=== PATIENT | female | born 1945 | race Caucasian/White ===

== ENCOUNTER → 2017-02-27 | Day surgery (SDC) | payer OTHER ==
[2017-02-10 15:37] VITALS: Ht 162.6 cm; Wt 85.9 kg
[~2017-02-27] VITALS: Ht 162.6 cm; Wt 85.9 kg
[~2017-02-27] MED LIST: AMLO-110 PO; ASPCH81X PO; CHOL20007 PO; CLON1TAB3 PO; CTP/1 PO; ESCI1TAB10 PO; FURO-85 PO; GABA-112 PO; IOPAMIDOL INJ 61% 15 ML VIAL ONE; LANS30CA12 PO; LIDOCAINE HCL 1% MPF 5 ML VIAL ONE; LOSA1TAB38 PO; MAGN400T6 PO; METF500T PO; NAPR-998 PO; NTRGSL/4 SL; NYST10PO TOP; PROP160C PO; RXC5 PO; SODIUM CHLORIDE 0.9% INJ 10 ML VIAL ONE; SPIR25TA PO
--- NOTE | 2017-02-27 13:35 | History & Physical Bridge - [place] ---
H&P Re-Evaluation Bridge Note: I have examined the patient, reviewed the History & Physical and in the interval since the performance of the History & Physical I have noted the following changes of clinical significance: No changes noted
--- NOTE | 2017-02-27 14:10 | Discharge Instructions ---
Discharge Instructions Date of Service February 27, 2017. Visit Reason for Visit: Lumbar Spinal Stenosis Discharge Discharge Diagnosis / Problem: right leg pain Discharge Goals Goal(s): Decrease discomfort, Improve function Medications Stopped Medications Name(s): ASA- last dose taken 02/20/17 Activity Recommendations Activity Limitations: resume your previous activity Anesthesia . Post Anesthesia Instructions: If you have had General Anesthesia or IV Sedation: * Do not drive today. * Resume driving when surgeon permits. * Do not make important decisions or sign legal documents today. * Call surgeon for: 1. Temperature elevations greater than 101 degrees F. 2. Uncontrollable pain. 3. Excessive bleeding. 4. Persistent nausea and vomiting. 5. Medication intolerance (nausea, vomiting or rash). * For nausea and vomiting use only clear liquids such as: tea, soda, bouillon until nausea subsides, then gradually increase diet as tolerated. * If you have any concerns or questions, call your surgeon's office. If physician is unavailable and it is an emergency, call 911 or go to the nearest emergency room. . Diet Recommendations Recommended Home Diet: resume previous diet Procedures Procedures Performed: Lumbar Epidural Steroid Injection Pending Studies Studies pending at discharge: no Medical Emergencies . Who to Call and When: Medical Emergencies: If at any time you feel your situation is an emergency, please call 911 immediately. . Non-Emergent Contact Non-Emergency issues call your: Specialist . . "Provider Documentation" section prepared by Quang Alonso. .
[2017-02-27 14:15] VITALS: BP 155/77; PULSE 66; O2SAT 95
--- NOTE | 2017-02-27 16:12 | OPERATIVE REPORT ---
DATE OF OPERATION: 02/27/2017 PREOPERATIVE DIAGNOSES: Severe lumbar spinal stenosis with right S1 radiculopathy and multilevel stenosis. POSTOPERATIVE DIAGNOSES: Same. PROCEDURE: Right paramedian L5-S1 intralaminar epidural steroid injection under fluoroscopic guidance. INDICATIONS: The patient is a 72-year-old white female that presents today for a lumbar epidural steroid injection for persistent right leg pain. She was found to have severe stenosis from my CAT scan of this region and felt to have a right S1 radiculopathy. She presents today for an injection to provide her with relief of her intractable leg pain. PHYSICAL EXAMINATION: The patient is having difficulty lying supine. She has increased pain radiating down the leg in the S1 dermatomal distribution. CONSENT: Verbal and written consent was obtained from the patient. Risks and benefits were reviewed. Risks include, but are not limited to epidural abscess, allergic reaction, and dural puncture. The patient wishes to proceed. DESCRIPTION OF PROCEDURE: The patient was taken back to the special procedures room of [facility]. She was maintained in a prone position. Backside was cleansed with Betadine x3 and a dry sterile dressing was applied. Fluoroscope was used to identify the L5-S1 intralaminar space, which was difficult as the patient was maintained in a 30-degree angle on the table because of intractable leg pain. Overlying skin was anesthetized on the right side at L5-S1 with 4 mL of lidocaine 1% with a 25-gauge 1-1/2-inch needle. A 22-gauge 3-1/2 inch Tuohy needle was then directed down towards the intralaminar space and advanced under lateral fluoroscopic guidance. Loss of resistance was noted at a depth of 6 cm. Isovue contrast was not utilized given her severe allergy. She then underwent injection after negative aspiration of 40 mg of Depo-Medrol, 4 mL of preservative free sodium chloride. Injection was difficult to tolerate because of increasing pain during the injection and a familiar radicular sensation down the leg. DISPOSITION: 1. The patient is taken out into the discharge recovery area, where she will be discharged home once discharge criteria have been met. 2. Follow up in the [facility] office in 2-4 weeks. I attest to the content of the Intraoperative Record and any orders documented therein. Any exceptio ns are noted below.
== END | disposition home or self-care (01) ==
LOC: X.SURG 12:44
PROVIDERS: ATTEND Physical Medicine & Rehabilitation
DX: M48.06 Spinal stenosis, lumbar region (principal); M54.18 Radiculopathy, sacral and sacrococcygeal region

== ENCOUNTER → 2017-04-23 | Outpatient (CLI) | payer OTHER ==
[~2017-04-23] MED LIST changes: -IOPAMIDOL INJ 61% 15 ML VIAL ONE; -LIDOCAINE HCL 1% MPF 5 ML VIAL ONE; -SODIUM CHLORIDE 0.9% INJ 10 ML VIAL ONE
--- NOTE | 2017-04-23 14:40 | DIAGNOSTIC IMAGING REPORT ---
LUMBAR SPINE W/O CONTRAST HISTORY:72 yearsFemaleSPINAL STENOSIS, LUMBAR REGION COMPARISON: Abdomen and pelvis CT 06/11/2016. TECHNIQUE: Sagittal T1, T2 and STIR with axial T1 and T2 noncontrast MR images of the lumbar spine were obtained. FINDINGS: 4 mm anterolisthesis of L3 on L4 is unchanged from CT dated 06/11/2016 and is likely on a degenerative basis as there is multilevel moderate to severe facet arthropathy. Disc desiccation is seen most prominently at the L4-L5 and L5-S1 levels. There is moderate to severe intervertebral disc space narrowing at L5-S1. The vertebral body heights are well-maintained without compression deformity. There is no acute fracture, marrow replacing process or focal bone marrow edema. The soft tissues within the paraspinal region appear to be unremarkable. No acute intra-abdominal or intrapelvic abnormality is seen. Conus medullaris terminates at the T12-L1 level. Signal within the cord is within normal limits. T11-T12; T12-L1: No central canal or foraminal narrowing on the sagittal imaging alone. L1-L2: No central canal or foraminal narrowing. Moderate facet arthropathy. L2-L3: Broad-based disc protrusion favoring the left lateral recess/left neuroforamen causes mild left lateral recess stenosis. The central canal and bilateral foramen appear patent. Moderate to severe facet arthropathy. L3-L4: Mild intervertebral disc space narrowing with circumferential annular disc bulge and severe facet arthropathy causes moderate central canal narrowing. The bilateral foramen appear patent. L4-L5: Circumferential annular disc bulge with superimposed annular fissure and central/right paracentral disc extrusion extends cephalad 8 mm resulting in mild central canal and moderate right lateral recess narrowing. There is also resultant mild bilateral foraminal narrowing. Severe facet arthropathy. L5-S1: Advanced intervertebral disc space narrowing with severe facet arthropathy and posterior spondylitic ridging is present resulting in moderate bilateral foraminal narrowing. No central canal stenosis. IMPRESSION: 1. At L4-L5 there is a circumferential annular disc bulge with superimposed annular fissure and central/right paracentral disc extrusion extending cephalad 8 mm resulting in mild central canal and moderate right lateral recess narrowing. 2. At L3-L4 mild intervertebral disc space narrowing with circumferential annular disc bulge and severe facet arthropathy causes moderate central canal narrowing. 3. No fracture or focal bone marrow edema. 4. 4 mm anterolisthesis of L3 on L4 is unchanged from CT dated 06/11/2016 and is likely secondary to underlying facet disease. The above report was generated using voice recognition software. It may contain grammatical, syntax or spelling errors. Electronically signed by: Doc Tinajero 04/23/2017 2:38 PM Dictated Date/Time: 04/23/2017 2:29 PM
== END | disposition home or self-care (01) ==
LOC: C.MRI 13:02
PROVIDERS: ATTEND Physical Medicine & Rehabilitation
DX: M48.06 Spinal stenosis, lumbar region (principal); M51.26 Other intervertebral disc displacement, lumbar region

== ENCOUNTER 2017-07-08 09:56 | Inpatient (IN) | payer OTHER ==
[2017-06-29 12:25] VITALS: BMI 33.0
--- NOTE | 2017-06-29 13:11 | PAT Medication Instructions ---
Service Date Jun 29, 2017. Current Home Medication List Amlodipine (Norvasc), 5 MG PO BID Aspirin (Aspirin Chewable), 81 MG PO HS Cholecalciferol (Vitamin D3), 5,000 TAB PO QAM Clonazepam (Klonopin), 1 MG PO HS Clonidine Hcl (Catapres), 0.1 MG PO BID Escitalopram Oxalate (Lexapro), 20 MG PO QAM Gabapentin (Neurontin), 200 MG PO BID Lansoprazole (Prevacid), 30 MG PO QAM Losartan Potassium (Cozaar), 100 MG PO QPM Magnesium Oxide (Mag-Ox), 400 MG PO QAM Metformin Hcl (Glucophage), 500 MG PO BID Naproxen Sodium-Diphenhydramin (Aleve Pm 220-25 mg), 2 TAB PO HS Nitroglycerin (Nitrostat), 1 TAB SL UD Nystatin (Topical) (Nystatin Foreign), 1 DOSE TOP BID PRN for RN Propranolol Hcl (Propranolol Hcl Er), 160 MG PO HS Spironolactone (Aldactone), 25 MG PO QAM Medication Instructions For Your Scheduled Surgery - Continue as directed: Nitroglycerin (Nitrostat), 1 TAB SL UD - Hold the following medications 7 days prior to surgery per surgeon's instructions: Naproxen Sodium-Diphenhydramin (Aleve Pm 220-25 mg), 2 TAB PO HS Aspirin (Aspirin Chewable), 81 MG PO HS (PLEASE CHECK WITH CARDIOLOGY) - Hold the following medications 48 hours prior to surgery: Metformin Hcl (Glucophage), 500 MG PO BID - Hold the following medications 24 hours prior to surgery: Nystatin (Topical) (Nystatin Foreign), 1 DOSE TOP BID PRN Losartan Potassium (Cozaar), 100 MG PO QPM - Hold the following medications the morning of surgery: Cholecalciferol (Vitamin D3), 5,000 TAB PO QAM Magnesium Oxide (Mag-Ox), 400 MG PO QAM Spironolactone (Aldactone), 25 MG PO QAM - Take the following medications the morning of surgery with a sip of water OTHERWISE NOTHING TO EAT OR DRINK AFTER MIDNIGHT: Amlodipine (Norvasc), 5 MG PO BID Lansoprazole (Prevacid), 30 MG PO QAM Clonidine Hcl (Catapres), 0.1 MG PO BID Gabapentin (Neurontin), 200 MG PO BID Escitalopram Oxalate (Lexapro), 20 MG PO QAM - Take the following medications as scheduled the night before surgery: Amlodipine (Norvasc), 5 MG PO BID Propranolol Hcl (Propranolol Hcl Er), 160 MG PO HS Clonazepam (Klonopin), 1 MG PO HS Clonidine Hcl (Catapres), 0.1 MG PO BID Gabapentin (Neurontin), 200 MG PO BID If you have any questions please call us at [phone] or [phone] or [phone]
[2017-06-29 14:27] LABS: BASO % 0.4 %; BASO ABS # 0.04 K/uL (0-0.2); COMPLETE YES; EOS % 1.5 %; HEMATOCRIT 39.6 % (37-47); IG% 0.6 %; LYMPH % 25.7 %; LYMPH ABS # 2.46 K/uL (1.2-3.4); MEAN CELL VOLUME 89.2 fL (80-100); MEAN CORPUSCULAR HEMOGLOBIN 30.4 pg (25-34); MEAN CORPUSCULAR HGB CONC 34.1 g/dl (32-36); MONO % 8.2 %; NEUT % 63.6 %; PLATELET COUNT 243 K/uL (130-400); RED BLOOD COUNT 4.44 M/uL (4.2-5.4); WHITE BLOOD COUNT 9.58 K/uL (4.8-10.8)
[2017-06-29 14:51] LABS: URINE APPEARANCE CLEAR (CLEAR); URINE BILIRUBIN NEG (NEG); URINE COLOR YELLOW; URINE NITRITE NEG (NEG); URINE SPECIFIC GRAVITY 1.014 (1.000-1.030); UROBILINOGEN NEG (NEG); ZZUR CULT IF INDIC CLEAN CATCH NO
[2017-06-29 15:08] LABS: MANUAL MICROSCOPIC REQUIRED? NO; REVIEW REQ? NO
[2017-06-29 15:12] LABS: BUN/CREATININE RATIO 13.3 (10-20); CALCIUM 9.5 mg/dl (8.5-10.1); CREATININE 0.99 mg/dl (0.60-1.20); POTASSIUM 4.4 mmol/L (3.5-5.1)
[2017-07-08] VITALS (9 sets, daily range): BP systolic 141–158; BP diastolic 68–79; PULSE 66–85; TEMP 36.3–36.6; O2SAT 92–96; BMI 33.0
[~2017-07-08] VITALS: Ht 162.6 cm; Wt 87.8 kg
[~2017-07-08 09:56] MED LIST changes: +CEFAZOLIN 2000 MG/60 ML D5W IV SCH; -FURO-85 PO; +LACTATED RINGER'S 1000ML 1,000 ML IV SCH; -RXC5 PO
[2017-07-08] MEDS ORDERED: ONDANSETRON INJ 2 MG/ML 2 ML VIAL IV PRN (11:00)
[2017-07-08] MEDS ORDERED: ATROPINE SULFATE 0.1 MG/ML 5ML SYR IV PRN (11:00)
[2017-07-08] MEDS ORDERED: EpHEDrine SULFATE INJ 50 MG/ML AMP IV PRN (11:00)
[2017-07-08] MEDS ORDERED: PROMETHAZINE HCL INJ 6.25 MG in SODIUM CHLORIDE 0.9% 50ML 50 ML IV PRN (11:00)
[2017-07-08] MEDS ORDERED: HYDROmorphone INJ 1 MG/ML SYR IV PRN (11:00)
[2017-07-08] MEDS ORDERED: FENTANYL CITRATE INJ 50 MCG/1 ML 2 ML VIAL IV PRN (11:00)
[2017-07-08] MEDS ORDERED: MIDAZOLAM HCL 1 MG/ML 2ML VIAL ONE (11:20)
[2017-07-08] MEDS ORDERED: FENTANYL CITRATE INJ 50 MCG/1 ML 2 ML VIAL ONE ×2 (11:20→12:16)
--- NOTE | 2017-07-08 11:21 | History and Physical ---
History & Physical Date Jul 08, 2017. Chief Complaint Back and leg pain History of Present Illness The patient is a 72 year old female with complaints of back and leg pain Past Medical/Surgical History Medical Problems: (1) Dehydration (2) History of diarrhea (3) HTN (hypertension) (4) Hypertensive cardiovascular disease (5) Vasovagal near-syncope (6) Vasovagal near-syncope (7) Vasovagal near-syncope (8) WPW (Xxcoo-Kfqcsmfzc-Wcqxl syndrome) Surgical Problems: (1) H/O cardiac radiofrequency ablation Additional History Hepatic Disease: No Endocrine Disorder: No Kidney Disease: No Hypertension: Yes Heart Disease: No Bleeding Tendencies: No Infectious Diseases: No Allergies Coded Allergies: Sulfa Antibiotics (Verified Allergy, Intermediate, "SULFA DRUGS": SWELLS, 06/29/17) Iodine (Verified Allergy, Mild, SWELLING, ITCHING,RED AND NAUSEA W/ CONTRAST DYE (FEEL FUNNY), 06/29/17) WITH SHELLFISH ALSO Eggs or Egg-derived Products (Verified Allergy, Unknown, DIARRHEA,ABD PAIN , 06/29/17) Iodinated Diagnostic Agents (Verified Allergy, Unknown, HOT FLASH AND RASH , 06/29/17) Shellfish (Verified Allergy, Unknown, SWELLING AND VOMITING, 06/29/17) Shrimp (Verified Allergy, Unknown, SWELLING AND NAUSEA WITH SHRIMP AND SHELLFISH, 06/29/17) Codeine (Verified Adverse Reaction, Unknown, VOMITING, 06/29/17) Egg (Verified Adverse Reaction, Unknown, DIARRHEA, 06/29/17) Home Medications Scheduled Amlodipine (Norvasc), 5 MG PO BID Aspirin (Aspirin Chewable), 81 MG PO HS Cholecalciferol (Vitamin D3), 5,000 TAB PO QAM Clonazepam (Klonopin), 1 MG PO HS Clonidine Hcl (Catapres), 0.1 MG PO BID Escitalopram Oxalate (Lexapro), 20 MG PO QAM Gabapentin (Neurontin), 200 MG PO BID Lansoprazole (Prevacid), 30 MG PO QAM Losartan Potassium (Cozaar), 100 MG PO QPM Magnesium Oxide (Mag-Ox), 400 MG PO QAM Metformin Hcl (Glucophage), 500 MG PO BID Naproxen Sodium-Diphenhydramin (Aleve Pm 220-25 mg), 2 TAB PO HS Nitroglycerin (Nitrostat), 1 TAB SL UD Propranolol Hcl (Propranolol Hcl Er), 160 MG PO HS Spironolactone (Aldactone), 25 MG PO QAM Scheduled PRN Nystatin (Topical) (Nystatin Foreign), 1 DOSE TOP BID PRN for RN Physical Examination Skin: warm/dry, no rash Eyes: normal inspection, EOMI, sclerae normal ENT: normal ENT inspection, pharynx normal Head: normocephalic, atraumatic Neck: supple, no adenopathy, trachea midline Respiratory/Chest: lungs clear, normal breath sounds, no respiratory distress Cardiovascular: regular rate, rhythm, no edema, no murmur Abdomen / GI: normal bowel sounds, non tender Back: normal inspection Extremities: normal inspection, normal range of motion Neurologic/Psych: no motor/sensory deficits, alert, normal reflexes, oriented x 3 Diagnosis Lumbar spinal stenosis with spondylolisthesis Plan of Treatment Lumbar decompression fusion L3 4 L4 5
[2017-07-08] MEDS ORDERED: BACITRACIN 50000 UNIT VIAL ONE (11:53)
[2017-07-08] MEDS ORDERED: BUPIVACAINE/EPINEPHRINE 0.5% MPF 1:200,000 30 ML VIAL ONE (11:53)
[2017-07-08] MEDS ORDERED: HYDROmorphone INJ 2 MG/ML SYR/VIAL ONE ×2 (12:16→13:31)
[2017-07-08] MEDS ORDERED: ONDANSETRON INJ 2 MG/ML 2 ML VIAL ONE ×2 (12:38→13:32)
[2017-07-08] MEDS ORDERED: PROPOFOL IV EMULSION 10 MG/ML 20 ML VIAL IV ONE (12:38)
[2017-07-08] MEDS ORDERED: EpHEDrine SULFATE 50MG/5ML SYR ONE ×2 (12:38)
[2017-07-08] MEDS ORDERED: DEXAMETHASONE SOD INJ 4 MG/ML VIAL ONE (12:38)
[2017-07-08] MEDS ORDERED: LIDOCAINE HCL 2% 2 ML VIAL (20MG/ML) ONE (12:38)
[2017-07-08] MEDS ORDERED: DURASEAL DURAL SEALANT 5ML TOP ONE ×2 (13:14→13:24)
[2017-07-08] MEDS ORDERED: FLOSEAL HEMOSTATIC MATRIX 10ML TOP ONE (13:23)
[2017-07-08] MEDS ORDERED: SODIUM CHLORIDE 0.9% 1000ML 1,000 ML IV SCH (13:27)
[2017-07-08] MEDS ORDERED: DO NOT ADMINISTER FLU VACCINE PRN ×3 (13:30)
[2017-07-08] MEDS ORDERED: MAGNESIUM HYDROXIDE SUSP 30 ML UDC PO PRN (13:30)
[2017-07-08] MEDS ORDERED: PROMETHAZINE HCL INJ 12.5 MG in SODIUM CHLORIDE 0.9% 50ML 50 ML IV PRN (13:30)
[2017-07-08] MEDS ORDERED: SOD PHOSPHATE/SOD BIPHOSPHATE ENEMA 132 ML BTL PR PRN (13:30)
[2017-07-08] MEDS ORDERED: ACETAMINOPHEN 500 MG TAB PO PRN (13:30)
[2017-07-08] MEDS ORDERED: LORAZEPAM 0.5 MG TAB PO PRN (13:30)
[2017-07-08] MEDS ORDERED: LORAZEPAM INJ 0.5 MG in SYRINGE 0 ML IV PRN (13:30)
[2017-07-08] MEDS ORDERED: ACETAMINOPHEN IV 100 ML IV PRN (13:30)
[2017-07-08] MEDS ORDERED: hydrOXYzine HCL 25 MG TAB PO PRN (13:30)
[2017-07-08] MEDS ORDERED: NALOXONE HCL 0.4 MG/1 ML VIAL/CARP IV PRN (13:30)
[2017-07-08] MEDS ORDERED: BISACODYL 10 MG SUPP PR PRN (13:30)
[2017-07-08] MEDS ORDERED: DO NOT ADMINISTER PNEUMOCOCCAL VACCINE PRN ×2 (13:30)
[2017-07-08] MEDS ORDERED: ALUMINUM/MAGNESIUM SUSP 30 ML UDC PO PRN (13:30)
[2017-07-08] MEDS ORDERED: FAMOTIDINE 20 MG TAB PO PRN (13:30)
[2017-07-08] MEDS ORDERED: METOCLOPRAMIDE HCL INJ 5 MG/ML 2 ML VIAL IV PRN (13:30)
[2017-07-08] MEDS ORDERED: NITROGLYCERIN 0.4 MG SL PER TAB CHARGE SL PRN (13:30)
[2017-07-08] MEDS ORDERED: NEOSTIGMINE METHYLSULFATE 1 MG/ML 10ML VIAL ONE (13:32)
[2017-07-08] MEDS ORDERED: GLYCOPYRROLATE INJ 0.2 MG/ML VIAL ONE (13:32)
--- NOTE | 2017-07-08 13:36 | [facility] Operative Report ---
Operative Report Operative Date Jul 08, 2017. Pre-Operative Diagnosis Lumbar spinal stenosis with spondylolisthesis Post-Operative Diagnosis Lumbar spinal stenosis with spondylolisthesis Procedure(s) Performed #1 lumbar decompression medial facetectomies L2-3 L3 4 L4 5. #2 posterior spinal fusion L3 4 L4 5. #3 placement posterior segmental instrumentation L3 4 L4 5. #4 placement of locally harvested morcellized autograft in the posterior lateral gutters. #5 placement infuse collagen sponge combined Master graft in the posterior lateral gutters. Surgeon Pharmacy Tech Surgeon(s) Bing Kebede PA-C Estimated Blood Loss 150ML Findings Severe spinal stenosis with dural ectasia Specimens None per surgeon Description of Procedure Patient was met with preoperatively case discussed all questions are dressed. After informed consent patient was taken to the operative suite and intubated and placed in a prone position the Salvador table on top of the Malachi frame. All bony prominences were well-padded and the eyes inspected to ensure no external pressure. Lumbar spines prepped and draped nostril fashion. Sharp dissection with the assistance of Bovie cautery was performed onto an exposing the lamina and transverse processes of L3 L4-L5 bilaterally. From a caudal to cephalad fashion a midline decompression removing L4 L3 and part of L2 lamina. As I approached the extreme lateral recesses noted marked adherence of the bone to the dura itself. Underneath of which we noted dural ectasia and deficits. A small dural bleb was identified. DuraSeal was used over the bleb to prevent any further CSF seepage. Pedicle screws were then placed in L3 L4-L5 bilaterally with assistance of fluoroscopy and the probably size jessie locked into place. A cross-link was locked in place. The transverse processes of L3 L4-L5 were then burred to subcortical bleeding bone. Infuse collagen sponge mask graft locally harvested morcellized autograft was placed and posterior gutters. Incision was then closed with 1 Vicryl in the fascia 2-0 Vicryl subcutaneously for Monocryl for final skin closure Steri-Strip sterile dressing placed patient we can taken to PACU stable condition. Please note Bing Soto was present at the entire procedure involved in patient positioning complex portions of the surgery and final skin closure. I attest to the content of the Intraoperative Record and any orders documented therein. Any exceptions are noted below.
--- NOTE | 2017-07-08 13:38 | DIAGNOSTIC IMAGING REPORT ---
INTRAOPERATIVE RADIOGRAPHS CLINICAL HISTORY: L3-L5 spinal fusion. Fluoroscopy time: 18 seconds. FINDINGS: 2 spot fluoroscopic views of the lumbar spine are presented. There are changes from L3 -L5 laminectomy and posterior fusion. Interpedicular screws are present at all levels. The orthopedic hardware appears intact. IMPRESSION: Intraoperative images from L3 -L5 spinal fusion as above. Electronically signed by: Fernando Bedolla M.D. 07/08/2017 1:36 PM Dictated Date/Time: 07/08/2017 1:31 PM
[2017-07-08] MEDS ORDERED: HYDROmorphone HCL 0.5MG/ML 50 ML CASSETTE ONE (13:54)
[2017-07-08] MEDS ORDERED: PHARMACY GLYCEMIC MGMT CONSULT PRN (13:55)
--- NOTE | 2017-07-08 14:44 | Anesthesiology Progress Note ---
Anesthesia Post Op Note Date & Time Jul 08, 2017 at 14:43 Vital Signs Pain Intensity: 3 Vital Signs Past 12 Hours Date Time Temp Pulse Resp B/P (MAP) Pulse Ox O2 Delivery O2 Flow Rate FiO2 07/08/17 14:35 71 13 163/72 92 Nasal Cannula 4 07/08/17 14:25 36.2 75 15 165/77 93 Nasal Cannula 4 07/08/17 14:15 67 13 149/71 95 Oxymask 10 07/08/17 14:05 68 13 155/76 96 Oxymask 10 07/08/17 13:55 70 15 163/80 95 Oxymask 10 07/08/17 13:48 36.3 66 14 159/78 92 Oxymask 10 07/08/17 10:16 36.5 66 20 154/68 Room Air 96 Notes Mental Status: alert / awake / arousable, participated in evaluation Pt Amnestic to Procedure: Yes Nausea / Vomiting: adequately controlled Pain: adequately controlled Airway Patency, RR, SpO2: stable & adequate BP & HR: stable & adequate Hydration State: stable & adequate Anesthetic Complications: no major complications apparent
[2017-07-08] MEDS ORDERED: DEXTROSE 50% 50 ML SYR IV PRN (14:45)
[2017-07-08] MEDS ORDERED: GLUCAGON FOR INJ 1 MG VIAL SQ PRN (14:45)
[2017-07-08] MEDS ORDERED: GLUCOSE 10 TABS/TUBE PO PRN (14:45)
[2017-07-08] MEDS ORDERED: GLUCOSE 40% GEL 15 GM TUBE PO PRN (14:45)
--- NOTE | 2017-07-08 14:55 | Pharmacy Progress Note ---
Glycemic Control Intl Consult Date of Service Jul 08, 2017. Scope Glycemic Pharmacist consulted by Dr Harris on 07/08/17 for glycemic control and to write orders per [facility] inpatient glycemic control protocol Objective Weight (Kilograms): 87.80 Accuchecks BSG (last 24hrs): Test 07/08/17 13:55 Bedside Glucose 135 mg/dl (70-90) Recent Pertinent Medications Outpatient Anti-diabetic Regimen: * Metformin 500 mg PO BID * A1c = unknown - ordered for tomorrow Risk Factors for Insulin Resistance: * Steroids: Dexamethasone 12 mg in OR, then 6 mg IV x 24 hours * Recent Surgery: POD #0 lumbar decompression and fusion * Diet: T2DM Assessment & Plan ASSESSMENT: * 72 yr old female admitted for lumbar decompression and fusion. Ordered high dose IV steroids post-operatively. * Pt is maintained on oral antidiabetic agents as an outpatient * Will hold oral agents for admission and utilize SQ basal bolus insulin regimen which is the recommended regimen for inpatient glycemic control. * Will initiate weight based insulin dosing for insulin ana laura patient and titrate based on BSG trends. * POD #0 doses will be based on weight/stress of 3 * ADA & AACE recommend a goal blood sugar range 140-180 mg/dl for the majority of critically ill & non-critically ill patients. However, more stringent targets may be selected in individual cases. Will utilize more stringent goal of 110-140mg/dl based on patient age & comorbidities. Additionally, tighter glycemic control is warranted to facilitate wound/infection healing. PLAN FOR INPATIENT GLYCEMIC CONTROL: * Holding outpatient oral diabetes medications * Basal insulin * Lantus 40 units SQ today with dinner * Further Lantus ordered to be determined 07/09 am * Correctional Insulin with NOVOLOG per scale ACHS * Goal Range: Low 110 mg/dL - High 140 mg/dL * Correction Factor: 20 mg/dL/unit * Nutritional / Prandial insulin per carb ratio of 1 unit per 6 grams CHO consumed * Add overnight checks with coverage at 00 and 04 * Please note that the plan above was derived based on current level of insulin resistance and hospital stress. These recommendations are appropriate for inpatient admission only. Plan of care upon discharge will need to be reassessed to avoid potential outpatient hypo/hyperglycemia. Thank you.
[2017-07-08] MEDS: HYDROmorphone HCL 0.5MG/ML 50 ML CASSETTE IV PRN ×2 (15:00→23:02)
[2017-07-08] MEDS: ONDANSETRON INJ 2 MG/ML 2 ML VIAL IV PRN (15:27)
[2017-07-08] MEDS: SODIUM CHLORIDE 0.9% 1000ML 1,000 ML IV SCH ×2 (16:29→22:39)
[2017-07-08] MEDS ORDERED: INSULIN GLARGINE SOLOSTAR 100 UNITS/ML 3 ML PEN SC SCH (16:30)
[2017-07-08] MEDS: DEXAMETHASONE INJ 6 MG in SYRINGE 0 ML IV SCH (16:43)
[2017-07-08] MEDS: CEFAZOLIN IV 2,000 MG in DEXTROSE 5% 50ML 50 ML IV SCH (19:22)
[2017-07-08] MEDS: INSULIN ASPART 100 UNITS/ML 3 ML PEN SC SCH ×2 (19:34→22:42)
[2017-07-08] MEDS: PROPRANOLOL HCL 80 MG LA CAP PO SCH (22:28)
[2017-07-08] MEDS: GABAPENTIN 100 MG CAP PO SCH (22:29)
[2017-07-08] MEDS: CLONIDINE HCL 0.1 MG TAB PO SCH (22:30)
[2017-07-08] MEDS: ASPIRIN 81 MG ECTAB PO SCH (22:35)
[2017-07-08] MEDS: AMLODIPINE BESYLATE 5 MG TAB PO SCH (22:35)
[2017-07-08] MEDS: DOCUSATE SODIUM/SENNA 50/8.6MG TAB PO SCH (22:36)
[2017-07-08] MEDS: LOSARTAN POTASSIUM 50 MG TAB PO SCH (22:36)
[2017-07-08] MEDS: CLONAZEPAM 1 MG TAB PO SCH (22:39)
[2017-07-09] VITALS (7 sets, daily range): BP systolic 111–141; BP diastolic 57–68; PULSE 58–69; TEMP 36.3–36.6; O2SAT 87–95; BMI 33.2
[2017-07-09] MEDS: DEXAMETHASONE INJ 6 MG in SYRINGE 0 ML IV SCH ×2 (00:01→07:30)
[2017-07-09] MEDS: INSULIN ASPART 100 UNITS/ML 3 ML PEN SC SCH ×6 (00:11→21:20)
[2017-07-09] MEDS: SODIUM CHLORIDE 0.9% 1000ML 1,000 ML IV SCH (02:11)
[2017-07-09] MEDS: CEFAZOLIN IV 2,000 MG in DEXTROSE 5% 50ML 50 ML IV SCH (02:11)
[2017-07-09] MEDS ORDERED: NALOXONE HCL 0.4 MG/1 ML VIAL/CARP IV PRN (06:00)
[2017-07-09] MEDS ORDERED: DC PCA SCH (06:00)
[2017-07-09] MEDS ORDERED: NURSING VERBAL MED ORDER ONE (07:00)
[2017-07-09] MEDS: PANTOprazole SOD 40 MG TAB PO SCH (07:30)
[2017-07-09] MEDS: HYDROmorphone INJ 0.5 MG/0.5 ML SYR IV PRN ×3 (07:42→19:58)
[2017-07-09 07:55] LABS: BASO ABS # 0.01 K/uL (0-0.2); COMPLETE YES; HEMATOCRIT 38.6 % (37-47); IG% 0.6 %; LYMPH ABS # 1.32 K/uL (1.2-3.4); MEAN CELL VOLUME 89.4 fL (80-100); MEAN CORPUSCULAR HEMOGLOBIN 29.2 pg (25-34); MEAN CORPUSCULAR HGB CONC 32.6 g/dl (32-36); MEAN PLATELET VOLUME 10.3 fL (7.4-10.4); MONO % 6.5 %; NEUT % 86.9 %; PLATELET COUNT 234 K/uL (130-400); RED BLOOD COUNT 4.32 M/uL (4.2-5.4); WHITE BLOOD COUNT 22.15 K/uL (4.8-10.8)
[2017-07-09 08:24] LABS: BUN/CREATININE RATIO 15.3 (10-20); CALCIUM 8.9 mg/dl (8.5-10.1); CREATININE 0.94 mg/dl (0.60-1.20); POTASSIUM 4.4 mmol/L (3.5-5.1)
[2017-07-09 08:35] LABS: ESTIMATED AVERAGE GLUCOSE 154 mg/dl; HA1C FLAG Normal (Normal)
[2017-07-09] MEDS ORDERED: INSULIN GLARGINE SOLOSTAR 100 UNITS/ML 3 ML PEN SC SCH ×2 (09:00→21:00)
[2017-07-09] MEDS: GABAPENTIN 100 MG CAP PO SCH ×2 (09:25→21:23)
[2017-07-09] MEDS: AMLODIPINE BESYLATE 5 MG TAB PO SCH ×2 (09:25→21:22)
[2017-07-09] MEDS: CLONIDINE HCL 0.1 MG TAB PO SCH ×2 (09:25→21:23)
[2017-07-09] MEDS: ESCITALOPRAM OXALATE 20 MG TAB PO SCH (09:26)
[2017-07-09] MEDS: MAGNESIUM OXIDE 400 MG TAB PO SCH (09:26)
[2017-07-09] MEDS: SPIRONOLACTONE 25 MG TAB PO SCH (09:26)
--- NOTE | 2017-07-09 09:49 | Pharmacy Progress Note ---
Glycemic Control Progress Note Date of Service Jul 09, 2017. Scope Glycemic Pharmacist consulted for glycemic control to write orders per [facility] inpatient glycemic control protocol. Objective Accuchecks BSG (last 24hrs): Test 07/08/17 13:55 07/09/17 04:03 07/09/17 07:15 07/09/17 08:13 Bedside Glucose 135 mg/dl (70-90) 211 mg/dl (70-90) 188 mg/dl (70-90) Random Glucose 204 mg/dl (70-99) HbA1c: Test 07/09/17 07:15 Hemoglobin A1c 7.0 % (4.5-5.6) H Recent Pertinent Medications Current inpatient Anti-diabetic Regimen: * Basal insulin: Held * Correctional Insulin with NOVOLOG per scale ACHS * Goal Range: Low 110 mg/dL - High 140 mg/dL * Correction Factor: 20 mg/dL/unit * Nutritional / Prandial insulin per carb ratio of 1 unit per 6 grams CHO consumed * Add overnight checks with coverage at 00 and 04 Risk Factors for Insulin Resistance: * Steroids: Dexamethasone 12 mg in OR, then 6 mg IV x 24 hours * Recent Surgery: POD #1 lumbar decompression and fusion * Diet: T2DM Outpatient Anti-Diabetic Meds Oral Agents * Metformin 500 mg PO BID Assessment & Plan ASSESSMENT: * See progress note from 07/08/17 for more background info, in short: * Pt receiving SQ basal bolus insulin regimen for hyperglycemia secondary to baseline DM (outpatient regimen on hold), recent surgery, & steroids * Last dose of Dexamethasone IV given this morning @ 0800 * Patient has received 8 units of insulin since surgery * 0 units of basal insulin * 8 units of prandial/correctional insulin * BSGs ranging 135 - 211 mg/dl over the past 24hrs * Changes needed to insulin regimen: * AM Fasting BSG = 188 mg/dl. This is above goal range and due to lack of basal insulin. Patient was ordered Lantus 40 units to be given yesterday with dinner. This was held due to patient reporting nausea and minimal PO intake post -operatively (Pharmacist gave Nurse the order to hold). Despite poor appetite, patient would benefit from basal insulin while on high dose IV steroids. Will given one time dose of Lantus this morning. * Post-prandial BSGs are elevated. Tighten CF/CR. Will need to back off parameters 07/10 am since patient received last dose of steroids this morning. PLAN FOR INPATIENT GLYCEMIC CONTROL: * Oral Agents * Continue to hold metformin due to poor PO intake * Basal insulin * Lantus 20 units SQ qam x 1 * Lantus 10 units SQ HS if BSG is 180 mg/dL or greater * Bolus insulin * NovoLog per scale ACHS or Q6hrs * Goal Range: Low 110 mg/dL - High 140 mg/dL * Correction Factor: 18 mg/dL/unit * Nutritional / Prandial insulin per carb ratio of 1 unit per 6 grams CHO consumed DISCHARGE RECOMMENDATIONS: * A1c 7% * Recommend continuing metformin on discharge and titrating to goal of 1000 mg PO BID * Increase dose as tolerated by 500 mg per week. Administer with food to limit GI side effects. * Please note that the plan above was derived based on current level of insulin resistance and hospital stress. These recommendations are appropriate for inpatient admission only. Plan of care upon discharge will need to be reassessed to avoid potential outpatient hypo/hyperglycemia. Thank you.
--- NOTE | 2017-07-09 10:04 | Anesthesiology Progress Note ---
Anesthesia Post Op Note Date & Time Jul 09, 2017 at 10:03 Vital Signs Pain Intensity: 10.0 Vital Signs Past 12 Hours Date Time Temp Pulse Resp B/P (MAP) Pulse Ox O2 Delivery O2 Flow Rate FiO2 07/09/17 07:50 36.5 67 17 141/68 (92) 93 Nasal Cannula 2.0 07/09/17 06:29 92 Nasal Cannula 2.0 07/08/17 23:55 Nasal Cannula 4.0 07/08/17 22:50 36.6 85 16 158/79 (105) 96 Nasal Cannula 4.0 07/08/17 22:20 76 150/76 (100) Notes Mental Status: alert / awake / arousable, participated in evaluation Pt Amnestic to Procedure: Yes Nausea / Vomiting: adequately controlled Pain: adequately controlled Airway Patency, RR, SpO2: stable & adequate BP & HR: stable & adequate Hydration State: stable & adequate Anesthetic Complications: no major complications apparent
--- NOTE | 2017-07-09 11:54 | Progress Note ---
Progress Note Date of Service Jul 09, 2017. Progress Note Patient's back pain is controlled. She is denying any leg pain any headaches nausea vomiting or photophobia. Vital signs are stable. On exam she is good strength testing. Assessment status post lumbar decompression fusion. Plan at this time we will sit her up in bed to eat and from medications otherwise have her lie flat. Most likely pending her progress initiate transfers from bed to chair starting Thursday.
[2017-07-09] MEDS: OXYCODONE HCL IR 5 MG TAB (IMMEDIATE RELEASE) PO PRN (18:37)
[2017-07-09] MEDS: CLONAZEPAM 1 MG TAB PO SCH (21:21)
[2017-07-09] MEDS: ASPIRIN 81 MG ECTAB PO SCH (22:09)
[2017-07-09] MEDS: DOCUSATE SODIUM/SENNA 50/8.6MG TAB PO SCH (22:09)
[2017-07-09] MEDS: LOSARTAN POTASSIUM 50 MG TAB PO SCH (22:09)
[2017-07-09] MEDS: PROPRANOLOL HCL 80 MG LA CAP PO SCH (22:41)
[2017-07-10] MEDS ORDERED: INSULIN ASPART 100 UNITS/ML 3 ML PEN SC SCH (02:00)
[2017-07-10] MEDS: HYDROmorphone INJ 0.5 MG/0.5 ML SYR IV PRN ×6 (03:03→21:38)
[2017-07-10] MEDS: POLYETHYLENE (MIRALAX) 17 GM PACK PO SCH ×3 (06:00→19:12)
[2017-07-10 07:49] VITALS: BP 117/65; PULSE 54; TEMP 36.8; O2SAT 93
[2017-07-10] MEDS: PANTOprazole SOD 40 MG TAB PO SCH (08:38)
[2017-07-10] MEDS: SPIRONOLACTONE 25 MG TAB PO SCH (08:39)
[2017-07-10] MEDS: ESCITALOPRAM OXALATE 20 MG TAB PO SCH (08:39)
[2017-07-10] MEDS: MAGNESIUM OXIDE 400 MG TAB PO SCH (08:40)
[2017-07-10] MEDS: INSULIN ASPART 100 UNITS/ML 3 ML PEN SC SCH ×4 (08:45→21:21)
[2017-07-10] MEDS: AMLODIPINE BESYLATE 5 MG TAB PO SCH ×2 (09:14→21:27)
[2017-07-10] MEDS: CLONIDINE HCL 0.1 MG TAB PO SCH ×2 (09:15→21:26)
[2017-07-10] MEDS: GABAPENTIN 100 MG CAP PO SCH ×2 (09:15→21:27)
[2017-07-10] MEDS ORDERED: INSULIN GLARGINE SOLOSTAR 100 UNITS/ML 3 ML PEN SC ONE (09:15)
--- NOTE | 2017-07-10 16:01 | Progress Note ---
Progress Note Date of Service Jul 10, 2017. Progress Note Patient is complaining of back pain only. She denies any headaches nausea or vomiting. She is tolerating a diet without difficulty. She sitting up in bed without difficulty. On exam she is good strength testing appears comfortable. Assessment status post lumbar decompression fusion. Planned this time we will initiate bed to chair. Reassess in the a.m. anticipate formal physical therapy consult this weekend.
[2017-07-10 16:10] VITALS: BP 127/70; PULSE 59; TEMP 36.7; O2SAT 94
[2017-07-10 21:20] VITALS: BP 156/77; PULSE 68
[2017-07-10] MEDS: CLONAZEPAM 1 MG TAB PO SCH (21:26)
[2017-07-10] MEDS: PROPRANOLOL HCL 80 MG LA CAP PO SCH (21:28)
[2017-07-10] MEDS: DOCUSATE SODIUM/SENNA 50/8.6MG TAB PO SCH (21:28)
[2017-07-10] MEDS: ASPIRIN 81 MG ECTAB PO SCH (21:28)
[2017-07-10] MEDS: LOSARTAN POTASSIUM 50 MG TAB PO SCH (21:29)
[2017-07-10 23:22] VITALS: BP 146/72; PULSE 67; TEMP 36.9; O2SAT 93
[2017-07-11] VITALS (11 sets, daily range): BP systolic 147–187; BP diastolic 72–78; PULSE 63–76; TEMP 36.4–37.1; O2SAT 87–99
[2017-07-11] MEDS: HYDROmorphone INJ 0.5 MG/0.5 ML SYR IV PRN ×4 (00:54→15:52)
[2017-07-11] MEDS: OXYCODONE HCL IR 5 MG TAB (IMMEDIATE RELEASE) PO PRN ×2 (03:33→21:28)
[2017-07-11] MEDS: POLYETHYLENE (MIRALAX) 17 GM PACK PO SCH ×4 (06:17→19:23)
[2017-07-11] MEDS: ESCITALOPRAM OXALATE 20 MG TAB PO SCH (09:31)
[2017-07-11] MEDS: GABAPENTIN 100 MG CAP PO SCH ×2 (09:31→23:13)
[2017-07-11] MEDS: AMLODIPINE BESYLATE 5 MG TAB PO SCH ×2 (09:31→23:12)
[2017-07-11] MEDS: PANTOprazole SOD 40 MG TAB PO SCH (09:31)
[2017-07-11] MEDS: SPIRONOLACTONE 25 MG TAB PO SCH (09:32)
[2017-07-11] MEDS: MAGNESIUM OXIDE 400 MG TAB PO SCH (09:32)
[2017-07-11] MEDS: CLONIDINE HCL 0.1 MG TAB PO SCH ×2 (09:32→23:12)
[2017-07-11] MEDS: INSULIN ASPART 100 UNITS/ML 3 ML PEN SC SCH ×3 (09:36→19:21)
[2017-07-11] MEDS ORDERED: DEXAMETHASONE SOD INJ 10 MG/ML VIAL IV ONE (11:00)
[2017-07-11] MEDS ORDERED: INSULIN GLARGINE SOLOSTAR 100 UNITS/ML 3 ML PEN SC ONE ×2 (11:15→14:00)
[2017-07-11] MEDS ORDERED: DEXAMETHASONE INJ 10 MG in SYRINGE 0 ML IV ONE (11:15)
[2017-07-11] MEDS ORDERED: ACETAMINOPHEN IV 100 ML IV PRN (12:45)
--- NOTE | 2017-07-11 13:59 | Pharmacy Progress Note ---
Glycemic Control Progress Note Date of Service Jul 11, 2017. Scope Glycemic Pharmacist consulted for glycemic control to write orders per [facility] inpatient glycemic control protocol. Objective Accuchecks BSG (last 24hrs): Test 07/10/17 17:23 07/10/17 20:52 07/11/17 08:21 07/11/17 11:58 Bedside Glucose 132 mg/dl (70-90) 141 mg/dl (70-90) 155 mg/dl (70-90) 180 mg/dl (70-90) HbA1c: Test 07/09/17 07:15 Hemoglobin A1c 7.0 % (4.5-5.6) H Recent Pertinent Medications The patient is currently receiving: * Correctional Insulin: Novolog Correction per scale ACHS Goal Range: Low 110 mg/dL - High 140 mg/dL Correction Factor: 25 mg/dL/unit * Prandial insulin: Per carb ratio of 1 unit per 7 grams CHO consumed Outpatient Anti-Diabetic Meds Oral Agents Assessment & Plan ASSESSMENT: * Pt receiving SQ basal bolus insulin regimen for hyperglycemia secondary to baseline DM (outpatient regimen on hold), recent surgery, & steroids * Last dose of Dexamethasone IV given 07/09/17 in the AM * Insulin has been titrated nicely since steroids have stopped, and BSGs have remained within goal range * MD decided to add high dose IV dexamethasone back to regimen which changes current plan * Re-tighten Novolog and add back wt based/stress of 3 Lantus * Hopeful patient responds similarly to 48 hours ago and can remain on SQ basal/ bolus versus drip PLAN FOR INPATIENT GLYCEMIC CONTROL: * Oral Agents * Continue to hold outpatient oral diabetes medications. * Basal insulin * Lantus SQ BID based on BSG * 22 units X 1 now, then between 8-22 units depending on BSG (wt based recommendations) * Bolus insulin * NovoLog per scale ACHS or Q6hrs while NPO * Goal Range: Low 110 mg/dL - High 140 mg/dL * Correction Factor: 15 mg/dL/unit * Nutritional / Prandial insulin per carb ratio of 1 unit per 5 grams CHO consumed * Please note that the plan above was derived based on current level of insulin resistance and hospital stress. These recommendations are appropriate for inpatient admission only. Plan of care upon discharge will need to be reassessed to avoid potential outpatient hypo/hyperglycemia. Thank you.
--- NOTE | 2017-07-11 16:43 | Medical Consult ---
Consultation Date of Consultation: Jul 11, 2017. Attending Physician: Quang Harris D.O. Reason for Consultation: HTN management History of Present Illness 72 yo F underwent elective L3-5 decompression and fusion surgery on 07/08/17 in this hospital. Since that time she has been recovering well. Today, however, she developed a worsening of her back pain and a spike in her blood pressure. She does have a h/o labile HTN and is on multiple agents to reduce her pressure including amlodipine, clonidine, losartan, propanolol and aldactone. She is very sleepy from dilaudid given earlier today but is answering questions appropriately although she is frequently falling asleep. She states the pain seems to be moreso in her R hip where she has a h/o arthritis. The patient just began a PT regimen last night and reports more pain in the hip/back since that time. She recently returned from MRI and although she reports severe pain , she is falling asleep and her BP came down into the 140s systolic. Daughter also states that the patient's is also a stressor because he suffers from cognitive and behavioral issues and has a h/o aggression. Daughter states that he has convinced her mother that she should not go to rehab, however, daughter thinks this would be an unsafe environment for her mother in the short- term. Daughter has medical POA. 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 She denies any shortness of breath and is on oxygen and continuous pulse oximetry only as a precaution after heavy narcotic dose. Past Medical/Surgical History Medical Problems: (1) Contrast media allergy Status: Chronic (2) GERD (gastroesophageal reflux disease) Status: Chronic (3) H/O Clostridium difficile infection Status: Chronic (4) H/O: rheumatic fever Status: Chronic (5) Hemorrhoids Status: Chronic (6) Hepatic steatosis Status: Chronic (7) History of diarrhea Status: Chronic (8) HTN (hypertension) Status: Chronic (9) Labile hypertension Status: Chronic (10) LVH (left ventricular hypertrophy) Status: Chronic (11) Nonobstructive atherosclerosis of coronary artery Permanent Comment: Per cardiac cath May 2016 Status: Chronic (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 Surgical Problems: (1) H/O cardiac radiofrequency ablation Status: Resolved (2) History of bladder surgery Status: Chronic (3) History of herniorrhaphy Status: Chronic (4) S/P foot surgery Status: Chronic (5) S/P partial colectomy Status: Chronic (6) S/P ROMAN-BSO Status: Chronic Family History FH: CAD (coronary artery disease) FH: HTN (hypertension) FH: diabetes mellitus FH: prostate cancer FH: stroke Social History Smoking Status: Former Smoker Smokeless Tobacco Use: No Alcohol Use: none Drug Use: none Marital Status: Housing Status: lives with significant other Occupation Status: retired Allergies Coded Allergies: Sulfa Antibiotics (Verified Allergy, Intermediate, "SULFA DRUGS": SWELLS, 06/29/17) Iodine (Verified Allergy, Mild, SWELLING, ITCHING,RED AND NAUSEA W/ CONTRAST DYE (FEEL FUNNY), 06/29/17) WITH SHELLFISH ALSO Eggs or Egg-derived Products (Verified Allergy, Unknown, DIARRHEA,ABD PAIN , 06/29/17) Iodinated Diagnostic Agents (Verified Allergy, Unknown, HOT FLASH AND RASH , 06/29/17) Shellfish (Verified Allergy, Unknown, SWELLING AND VOMITING, 06/29/17) Shrimp (Verified Allergy, Unknown, SWELLING AND NAUSEA WITH SHRIMP AND SHELLFISH, 06/29/17) Codeine (Verified Adverse Reaction, Unknown, VOMITING, 06/29/17) Egg (Verified Adverse Reaction, Unknown, DIARRHEA, 06/29/17) Home Medications Active Reported Aleve Pm 220-25 mg (Naproxen Sodium-Diphenhydramin) 1 Tab Tab 2 Tab PO HS Vitamin D3 (Cholecalciferol) 2,000 Unit Tab 5,000 Tab PO QAM 90 Days Prevacid (Lansoprazole) 30 Mg Capcr 30 Mg PO QAM Nystatin Foreign (Nystatin (Topical)) 1 Pow Pow 1 Dose TOP BID PRN Aldactone (Spironolactone) 25 Mg Tab 25 Mg PO QAM Mag-Ox (Magnesium Oxide) 400 Mg Tab 400 Mg PO QAM Lexapro (Escitalopram Oxalate) 20 Mg Tab 20 Mg PO QAM Catapres (Clonidine Hcl) 0.1 Mg Tab 0.1 Mg PO BID Klonopin (Clonazepam) 1 Mg Tab 1 Mg PO HS Cozaar (Losartan Potassium) 100 Mg Tab 100 Mg PO QPM Glucophage (Metformin Hcl) 500 Mg Tab 500 Mg PO BID Neurontin (Gabapentin) 100 Mg Cap 200 Mg PO BID Propranolol Hcl Er (Propranolol Hcl) 160 Mg Cap 160 Mg PO HS Norvasc (Amlodipine Besylate) 5 Mg Tab 5 Mg PO BID Nitrostat (Nitroglycerin) 0.4 Mg Tab 1 Tab SL UD Aspirin Chewable (Aspirin) 81 Mg Chew 81 Mg PO HS Current Inpatient Medications Current Inpatient Medications Medications (Trade) Dose Ordered Sig/Charisse Route Start Time Stop Time Status Last Admin Dose Admin Promethazine HCl 12.5 mg/Sodium Chloride 50.5 ml @ 202 mls/hr Q6H PRN IV 07/08/17 13:30 08/07/17 13:29 Ondansetron HCl (Zofran Inj) 4 mg Q6H PRN IV 07/08/17 13:30 08/07/17 13:29 07/08/17 15:27 4 MG Metoclopramide HCl (Reglan Inj) 10 mg Q6H PRN IV 07/08/17 13:30 08/07/17 13:29 Lorazepam (Ativan Tab) 0.5 mg Q8H PRN PO 07/08/17 13:30 08/07/17 13:29 Lorazepam 0.5 mg/ Syringe 0.25 ml @ 1 mls/min Q8H PRN IV 07/08/17 13:30 08/07/17 13:29 07/11/17 11:25 1 MLS/MIN Pneumococcal Polysaccharide Vaccine 1 ea PRN PRN N/A 07/08/17 13:30 08/07/17 13:29 Influenza Virus Vacc Triv Types A&B 1 ea PRN PRN N/A 07/08/17 13:30 08/07/17 13:29 Polyethylene (Miralax Powder Packet) 17 gm Q6 PO 07/10/17 06:00 08/09/17 05:59 07/11/17 06:17 17 GM Bisacodyl (Dulcolax Supp) 10 mg DAILY PRN IA 07/08/17 13:30 08/07/17 13:29 Magnesium Hydroxide (Milk Of Magnesia Susp) 30 ml DAILY PRN PO 07/08/17 13:30 08/07/17 13:29 Hydromorphone HCl (Dilaudid Inj) 0.5-1mg prn moder... Q3H PRN IV 07/09/17 06:00 07/23/17 05:59 07/11/17 15:52 0.5 MG Oxycodone HCl (Roxicodone Immediate Rel Tab) 5-10mg prn moderate to sev... Q4H PRN PO 07/09/17 06:00 07/23/17 05:59 07/11/17 03:33 10 MG Acetaminophen (Tylenol Tab) 1,000 mg Q8H PRN PO 07/08/17 13:30 08/07/17 13:29 07/09/17 16:54 1,000 MG Acetaminophen 100 ml @ 400 mls/hr Q8H PRN IV 07/08/17 13:30 08/07/17 13:29 07/09/17 07:42 400 MLS/HR Naloxone HCl (Narcan Inj) 0.1 mg Q5M PRN IV 07/09/17 06:00 08/08/17 05:59 Senna/Docusate Sodium (Senokot S Tab) 2 tab HS PO 07/08/17 21:00 08/07/17 20:59 07/10/17 21:28 2 TAB Sodium Biphosphate/ Sodium Phosphate (Fleet Enema) 132 ml ONE PRN IA 07/08/17 13:30 08/07/17 13:29 Hydroxyzine HCl (Vistaril Tab) 25 mg Q8H PRN PO 07/08/17 13:30 08/07/17 13:29 Al Hydroxide/Mg Hydroxide (Maalox Susp) 30 ml Q6H PRN PO 07/08/17 13:30 08/07/17 13:29 Famotidine (Pepcid Tab) 20 mg Q12 PRN PO 07/08/17 13:30 08/07/17 13:29 Diphenhydramine HCl (Benadryl Cap) 25 mg Q6H PRN PO 07/08/17 13:30 08/07/17 13:29 Amlodipine Besylate (Norvasc Tab) 5 mg BID PO 07/08/17 21:00 08/07/17 20:59 07/11/17 09:31 5 MG Aspirin (Ecotrin Tab) 81 mg HS PO 07/08/17 21:00 08/07/17 20:59 07/10/17 21:28 81 MG Clonazepam (Klonopin Tab) 1 mg HS PO 07/08/17 21:00 08/07/17 20:59 07/10/17 21:26 1 MG Clonidine HCl (Catapres Tab) 0.1 mg BID PO 07/08/17 21:00 08/07/17 20:59 07/11/17 09:32 0.1 MG Escitalopram Oxalate (Lexapro Tab) 20 mg QAM PO 07/09/17 09:00 08/08/17 08:59 07/11/17 09:31 20 MG Gabapentin (Neurontin Cap) 200 mg BID PO 07/08/17 21:00 08/07/17 20:59 07/11/17 09:31 200 MG Losartan Potassium (coZAAR TAB) 100 mg QPM PO 07/08/17 21:00 08/07/17 20:59 07/10/17 21:29 100 MG Magnesium Oxide (Mag-Ox Tab) 400 mg QAM PO 07/09/17 09:00 08/08/17 08:59 07/11/17 09:32 400 MG Nitroglycerin (Nitrostat Tab) 0.4 mg Q5M PRN SL 07/08/17 13:30 08/07/17 13:29 Spironolactone (Aldactone Tab) 25 mg QAM PO 07/09/17 09:00 08/08/17 08:59 07/11/17 09:32 25 MG Pantoprazole Sodium (Protonix Tab) 40 mg QAM PO 07/09/17 09:00 08/08/17 08:59 07/11/17 09:31 40 MG Propranolol HCl (Inderal LA Cap) 160 mg HS PO 07/08/17 21:00 08/07/17 20:59 07/10/17 21:28 160 MG Miscellaneous Information (Consult Glycemic Management Pharmacy) 1 ea UD PRN N/A 07/08/17 13:55 08/07/17 13:54 Insulin Aspart (novoLOG ASPART) *SLIDING SCALE G... ACHS SC 07/08/17 17:15 08/07/17 17:14 07/11/17 13:19 3 UNITS Glucose (Glucose 40% Gel) 15-30 GRAMS 15 GRAMS... UD PRN PO 07/08/17 14:45 08/07/17 14:44 Glucose (Glucose Chew Tab) 4-8 Tablets 4 Tabl... UD PRN PO 07/08/17 14:45 08/07/17 14:44 Dextrose (Dextrose 50% 50ML Syringe) 25-50ML OF 50% DW IV FOR... UD PRN IV 07/08/17 14:45 08/07/17 14:44 Glucagon (Glucagon Inj) 1 mg UD PRN SQ 07/08/17 14:45 08/07/17 14:44 Dexamethasone Sodium Phosphate 10 mg/Syringe 2.5 ml @ 1 mls/min Q8H IV 07/11/17 20:00 08/10/17 19:59 Insulin Glargine (Lantus Solostar Pen) SEE PROTOCOL Q12 SC 07/11/17 21:00 08/10/17 20:59 Insulin Aspart (novoLOG ASPART) *SLIDING SCALE G... 0000,0400 PA 07/12/17 00:00 08/11/17 00:00 Review of Systems At least ten systems reviewed and negative except as indicated in HPI. Physical Exam Date Time Temp Pulse Resp B/P (MAP) Pulse Ox O2 Delivery O2 Flow Rate FiO2 07/11/17 15:47 36.4 74 18 187/78 (114) 95 Room Air 07/11/17 15:13 95 Nasal Cannula 3.0 07/11/17 14:13 66 168/77 (107) 99 Nasal Cannula 07/11/17 07:56 66 12 162/75 (104) 92 Nasal Cannula 3.0 07/11/17 07:45 94 Nasal Cannula 3.0 07/11/17 07:14 36.4 76 20 169/72 (104) 92 Room Air 07/11/17 03:31 93 Nasal Cannula 2.0 07/11/17 03:30 87 Room Air 07/11/17 00:54 Room Air 07/10/17 23:22 36.9 67 22 146/72 (96) 93 Room Air 07/10/17 21:20 68 156/77 (103) General Appearance: no apparent distress, + obese, + pertinent finding (very sleepy, frequently falling asleep) Head: normocephalic, atraumatic Eyes: normal inspection, sclerae normal ENT: hearing grossly normal Neck: trachea midline Respiratory/Chest: + pertinent finding (tederness to palpation in substernal area. ) Cardiovascular: regular rate, rhythm, no edema, no gallop, no murmur, normal peripheral pulses Abdomen/GI: normal bowel sounds, non tender, soft, no organomegaly Back: + pertinent finding (was not examined as patient was in pain causing limited ROM) Extremities/Musculoskelatal: normal inspection, no pedal edema Neurologic/Psych: no motor/sensory deficits, + pertinent finding (lethargic but easily aroused) Skin: normal color, + pertinent finding (back wound not examined as above. ) Laboratory Results 07/09/17 07:15 Red Blood Count 4.32, Mean Corpuscular Volume 89.4, Mean Corpuscular Hemoglobin 29.2, Mean Corpuscular Hemoglobin Concent 32.6, Mean Platelet Volume 10.3, Neutrophils (%) (Auto) 86.9, Lymphocytes (%) (Auto) 6.0, Monocytes (%) (Auto) 6.5, Eosinophils (%) (Auto) 0.0, Basophils (%) (Auto) 0.0, Neutrophils # (Auto) 19.25, Lymphocytes # (Auto) 1.32, Monocytes # (Auto) 1.44, Eosinophils # (Auto) 0.00, Basophils # (Auto) 0.01 07/09/17 07:15 Test 06/29/17 00:00 07/09/17 07:15 07/11/17 11:58 Urine Color YELLOW Urine Appearance CLEAR (CLEAR) Urine pH 6.0 (4.5-7.5) Urine Specific [place] 1.014 (1.000-1.030) Urine Protein NEG (NEG) Urine Glucose (UA) 3+ (NEG) Urine Ketones NEG (NEG) Urine Occult Blood NEG (NEG) Urine Nitrite NEG (NEG) Urine Bilirubin NEG (NEG) Urine Urobilinogen NEG (NEG) Urine Leukocyte Esterase NEG (NEG) White Blood Count 22.15 K/uL (4.8-10.8) Red Blood Count 4.32 M/uL (4.2-5.4) Hemoglobin 12.6 g/dL (12.0-16.0) Hematocrit 38.6 % (37-47) Mean Corpuscular Volume 89.4 fL (80-100) Mean Corpuscular Hemoglobin 29.2 pg (25-34) Mean Corpuscular Hemoglobin Concent 32.6 g/dl (32-36) Platelet Count 234 K/uL (130-400) Mean Platelet Volume 10.3 fL (7.4-10.4) Neutrophils (%) (Auto) 86.9 % Lymphocytes (%) (Auto) 6.0 % Monocytes (%) (Auto) 6.5 % Eosinophils (%) (Auto) 0.0 % Basophils (%) (Auto) 0.0 % Neutrophils # (Auto) 19.25 K/uL (1.4-6.5) Lymphocytes # (Auto) 1.32 K/uL (1.2-3.4) Monocytes # (Auto) 1.44 K/uL (0.11-0.59) Eosinophils # (Auto) 0.00 K/uL (0-0.5) Basophils # (Auto) 0.01 K/uL (0-0.2) RDW Standard Deviation 44.8 fL (36.4-46.3) RDW Coefficient of Variation 13.5 % (11.5-14.5) Immature Granulocyte % (Auto) 0.6 % Immature Granulocyte # (Auto) 0.13 K/uL (0.00-0.02) Anion Gap 7.0 mmol/L (3-11) Est Creatinine Clear Calc Drug Dose 56.3 ml/min Estimated GFR () 69.3 Estimated GFR (Non- 59.8 BUN/Creatinine Ratio 15.3 (10-20) Estimated Average Glucose 154 mg/dl Hemoglobin A1c 7.0 % (4.5-5.6) Calcium Level 8.9 mg/dl (8.5-10.1) Bedside Glucose 180 mg/dl (70-90) Last 24 Hours Test 07/10/17 17:23 07/10/17 20:52 07/11/17 08:21 07/11/17 11:58 Bedside Glucose 132 mg/dl 141 mg/dl 155 mg/dl 180 mg/dl Assessment & Plan 72 yo F with h/o labile HTN on 5 antihypertensives presents for elective back surgery and has post-operative uncontrolled hypertension. 1. HTN-multiple contributing factors including her uncontrolled pain, steroid use, and poss stress from recent operation and dealing with recovery process. Currently on dilaudid IV for pain with little relief; heading for repeat MRI of L-spine now. BP is better after MRI, so would not add additional antihypertensives. Would work to reduce stressors and improve consistent pain control. Consider adding Dilaudid STUMP BLOWER back on, Lidocaine patch to hip area or scheduling some Tylenol. Additionally, patient has not had BM since admission so more narcotics will add to this. Daughter states that she took alot of Imodium prior to surgery so she wouldn't lose control of her bowels while on the table. 2. s/p L3-5 decompression and fusion, POD3 (DOS:07-08-17). Monitor for acute blood loss, encourage incentive spirometer, PT/OT per Ortho, wound care orders per Ortho. Defer MRI findings to Dr. Harris to discuss with patient. 3. Leukocytosis-likely related to steroid use perioperatively. 4. Constipation-as above. DVT Prophylaxis -per ortho protocol Code Status -full code Dispo -per ortho. Strongly recommend short term rehab stay for this patient with her home situation. Would ask Case Management to re-engage with the family on this. Thank you for this consultation. We will follow the patient with you during their hospital stay. You can reach a member of the [facility] Hospitalist Team 11/05 via pager @ [phone]. Sujata Leon, [facility]
[2017-07-11] MEDS ORDERED: LIDODERM (LIDOCAINE) PATCH 5% TD SCH (18:30)
--- NOTE | 2017-07-11 18:51 | DIAGNOSTIC IMAGING REPORT ---
LUMBAR SPINE MRI HISTORY: Low back pain. severe pain TECHNIQUE: Multiplanar multisequence MRI of the lumbar spine was performed without the use of contrast. COMPARISON: Lumbar spine MRI 04/23/2017. FINDINGS: For the purpose of the report the L5-S1 disc space will be located on axial image 27 of 30. Alignment is intact. No fractures. The conus terminates at the T12-L1 disc space level. Interval posterior decompression and fusion from L3 through L5 with pedicle screws and rods. Fluid collection at the laminectomy sites containing a few small foci of gas. This favors a postoperative seroma. This measures 7 cm in length and up to 2.5 cm in diameter. Abnormal signal layering with and the distal aspect of the thecal sac at the S1-S2 level which may be related to blood products given the recent postoperative change. There is clumping of the nerve roots at the L5 level some of which could related to arachnoiditis. However, an epidural hematoma at this location could also have a similar appearance. There is also anterior displacement/compression of the nerve roots from the T11-L2 levels most pronounced at the L1 level. This likely represents an epidural hematoma. This is best seen on sagittal image 7 of 14 and measures 10 cm in length and up to 8 mm in thickness at the L1 level. Subcutaneous edema within the lumbar region likely due to the recent postoperative change. L1-L2: No significant central canal or neural foraminal narrowing. L2-L3: Small broad-based posterior disc bulge without significant central canal or neural foraminal narrowing. L3-L4: Small broad-based posterior disc bulge with bilateral facet hypertrophy. This results in moderate central canal narrowing, unchanged. L4-L5: Broad-based posterior disc bulge with a superimposed central/right paracentral disc extrusion which extends superiorly. This remains unchanged. There is moderate central canal narrowing at this level which is slightly progressed due to the mild mass effect from the fluid collection at the laminectomy site. L5-S1: No significant central canal narrowing. Mild bilateral neural foraminal narrowing due to the facet hypertrophy. IMPRESSION: 1. Interval postoperative changes consistent with L3-L5 posterior decompression and fusion. 2. There is anterior displacement/compression of the nerve roots from the T11-L2 levels most pronounced at the L1 level. This is likely due to a posterior epidural hematoma. This measures 10 cm in length and up to 8 mm in thickness at the L1 level. 3. There is also clumping of the nerve roots at the L5 level. Some of this could be related to an arachnoiditis, however, an epidural hematoma at this location could also have a similar appearance. 3. Slight progression of the moderate central canal narrowing at L4-L5 due to the mild mass effect from the fluid collection at the laminectomy site as described above. 4. Additional findings as described above. 5. These findings were discussed with Dr. Harris at 6:15 PM on 07/11/2017. Electronically signed by: Eduardo Crawley M.D. 07/11/2017 6:50 PM Dictated Date/Time: 07/11/2017 5:49 PM
[2017-07-11] MEDS: ACETAMINOPHEN IV 650 MG in EMPTY BAG 0 ML IV SCH (20:31)
[2017-07-11] MEDS: CLONAZEPAM 1 MG TAB PO SCH (21:00)
[2017-07-11 21:11] LABS: HEMATOCRIT 36.4 % (37-47)
--- NOTE | 2017-07-11 22:47 | DIAGNOSTIC IMAGING REPORT ---
HEAD CT NONCONTRAST CT DOSE: 537.48 mGy.cm HISTORY: severe headache and visual changes after L-surg, known EDH TECHNIQUE: Multiaxial CT images of the head were performed without the use of intravenous contrast. Automated exposure control was utilized for this study. A dose lowering technique was utilized adhering to the principles of ALARA. Comparison: Head CT 06/20/2015. Findings: The paranasal sinuses and mastoid air cells are clear. The calvarium and skull base are intact. The ventricles and sulci are within normal limits. There is no mass, hematoma, midline shift, or acute infarct. Impression: No acute intracranial abnormality. Electronically signed by: Eduardo Crawley M.D. 07/11/2017 10:46 PM Dictated Date/Time: 07/11/2017 10:39 PM
[2017-07-11] MEDS: PROPRANOLOL HCL 80 MG LA CAP PO SCH (23:10)
[2017-07-11] MEDS: LOSARTAN POTASSIUM 50 MG TAB PO SCH (23:11)
[2017-07-11] MEDS: ASPIRIN 81 MG ECTAB PO SCH (23:11)
[2017-07-11] MEDS: DOCUSATE SODIUM/SENNA 50/8.6MG TAB PO SCH (23:13)
[2017-07-11] MEDS: DEXAMETHASONE INJ 10 MG in SYRINGE 0 ML IV SCH (23:14)
[2017-07-11] MEDS ORDERED: NURSING DECISION MEDICATION ORDER SCH (23:15)
[2017-07-11] MEDS: INSULIN GLARGINE SOLOSTAR 100 UNITS/ML 3 ML PEN SC SCH (23:28)
[2017-07-12] VITALS (10 sets, daily range): BP systolic 115–182; BP diastolic 62–93; PULSE 56–79; TEMP 36.5–36.7; O2SAT 94–98
[2017-07-12] MEDS: DEXAMETHASONE INJ 10 MG in SYRINGE 0 ML IV SCH ×3 (03:57→21:15)
[2017-07-12] MEDS: ACETAMINOPHEN IV 650 MG in EMPTY BAG 0 ML IV SCH ×2 (03:58→12:02)
[2017-07-12] MEDS: INSULIN ASPART 100 UNITS/ML 3 ML PEN SC SCH ×6 (04:07→21:39)
[2017-07-12] MEDS: HYDROmorphone INJ 0.5 MG/0.5 ML SYR IV PRN (04:56)
[2017-07-12] MEDS: POLYETHYLENE (MIRALAX) 17 GM PACK PO SCH ×4 (05:54→18:52)
[2017-07-12] MEDS ORDERED: INSULIN ASPART 100 UNITS/ML 3 ML PEN SC SCH (06:00)
[2017-07-12] MEDS ORDERED: FENTANYL CITRATE INJ 50 MCG/1 ML 2 ML VIAL ONE (06:41)
[2017-07-12] MEDS ORDERED: PROPOFOL IV EMULSION 10 MG/ML 20 ML VIAL IV ONE (06:41)
[2017-07-12] MEDS ORDERED: ONDANSETRON INJ 2 MG/ML 2 ML VIAL ONE (06:41)
[2017-07-12] MEDS ORDERED: LIDOCAINE HCL 2% 2 ML VIAL (20MG/ML) ONE (06:41)
[2017-07-12] MEDS ORDERED: ROCURONIUM BROMIDE 10 MG/ML 5 ML VIAL IV ONE (06:41)
[2017-07-12] MEDS ORDERED: BUPIVACAINE/EPINEPHRINE 0.5% MPF 1:200,000 30 ML VIAL ONE (07:00)
[2017-07-12] MEDS ORDERED: BACITRACIN 50000 UNIT VIAL ONE (07:00)
[2017-07-12] MEDS ORDERED: SCOPOLAMINE 1.5 MG TDSY TD ONE (07:32)
[2017-07-12] MEDS ORDERED: NALOXONE HCL 0.4 MG/1 ML VIAL/CARP IV PRN (08:00)
[2017-07-12] MEDS ORDERED: NURSING VERBAL MED ORDER ONE (08:30)
--- NOTE | 2017-07-12 08:55 | Progress Note ---
Progress Note Date of Service Jul 12, 2017. Progress Note Patient this morning is noting significant improvement of pain. She states her back pain is controlled she has no leg pain at this time. She's denying any headaches. On physical exam the incision is clean dry and intact. She has no tenderness palpation lumbar spine. Was able to sit her up in bed and she was quite comfortable. Motor exam reveals a bilateral +5 over 5 plantar flexion dorsiflexion quadriceps. Sensory symmetric and intact throughout the entire bilateral lower extremities. Assessment status post lumbar decompression fusion. Plan at this time will we had anticipated a possible I&D this morning upon evaluation this a.m. she is noting significant improvement. We both agree continued observation is warranted. We will make her nothing by mouth after midnight this evening in the event there is any change in the chronic status otherwise we will continue with observation only.
[2017-07-12] MEDS: AMLODIPINE BESYLATE 5 MG TAB PO SCH ×2 (09:23→21:23)
[2017-07-12] MEDS: GABAPENTIN 100 MG CAP PO SCH ×2 (09:23→21:23)
[2017-07-12] MEDS: MAGNESIUM OXIDE 400 MG TAB PO SCH (09:24)
[2017-07-12] MEDS: SPIRONOLACTONE 25 MG TAB PO SCH (09:24)
[2017-07-12] MEDS: CLONIDINE HCL 0.1 MG TAB PO SCH ×2 (09:25→21:22)
[2017-07-12] MEDS: PANTOprazole SOD 40 MG TAB PO SCH (09:25)
[2017-07-12] MEDS: ESCITALOPRAM OXALATE 20 MG TAB PO SCH (09:25)
[2017-07-12] MEDS: INSULIN GLARGINE SOLOSTAR 100 UNITS/ML 3 ML PEN SC SCH ×2 (09:49→21:35)
[2017-07-12] MEDS: SODIUM CHLORIDE 0.9% 1000ML 1,000 ML IV SCH (09:51)
[2017-07-12] MEDS: HYDROmorphone HCL 0.5MG/ML 50 ML CASSETTE IV PRN ×2 (09:51→14:52)
[2017-07-12] MEDS ORDERED: ACETAMINOPHEN 500 MG TAB PO PRN (12:45)
--- NOTE | 2017-07-12 13:38 | Pharmacy Progress Note ---
Glycemic Control Progress Note Date of Service Jul 12, 2017. Scope Glycemic Pharmacist consulted for glycemic control to write orders per [facility] ED inpatient glycemic control protocol. Objective Accuchecks BSG (last 24hrs): Test 07/11/17 17:14 07/11/17 20:42 07/11/17 23:41 07/12/17 03:57 Bedside Glucose 181 mg/dl (70-90) 221 mg/dl (70-90) 179 mg/dl (70-90) 184 mg/dl (70-90) Test 07/12/17 08:03 07/12/17 12:11 Bedside Glucose 205 mg/dl (70-90) 230 mg/dl (70-90) HbA1c: Test 07/09/17 07:15 Hemoglobin A1c 7.0 % (4.5-5.6) H Recent Pertinent Medications The patient is currently receiving: * Basal insulin: Lantus 22 units BID * Correctional Insulin: Novolog Correction per scale ACHS + 00,04 checks Goal Range: Low 110 mg/dL - High 140 mg/dL Correction Factor: 15 mg/dL/unit * Prandial insulin: Per carb ratio of 1 unit per 5 grams CHO consumed Outpatient Anti-Diabetic Meds Oral Agents Assessment & Plan ASSESSMENT: * Pt receiving SQ basal bolus insulin regimen for hyperglycemia secondary to baseline DM (outpatient regimen on hold), recent surgery, & steroids * High dose dexamethasone IV initiated yesterday afternoon, which has caused patient to require wt-based/stress of 3 insulin dosing * Unfortunately, she is still continuing to trend up with most recent BSG 230 mg /dL * Tighten Novolog further and continue to increase Lantus if necessary tonight * If BSGs do not respond to further SQ changes, an insulin drip would be warranted until steroids tapered PLAN FOR INPATIENT GLYCEMIC CONTROL: * Oral Agents * Continue to hold outpatient oral diabetes medications. * Basal insulin * Lantus SQ BID based on BSG * Give 15-28 units depending on BSG * Bolus insulin * NovoLog per scale ACHS or Q6hrs while NPO + 00,04 checks * Goal Range: Low 110 mg/dL - High 140 mg/dL * Correction Factor: 10 mg/dL/unit * Nutritional / Prandial insulin per carb ratio of 1 unit per 4 grams CHO consumed * Overnight - if BSGs do not respond and trend to goal range - recommend IV insulin drip per severe stress protocol and goal range 100-200mg/dL * Please note that the plan above was derived based on current level of insulin resistance and hospital stress. These recommendations are appropriate for inpatient admission only. Plan of care upon discharge will need to be reassessed to avoid potential outpatient hypo/hyperglycemia. Thank you.
--- NOTE | 2017-07-12 15:38 | Progress Note ---
Internal Med Progress Note Date of Service: Jul 12, 2017. Provider Documentation: SUBJECTIVE: The patient was seen and examined Denies any symptoms Some pain at the back and numbness of the tight toes OBJECTIVE: Vital Signs-as noted below Exam: General-NO distress at rest Eyes-normal ENT-normal Neck-supple Lungs-Clear to auscultate bilaterally Heart-Regular Abdomen-Benign,no masses,bowel sound present Extremities-NO edema Neuro-AAOx3 Lab data as noted below. ASSESSMENT & PLAN: 72 yo F with h/o labile HTN on 5 antihypertensives presents for elective back surgery and has post-operative uncontrolled hypertension. Uncontrolled HTN -multiple contributing factors including uncontrolled pain, steroid use, and poss stress from recent operation -Started on her Usual Medications -Blood pressure is trending down -denies any acute symptoms S/P L3-5 decompression and fusion, POD# 43 (DOS:07-08-17). Management as per Ortho PT/OT per Ortho, wound care orders per Ortho. Defer MRI findings to Dr. Harris to discuss with patient. Leukocytosis-likely related to steroid use perioperatively. Monitor DVT Prophylaxis -per ortho protocol Code Status -full code Dispo -per ortho. Strongly recommend short term rehab stay for this patient with her home situation. -Would ask Case Management to re-engage with the family on this. Vital Signs: Date Time Temp Pulse Resp B/P (MAP) Pulse Ox O2 Delivery O2 Flow Rate FiO2 07/12/17 15:09 36.7 59 18 135/69 (91) 97 Nasal Cannula 4.0 07/12/17 13:00 59 120/62 (81) 97 Nasal Cannula 07/12/17 11:58 56 17 126/65 (85) 98 Nasal Cannula 07/12/17 10:52 62 135/72 (93) 94 Nasal Cannula 2.0 07/12/17 10:17 60 16 115/67 (83) 98 Nasal Cannula 07/12/17 08:20 Nasal Cannula 4.0 07/12/17 07:04 36.7 79 19 182/93 (122) 98 Room Air 07/12/17 04:18 61 167/78 (107) 07/12/17 00:05 Nasal Cannula 4.0 07/11/17 23:05 37.1 63 20 168/73 (104) 97 Room Air 07/11/17 19:32 36.9 73 16 173/74 (107) 95 Nasal Cannula 4.0 07/11/17 17:10 147/75 (99) 07/11/17 16:15 Nasal Cannula 4.0 07/11/17 15:47 36.4 74 18 187/78 (114) 95 Room Air Lab Results: Results Past 24 Hours Test 07/11/17 17:14 07/11/17 20:42 07/11/17 20:59 07/11/17 23:41 Range/Units Bedside Glucose 181 221 179 70-90 mg/dl Hemoglobin 12.9 12.0-16.0 g/dL Hematocrit 36.4 37-47 % Test 07/12/17 03:57 07/12/17 08:03 07/12/17 12:11 Range/Units Bedside Glucose 184 205 230 70-90 mg/dl
[2017-07-12] MEDS: CLONAZEPAM 1 MG TAB PO SCH (21:15)
[2017-07-12] MEDS: ONDANSETRON INJ 2 MG/ML 2 ML VIAL IV PRN (21:15)
[2017-07-12] MEDS: PROPRANOLOL HCL 80 MG LA CAP PO SCH (21:22)
[2017-07-12] MEDS: DOCUSATE SODIUM/SENNA 50/8.6MG TAB PO SCH (21:22)
[2017-07-12] MEDS: ASPIRIN 81 MG ECTAB PO SCH (21:22)
[2017-07-12] MEDS: LOSARTAN POTASSIUM 50 MG TAB PO SCH (21:22)
[2017-07-13 04:05] VITALS: BP 132/72; PULSE 56; TEMP 36.7; O2SAT 95
[2017-07-13] MEDS: DEXAMETHASONE INJ 10 MG in SYRINGE 0 ML IV SCH ×3 (04:23→21:00)
[2017-07-13] MEDS: INSULIN ASPART 100 UNITS/ML 3 ML PEN SC SCH ×6 (04:25→20:55)
[2017-07-13] MEDS: POLYETHYLENE (MIRALAX) 17 GM PACK PO SCH ×4 (04:30→19:01)
[2017-07-13 06:55] VITALS: BP 154/74; PULSE 57; TEMP 36.7; O2SAT 96
[2017-07-13] MEDS: HYDROmorphone HCL 0.5MG/ML 50 ML CASSETTE IV PRN ×3 (06:58→23:00)
[2017-07-13 07:06] LABS: MEAN CELL VOLUME 86.2 fL (80-100); MEAN CORPUSCULAR HEMOGLOBIN 29.8 pg (25-34); MEAN CORPUSCULAR HGB CONC 34.6 g/dl (32-36); MEAN PLATELET VOLUME 10.1 fL (7.4-10.4); PLATELET COUNT 285 K/uL (130-400); RED BLOOD COUNT 4.29 M/uL (4.2-5.4); WHITE BLOOD COUNT 20.27 K/uL (4.8-10.8)
[2017-07-13 07:38] LABS: BUN/CREATININE RATIO 36.4 (10-20); CALCIUM 9.1 mg/dl (8.5-10.1); CREATININE 0.86 mg/dl (0.60-1.20); MAGNESIUM 2.1 mg/dl (1.8-2.4); PHOSPHORUS 3.2 mg/dl (2.5-4.9); POTASSIUM 4.2 mmol/L (3.5-5.1)
[2017-07-13] MEDS: INSULIN GLARGINE SOLOSTAR 100 UNITS/ML 3 ML PEN SC SCH ×2 (09:20→20:56)
[2017-07-13] MEDS: SODIUM CHLORIDE 0.9% 1000ML 1,000 ML IV SCH (09:22)
[2017-07-13] MEDS ORDERED: CLONIDINE HCL 0.1 MG TAB PO PRN (10:00)
--- NOTE | 2017-07-13 10:16 | Pharmacy Progress Note ---
Glycemic Control Progress Note Date of Service Jul 13, 2017. Scope Glycemic Pharmacist consulted for glycemic control to write orders per [facility] inpatient glycemic control protocol. Objective Accuchecks BSG (last 24hrs): Test 07/12/17 12:11 07/12/17 17:06 07/12/17 20:51 07/12/17 23:52 Bedside Glucose 230 mg/dl (70-90) 173 mg/dl (70-90) 187 mg/dl (70-90) 158 mg/dl (70-90) Test 07/13/17 04:05 07/13/17 06:00 07/13/17 06:56 Bedside Glucose 201 mg/dl (70-90) 189 mg/dl (70-90) Random Glucose 179 mg/dl (70-99) HbA1c: Test 07/09/17 07:15 Hemoglobin A1c 7.0 % (4.5-5.6) H Recent Pertinent Medications The patient is currently receiving: * Basal insulin: Lantus 22-28 units every 12 hours based on BSG * Correctional Insulin: Novolog Correction per scale ACHS Goal Range: Low 110 mg/dL - High 140 mg/dL Correction Factor: 10 mg/dL/unit * Prandial insulin: Per carb ratio of 1 unit per 4 grams CHO consumed * Oral Agents: On hold for admission Outpatient Anti-Diabetic Meds Oral Agents Assessment & Plan ASSESSMENT: * See progress note from 07/11/17 for more background info, in short: * Pt receiving SQ basal bolus insulin regimen for hyperglycemia secondary to baseline DM (outpatient regimen on hold), recent surgery, & steroids * High dose dexamethasone IV initiated 07/11/17 afternoon which has deteriorated glycemic control. Pt currently being dosed with SQ insulin per high stress ( level 3) and weight. * Pt NPO this morning for I&D * Will slightly lower AM dose of Lantus secondary to NPO * If BSGs do not respond to further SQ changes, an insulin drip would be warranted until steroids tapered. Tight glycemic control absolutely necessary to facilitate infection healing post-operatively. PLAN FOR INPATIENT GLYCEMIC CONTROL: * Oral Agents * Continue to hold outpatient oral diabetes medications. * Basal insulin * Lantus SQ BID based on BSG * Give Lantus 25 units SQ x 1 dose this AM for NPO * Then, resume, Lantus 15-28 units depending on BSG * Bolus insulin * NovoLog per scale ACHS or Q6hrs while NPO + 00,04 checks * Goal Range: Low 110 mg/dL - High 140 mg/dL * Correction Factor: 10 mg/dL/unit * Nutritional / Prandial insulin per carb ratio of 1 unit per 4 grams CHO consumed * If BSGs do not respond and trend to goal range - recommend IV insulin drip per severe stress protocol and goal range 100-180mg/dL * Please note that the plan above was derived based on current level of insulin resistance and hospital stress. These recommendations are appropriate for inpatient admission only. Plan of care upon discharge will need to be reassessed to avoid potential outpatient hypo/hyperglycemia. Thank you.
[2017-07-13] MEDS: CLONIDINE HCL 0.1 MG TAB PO SCH ×2 (10:45→20:54)
[2017-07-13] MEDS: AMLODIPINE BESYLATE 5 MG TAB PO SCH ×2 (10:45→20:52)
[2017-07-13] MEDS: ESCITALOPRAM OXALATE 20 MG TAB PO SCH (10:45)
[2017-07-13] MEDS: PANTOprazole SOD 40 MG TAB PO SCH (10:45)
[2017-07-13] MEDS: SPIRONOLACTONE 25 MG TAB PO SCH (10:46)
[2017-07-13] MEDS: GABAPENTIN 100 MG CAP PO SCH ×2 (10:46→20:57)
[2017-07-13] MEDS: MAGNESIUM OXIDE 400 MG TAB PO SCH (10:46)
[2017-07-13 12:16] VITALS: BP 129/67; PULSE 54; TEMP 36.3; O2SAT 97
--- NOTE | 2017-07-13 12:38 | Progress Note ---
Progress Note Date of Service Jul 13, 2017. Progress Note Patient is doing quite well today. She complains of some soreness in the back but not significant discomfort. Denies any leg pain. She is able to sit up in bed without difficulty. On exam she continues to demonstrate excellent strength detailed testing bilateral extremity's. Sensory symmetric and intact. Assessment status post lumbar decompression fusion. Plan at this time will continue with close observation we'll initiate bed to chair privileges today she continues to improve we will consider transfer to [facility] in the next day or so.
--- NOTE | 2017-07-13 14:22 | Progress Note ---
Internal Med Progress Note Date of Service: Jul 13, 2017. Provider Documentation: SUBJECTIVE: The patient was seen and examined Minimal pain at the back Denies john paul CP,palpitation or SOB NO abdominal pain ,nausea and or vomiting OBJECTIVE: Vital Signs-as noted below Exam: General-NO distress at rest Eyes-normal ENT-normal Neck-supple Lungs-Clear to auscultate bilaterally Heart-Regular Abdomen-Benign,no masses,bowel sound present Extremities-NO edema Neuro-AAOx3 Lab data as noted below. ASSESSMENT & PLAN: 72 yo F with h/o labile HTN on 5 antihypertensives presents for elective back surgery and has post-operative uncontrolled hypertension. Uncontrolled HTN -multiple contributing factors including uncontrolled pain, steroid use, and poss stress from recent operation -Started on her Usual Medications -Blood pressure is trending down -denies any acute symptoms -BP is not yet controlled -Clonidine 0.1 mg As needed of SBP>160 S/P L3-5 decompression and fusion, POD# 43 (DOS:07-08-17). Management as per Ortho PT/OT per Ortho, wound care orders per Ortho. Defer MRI findings to Dr. Harris to discuss with patient. Leg symptoms are getting better Leukocytosis-likely related to steroid use perioperatively. Monitor DVT Prophylaxis -per ortho protocol Code Status -full code Dispo -per ortho. Strongly recommend short term rehab stay for this patient with her home situation. Vital Signs: Date Time Temp Pulse Resp B/P (MAP) Pulse Ox O2 Delivery O2 Flow Rate FiO2 07/13/17 12:16 36.3 54 18 129/67 (87) 97 Nasal Cannula 2.0 07/13/17 07:05 Nasal Cannula 2.0 07/13/17 06:55 36.7 57 18 154/74 (100) 96 Nasal Cannula 3.0 07/13/17 04:05 36.7 56 16 132/72 (92) 95 Nasal Cannula 4.0 07/12/17 23:55 36.7 57 16 158/75 (102) 95 Nasal Cannula 4.0 07/12/17 23:45 Nasal Cannula 2.0 07/12/17 19:28 36.5 74 18 158/73 (101) 96 Nasal Cannula 4.0 07/12/17 18:29 Nasal Cannula 4.0 07/12/17 15:09 36.7 59 18 135/69 (91) 97 Nasal Cannula 4.0 Lab Results: Results Past 24 Hours Test 07/12/17 17:06 07/12/17 20:51 07/12/17 23:52 07/13/17 04:05 Range/Units Bedside Glucose 173 187 158 201 70-90 mg/dl Test 07/13/17 06:00 07/13/17 06:56 Range/Units Bedside Glucose 189 70-90 mg/dl White Blood Count 20.27 4.8-10.8 K/uL Red Blood Count 4.29 4.2-5.4 M/uL Hemoglobin 12.8 12.0-16.0 g/dL Hematocrit 37.0 37-47 % Mean Corpuscular Volume 86.2 80-100 fL Mean Corpuscular Hemoglobin 29.8 25-34 pg Mean Corpuscular Hemoglobin Concent 34.6 32-36 g/dl RDW Standard Deviation 43.8 36.4-46.3 fL RDW Coefficient of Variation 13.9 11.5-14.5 % Platelet Count 285 130-400 K/uL Mean Platelet Volume 10.1 7.4-10.4 fL Sodium Level 132 136-145 mmol/L Potassium Level 4.2 3.5-5.1 mmol/L Chloride Level 98 98-107 mmol/L Carbon Dioxide Level 26 21-32 mmol/L Anion Gap 8.0 3-11 mmol/L Blood Urea Nitrogen 31 7-18 mg/dl Creatinine 0.86 0.60-1.20 mg/dl Est Creatinine Clear Calc Drug Dose 61.6 ml/min Estimated GFR () 77.1 Estimated GFR (Non- 66.6 BUN/Creatinine Ratio 36.4 10-20 Random Glucose 179 70-99 mg/dl Calcium Level 9.1 8.5-10.1 mg/dl Phosphorus Level 3.2 2.5-4.9 mg/dl Magnesium Level 2.1 1.8-2.4 mg/dl
[2017-07-13 15:15] VITALS: BP 129/67; PULSE 54; TEMP 36.4; O2SAT 96
[2017-07-13] MEDS ORDERED: NURSING VERBAL MED ORDER ONE (16:45)
[2017-07-13 19:15] VITALS: BP 147/78; PULSE 57; TEMP 36.5; O2SAT 93
[2017-07-13] MEDS: CLONAZEPAM 1 MG TAB PO SCH (20:52)
[2017-07-13] MEDS: ASPIRIN 81 MG ECTAB PO SCH (20:53)
[2017-07-13] MEDS: LOSARTAN POTASSIUM 50 MG TAB PO SCH (20:53)
[2017-07-13] MEDS: PROPRANOLOL HCL 80 MG LA CAP PO SCH (20:54)
[2017-07-13] MEDS: DOCUSATE SODIUM/SENNA 50/8.6MG TAB PO SCH (20:55)
[2017-07-13 23:00] VITALS: BP 136/70; PULSE 53; TEMP 36.5; O2SAT 92
[2017-07-14] VITALS (7 sets, daily range): BP systolic 119–167; BP diastolic 62–80; PULSE 50–56; TEMP 36.4–36.7; O2SAT 94–97
[2017-07-14] MEDS: POLYETHYLENE (MIRALAX) 17 GM PACK PO SCH ×2 (00:17→06:06)
[2017-07-14] MEDS: INSULIN ASPART 100 UNITS/ML 3 ML PEN SC SCH ×6 (00:21→22:15)
[2017-07-14] MEDS: DEXAMETHASONE INJ 10 MG in SYRINGE 0 ML IV SCH (03:45)
[2017-07-14] MEDS: HYDROmorphone HCL 0.5MG/ML 50 ML CASSETTE IV PRN ×2 (06:51→15:23)
[2017-07-14] MEDS ORDERED: NURSING VERBAL MED ORDER ONE (07:15)
[2017-07-14] MEDS: SODIUM CHLORIDE 0.9% 1000ML 1,000 ML IV SCH (09:07)
[2017-07-14] MEDS: SPIRONOLACTONE 25 MG TAB PO SCH (09:18)
[2017-07-14] MEDS: CLONIDINE HCL 0.1 MG TAB PO SCH ×2 (09:19→21:00)
[2017-07-14] MEDS: ESCITALOPRAM OXALATE 20 MG TAB PO SCH (09:19)
[2017-07-14] MEDS: GABAPENTIN 100 MG CAP PO SCH ×2 (09:19→22:45)
[2017-07-14] MEDS: MAGNESIUM OXIDE 400 MG TAB PO SCH (09:19)
[2017-07-14] MEDS: AMLODIPINE BESYLATE 5 MG TAB PO SCH ×2 (09:20→22:45)
[2017-07-14] MEDS: PANTOprazole SOD 40 MG TAB PO SCH (09:20)
[2017-07-14] MEDS: INSULIN GLARGINE SOLOSTAR 100 UNITS/ML 3 ML PEN SC SCH ×2 (09:23→22:16)
--- NOTE | 2017-07-14 10:24 | Progress Note ---
Progress Note Date of Service Jul 14, 2017. Progress Note Patient is much improved today. She is in a chair at the bedside. She states her back pain is controlled. Denies any significant leg pain. She is tolerating a diet. Denies headaches nausea or vomiting. Exam she is good strength testing does appear comfortable. Assessment status post lumbar decompression fusion replant this time we'll initiate physical therapy today as well as occupational therapy in anticipation of her being transferred to rehabilitation in the next day or so.
--- NOTE | 2017-07-14 11:12 | Progress Note ---
Internal Med Progress Note Date of Service: Jul 14, 2017. Provider Documentation: SUBJECTIVE: The patient was seen and examined Much better today OOB in a chair Denies any symptoms OBJECTIVE: Vital Signs-as noted below Exam: General-NO distress at rest Eyes-normal ENT-normal Neck-supple Lungs-Clear to auscultate bilaterally Heart-Regular Abdomen-Benign,no masses,bowel sound present Extremities-NO edema Neuro-AAOx3 Lab data as noted below. ASSESSMENT & PLAN: 72 yo F with h/o labile HTN on 5 antihypertensives presents for elective back surgery and has post-operative uncontrolled hypertension. Uncontrolled HTN -multiple contributing factors including uncontrolled pain, steroid use, and poss stress from recent operation -Started on her Usual Medications -Blood pressure is trending down -denies any acute symptoms -BP is not yet controlled -Clonidine 0.1 mg As needed of SBP>160 -BOP is well controlled S/P L3-5 decompression and fusion, POD# 6 (DOS:07-08-17). Management as per Ortho PT/OT per Ortho, wound care orders per Ortho. Defer MRI findings to Dr. Harris to discuss with patient. Leg symptoms are getting better Likely discharge in a day or two Leukocytosis-likely related to steroid use perioperatively. Will check in AM DVT Prophylaxis -per ortho protocol Code Status -full code Dispo -per ortho. Strongly recommend short term rehab stay for this patient with her home situation. Vital Signs: Date Time Temp Pulse Resp B/P (MAP) Pulse Ox O2 Delivery O2 Flow Rate FiO2 07/14/17 09:26 95 07/14/17 07:25 Room Air 07/14/17 07:16 36.5 52 18 128/70 (89) 95 Room Air 07/14/17 03:52 36.5 56 18 167/80 (109) 94 Room Air 07/14/17 00:00 Room Air 07/13/17 23:00 36.5 53 16 136/70 (92) 92 Room Air 07/13/17 19:15 36.5 57 16 147/78 (101) 93 Room Air 07/13/17 15:50 Room Air 07/13/17 15:15 36.4 54 18 129/67 (87) 96 Nasal Cannula 2.0 07/13/17 12:16 36.3 54 18 129/67 (87) 97 Nasal Cannula 2.0 Lab Results: Results Past 24 Hours Test 07/13/17 12:07 07/13/17 17:06 07/13/17 20:43 07/13/17 23:55 Range/Units Bedside Glucose 260 223 189 232 70-90 mg/dl Test 07/14/17 03:36 07/14/17 08:29 Range/Units Bedside Glucose 144 166 70-90 mg/dl
[2017-07-14] MEDS: DOCUSATE SODIUM/SENNA 50/8.6MG TAB PO SCH (21:00)
[2017-07-14] MEDS: PROPRANOLOL HCL 80 MG LA CAP PO SCH (21:00)
[2017-07-14] MEDS: CLONAZEPAM 1 MG TAB PO SCH (22:45)
[2017-07-14] MEDS: ASPIRIN 81 MG ECTAB PO SCH (22:45)
[2017-07-14] MEDS: LOSARTAN POTASSIUM 50 MG TAB PO SCH (22:46)
[2017-07-14 23:31] LABS: BUN/CREATININE RATIO 36.1 (10-20); CALCIUM 8.6 mg/dl (8.5-10.1); CREATININE 0.99 mg/dl (0.60-1.20); MAGNESIUM 2.2 mg/dl (1.8-2.4); POTASSIUM 4.4 mmol/L (3.5-5.1)
[2017-07-14 23:42] LABS: THYROID STIMULATING HORMONE 0.508 uIu/ml (0.300-4.500)
[2017-07-15] MEDS ORDERED: INSULIN ASPART 100 UNITS/ML 3 ML PEN SC SCH
[2017-07-15] MEDS: INSULIN ASPART 100 UNITS/ML 3 ML PEN SC SCH ×7 (00:41→23:51)
[2017-07-15 03:42] VITALS: BP 158/78; PULSE 49; TEMP 36.6; O2SAT 94
[2017-07-15 05:54] LABS: HEMATOCRIT 37.5 % (37-47); MEAN CELL VOLUME 86.2 fL (80-100); MEAN CORPUSCULAR HEMOGLOBIN 29.4 pg (25-34); MEAN CORPUSCULAR HGB CONC 34.1 g/dl (32-36); MEAN PLATELET VOLUME 10.4 fL (7.4-10.4); PLATELET COUNT 278 K/uL (130-400); RED BLOOD COUNT 4.35 M/uL (4.2-5.4); WHITE BLOOD COUNT 16.72 K/uL (4.8-10.8)
[2017-07-15] MEDS: HYDROmorphone HCL 0.5MG/ML 50 ML CASSETTE IV PRN (07:13)
[2017-07-15 07:16] VITALS: BP 149/73; PULSE 59; TEMP 36.6; O2SAT 93
[2017-07-15] MEDS: INSULIN GLARGINE SOLOSTAR 100 UNITS/ML 3 ML PEN SC SCH ×2 (09:00→21:58)
[2017-07-15] MEDS: MAGNESIUM OXIDE 400 MG TAB PO SCH (09:04)
[2017-07-15] MEDS: GABAPENTIN 100 MG CAP PO SCH ×2 (09:04→21:52)
[2017-07-15] MEDS: SPIRONOLACTONE 25 MG TAB PO SCH (09:04)
[2017-07-15] MEDS: CLONIDINE HCL 0.1 MG TAB PO SCH ×2 (09:05→21:49)
[2017-07-15] MEDS: AMLODIPINE BESYLATE 5 MG TAB PO SCH ×2 (09:05→21:52)
[2017-07-15] MEDS: ESCITALOPRAM OXALATE 20 MG TAB PO SCH (09:05)
[2017-07-15] MEDS: PANTOprazole SOD 40 MG TAB PO SCH (09:06)
[2017-07-15] MEDS: DEXAMETHASONE INJ 10 MG in SYRINGE 0 ML IV SCH (10:27)
--- NOTE | 2017-07-15 12:31 | Progress Note ---
Progress Note Date of Service Jul 15, 2017. Progress Note Patient's improving daily. Back pain leg pain controlled. On exam she is good strength testing appears comfortable. Assessment status post lumbar depression fusion replant this time we are planning for transfer to [facility] tomorrow.
[2017-07-15] MEDS ORDERED: RXC5 PO (12:33)
--- NOTE | 2017-07-15 12:34 | Discharge Instructions ---
Discharge Instructions Date of Service Jul 15, 2017. Admission Reason for Admission: Spinal Stenosis Discharge Discharge Diagnosis / Problem: lumbar spinal stenosis Discharge Goals Goal(s): Improve function Activity Recommendations Activity Limitations: per Instructions/Follow-up section . Instructions / Follow-Up Instructions / Follow-Up ACTIVITY RECOMMENDATIONS: SELF CARE INSTRUCTIONS AFTER THORACIC/LUMBAR FUSIONS 1. You may walk to your tolerance. It is good exercise for your legs and back. Expect some back and intermittent leg aches and pains. 2. You may perform "counter-top" level activities (make a sandwich, hoda with a project, etc.). 3. No bending or lifting of more than 10 pounds or back twisting of any nature (roll like a log when turning in bed). 4. You may ride in a car for 20-30 minutes at a time. No driving until after your first visit with your doctor. 5. Frequent changes of position and restricting sitting to 30 minutes at a time will help limit the amount of back spasms and stiffness you may experience. 6. You may discontinue the use of ambulatory aids (cane, crutches, etc.) once your strength and confidence allow. 7. You may management information systems director the shower and let water strike your incision when you arrive home at least once daily. Do not take a tub bath, sit in a hot tub or go into a swimming pool until after your first recheck in the office. SPECIAL CARE INSTRUCTIONS: VERY IMPORTANT TO READ AND REVIEW A. Your surgical incision has been closed with a cosmetic suture under the skin that will dissolve in about 6 weeks. In 14 days, you can use a pair of clean scissors and cut the suture that is left outside of the skin at the ends of your incision. 1. The small skin tapes can be removed 7 days after surgery if they have not fallen off by that point. 2. You may keep the wound open to air as much as possible to promote healing after post-op day number 5 unless told otherwise by your doctor. 3. If you think the wound looks like it is becoming infected (redness or worsening drainage) and/or you are experiencing fever, chill or worsening back pain and muscle spasms, contact the office so that we may evaluate you as soon as possible. B. Complications are uncommon, but please contact us if you have any signs or symptoms of: 1. wound infection (fever higher than 102.5 degrees F, redness, separation of wound, drainage, or increasing pain from the incision) 2. blood clots in legs (pain, swelling, redness and warmth in legs) 3. urinary tract infection (fever higher than 102.5 degrees F, burning upon urination or increased frequency of urination) 4. nerve problems (inability to walk on your toes or heels, numbness, loss of bowel or bladder control) 5. any other symptoms that concern you C. Please call the office at if you have any concerns or questions about your operation or recovery. D. No smoking! Smoking drastically decreases the chance of a solid fusion. E. Do not take any anti-inflammatory medications (Indocin, Advil, Motrin, Aspirin, Naprosyn, etc.) as these may inhibit the chance of a solid fusion. Tylenol is okay to take for pain. MANAGING PAIN AFTER SPINAL SURGERY 1. Narcotic medication is intended for short-term use and will be provided for surgical pain. Surgical pain usually lasts for a period of 4-6 weeks. Narcotic medication includes Percocet, Vicodin, Darvocet, Tylenol #3 or Lortab. 2. Longer-term pain is more appropriately treated with non-narcotic medication such as Tylenol ES. 3. Muscle spasm is not appropriately treated with narcotics. Muscle relaxers such as Soma, Flexeril or Skelaxin can be used along with Tylenol ES. 4. Remember that we all live with some "aches and pains". This is not unusual or uncommon after an injury or as we get older. a. Back pain is expected and may include muscle spasms for 4 to 6 weeks after surgery. The pain should gradually improve. If the pain worsens for no apparent reason, please contact the office. b. Intermittent leg pain may also be experienced and should not be concerned about unless it worsens for no apparent reason. If so, please contact the office. 5. We will provide appropriate medication within the normal guidelines of their prescribed use. We will also be very cautious and aware of potential abuse and extended duration of patients' medication needs. a. Pain medications are for your comfort and to assist with sleep and rest so that the tissue can heal. They are not provided in order to return to normal activity and should not be used through the day. To do so or worsening pain at night can result from ongoing tissue damage and development of tolerance to the prescribed medicine. 6. Please allow 2-3 days to process refills. Prescriptions will not be mailed but must be picked up at the office. FOLLOW UP VISIT: Keep your scheduled follow-up appointment. Any questions, please call the office at . Current Hospital Diet Patient's current hospital diet: Diabetes Type 2 Diet Discharge Diet Recommended Diet: Regular Diet Procedures Procedures Performed: #1 lumbar decompression medial facetectomies L2-3 L3 4 L4 5. #2 posteriorspinal fusion L3 4 L4 5. #3 placement posterior segmental instrumentationL3 4 L4 5. #4 placement of locally harvested morcellized autograft in theposterior lateral gutters. #5 placement infuse collagen sponge combined Master graft in the posterior lateral gutters Repair of dural tear with duralseal. Pending Studies Studies pending at discharge: no Laboratory Results Hemoglobin A1c Test 07/09/17 07:15 Range/Units Estimated Average Glucose 154 mg/dl Hemoglobin A1c 7.0 H 4.5-5.6 % Medical Emergencies . Who to Call and When: Medical Emergencies: If at any time you feel your situation is an emergency, please call 911 immediately. . Non-Emergent Contact Non-Emergency issues call your: Primary Care Provider . "Provider Documentation" section prepared by Quang Harris. . VTE Core Measure Inpt VTE Proph given/why not?: Jaswinder Foster, SCD's
[2017-07-15 15:30] VITALS: BP 135/71; PULSE 53; TEMP 36.6; O2SAT 96
[2017-07-15] MEDS: OXYCODONE HCL IR 5 MG TAB (IMMEDIATE RELEASE) PO PRN ×2 (16:05→23:44)
[2017-07-15] MEDS: DOCUSATE SODIUM/SENNA 50/8.6MG TAB PO SCH (21:46)
[2017-07-15] MEDS: PROPRANOLOL HCL 80 MG LA CAP PO SCH (21:49)
[2017-07-15 21:50] VITALS: BP 151/76; PULSE 50
[2017-07-15] MEDS: CLONAZEPAM 1 MG TAB PO SCH (21:51)
[2017-07-15] MEDS: ASPIRIN 81 MG ECTAB PO SCH (21:53)
[2017-07-15] MEDS: LOSARTAN POTASSIUM 50 MG TAB PO SCH (21:54)
[2017-07-15 23:24] VITALS: BP 143/67; PULSE 54; TEMP 36.6; O2SAT 93
[2017-07-16] MEDS: INSULIN ASPART 100 UNITS/ML 3 ML PEN SC SCH ×3 (04:08→13:55)
[2017-07-16 07:10] VITALS: BP 144/71; PULSE 49; TEMP 36.6; O2SAT 97
[2017-07-16] MEDS: AMLODIPINE BESYLATE 5 MG TAB PO SCH (09:16)
[2017-07-16] MEDS: ESCITALOPRAM OXALATE 20 MG TAB PO SCH (09:16)
[2017-07-16] MEDS: PANTOprazole SOD 40 MG TAB PO SCH (09:16)
[2017-07-16] MEDS: GABAPENTIN 100 MG CAP PO SCH (09:16)
[2017-07-16] MEDS: CLONIDINE HCL 0.1 MG TAB PO SCH (09:17)
[2017-07-16] MEDS: MAGNESIUM OXIDE 400 MG TAB PO SCH (09:17)
[2017-07-16] MEDS: SPIRONOLACTONE 25 MG TAB PO SCH (09:18)
[2017-07-16] MEDS: INSULIN GLARGINE SOLOSTAR 100 UNITS/ML 3 ML PEN SC SCH (09:24)
[2017-07-16] MEDS: DEXAMETHASONE INJ 10 MG in SYRINGE 0 ML IV SCH (10:44)
[2017-07-16] MEDS: OXYCODONE HCL IR 5 MG TAB (IMMEDIATE RELEASE) PO PRN (10:44)
[2017-07-16 11:01] VITALS: BP 118/64; PULSE 48; TEMP 36.6; O2SAT 95
[2017-07-16 13:24] VITALS: Ht 162.6 cm; Wt 87.8 kg
--- NOTE | 2017-07-16 13:53 | Progress Note ---
Progress Note Date of Service Jul 16, 2017. Progress Note Patient's feeling very good today. Denies any significant back pain states leg pain is markedly improved. On exam she is good strength testing appears comfortable. Assessment status post lumbar depression fusion replant this time or waiting for a bed at [facility] hopefully the be available tomorrow.
[2017-07-16 15:00] VITALS: BP 132/72; PULSE 49; TEMP 36.3; O2SAT 95
[2017-07-16 16:02] VITALS: BP 132/72; PULSE 49; TEMP 36.3; O2SAT 95
--- NOTE | 2017-07-20 13:32 | Discharge Summary ---
Orthopedic Discharge Summary Admission Date/Reason Jul 08, 2017 at 10:30 Spinal Stenosis. Discharge Date/Disposition Jul 16, 2017 Acute care facility Diagnosis Principal Diagnosis: lumbar spinal stenosis Procedure(s) Performed posterior lumbar decompression L2-5; instrumented fusion L3-5 Consultations [facility] Medication Reconciliation New Medications: Oxycodone HCl (Oxycodone HCl) 5 Mg Tab 5-10 MG PO Q4H PRN for Moderate - severe pain for 30 Days, #60 TAB Continued Medications: Amlodipine (Norvasc) 5 Mg Tab 5 MG PO BID, TAB Aspirin (Aspirin Chewable) 81 Mg Chew 81 MG PO HS Cholecalciferol (Vitamin D3) 2,000 Unit Tab 5000 TAB PO QAM for 90 Days, TAB 3 Refills Clonazepam (Klonopin) 1 Mg Tab 1 MG PO HS, TAB Clonidine Hcl (Catapres) 0.1 Mg Tab 0.1 MG PO BID, TAB Escitalopram Oxalate (Lexapro) 20 Mg Tab 20 MG PO QAM, TAB Gabapentin (Neurontin) 100 Mg Cap 200 MG PO BID, CAP Lansoprazole (Prevacid) 30 Mg Capcr 30 MG PO QAM, CAP Losartan Potassium (Cozaar) 100 Mg Tab 100 MG PO QPM, TAB Magnesium Oxide (Mag-Ox) 400 Mg Tab 400 MG PO QAM, TAB Metformin Hcl (Glucophage) 500 Mg Tab 500 MG PO BID, TAB Nitroglycerin (Nitrostat) 0.4 Mg Tab 1 TAB SL UD, #100 TAB 3 Refills Nystatin (Topical) (Nystatin Foreign) 1 Pow Pow 1 DOSE TOP BID PRN for RN Propranolol Hcl (Propranolol Hcl Er) 160 Mg Cap 160 MG PO HS Spironolactone (Aldactone) 25 Mg Tab 25 MG PO QAM, TAB Discontinued Medications: Naproxen Sodium-Diphenhydramin (Aleve Pm 220-25 mg) 1 Tab Tab 2 TAB PO HS Admission Physical Exam As per Admitting History & Physical. Hospital Course Pt had an uneventful hospital course, c/o back pain only. no radicular complaints post op. lab values stable. discharged to [facility] Discharge Instructions Please refer to the electronic Patient Visit Report (Discharge Instructions) for additional information.
== END 2017-07-16 16:54 | DRG 460 ==
LOC: C.ACU 09:56 → C.MSW 10:30 → UNDOADMIN 13:32 → C.MSW 13:32 → ENRESERV 14:34
PROVIDERS: ADMIT Orthopaedic Surgery Orthopaedic Surgery of the Spine; ATTEND Orthopaedic Surgery Orthopaedic Surgery of the Spine
PROC: 0SG1071 Fusion of 2 or more Lumbar Vertebral Joints with Autologous Tissue Substitute, Posterior Approach, Posterior Column, Open Approach (ICD-10-PCS; principal; 2017-07-08 11:55)
PROC: 01NB0ZZ Release Lumbar Nerve, Open Approach (ICD-10-PCS; principal; 2017-07-08 11:55)
PROC: 3E0U0GB Introduction of Recombinant Bone Morphogenetic Protein into Joints, Open Approach (ICD-10-PCS; principal; 2017-07-08 11:55)
DX: M48.06 Spinal stenosis, lumbar region (principal); M43.16 Spondylolisthesis, lumbar region; G96.19 Other disorders of meninges, not elsewhere classified; I10 Essential (primary) hypertension; G89.18 Other acute postprocedural pain; D72.829 Elevated white blood cell count, unspecified; T38.0X5A Adverse effect of glucocorticoids and synthetic analogues, initial encounter; K59.00 Constipation, unspecified; K21.9 Gastro-esophageal reflux disease without esophagitis; M19.90 Unspecified osteoarthritis, unspecified site; E11.9 Type 2 diabetes mellitus without complications; F41.9 Anxiety disorder, unspecified; F32.9 Major depressive disorder, single episode, unspecified; E66.9 Obesity, unspecified; Z68.33 Body mass index [BMI] 33.0-33.9, adult; Z87.891 Personal history of nicotine dependence; Z79.82 Long term (current) use of aspirin; Z79.84 Long term (current) use of oral hypoglycemic drugs; Z79.899 Other long term (current) drug therapy; Z79.1 Long term (current) use of non-steroidal anti-inflammatories (NSAID)

== ENCOUNTER 2018-01-27 14:45 | Emergency (ER) | payer OTHER ==
[~2018-01-27] VITALS: Ht 162.6 cm; Wt 87.0 kg
[~2018-01-27 14:45] MED LIST changes: -CEFAZOLIN 2000 MG/60 ML D5W IV SCH; -LACTATED RINGER'S 1000ML 1,000 ML IV SCH; -NAPR-998 PO; +RXC5 PO
[2018-01-27 14:46] VITALS: Ht 162.6 cm; Wt 87.0 kg
--- NOTE | 2018-01-27 15:40 | DIAGNOSTIC IMAGING REPORT ---
R KNEE 3 VIEWS HISTORY: 73 years-old Female R knee pain acute right knee pain without known injury COMPARISON: None available TECHNIQUE: 3 views of the right knee FINDINGS: Tricompartmental osteoarthritis, at least mild within the medial and lateral compartments and moderate within the patellofemoral joint space. Large marginal spurring about the patella with quadriceps and patellar enthesophytes. [id number] knee joint effusion. No acute fracture, or dislocation. No opaque foreign body. IMPRESSION: 1. No acute fracture or dislocation. 2. Tricompartmental osteoarthritis, most pronounced within the patellofemoral joint where there is moderate disease. 3. [id number] knee joint effusion. The above report was generated using voice recognition software. It may contain grammatical, syntax or spelling errors. Electronically signed by: Doc Tinajero M.D. 01/27/2018 3:39 PM Dictated Date/Time: 01/27/2018 3:37 PM
--- NOTE | 2018-01-27 15:51 | EMERGENCY ROOM VISIT NOTE ---
ED Visit Note First contact with patient: 15:50 The patient was seen and examined with frankie. I agree with the history, physical and findings. Please see the note for disposition and details.
[2018-01-27] MEDS ORDERED: KETOROLAC TROMETHAMINE 60 MG/2 ML VIAL IM STA ×2 (16:00→16:02)
[2018-01-27 16:58] VITALS: BP 156/74; PULSE 66; TEMP 36.7; O2SAT 94
--- NOTE | 2018-01-28 13:18 | EMERGENCY ROOM VISIT NOTE ---
ED Visit Note First contact with patient: 14:58 Chief Complaint: Right knee pain. History of Present Illness: Ms. Sevilla is a 73-year-old white female who ambulates into the ED with the use of a cane accompanied by her complaining of right knee pain. Should be noted that patient is a poor historian. Patient reports she thinks her pain started approximately 2 or 3 days ago. Since that time her pain has been constant. Historically she does report she has a history of knee arthritis. She has difficulty describing her pain and says it feels like "something is hooking onto the knee". Initially she reported the pain was primarily over the anterior tibial tuberosity but then also reported that her pain was global. At rest she rates her pain 1/10 and with weightbearing and ambulation she rates her discomfort 10/10. She also reports that she has pain in the popliteal area that is radiating down into the gastrocnemius muscle. Her anterior pain does not radiate. She reports she has been using Tylenol arthritis medications and BenGay cream without relief of her discomfort. As previously noted her pain worsens with weightbearing and ambulation. She also reports that she is having a tingling sensation of her lower leg which she reports is baseline for her neuropathy. Additionally she denies fevers, chills, sweats, skin eruptions, skin color changes, upper respiratory tract symptoms, chest pain, shortness of breath, back pain, hip pain, ankle pain, leg weakness. Review of Systems: As noted above in history of present illness. All body systems were reviewed and found to be negative as noted above. 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) Surgical Problems: (1) H/O cardiac radiofrequency ablation (2) History of bladder surgery (3) History of herniorrhaphy (4) S/P foot surgery (5) S/P partial colectomy (6) S/P ROMAN-BSO Current Medications: Medications Dose Route/Sig Max Daily Dose Days Date Category Vitamin D3 (Cholecalciferol) 2,000 Unit Tab 5,000 Tab PO QAM 90 06/29/17 Reported Prevacid (Lansoprazole) 30 Mg Capcr 30 Mg PO QAM 06/29/17 Reported Nystatin Foreign (Nystatin (Topical)) 1 Pow Pow 1 Dose TOP BID PRN 06/29/17 Reported Aldactone (Spironolactone) 25 Mg Tab 25 Mg PO QAM 06/29/17 Reported Lexapro (Escitalopram Oxalate) 20 Mg Tab 20 Mg PO QAM 02/10/17 Reported Catapres (Clonidine Hcl) 0.1 Mg Tab 0.1 Mg PO BID 02/10/17 Reported Klonopin (Clonazepam) 1 Mg Tab 1 Mg PO HS 02/10/17 Reported Cozaar (Losartan Potassium) 100 Mg Tab 100 Mg PO QPM 02/10/17 Reported Glucophage (Metformin Hcl) 500 Mg Tab 500 Mg PO BID 02/10/17 Reported Neurontin (Gabapentin) 100 Mg Cap 200 Mg PO BID 10/13/16 Reported Propranolol Hcl Er (Propranolol Hcl) 160 Mg Cap 160 Mg PO HS 05/23/16 Reported Norvasc (Amlodipine Besylate) 5 Mg Tab 5 Mg PO BID 02/05/16 Reported Nitrostat (Nitroglycerin) 0.4 Mg Tab 1 Tab SL UD 02/05/16 Reported Aspirin Chewable (Aspirin) 81 Mg Chew 81 Mg PO HS 01/02/14 Reported Allergies to Medications: Codeine, iodine, IV contrast, sulfa, eggs, shellfish. Social History: Patient is not employed; she feels safe in her home environment ; she denies tobacco and alcohol use Physical Examination: Vital Signs: Date Time Temp Pulse Resp B/P (MAP) Pulse Ox O2 Delivery O2 Flow Rate FiO2 01/27/18 16:58 36.7 66 16 156/74 94 01/27/18 14:46 36.7 66 16 156/74 94 Room Air GENERAL: 73-year-old female in mild distress due to pain, nontoxic-appearing, afebrile and hemodynamically stable. NEUROLOGICAL: Awake, alert and oriented to person, place and time. Answering questions appropriately and following commands. Normal gait. Good hand eye coordination. No focal motor or sensory deficits. SKIN: Warm, dry and pink. No soft tissue eruptions or trauma noted. BACK: No tenderness over the bony lumbar spine. No tenderness throughout the paraspinous musculature. THORAX: Lungs sounds are clear to auscultation and equal bilaterally with symmetrical chest wall. ABDOMEN: Flat, soft and nontender. Positive bowel sounds in all quadrants. RIGHT LOWER EXTREMITY: No gross bony deformity. No shortening or malrotation. No tenderness through the hip, thigh, lower leg, ankle or foot. Mild tenderness over the anterior knee in the area of the tibial tuberosity but no tenderness over the patellar tendon. There is mild swelling in this area. There is external osteoarthritis changes in the appearance of the knee. Negative patellar apprehension test. Negative ballottement test. No laxity of the collateral and cruciate ligaments. No tenderness over the ligamentous insertions of the hamstrings or quadriceps. Mild decreased range of motion in flexion to approximately 90. She has full extension and hyperextension. Negative bounce test. 4/5 muscle strength in flexion and extension of the knee , dorsiflexion and plantarflexion of the ankle. Throughout the foot the skin was warm and pink and capillary refill was brisk. She was able to distinguish light sensations throughout the foot. No calf tenderness or cords. ED Course: Patient is assessed as noted above. Patient's medication list was reviewed. Patient was given 15 mg of Toradol IM for her pain. Right Knee X-Rays: Were read by myself and the radiologist showing no acute fracture or dislocations. Tricompartmental osteoarthritis most pronounced within the patellofemoral joint where there is moderate disease. Small to moderate joint effusion. Patient was offered crutches and a walker and she reported she had both at home. Patient's case was reviewed with Dr. Lin; he independently assessed the patient we agreed on diagnostic approach, treatment, disposition and plan. Patient was educated about today's findings and instructed on her treatment plan ; she verbalized understanding and agreement with this plan. Clinical Impression: Right knee pain. Moderate right knee osteoarthritis. Decision-Making: Visually my differential diagnosis I cannot considered ligamentous sprain, muscle strain, tendinitis, knee fracture, synovitis, osteoarthritis exacerbation and other causes. Disposition: Patient discharged home in stable condition accompanied by her ; prior to departure she was reassessed and subjectively reported she was pain-free. Plan: Patient was encouraged to continue her current medications as prescribed. Patient was encouraged use ice on areas of pain and swelling 5-6 times a day for 20 minutes. Patient was encouraged to use her walker for support until resolution of pain. Patient was encouraged to follow-up with family physician for recheck if not significant better in 3 or 4 days. Patient was encouraged return the ED for worsening/uncontrolled pain, uncontrolled swelling, skin redness/hotness, fevers, locking the or any new/ concerning symptoms.
== END 2018-01-27 16:59 | disposition home or self-care (01) ==
LOC: C.EDB 14:47 → C.EDD 16:59
DX: M25.561 Pain in right knee (principal); M17.11 Unilateral primary osteoarthritis, right knee; K21.9 Gastro-esophageal reflux disease without esophagitis; I10 Essential (primary) hypertension; I45.6 Pre-excitation syndrome; Z88.5 Allergy status to narcotic agent; Z88.2 Allergy status to sulfonamides; Z91.012 Allergy to eggs; Z91.013 Allergy to seafood

== ENCOUNTER → 2018-05-13 | Outpatient (CLI) | payer OTHER ==
[~2018-05-13] MED LIST changes: -AMLO-110 PO; +AMLO5TAB3 PO; -CLON1TAB3 PO; +CLON1TAB5 PO; -MAGN400T6 PO; -RXC5 PO
== END | disposition home or self-care (01) ==
LOC: C.MAMM 13:07
PROVIDERS: ATTEND Nurse Practitioner Family
DX: M81.0 Age-related osteoporosis without current pathological fracture (principal)

== ENCOUNTER 2019-07-18 02:21 | Inpatient (IN) ==
[2019-07-18] MEDS ORDERED: ONDANSETRON INJ 2 MG/ML 2 ML VIAL IV STA (02:33)
[2019-07-18] MEDS ORDERED: ACETAMINOPHEN 1,000 MG/100 ML VIAL IV STA (02:33)
[2019-07-18] MEDS: HYDROmorphone INJ 0.5 MG/0.5 ML SYR IV PRN ×2 (02:42→03:31)
[2019-07-18] MEDS ORDERED: SODIUM CHLORIDE 0.9% 1000ML 1,000 ML IV SCH (02:45)
[2019-07-18 02:48] LABS: Basophils # (auto) 0.04 K/uL (0-0.2); Basophils % (auto) 0.3 %; Eosinophils % (auto) 1.5 %; Hematocrit (blood only) 41.1 % (37-47); Hemoglobin 14.2 g/dL (12.0-16.0); Immature Granulocytes # (auto) 0.04 K/uL (0.00-0.02); Immature Granulocytes % (auto) 0.3 %; Lymphocytes # (auto) 2.65 K/uL (1.2-3.4); Lymphocytes % (auto) 19.8 %; Mean Corpuscular Hemoglobin 28.5 pg (25-34); Mean Corpuscular Hgb Conc 34.5 g/dL (32-36); Mean Corpuscular Volume 82.5 fL (80-100); Mean Platelet Volume 10.2 fL (7.4-10.4); Monocytes # (auto) 0.99 K/uL (0.11-0.59); Monocytes % (auto) 7.4 %; Neutrophils # (auto) 9.45 K/uL (1.4-6.5); Neutrophils % (auto) 70.7 %; Platelet Count 242 K/uL (130-400); RDW Coefficient of Variation 15.4 % (11.5-14.5); RDW Standard Deviation 46.6 fL (36.4-46.3); Red Blood Count 4.98 M/uL (4.2-5.4); White Blood Count 13.37 K/uL (4.8-10.8)
[2019-07-18 03:07] LABS: Albumin Level 4.2 gm/dl (3.4-5.0); BUN Creatinine Ratio 15.9 (10-20); Calcium 9.5 mg/dl (8.5-10.1); Creatinine Clr Calc Pharmacy 51.7 ml/min; Est GFR (African American) 64.2; Est GFR (Non-African American) 55.4
[2019-07-18 03:09] LABS: Bilirubin,Total 0.6 mg/dl (0.2-1); Globulin 4.4 gm/dl (2.5-4.0); Total Protein 8.6 gm/dl (6.4-8.2)
[2019-07-18] MEDS ORDERED: cloNIDine HCL 0.3 MG/24 HR TRANSDERM SYS TD STA (04:17)
[2019-07-18] MEDS ORDERED: MIDAZOLAM HCL 5 MG/ML 1 ML VIAL IV STA (04:31)
[2019-07-18] MEDS ORDERED: fentaNYL citrate 100 MCG/2 ML VIAL IV STA (04:31)
[2019-07-18] MEDS ORDERED: METOCLOPRAMIDE HCL INJ 5 MG/ML 2 ML VIAL IV STA (04:34)
[2019-07-18 04:44] LABS: Appearance Urine Clear (Clear); Bacteria Urine Automated Negative (Negative); Bilirubin Urine Negative (Negative); Blood Urine Negative (Negative); Cast Urine Automated 0 /lpf (0-5); Color Urine Yellow; Glucose Urine UA 2+ (Negative); Ketones Urine Trace (Negative); Leukocyte Esterase Urine Negative (Negative); Nitrite Urine Negative (Negative); RBC Urine Automated 0-4 /hpf (0-4); Specific Gravity Urine 1.013 (1.000-1.030); Urobilinogen Urine Negative (Negative); pH Urine 8.5 (4.5-7.5)
[2019-07-18] MEDS ORDERED: MIDAZOLAM HCL 1 MG/ML 2ML VIAL ONE (04:53)
--- NOTE | 2019-07-18 05:11 | Emergency Department Note ---
ED Visit Note The planned sedation has been discussed with the patient. Informed Consent was obtained. I have identified the patient, determined the appropriateness of sedation and have assessed the patient immediately prior to the procedure. All medicine(s) and interventions are by my order. .
--- NOTE | 2019-07-18 05:13 | Emergency Department Note ---
ED Visit Note On clinical assessment, the patient appears to have tolerated the sedation without complications. Patient is recovering as anticipated. Patient will continue to be monitored by nursing and may be discharged when sedation discharge criteria are met per below protocol. Upon Completions of procedure and additional 15 minutes continue every 5 minute vital signs and the P.A.R. score; then discharge to a Phase I or Fast Track to Phase II per the following guidelines: * Discharge Patient to appropriate Phase II area if PAR is 8 or greater or retur n to pre- procedure baseline. The post - procedure orders will be as directed. * If PAR score is less than 8 or not return to pre-procedure baseline then patient will follow Phase I monitoring till PAR is reached for Phase II. The Phase I may be done in procedure room or may call to secure a Phase I area. * If naloxone or flumazenil are used for reversal, hold in Phase I for continued monitoring from when last reversal dose was given for a minimum of 60 minutes or longer pending the nurse and/or physician discretion of patient condition before discharge to Phase II. Please call the Sedation Physician to re-evaluate and complete post-note for discharge to Phase II area. Do NOT discharge from procedure sedation or Phase 1 until post- sedation evaluation note is complete by procedure /sedation MD Sedation Discharge Instructions to be given to the patient at discharge to home. .
--- NOTE | 2019-07-18 05:20 | Emergency Department Note ---
Entered by Riana Auguste acting as a scribe for History of Present Illness General Chief complaint: Abdominal Pain Stated complaint: SEVERE ABDOMINAL PAIN, VOMITING Time Seen by Provider: 07/18/19 02:30 Source: patient History of Present Illness Onset (ago): hour(s) (7.5) Location: abdomen Pain Consistency: + other (persistent ) Maximum Pain Intensity: 9 Relieved By: not by medication (Tramadol) Associated symptoms: + nausea/vomiting Treatments prior to arrival: other (Tramadol) The patient is a 74 year old female who presents to the Emergency Room with complaints of persistent abdominal pain that began at 1900, about 7.5 hours prior to arrival. The patient reports nausea and vomiting during this time. She states that she took Tramadol for her pain, but states that this did not relieve her symptoms. The patient states that she has a history of diverticulitis but is unsure if her current symptoms are similar to this. The patient states that she still has her gallbladder. Home Medications Home Medications Medication Instructions Recorded Confirmed Type amlodipine 5 mg PO BID 08/21/18 07/18/19 History aspirin [Aspir-81] 81 mg PO HS 08/21/18 07/18/19 History clonazepam 1 mg PO HS 08/21/18 07/18/19 History clonidine HCl 0.1 mg PO BID 08/21/18 07/18/19 History escitalopram oxalate [Lexapro] 20 mg PO HS 08/21/18 07/18/19 History lansoprazole 30 mg PO QAM 08/21/18 07/18/19 History nitroglycerin [Nitrostat] 0.4 mg SUBLINGUAL DIRECTED PRN 08/21/18 07/18/19 History propranolol 160 mg PO HS 08/21/18 07/18/19 History gabapentin [Neurontin] 300 mg PO BID 03/15/19 07/18/19 History linagliptin [Tradjenta] 5 mg PO QAM 03/15/19 07/18/19 History magnesium oxide [MagOx] 400 mg PO DAILY 03/15/19 07/18/19 History metformin 500 mg PO BID 07/18/19 07/18/19 History Allergies Allergy/AdvReac Type Severity Reaction Status Date / Time Sulfa (Sulfonamide Allergy Intermediate "SULFA Verified 07/18/19 03:02 Antibiotics) DRUGS": SWELLS iodine Allergy Mild SWELLING, Verified 07/18/19 03:02 ITCHING,RED AND NAUSEA W/CONTRAST DYE (FEEL FUNNY) Egg Derived Allergy Unknown DIARRHEA,ABD Verified 07/18/19 03:02 PAIN Iodinated Contrast Media Allergy Unknown HOT FLASH Verified 07/18/19 03:02 AND RASH shellfish derived Allergy Unknown SWELLING Verified 07/18/19 03:02 AND VOMITING shrimp Allergy Unknown SWELLING Verified 07/18/19 03:02 AND NAUSEA WITH SHRIMP AND SHELLFISH codeine AdvReac Unknown VOMITING Verified 07/18/19 03:02 egg AdvReac Unknown DIARRHEA Verified 07/18/19 03:02 Past Med/Surg History Medical History WPW (Eoiog-Tzpdflvcv-Jurie syndrome) (Chronic) HTN (hypertension) (Chronic) Hypertensive cardiovascular disease Diarrhea (Acute) Vomiting (Acute) Acute chest pain (Acute) Contrast media allergy (Chronic) Lumbar stenosis with neurogenic claudication Labile hypertension (Chronic) LVH (left ventricular hypertrophy) (Chronic) Nonobstructive atherosclerosis of coronary artery (Chronic) "Per cardiac cath May 2016" GERD (gastroesophageal reflux disease) (Chronic) Hemorrhoids (Chronic) Hepatic steatosis (Chronic) H/O: rheumatic fever (Chronic) H/O Clostridium difficile infection (Chronic) Surgical History H/O cardiac radiofrequency ablation (Resolved) History of bladder surgery (Chronic) S/P foot surgery (Chronic) History of herniorrhaphy (Chronic) S/P ROMAN-BSO (Chronic) S/P partial colectomy (Chronic) Family History Other Cancer Diabetes Heart disease Hypertension Social History Preferred Language: Nigerian Communication Ability: Effective Human Services Professional Required: Yes Beliefs That Will Affect Care: None marital status: Current Living Situation: Spouse Feels Safe at Home: Yes Smoking Status: Never smoker Hx Alcohol Use: No Hx Substance Use: No Review of Systems See HPI for pertinent positives & negatives. and A total of 10 systems reviewed and were otherwise negative Physical Exam Vital Signs Vital Signs - 24 hr 07/18/19 02:24 07/18/19 03:20 07/18/19 03:22 Temperature 36.4 C L Temperature Source Oral Sepsis Recent Fever Within 48 Hours No Sepsis Action Taken by Nursing No Action Required Pulse Rate 93 H 72 71 Pulse Rate from SpO2 Sensor 72 71 Pulse Rhythm Regular Pulse Strength Normal Respiratory Rate 22 18 23 Respiratory Effort / Characteristics Non-Labored Spontaneous Respiratory Depth Normal Respiratory Pattern Regular Blood Pressure 200/96 H 217/99 H 224/102 H Blood Pressure Mean 130 138 142 Blood Pressure Position Sitting Pulse Oximetry 96 90 94 Oxygen Delivery Method Room Air Oxygen Flow Rate 07/18/19 03:27 07/18/19 04:54 07/18/19 04:55 Temperature Temperature Source Sepsis Recent Fever Within 48 Hours Sepsis Action Taken by Nursing Pulse Rate 82 82 Pulse Rate from SpO2 Sensor 83 Pulse Rhythm Pulse Strength Respiratory Rate 18 16 Respiratory Effort / Characteristics Respiratory Depth Respiratory Pattern Blood Pressure 215/111 H 200/98 H Blood Pressure Mean 145 132 Blood Pressure Position Pulse Oximetry 95 94 94 Oxygen Delivery Method Nasal Cannula Nasal Cannula Nasal Cannula Oxygen Flow Rate 2 2 2 GENERAL: Awake, alert, in no acute distress. Actively vomiting on exam. HENT: Normocephalic, atraumatic. Oropharynx unremarkable. EYES: Normal conjunctiva. Sclera non-icteric. NECK: Supple. No nuchal rigidity. FROM. No JVD. RESPIRATORY: Clear to auscultation. CARDIAC: Regular rate, normal rhythm. Extremities warm and well perfused. Pulses equal. ABDOMEN: Soft, non-distended. No tenderness to palpation. No rebound or guarding. No masses. RECTAL: Deferred. MUSCULOSKELETAL: Chest examination reveals no tenderness. The back is symmetrical on inspection without obvious abnormality. There is no CVA tenderness to palpation. No joint edema. LOWER EXTREMITIES: Calves are equal size bilaterally and non-tender. No edema. No discoloration. NEURO: Normal sensorium. No sensory or motor deficits noted. SKIN: No rash or jaundice noted. Procedures Procedural Sedation Indication: other (NG tube placement) ASA Class: II Time of Last PO Intake: 18:00 (11 hours ago) Preparation: bus driver/monitor applied, pulse oximeter, capnometry used, supplemental O2 applied, reversal agents at bedside, suction/airway equipment at bedside and IV secured Fentanyl: IV (100) Midazolam: IV Midazolam dose (mg): 3 Patient Tolerated Procedure: well and no complications Complications: none Course 0231: Past medical records reviewed. The patient was evaluated in room A2. A complete history and physical exam was performed. Administered Medications Miscellaneous (Remove Clonidine Patch) 1 ea N/A CQWK [facility] Stop: 08/17/19 06:20 Last Admin: 07/18/19 06:25 Dose: Not Given Documented by: [id number] Discontinued Medications Clonidine HCl (Lunmymbz-Qml-1 0.3mg/24hr) 1 patch TD NOW STA Stop: 07/18/19 04:18 Last Admin: 07/18/19 04:33 Dose: 1 patch Documented by: [id number] Fentanyl Citrate (Fentanyl Citrate) 100 mcg IV NOW STA Stop: 07/18/19 04:32 Last Admin: 07/18/19 04:54 Dose: 100 mcg Documented by: [id number] Hydromorphone HCl (Dilaudid) 0.5 mg IV Q15M PRN PRN Reason: Pain Stop: 08/01/19 02:32 Last Admin: 07/18/19 03:31 Dose: 0.5 mg Documented by: [id number] Admin: 07/18/19 02:42 Dose: 0.5 mg Documented by: [id number] Sodium Chloride (Nss 1000ml) 1,000 mls @ 999 mls/hr IV .Q1H1M [facility] Stop: 07/18/19 03:45 Last Infusion: 07/18/19 03:28 Dose: 0 mls/hr Documented by: [id number] Admin: 07/18/19 02:42 Dose: 999 mls/hr Documented by: [id number] Acetaminophen ([facility]) 1,000 mg in 100 mls @ 400 mls/hr IV NOW STA Stop: 07/18/19 02:47 Last Infusion: 07/18/19 03:28 Dose: 0 mls/hr Documented by: [id number] Admin: 07/18/19 02:42 Dose: 400 mls/hr Documented by: [id number] Metoclopramide HCl (Reglan) 10 mg IV NOW STA Stop: 07/18/19 04:35 Last Admin: 07/18/19 04:41 Dose: 10 mg Documented by: [id number] Midazolam HCl (Versed) 4 mg IV NOW STA Stop: 07/18/19 04:32 Last Admin: 07/18/19 05:18 Dose: Not Given Documented by: [id number] Midazolam HCl (Versed) Confirm Administered Dose 4 mg .ROUTE .STK-MED ONE Stop: 07/18/19 04:54 Last Increment: 07/18/19 04:54 Dose: 3 mg Documented by: [id number] Ondansetron HCl (Zofran) 4 mg IV NOW STA Stop: 07/18/19 02:34 Last Admin: 07/18/19 02:42 Dose: 4 mg Documented by: [id number] Medical Decision Making Differential Diagnosis Differential diagnoses includes but is not limited to gastritis, peptic ulcer di sease, GERD, gallbladder disease, pancreatitis, small bowel obstruction, acute coronary syndrome, pericarditis, ischemic bowel, irritable bowel disease, irritable bowel syndrome, appendicitis, diverticulitis, malignancy, hernia, urinary tract infection, torsion, [/ectopic (if female)], perforation, trauma, infectious. Medical Records Attestation: I reviewed the patient's medical records. Home Medications Current Medication List: was personally reviewed by me Laboratory Data Result diagrams: 07/18/19 02:36 07/18/19 02:36 Lab Results 07/18/19 07/18/19 07/18/19 Range/Units 02:36 02:36 04:31 WBC 13.37 H (4.8-10.8) K/uL RBC 4.98 (4.2-5.4) M/uL Hgb 14.2 (12.0-16.0) g/dL Hct 41.1 (37-47) % MCV 82.5 (80-100) fL MCH 28.5 (25-34) pg MCHC 34.5 (32-36) g/dL RDW Std Deviation 46.6 H (36.4-46.3) fL RDW Coeff of Carmen 15.4 H (11.5-14.5) % Plt Count 242 (130-400) K/uL MPV 10.2 (7.4-10.4) fL Immature Gran % (Auto) 0.3 % Neut % (Auto) 70.7 % Lymph % (Auto) 19.8 % [place] % (Auto) 7.4 % Eos % (Auto) 1.5 % Baso % (Auto) 0.3 % Immature Gran # (Auto) 0.04 H (0.00-0.02) K/uL Neut # (Auto) 9.45 H (1.4-6.5) K/uL Lymph # (Auto) 2.65 (1.2-3.4) K/uL [place] # (Auto) 0.99 H (0.11-0.59) K/uL Eos # (Auto) 0.20 (0-0.5) K/uL Baso # (Auto) 0.04 (0-0.2) K/uL Sodium 135 L (136-145) mmol/L Potassium 4.0 (3.5-5.1) mmol/L Chloride 98 (98-107) mmol/L Carbon Dioxide 27 (21-32) mmol/L Anion Gap 10.0 (3-11) BUN 16 (7-18) mg/dl Creatinine 0.99 (0.6-1.2) mg/dl Est Cr Clr Drug Dosing 51.7 ml/min Est GFR ( Amer) 64.2 Est GFR (Non-Af Amer) 55.4 BUN/Creatinine Ratio 15.9 (10-20) Glucose 240 H (70-99) mg/dl Calcium 9.5 (8.5-10.1) mg/dl Total Bilirubin 0.6 (0.2-1) mg/dl AST 41 H (15-37) U/L ALT 44 (12-78) U/L Alkaline Phosphatase 91 (45-117) U/L Total Creatine Kinase (26-192) U/L CK-MB (CK-2) (0.5-3.6) ng/ml CK/CKMB % Calc (0-3.0) Troponin I (0-0.045) ng/ml Total Protein 8.6 H (6.4-8.2) gm/dl Albumin 4.2 (3.4-5.0) gm/dl Globulin 4.4 H (2.5-4.0) gm/dl Albumin/Globulin Ratio 1.0 (0.9-2) Lipase 89 (73-393) U/L Urine Color Yellow Urine Appearance Clear (Clear) Urine pH 8.5 H (4.5-7.5) Ur Specific [place] 1.013 (1.000-1.030) Urine Protein 1+ H (Negative) Urine Glucose (UA) 2+ H (Negative) Urine Ketones Trace H (Negative) Urine Blood Negative (Negative) Urine Nitrite Negative (Negative) Urine Bilirubin Negative (Negative) Urine Urobilinogen Negative (Negative) Ur Leukocyte Esterase Negative (Negative) Urine WBC (Auto) 1-5 (0-5) /hpf Urine RBC (Auto) 0-4 (0-4) /hpf U Hyaline Cast (Auto) 0 (0-5) /lpf U Epithel Cells (Auto) 5-10 H (0-5) /lpf Urine Bacteria (Auto) Negative (Negative) 07/18/19 Range/Units 04:50 WBC (4.8-10.8) K/uL RBC (4.2-5.4) M/uL Hgb (12.0-16.0) g/dL Hct (37-47) % MCV (80-100) fL MCH (25-34) pg MCHC (32-36) g/dL RDW Std Deviation (36.4-46.3) fL RDW Coeff of Carmen (11.5-14.5) % Plt Count (130-400) K/uL MPV (7.4-10.4) fL Immature Gran % (Auto) % Neut % (Auto) % Lymph % (Auto) % [place] % (Auto) % Eos % (Auto) % Baso % (Auto) % Immature Gran # (Auto) (0.00-0.02) K/uL Neut # (Auto) (1.4-6.5) K/uL Lymph # (Auto) (1.2-3.4) K/uL [place] # (Auto) (0.11-0.59) K/uL Eos # (Auto) (0-0.5) K/uL Baso # (Auto) (0-0.2) K/uL Sodium (136-145) mmol/L Potassium (3.5-5.1) mmol/L Chloride (98-107) mmol/L Carbon Dioxide (21-32) mmol/L Anion Gap (3-11) BUN (7-18) mg/dl Creatinine (0.6-1.2) mg/dl Est Cr Clr Drug Dosing ml/min Est GFR ( Amer) Est GFR (Non-Af Amer) BUN/Creatinine Ratio (10-20) Glucose (70-99) mg/dl Calcium (8.5-10.1) mg/dl Total Bilirubin (0.2-1) mg/dl AST (15-37) U/L ALT (12-78) U/L Alkaline Phosphatase (45-117) U/L Total Creatine Kinase 137 (26-192) U/L CK-MB (CK-2) 3.6 (0.5-3.6) ng/ml CK/CKMB % Calc 2.6 (0-3.0) Troponin I < 0.015 (0-0.045) ng/ml Total Protein (6.4-8.2) gm/dl Albumin (3.4-5.0) gm/dl Globulin (2.5-4.0) gm/dl Albumin/Globulin Ratio (0.9-2) Lipase (73-393) U/L Urine Color Urine Appearance (Clear) Urine pH (4.5-7.5) Ur Specific [place] (1.000-1.030) Urine Protein (Negative) Urine Glucose (UA) (Negative) Urine Ketones (Negative) Urine Blood (Negative) Urine Nitrite (Negative) Urine Bilirubin (Negative) Urine Urobilinogen (Negative) Ur Leukocyte Esterase (Negative) Urine WBC (Auto) (0-5) /hpf Urine RBC (Auto) (0-4) /hpf U Hyaline Cast (Auto) (0-5) /lpf U Epithel Cells (Auto) (0-5) /lpf Urine Bacteria (Auto) (Negative) Imaging Data Radiologist's Impression: CT abdomen pelvis without contrast: Comparison 320 Dilated small bowel loops suspicious for obstruction, exam per lower abdomen and pelvis. Transition is suspected in the pelvis. Trace free fluid. Interloop mesenteric edema. No appendicitis. Postop changes, hiatal hernia, hepatic steatosis, diverticulosis without diverticulitis, fat-containing ventral hernias and other unchanged findings. ECG Data Attestation: I personally reviewed and interpreted this ECG as follows: Indication: abdominal pain Rate (beats per minute): 77 Rhythm: normal sinus Findings: + T-wave inversion (Inferior); no ST depression and no ST elevation Comparison ECG Date: no prior available Blood Pressure Blood Pressure Findings: Elevated blood pressure Blood Pressure Disposition: further management by hospitalist COLE Piper This is a 74-year-old female who presents emergency department complaining of severe abdominal pain. Using shared medical decision-making with the patient and her the decision was made to send the patient for CAT scan of the abdomen pelvis. I will note that the patient is allergic to iodinated contrast media therefore she was sent without contrast. CAT scan is concerning for small bowel obstruction. Patient does have an elevation in her white blood cell count however has a normal CK-MB and troponin. Due to the small bowel obstruction I recommended an NG tube be placed however the patient is refusing to have it without sedation. Therefore the patient was sedated as above to place the NG tube. She did receive Dilaudid for her pain as well as Zofran and Reglan for her vomiting. The patient was discussed with the hospitalist service who was kind enough to admit the patient. The patient was given a clonidine patch to the lower her blood pressure. Impression & Plan HTN (hypertension), Small bowel obstruction, Abdominal pain Critical Care Time I have personally spent greater than 30 minutes of critical care time in the direct management of this patient. This includes bedside care, interpretation of diagnostic studies, and testing, discussion with consultants, patient, and family members, and other required patient management activities. This 30 minutes is in excess of all separately billable procedures. Discharge Plan Visit Data *Final* Discharge Date/Time: 07/18/19 05:36 Chief Complaint: Abdominal Pain Stated Complaint: SEVERE ABDOMINAL PAIN, VOMITING ED Provider: Jaquan Jackson Discharge Problem: HTN (hypertension), Small bowel obstruction, Abdominal pain Patient Disposition: Admitted As Inpatient Discharge Instructions Interventions: ED Discharge Assessment Last Done: 07/18/19 05:36 The scribe's documentation has been prepared under my direction and personally reviewed by me in its entirety. I confirm that the note above accurately reflects all work, treatment, procedures, and medical decision making performed by me.
[2019-07-18 05:24] LABS: Creatine Kinase 137 U/L (26-192); Creatine Kinase MB 3.6 ng/ml (0.5-3.6); Troponin I < 0.015 ng/ml (0-0.045)
--- NOTE | 2019-07-18 05:25 | History & Physical Report ---
Date of Service July 18, 2019 Assessment & Plan (1) SBO (small bowel obstruction): Patient with multiple abdominal surgeries, SBO in the past requiring laparotomy and bowel resection presenting with suspected SBO. -Admit to PCU -Strict NPO -Maintain NGT to low continuous suction -Pain control with Morphine PRN -Nausea control with Zofran PRN -Gentle IVF - 1/2 NSS at 100mL/hr -Electrolyte repletion -Ambulation with assistance -General Surgery consultation - assistance appreciated Present on Admission?: Yes (2) Hypertensive urgency: Patient with asymptomatic elevation of blood pressure >180/110. No evidence of end-organ ischemia. She has history of labile blood pressure -Clonidine patch 0.2mg daily while NPO -Metoprolol 5mg IV q 4 hours while NPO -Closely monitor response. Goal for slow reduction in MAP Present on Admission?: Yes (3) Diabetes: Patient with DM with neuropathy. Blood sugar elevated at 240 -Check HgbA1C -Lantus 8u BID with ISS -NPO -Continue to montior Present on Admission?: Yes (4) GERD (gastroesophageal reflux disease): History of GERD on daily lansoprazole -Pepcid 20mg IV daily while NPO Present on Admission?: Yes (5) Nonobstructive atherosclerosis of coronary artery: Chronic. Stable. No CP -Awaiting EKG -Holding ASA while NPO Present on Admission?: Yes (6) Depression: Controlled with Lexapro -Hold Lexapro while NPO -Ativan 1mg IV qHS PRN - patient on Clonazepam qHS F/E/N - 1/2 NSS at 100mL/hr, replete electrolytes as needed, Mg x 1gm, NPO Ppx - SCDs, IV Pepcid as above Code - Full per discussion with patient, at bedside Dispo - Admit to PCU Present on Admission?: Yes History of Present Illness Chief Complaint: abdominal pain Primary Care Provider: JOSE Fine Varsha Sevilla is a pleasant 74yo C female with history of HTN, DM, GERD presenting with abdominal pain. She reports that this evening around 19:30 she developed sharp severe, diffuse abdominal pain as well as multiple episodes of non-bloody, non-bilious vomiting and abdominal distention. Last BM was prior to arrival. She has a history of bladder surgery as well as ROMAN-BSO. She has had diverticulosis with diverticulitis s/p colon resection with anastamosis performed years ago by Dr. Argueta. She was admitted with an SBO in July 2010 and had laparotomy performed by Dr. Smith revealing severe adhesions of the omentum and small bowel, especially below the umbilicus. She had resection of the mid to distal ileum. Upon arrival to the ER patient was found to be afebrile, markedly hypertensive at 200/96. She has a history of labile blood pressures, difficult to control. She reports adherence to her medications. No recent medication changes. She did take her Clonidine today. ER Course: Versed 4mg, Fentanyl 100mcg for NGT placement, Ofirmev 1000mg, Clonidine patch, Dilaudod 0.5mg, Reglan 10mg, NSS Allergies Allergy/AdvReac Type Severity Reaction Status Date / Time Sulfa (Sulfonamide Allergy Intermediate "SULFA Verified 07/18/19 03:02 Antibiotics) DRUGS": SWELLS iodine Allergy Mild SWELLING, Verified 07/18/19 03:02 ITCHING,RED AND NAUSEA W/CONTRAST DYE (FEEL FUNNY) Egg Derived Allergy Unknown DIARRHEA,ABD Verified 07/18/19 03:02 PAIN Iodinated Contrast Media Allergy Unknown HOT FLASH Verified 07/18/19 03:02 AND RASH shellfish derived Allergy Unknown SWELLING Verified 07/18/19 03:02 AND VOMITING shrimp Allergy Unknown SWELLING Verified 07/18/19 03:02 AND NAUSEA WITH SHRIMP AND SHELLFISH codeine AdvReac Unknown VOMITING Verified 07/18/19 03:02 egg AdvReac Unknown DIARRHEA Verified 07/18/19 03:02 Home Medications Home Medications Medication Instructions Recorded Confirmed Type amlodipine 5 mg PO BID 08/21/18 07/18/19 History aspirin [Aspir-81] 81 mg PO HS 08/21/18 07/18/19 History clonazepam 1 mg PO HS 08/21/18 07/18/19 History clonidine HCl 0.1 mg PO BID 08/21/18 07/18/19 History escitalopram oxalate [Lexapro] 20 mg PO HS 08/21/18 07/18/19 History lansoprazole 30 mg PO QAM 08/21/18 07/18/19 History nitroglycerin [Nitrostat] 0.4 mg SUBLINGUAL DIRECTED PRN 08/21/18 07/18/19 History propranolol 160 mg PO HS 08/21/18 07/18/19 History gabapentin [Neurontin] 300 mg PO BID 03/15/19 07/18/19 History linagliptin [Tradjenta] 5 mg PO QAM 03/15/19 07/18/19 History magnesium oxide [MagOx] 400 mg PO DAILY 03/15/19 07/18/19 History metformin 500 mg PO BID 07/18/19 07/18/19 History Past Med/Surg History Medical History WPW (Jqgmc-Lkwtzkspp-Ytfht syndrome) (Chronic) HTN (hypertension) (Chronic) Hypertensive cardiovascular disease Diarrhea (Acute) Vomiting (Acute) Acute chest pain (Acute) Contrast media allergy (Chronic) Lumbar stenosis with neurogenic claudication Labile hypertension (Chronic) LVH (left ventricular hypertrophy) (Chronic) Nonobstructive atherosclerosis of coronary artery (Chronic) "Per cardiac cath May 2016" GERD (gastroesophageal reflux disease) (Chronic) Hemorrhoids (Chronic) Hepatic steatosis (Chronic) H/O: rheumatic fever (Chronic) H/O Clostridium difficile infection (Chronic) Surgical History H/O cardiac radiofrequency ablation (Resolved) History of bladder surgery (Chronic) S/P foot surgery (Chronic) History of herniorrhaphy (Chronic) S/P ROMAN-BSO (Chronic) S/P partial colectomy (Chronic) Family History Other Cancer Diabetes Heart disease Hypertension Social History Preferred Language: Irish Communication Ability: Effective Stage Technician Required: Yes Beliefs That Will Affect Care: None marital status: Current Living Situation: Spouse Feels Safe at Home: Yes Smoking Status: Never smoker Hx Alcohol Use: No Hx Substance Use: No Review of Systems Review of Systems: All systems reviewed & are unremarkable except as noted in HPI & below Patient reports a dull headache. Denies visual changes. She has stable numbness of her feet bilaterally consistent with her neuropathy. Denies CP, SOB, cough, wheeze. Has occasional palpitations Physical Exam Physical Exam: General: patient resting comfortably, NAD, non-toxic in appearance, AA&O x 4, flat affect Skin: warm, dry, intact, no rashes or lesions, well healed abdominal surgical scar HEENT: NC/AT, PERRL, anicteric sclera, conjunctiva without injection, external ear normal to inspection and nontender, nares patent, moist mucus membranes, dentition intact, no oropharyngeal lesions, neck supple, trachea midline, no LAD, no thyromegaly, no JVD Heart: +S1/S2, regular, no m/r/g Lungs: equal air entry bilaterally, no rales/rhonchi/wheezes Abd: absent bowel sounds after 1 minute of auscultation, soft, diffusely tender with deep palpation, no rebound/guarding/peritoneal signs, mild distention, no masses/organomegaly/ascites Ext: warm, 2+ pulses in UE/LE bilaterally, no clubbing/cyanosis or edema Neuro: nonfocal, patient AA&O x 4, speech intact, no facial droop, moving all extremities on command with equal strength 5/5 Results & Data Vital Signs (Past 12 Hours) Vital Signs Temp Pulse Resp BP Pulse Ox 07/18/19 03:27 95 07/18/19 03:22 71 23 224/102 H 94 07/18/19 03:20 72 18 217/99 H 90 07/18/19 02:24 36.4 C L 93 H 22 200/96 H 96 Laboratory Results Lab Results 07/18/19 07/18/19 Range/Units 02:36 02:36 WBC 13.37 H (4.8-10.8) K/uL RBC 4.98 (4.2-5.4) M/uL Hgb 14.2 (12.0-16.0) g/dL Hct 41.1 (37-47) % MCV 82.5 (80-100) fL MCH 28.5 (25-34) pg MCHC 34.5 (32-36) g/dL RDW Std Deviation 46.6 H (36.4-46.3) fL RDW Coeff of Carmen 15.4 H (11.5-14.5) % Plt Count 242 (130-400) K/uL MPV 10.2 (7.4-10.4) fL Immature Gran % (Auto) 0.3 % Neut % (Auto) 70.7 % Lymph % (Auto) 19.8 % [place] % (Auto) 7.4 % Eos % (Auto) 1.5 % Baso % (Auto) 0.3 % Immature Gran # (Auto) 0.04 H (0.00-0.02) K/uL Neut # (Auto) 9.45 H (1.4-6.5) K/uL Lymph # (Auto) 2.65 (1.2-3.4) K/uL [place] # (Auto) 0.99 H (0.11-0.59) K/uL Eos # (Auto) 0.20 (0-0.5) K/uL Baso # (Auto) 0.04 (0-0.2) K/uL Sodium 135 L (136-145) mmol/L Potassium 4.0 (3.5-5.1) mmol/L Chloride 98 (98-107) mmol/L Carbon Dioxide 27 (21-32) mmol/L Anion Gap 10.0 (3-11) BUN 16 (7-18) mg/dl Creatinine 0.99 (0.6-1.2) mg/dl Est Cr Clr Drug Dosing 51.7 ml/min Est GFR ( Amer) 64.2 Est GFR (Non-Af Amer) 55.4 BUN/Creatinine Ratio 15.9 (10-20) Glucose 240 H (70-99) mg/dl Calcium 9.5 (8.5-10.1) mg/dl Total Bilirubin 0.6 (0.2-1) mg/dl AST 41 H (15-37) U/L ALT 44 (12-78) U/L Alkaline Phosphatase 91 (45-117) U/L Total Protein 8.6 H (6.4-8.2) gm/dl Albumin 4.2 (3.4-5.0) gm/dl Globulin 4.4 H (2.5-4.0) gm/dl Albumin/Globulin Ratio 1.0 (0.9-2) Lipase 89 (73-393) U/L Diagnostic Findings CT Abdomen and Pelvis without Contrast: Per STAT-rad: Dilated small bowel loops suspicious for obstruction, example lower abdomen and pelvis. Transition is suspected in the pelvis. Trace free fluid. Interloop/mesenteric edema. No appendicitis. Postop changes, hiatal hernia, hepatic steatosis, diverticulosis without diverticulitis, fat-containing ventral hernias and other unchanged findings ECG Additional Comments: ordered Code Status & VTE Plan Code Status FULL VTE Prophylaxis Plan VTE Prophylaxis will be ordered: Yes PG Care Time/CCT Total # of Minutes Spent Total Time Spent with Patient: Total time spent is greater than 50% in coordination of care (as documented) at patient's floor/unit and/or counseling patient: (1) Diabetes Diabetes mellitus type: type 2 Diabetes mellitus senior care insulin use: without adjunct faculty for medical terminology use Diabetes mellitus complication status: with neurologic complications Diabetes mellitus complication detail: with polyneuropathy Qualified Code(s): E11.42 - Type 2 diabetes mellitus with diabetic polyneuropathy (2) GERD (gastroesophageal reflux disease) Esophagitis presence: esophagitis presence not specified Qualified Code(s): K21.9 - Gastro-esophageal reflux disease without esophagitis (3) Depression Depression Type: major depressive disorder Major depression recurrence: recurrent Active/Remission status: remission status unspecified Qualified Code(s): F33.9 - Major depressive disorder, recurrent, unspecified
[2019-07-18 05:39] LABS: Protein Urine 1+ (Negative); Sulfosalicylic Acid Urine Positive (Negative)
[2019-07-18] MEDS ORDERED: CARBOHYDRATES FOR HYPOGLYCEMIA PO PRN (06:04)
[2019-07-18] MEDS ORDERED: GLUCAGON FOR INJ 1 MG VIAL SQ PRN (06:04)
[2019-07-18] MEDS ORDERED: GLUCOSE 10 TABS/TUBE PO PRN (06:04)
[2019-07-18] MEDS ORDERED: MoRPHine SULFATE 2 MG/ML CARP IV PRN (06:04)
[2019-07-18] MEDS ORDERED: GLUCOSE 40% GEL 15 GM TUBE PO PRN (06:04)
[2019-07-18] MEDS ORDERED: DEXTROSE 50% 50 ML SYRINGE IV PRN (06:04)
[2019-07-18] MEDS ORDERED: LORazepam 1 MG/2 ML VIAL IV PRN (06:04)
[2019-07-18] MEDS ORDERED: SODIUM CHLORIDE 0.45 % 1,000 ML IV SCH (06:04)
[2019-07-18] MEDS ORDERED: MAGNESIUM SULFATE / D5W 1 GM/100 ML BAG IV SCH (06:30)
--- NOTE | 2019-07-18 07:04 | CT Scan Report ---
CT OF THE ABDOMEN AND PELVIS WITHOUT CONTRAST CLINICAL HISTORY: Lower abdominal pain. History of diverticulitis. COMPARISON STUDY: CT of the abdomen and pelvis January 05, 2019. TECHNIQUE: Axial images of the abdomen and pelvis were obtained without IV contrast. Images were revi ewed in the axial, sagittal, and coronal planes. Automated exposure control was utilized for the jerzy dy. A dose lowering technique was utilized adhering to the principles of ALARA. FINDINGS: Lung bases are unremarkable. No pneumatosis, free air or portal venous gas is present. Ther e is fatty infiltration of the liver. There is no biliary or pancreatic ductal dilatation. 3.5 cm bee er attenuation right renal lesion is suboptimally assessed on this unenhanced exam but favors a cyst. The spleen and adrenal glands are unremarkable. Renal cortical thinning is noted. Multiple fat-conta ining ventral hernias are noted. A bowel anastomosis within the right lower quadrant is noted. There are multiple loops of moderately dilated fluid-filled small bowel without transition point within the right lower quadrant on image 347 of 501. Distal small bowel is decompressed. There is associated me senteric infiltration trace fluid. The transition point is in close proximity to an anastomosis. Ther e is colonic diverticulosis without evidence for acute diverticulitis. Postoperative findings within the spine are noted. There are no suspicious osseous lesions. IMPRESSION: 1. Findings consistent with a small bowel obstruction with transition point within the right lower qu adrant, in close proximity to a small bowel anastomosis. Associated mesenteric infiltration and trace ascites. No pneumatosis, free air or portal venous gas. 2. Colonic diverticulosis without evidence for acute diverticulitis. 3. Fatty liver. Electronically signed by: Giucho Benitez M.D. 07/18/2019 7:02 AM
[2019-07-18] MEDS ORDERED: INSULIN ASPART 100 UNITS/ML 3 ML PEN SC SCH (07:30)
[2019-07-18 07:36] LABS: Magnesium 1.6 mg/dl (1.8-2.4); Phosphorus 4.4 mg/dl (2.5-4.9)
--- NOTE | 2019-07-18 07:55 | Surgery Consultation ---
Date of Consultation July 18, 2019 Assessment & Plan (1) Small bowel obstruction: This is a 74y F who presents to [facility] on 07/18 with complaints of severe abdominal pain and CT scan findings concerning for small bowel obstruction. Patient reports having a history of multiple SBO's in the past, cannot recall last event, but did require operative intervention in 2009 and underwent small bowel resection with lysis of adhesions. Currently patient has NGT in place and has been made NPO with IVF for a trial of conservative management. Her NGT has not put out much output since insertion, therefore a CXR has been ordered to evaluate placement. NGT may need adjusted pending findings. I will discuss this case with our surgeon education associate and we will follow along if patient fails to progress for any potential surgical intervention. as above.pt seen. feeling better now but still with mild lower abdominal pain. no peritoneal signs. mild distension. NGT appears against the wall of the stomach...will pull back slightly. will follow along closely. conservative management for now. agree with repeat lactic acid level. History of Present Illness Attending Physician: Luisito Cordova MD History of Present Illness This is a 74y F with a PMH of WPW syndrome s/p ablation, DM, HTN, and multiple abdominal surgeries including ROMAN-BSO, diverticulitis requiring colon resection, bladder surgery, and ex-lap with lysis of adhesions and small bowel resection in 2009 for SBO who now presents to the [facility] ED on 07/18/19 with complaints of severe abdominal pain. Patient reports eating spaghetti for dinner yesterday evening, then shortly thereafter around 7:30pm developed acute onset of abdominal pain (rating 10/10 in severity). Her pain was associated with nausea and multiple bouts of non-bloody emesis x7. Her last bowel movement was last night which was formed. She endorses + abdominal bloating/distention, with her abdominal pain radiating to lower chest. Workup in the ED included a CT a/p that revealed findings concerning for small bowel obstruction with a transition point in the right lower quadrant, close to a small bowel anastomosis. WBC: 13.3, lactate 3, Pulse rate: 80's and patient hypertensive in the ED. An NGT was place and patient made NPO with IVF hydration. Surgery was consulted for further evaluation. Allergies Allergy/AdvReac Type Severity Reaction Status Date / Time Sulfa (Sulfonamide Allergy Intermediate "SULFA Verified 07/18/19 03:02 Antibiotics) DRUGS": SWELLS iodine Allergy Mild SWELLING, Verified 07/18/19 03:02 ITCHING,RED AND NAUSEA W/CONTRAST DYE (FEEL FUNNY) Egg Derived Allergy Unknown DIARRHEA,ABD Verified 07/18/19 03:02 PAIN Iodinated Contrast Media Allergy Unknown HOT FLASH Verified 07/18/19 03:02 AND RASH shellfish derived Allergy Unknown SWELLING Verified 07/18/19 03:02 AND VOMITING shrimp Allergy Unknown SWELLING Verified 07/18/19 03:02 AND NAUSEA WITH SHRIMP AND SHELLFISH codeine AdvReac Unknown VOMITING Verified 07/18/19 03:02 egg AdvReac Unknown DIARRHEA Verified 07/18/19 03:02 Home Medications Home Medications Medication Instructions Recorded Confirmed Type amlodipine 5 mg PO BID 08/21/18 07/18/19 History aspirin [Aspir-81] 81 mg PO HS 08/21/18 07/18/19 History clonazepam 1 mg PO HS 08/21/18 07/18/19 History clonidine HCl 0.1 mg PO BID 08/21/18 07/18/19 History escitalopram oxalate [Lexapro] 20 mg PO HS 08/21/18 07/18/19 History lansoprazole 30 mg PO QAM 08/21/18 07/18/19 History nitroglycerin [Nitrostat] 0.4 mg SUBLINGUAL DIRECTED PRN 08/21/18 07/18/19 History propranolol 160 mg PO HS 08/21/18 07/18/19 History gabapentin [Neurontin] 300 mg PO BID 03/15/19 07/18/19 History linagliptin [Tradjenta] 5 mg PO QAM 03/15/19 07/18/19 History magnesium oxide [MagOx] 400 mg PO DAILY 03/15/19 07/18/19 History metformin 500 mg PO BID 07/18/19 07/18/19 History Patient History Medical History WPW (Sdsjp-Nvefwwrtj-Vnnip syndrome) (Chronic) HTN (hypertension) (Chronic) Hypertensive cardiovascular disease Diarrhea (Acute) Vomiting (Acute) Acute chest pain (Acute) Contrast media allergy (Chronic) Lumbar stenosis with neurogenic claudication Labile hypertension (Chronic) LVH (left ventricular hypertrophy) (Chronic) Nonobstructive atherosclerosis of coronary artery (Chronic) "Per cardiac cath May 2016" GERD (gastroesophageal reflux disease) (Chronic) Hemorrhoids (Chronic) Hepatic steatosis (Chronic) H/O: rheumatic fever (Chronic) H/O Clostridium difficile infection (Chronic) Surgical History H/O cardiac radiofrequency ablation (Resolved) History of bladder surgery (Chronic) S/P foot surgery (Chronic) History of herniorrhaphy (Chronic) S/P ROMAN-BSO (Chronic) S/P partial colectomy (Chronic) Family History Other Cancer Diabetes Heart disease Hypertension Social History Preferred Language: Spanish Communication Ability: Effective Lug Breaker And Wire Puller Required: No Beliefs That Will Affect Care: None marital status: Current Living Situation: Spouse Feels Safe at Home: Yes Smoking Status: Never smoker Second Hand Exposure: No ; Hx Alcohol Use: No Hx Substance Use: No Review of Systems Constitutional: + fever (subjective fever, but pt did not check temp at home.); no chills Gastrointestinal: + abdominal pain (10/10 diffuse abdominal pain), + bloating, + nausea and + vomiting; no hematemesis and no change in bowel habits Physical Exam Physical Exam: awake/alert/lying in bed Constitutional: well developed and well nourished; no acute distress Respiratory: normal respiratory effort; no respiratory distress Cardiovascular: Rate/Rhythm: regular rhythm Gastrointestinal (Abdomen): Inspection/Auscultation: + abdomen distended (mildly) and + abdominal surgical scar (midline scar and infraumbilical midline scar) Percussion/Palpation: + abdomen tender (to deep palpation in generalized abdomen) and abdomen soft NGT in place with no output in canister Results & Data Vital Signs (Past 12 Hours) Vital Signs Temp Pulse Pulse Pulse Resp BP BP 07/18/19 07:02 36.5 C 79 19 177/75 H 07/18/19 06:39 36.5 C 83 20 07/18/19 05:40 82 12 177/105 H 07/18/19 05:35 80 18 162/85 H 07/18/19 05:30 82 16 159/80 H 07/18/19 05:25 80 18 177/92 H 07/18/19 05:20 83 19 183/101 H 07/18/19 05:15 83 12 221/95 H 07/18/19 05:10 85 15 217/107 H 07/18/19 05:05 89 13 225/100 H 07/18/19 05:00 92 H 17 253/111 H 07/18/19 04:55 82 16 200/98 H 07/18/19 04:54 82 18 215/111 H 07/18/19 03:27 07/18/19 03:22 71 23 224/102 H 07/18/19 03:20 72 18 217/99 H 07/18/19 02:24 36.4 C L 93 H 22 200/96 H BP Pulse Ox 07/18/19 07:02 94 07/18/19 06:39 212/85 H 96 07/18/19 05:40 93 07/18/19 05:35 93 07/18/19 05:30 92 07/18/19 05:25 93 07/18/19 05:20 93 07/18/19 05:15 94 07/18/19 05:10 91 07/18/19 05:05 93 07/18/19 05:00 84 L 07/18/19 04:55 94 07/18/19 04:54 94 07/18/19 03:27 95 07/18/19 03:22 94 07/18/19 03:20 90 07/18/19 02:[address] OF THE ABDOMEN AND PELVIS WITHOUT CONTRAST CLINICAL HISTORY: Lower abdominal pain. History of diverticulitis. COMPARISON STUDY: CT of the abdomen and pelvis January 05, 2019. TECHNIQUE: Axial images of the abdomen and pelvis were obtained without IV contrast. Images were reviewed in the axial, sagittal, and coronal planes. Automated exposure control was utilized for the study. A dose lowering technique was utilized adhering to the principles of ALARA. FINDINGS: Lung bases are unremarkable. No pneumatosis, free air or portal venous gas is present. There is fatty infiltration of the liver. There is no biliary or pancreatic ductal dilatation. 3.5 cm water attenuation right renal lesion is suboptimally assessed on this unenhanced exam but favors a cyst. The spleen and adrenal glands are unremarkable. Renal cortical thinning is noted. Multiple fat- containing ventral hernias are noted. A bowel anastomosis within the right lower quadrant is noted. There are multiple loops of moderately dilated fluid-filled small bowel without transition point within the right lower quadrant on image 347 of 501. Distal small bowel is decompressed. There is associated mesenteric infiltration trace fluid. The transition point is in close proximity to an anastomosis. There is colonic diverticulosis without evidence for acute diverticulitis. Postoperative findings within the spine are noted. There are no suspicious osseous lesions. IMPRESSION: 1. Findings consistent with a small bowel obstruction with transition point within the right lower quadrant, in close proximity to a small bowel anastomosis. Associated mesenteric infiltration and trace ascites. No pneumatosis, free air or portal venous gas. 2. Colonic diverticulosis without evidence for acute diverticulitis. 3. Fatty liver. Electronically signed by: Guicho Benitez M.D. 07/18/2019 7:02 AM PG Care Time/CCT Total # of Minutes Spent Total Time Spent with Patient: Total time spent is greater than 50% in coordination of care (as documented) at patient's floor/unit and/or counseling patient:
[2019-07-18] MEDS ORDERED: CHECK CLONIDINE PATCH PLACEMENT SCH (08:00)
[2019-07-18] MEDS: CHECK CLONIDINE PATCH PLACEMENT SCH ×2 (08:45→17:08)
[2019-07-18] MEDS: METOPROLOL TARTRATE 1 MG/ML VIAL IV SCH ×4 (08:47→20:22)
--- NOTE | 2019-07-18 08:57 | XRay Report ---
XR chest 1V portable HISTORY: please evaluate NGT placement COMPARISON: Chest 03/15/2019. FINDINGS: The nasogastric tube terminates in the body of the stomach. Mild elevation of the right hem idiaphragm. No pneumothorax. No pleural effusions. No focal lung consolidations to suggest pneumonia. No evidence for pulmonary edema. The heart is normal in size. IMPRESSION: Nasogastric tube terminates in the body of the stomach. Electronically signed by: Eduardo Crawley M.D. 07/18/2019 8:56 AM
[2019-07-18] MEDS ORDERED: HydrALAZINE HCL 20 MG/ML VIAL IV PRN (09:42)
[2019-07-18] MEDS: MoRPHine SULFATE 2 MG/ML CARP IV PRN ×3 (09:58→22:07)
[2019-07-18] MEDS: FAMOTIDINE 20 MG in SYRINGE 3 ML IV SCH (10:00)
[2019-07-18] MEDS ORDERED: ACETAMINOPHEN 1,000 MG/100 ML VIAL IV PRN (10:00)
[2019-07-18] MEDS: INSULIN GLARGINE SOLOSTAR 100 UNITS/ML 3 ML PEN SC SCH ×2 (12:32→20:23)
[2019-07-18] MEDS: INSULIN ASPART 100 UNITS/ML 3 ML PEN SC SCH ×2 (12:34→18:27)
--- NOTE | 2019-07-18 13:30 | History & Physical Bridge Note ---
Date of Service July 18, 2019 History & Physical Bridge Note Patient seen and examined at this morning. She is fatigued from her IV pain medications, and also does report continued stomach pain in the lower abdomen as well as the epigastric area. Blood pressure is significant elevated, likely due to pain. - Trend lactate & hemoglobin - Surgery following - No acute surgical need at this time. - Continue NPO with NGT to suction
[2019-07-18] MEDS: ENALAPRILAT 1.25 MG in DEXTROSE 5% 25 ML IV SCH ×2 (16:36→22:03)
[2019-07-18] MEDS: HydrALAZINE HCL 20 MG/ML VIAL IV PRN (17:57)
[2019-07-18] MEDS: ONDANSETRON INJ 2 MG/ML 2 ML VIAL IV PRN (20:43)
[2019-07-19] MEDS: METOPROLOL TARTRATE 1 MG/ML VIAL IV SCH ×7 (00:01→23:38)
[2019-07-19] MEDS: CHECK CLONIDINE PATCH PLACEMENT SCH ×4 (00:09→23:09)
[2019-07-19] MEDS: INSULIN ASPART 100 UNITS/ML 3 ML PEN SC SCH ×5 (00:14→23:55)
[2019-07-19] MEDS: ENALAPRILAT 1.25 MG in DEXTROSE 5% 25 ML IV SCH ×4 (04:17→22:18)
[2019-07-19] MEDS: ONDANSETRON INJ 2 MG/ML 2 ML VIAL IV PRN ×3 (04:36→21:00)
[2019-07-19 06:22] LABS: Basophils # (auto) 0.01 K/uL (0-0.2); Basophils % (auto) 0.1 %; Eosinophils # (auto) 0.13 K/uL (0-0.5); Eosinophils % (auto) 1.1 %; Hematocrit (blood only) 38.8 % (37-47); Hemoglobin 12.9 g/dL (12.0-16.0); Immature Granulocytes # (auto) 0.04 K/uL (0.00-0.02); Immature Granulocytes % (auto) 0.3 %; Lymphocytes # (auto) 2.61 K/uL (1.2-3.4); Lymphocytes % (auto) 22.4 %; Mean Corpuscular Hgb Conc 33.2 g/dL (32-36); Mean Corpuscular Volume 84.3 fL (80-100); Mean Platelet Volume 9.8 fL (7.4-10.4); Monocytes # (auto) 1.14 K/uL (0.11-0.59); Monocytes % (auto) 9.8 %; Neutrophils # (auto) 7.73 K/uL (1.4-6.5); Neutrophils % (auto) 66.3 %; Platelet Count 211 K/uL (130-400); White Blood Count 11.66 K/uL (4.8-10.8)
[2019-07-19 06:46] LABS: Estimated Average Glucose 206 mg/dl; Hemoglobin A1C 8.8 % (4.5-5.6)
[2019-07-19 06:51] LABS: BUN Creatinine Ratio 20.6 (10-20); Calcium 8.8 mg/dl (8.5-10.1); Creatinine Clr Calc Pharmacy 57.7 ml/min; Est GFR (Non-African American) 63.8; Potassium 3.6 mmol/L (3.5-5.1)
--- NOTE | 2019-07-19 07:49 | Surgery Progress Note ---
Date of Service July 19, 2019 Assessment & Plan (1) Small bowel obstruction: Hospital day#2 small bowel obstruction Ordered KUB this AM- will follow up on results NGT working better now that it has been pulled back WBC: 11.6 Continue conservative management- NPO with IVF and bowel rest for now clinically doing better. xray looks better. less pain. cont conservative management. will d/w primary service regarding restarting IVF's..... consider sbft tomorrow Subjective Patient with no acute events overnight. Still with intermittent abdominal pain that comes and goes, but reports it is improved since yesterday. She still has some nausea, but no vomiting. Is not passing gas nor BM's. Says the NGT is uncomfortable. Physical Exam Physical Exam: awake/alert/daughter at bedside Constitutional: well developed and well nourished; no acute distress Respiratory: normal respiratory effort Gastrointestinal (Abdomen): Inspection/Auscultation: abdomen not distended Percussion/Palpation: + abdomen tender (mildly tender to deep palpation) and abdomen soft NGT put out 650cc in the past 24 hours, bilious Results & Data Vital Signs (Past 12 Hours) Vital Signs Temp Pulse Pulse Resp BP BP Pulse Ox 07/19/19 07:40 36.7 C 85 20 167/70 H 91 07/19/19 04:19 36.8 C 83 20 165/66 H 94 07/19/19 04:17 78 165/66 H 07/19/19 00:01 79 155/67 H 07/18/19 23:44 37 C 81 20 155/67 H 95 07/18/19 22:06 161/74 H 07/18/19 20:22 87 167/69 H PG Care Time/CCT Total # of Minutes Spent Total Time Spent with Patient: Total time spent is greater than 50% in coordination of care (as documented) at patient's floor/unit and/or counseling patient:
--- NOTE | 2019-07-19 08:27 | XRay Report ---
XR KUB/Abdomen 1 view CLINICAL HISTORY: Small bowel obstruction COMPARISON STUDY: CT scan dated 07/18/2019 FINDINGS: There is a nasogastric tube in the stomach. There is gas present within the colon. There is a borderline dilated left lower quadrant small bowel lobe measuring 32 mm. IMPRESSION: 1. Borderline dilated small bowel loop measuring 32 mm in diameter 2. Nasogastric tube within the stomach Electronically signed by: Max Salomon M.D. 07/19/2019 8:25 AM
[2019-07-19] MEDS: MoRPHine SULFATE 2 MG/ML CARP IV PRN ×2 (08:28→23:08)
[2019-07-19] MEDS: FAMOTIDINE 20 MG in SYRINGE 3 ML IV SCH (08:28)
[2019-07-19] MEDS: INSULIN GLARGINE SOLOSTAR 100 UNITS/ML 3 ML PEN SC SCH ×2 (08:29→21:02)
[2019-07-19] MEDS ORDERED: NORMOSOL-R 1,000 ML IV ONE (17:31)
--- NOTE | 2019-07-19 17:38 | Hospitalist Progress Note ---
Date of Service July 19, 2019 Assessment & Plan (1) SBO (small bowel obstruction): Patient with multiple abdominal surgeries, SBO in the past requiring laparotomy and bowel resection presenting with suspected SBO. - NPO - NGT to suction - Limited IV fluids - General Surgery consultation - assistance appreciated (2) Hypertensive urgency: Patient with asymptomatic elevation of blood pressure >200/110. No evidence of end-organ ischemia. She has history of labile blood pressure. - Clonidine patch 0.2mg daily & metoprolol 5mg IV q 4 hours while NPO - Added enalaprilat on 07/18 for continued high BPs - Hydralazine 10mg mg IV Q4h PRN for SBP > 180 or DBP > 110 - Restart home meds as able. (3) Diabetes: A1c was 8.8% on 07/19. Patient with DM with neuropathy. Blood sugar elevated at 240 on admission. - Lantus 8u BID - Sliding scale insulin (4) GERD (gastroesophageal reflux disease): History of GERD on daily lansoprazole. - Pepcid 20mg IV daily while NPO (5) Nonobstructive atherosclerosis of coronary artery: Chronic. Stable. No chest pain today. - Holding ASA while NPO & possibly need for surgery (6) Depression: Controlled with Lexapro - Hold Lexapro while NPO - Ativan 1mg IV qHS PRN - patient on Clonazepam qHS (7) DVT prophylaxis: SCDs - Unclear if she may need surgery eventually Subjective Patient still with pain today. Has not passed any flatus or had a bowel movement. No nausea or vomiting. NG tube continues to drain. Review of Systems Review of Systems: All systems reviewed & are unremarkable except as noted in HPI & below Physical Exam Constitutional: WD/WN, vitals as above Eyes: EOM intact bilaterally; no conjunctival abnormality ENMT: external ear and nose normal, oropharynx normal Neck: trachea midline, no thyromegaly normal visual inspection Respiratory: normal respiratory effort, lungs clear to auscultation no respiratory distress Cardiovascular: RRR, no murmur, no edema Gastrointestinal (Abdomen): Inspection/Auscultation: abdomen normal to inspection and + hypoactive bowel sounds; abdomen not distended Percussion/Palpation: + abdomen tender (Generally, but mostly in lower abdomen) and abdomen soft; no guarding and abdomen not rigid Musculoskeletal: no cyanosis or clubbing, extremities motor strength 5/5 Skin: no rashes, warm and dry Neurologic: moves all extremities and awake Psychiatric: Orientation: alert, oriented to person and cooperative Results & Data Vital Signs (Past 12 Hours) Vital Signs Temp Pulse Pulse Resp BP BP Pulse Ox 07/19/19 16:08 74 159/66 H 07/19/19 16:06 74 159/66 H 07/19/19 15:47 36.6 C 77 18 163/72 H 95 07/19/19 11:50 67 172/70 H 07/19/19 11:29 36.7 C 66 20 165/64 H 94 07/19/19 10:29 67 168/69 H 07/19/19 09:01 75 07/19/19 08:13 76 159/72 H 07/19/19 07:40 36.7 C 85 20 167/70 H 91 PG Care Time/CCT Total # of Minutes Spent Total Time Spent with Patient: Total time spent is greater than 50% in coordination of care (as documented) at patient's floor/unit and/or counseling patient: (1) Diabetes Diabetes mellitus type: type 2 Diabetes mellitus dedicated intermodal truck driver insulin use: without dedicated intermodal truck driver use Diabetes mellitus complication status: with neurologic complications Diabetes mellitus complication detail: with polyneuropathy Qualified Code(s): E11.42 - Type 2 diabetes mellitus with diabetic polyneuropathy (2) GERD (gastroesophageal reflux disease) Esophagitis presence: esophagitis presence not specified Qualified Code(s): K21.9 - Gastro-esophageal reflux disease without esophagitis (3) Depression Depression Type: major depressive disorder Major depression recurrence: recurrent Active/Remission status: remission status unspecified Qualified Code(s): F33.9 - Major depressive disorder, recurrent, unspecified
[2019-07-20] MEDS ORDERED: PROMETHAZINE HCL 6.25 MG in SODIUM CHLORIDE 0.9% 50 ML IV ONE (00:15)
[2019-07-20] MEDS: METOPROLOL TARTRATE 1 MG/ML VIAL IV SCH ×5 (04:05→20:38)
[2019-07-20] MEDS: ENALAPRILAT 1.25 MG in DEXTROSE 5% 25 ML IV SCH ×2 (04:05→10:02)
[2019-07-20] MEDS: HydrALAZINE HCL 20 MG/ML VIAL IV PRN (04:54)
[2019-07-20 06:05] LABS: Hematocrit (blood only) 37.5 % (37-47); Hemoglobin 12.2 g/dL (12.0-16.0); Mean Corpuscular Hemoglobin 27.7 pg (25-34); Mean Corpuscular Hgb Conc 32.5 g/dL (32-36); Mean Platelet Volume 9.7 fL (7.4-10.4); Platelet Count 198 K/uL (130-400); RDW Coefficient of Variation 15.9 % (11.5-14.5); RDW Standard Deviation 49.1 fL (36.4-46.3); Red Blood Count 4.41 M/uL (4.2-5.4); White Blood Count 9.66 K/uL (4.8-10.8)
[2019-07-20 06:15] LABS: INR 1.1 (0.9-1.1); Prothrombin Time 11.1 Seconds (9.0-12.0)
[2019-07-20] MEDS: INSULIN ASPART 100 UNITS/ML 3 ML PEN SC SCH ×4 (06:32→23:53)
[2019-07-20 06:37] LABS: Gastric Occult Blood Positive (Negative)
[2019-07-20 06:38] LABS: pH Gastric Fluid 2
[2019-07-20 06:39] LABS: Creatinine Clr Calc Pharmacy 78.1 ml/min; Est GFR (Non-African American) 86.2; Potassium 3.2 mmol/L (3.5-5.1)
[2019-07-20 06:56] LABS: Phosphorus 2.5 mg/dl (2.5-4.9)
[2019-07-20] MEDS: CHECK CLONIDINE PATCH PLACEMENT SCH ×2 (07:33→15:45)
[2019-07-20] MEDS: INSULIN GLARGINE SOLOSTAR 100 UNITS/ML 3 ML PEN SC SCH ×2 (07:37→20:43)
[2019-07-20] MEDS: PANTOprazole 40 MG in SYRINGE 0 ML IV SCH ×2 (07:37→20:39)
--- NOTE | 2019-07-20 09:27 | Surgery Progress Note ---
Date of Service July 20, 2019 Assessment & Plan (1) Small bowel obstruction: Hospital Day #3 small bowel obstruction WBC 9.6 Patient remains with intermittent abdominal pain and nausea without return of meaningful bowel function; NGT put out 450cc in 24 hours. Per report patient's NGT output turned dark and was + for gastric occult blood. She has since been started on IV PPI and GI will be consulted. Hbg stable at 12.[address] Vegas the utility of a small bowel follow through in the near future For now continue NPO with IVF and NGT as above. will obtain SBFT to eval. Subjective Patient says she slept well overnight. Still endorsing intermittent abdominal pain + nausea that comes and goes, but is happening less often. No emesis. Has not yet passed flatus or a bowel movement. Physical Exam Physical Exam: awake/alert/visitor at bedside Constitutional: well developed and well nourished; no acute distress Respiratory: normal respiratory effort Gastrointestinal (Abdomen): Inspection/Auscultation: + abdomen distended (mild) Percussion/Palpation: + abdomen tender (mildly in lower abdominal regions) and abdomen soft NGT with dark/brown output Results & Data Vital Signs (Past 12 Hours) Vital Signs Temp Pulse Pulse Resp BP BP BP 07/20/19 07:31 76 172/67 H 07/20/19 06:50 36.8 C 76 22 172/67 H 07/20/19 05:18 178/69 H 07/20/19 04:05 76 204/78 H 07/20/19 04:01 36.5 C 74 18 204/78 H 07/20/19 00:14 64 181/72 H 07/20/19 00:00 68 07/19/19 23:38 78 191/68 H 07/19/19 23:37 37.0 C 67 19 189/69 H 191/68 H Pulse Ox 07/20/19 07:31 07/20/19 06:50 96 07/20/19 05:18 07/20/19 04:05 07/20/19 04:01 97 07/20/19 00:14 07/20/19 00:00 07/19/19 23:38 07/19/19 23:37 94 PG Care Time/CCT Total # of Minutes Spent Total Time Spent with Patient: Total time spent is greater than 50% in coordination of care (as documented) at patient's floor/unit and/or counseling patient:
[2019-07-20] MEDS: FAMOTIDINE 20 MG in SYRINGE 3 ML IV SCH (10:17)
[2019-07-20] MEDS: MoRPHine SULFATE 2 MG/ML CARP IV PRN (12:08)
--- NOTE | 2019-07-20 12:34 | Fluoroscopy Report ---
[place] small bowel study CLINICAL HISTORY: 74 years-old Female presenting with eval for SBO; please put contrast via NGT. TECHNIQUE: [employer] abdominal radiograph was first obtained. Subsequently, barium contrast was administe red via a nasogastric tube after confirmation of appropriate nasogastric tube positioning. Overhead r adiographs and spot compression images were obtained. Contrast was followed until reaching the cecum. COMPARISON: CT from 07/18/2019. FINDINGS: The abdominal stroboroma operator radiograph shows nasogastric tube within the proximal stomach with the sidehole a lso contained within the gastric lumen. Nonobstructive bowel gas pattern though there is a dilated se gment of bowel in the right lower quadrant, which may correlate with the dilated small bowel segment on recent CT. Posterior lumbar fusion hardware. The patient was administered barium contrast via the nasogastric tube. Gastric lumen opacifies normal ly with contrast. Prompt passage of contrast into the small bowel. Small bowel is not significantly d istended. Focally dilated loop of small bowel in the right lower quadrant, which likely correlates wi th the site of a surgical anastomosis as seen on CT. The previously seen stool ball in this location is no longer identified. Contrast freely passes beyond this point and into the cecum. Normal to hyper mobile transit time with contrast identified in the colon at less than 20 minutes. The small bowel mu cosal pattern is normal. There is no evidence of stricture or mass. Fluoroscopy dosage (mGy): Not available. Fluoroscopy time: 0.5 minutes. Number or time of high level fluoroscopy (HLF), digital spot, or digital subtraction images: 19. IMPRESSION: Dilated loop of small bowel in the right lower quadrant likely correlates with the small bowel anasto mosis as seen on CT. No radiographic evidence of a partial or complete small bowel obstruction. [facility] normal examination apart from postsurgical change. Electronically signed by: Hitesh Pantoja M.D. 07/20/2019 12:33 PM
[2019-07-20 13:08] LABS: Hematocrit (blood only) 38.7 % (37-47); Hemoglobin 12.8 g/dL (12.0-16.0)
--- NOTE | 2019-07-20 13:19 | Gastrointestinal Consultation ---
Date of Consultation July 20, 2019 Assessment & Plan (1) SBO (small bowel obstruction): 1. Continue supportive care with Protonix 40 mg IV BID. 2. Await UGI with small bowel follow through. 3. Further recommendations as per surgery team. 4. No plan for invasive GI work up. Patient remains hemodynamically stable. Supervising Physician Co-Signing Physician Notes Agree with JOSE Randall as above Abd: Soft, Tender RLQ, ND She has not had any BM or flatus X-ray reviewed, no evidence of obstruction at present Continue supportive care No plans for invasive GI workup History of Present Illness Reason for Consultation: Concern for GIB Requesting Physician: Dr. Cordova Attending Physician: Luisito Cordova MD History of Present Illness Patient is a 74 year-old female with a history diarrhea previously seen by our office as well as multiple abdominal surgeries admitted with a small bowel obstruction. She has been followed by general surgery and has been managed conservatively with NG decompression to continuous suction for the past three days. GI has been consulted as some dark and gastric occult positive output was noted via the NG. Per nursing, the NG is now transitioned to intermittent suction and the dark material has resolved. She remains hemodynamically stable with a H&H of 12.8/38.7. Patient remains on Protonix 40 IV BID. Denies any melena. Patient reports some mild LLQ pain at present. No vomiting. No fevers/chills. Allergies Allergy/AdvReac Type Severity Reaction Status Date / Time Sulfa (Sulfonamide Allergy Intermediate "SULFA Verified 07/18/19 03:02 Antibiotics) DRUGS": SWELLS iodine Allergy Mild SWELLING, Verified 07/18/19 03:02 ITCHING,RED AND NAUSEA W/CONTRAST DYE (FEEL FUNNY) Egg Derived Allergy Unknown DIARRHEA,ABD Verified 07/18/19 03:02 PAIN Iodinated Contrast Media Allergy Unknown HOT FLASH Verified 07/18/19 03:02 AND RASH shellfish derived Allergy Unknown SWELLING Verified 07/18/19 03:02 AND VOMITING shrimp Allergy Unknown SWELLING Verified 07/18/19 03:02 AND NAUSEA WITH SHRIMP AND SHELLFISH codeine AdvReac Unknown VOMITING Verified 07/18/19 03:02 egg AdvReac Unknown DIARRHEA Verified 07/18/19 03:02 Home Medications Home Medications Medication Instructions Recorded Confirmed Type amlodipine 5 mg PO BID 08/21/18 07/18/19 History aspirin [Aspir-81] 81 mg PO HS 08/21/18 07/18/19 History clonazepam 1 mg PO HS 08/21/18 07/18/19 History clonidine HCl 0.1 mg PO BID 08/21/18 07/18/19 History escitalopram oxalate [Lexapro] 20 mg PO HS 08/21/18 07/18/19 History lansoprazole 30 mg PO QAM 08/21/18 07/18/19 History nitroglycerin [Nitrostat] 0.4 mg SUBLINGUAL DIRECTED PRN 08/21/18 07/18/19 History propranolol 160 mg PO HS 08/21/18 07/18/19 History gabapentin [Neurontin] 300 mg PO BID 03/15/19 07/18/19 History linagliptin [Tradjenta] 5 mg PO QAM 03/15/19 07/18/19 History magnesium oxide [MagOx] 400 mg PO DAILY 03/15/19 07/18/19 History metformin 500 mg PO BID 07/18/19 07/18/19 History Patient History Medical History WPW (Vfqyb-Xtqmuzqiu-Wbdzx syndrome) (Chronic) HTN (hypertension) (Chronic) Hypertensive cardiovascular disease Diarrhea (Acute) Vomiting (Acute) Acute chest pain (Acute) Contrast media allergy (Chronic) Lumbar stenosis with neurogenic claudication Labile hypertension (Chronic) LVH (left ventricular hypertrophy) (Chronic) Nonobstructive atherosclerosis of coronary artery (Chronic) "Per cardiac cath May 2016" GERD (gastroesophageal reflux disease) (Chronic) Hemorrhoids (Chronic) Hepatic steatosis (Chronic) H/O: rheumatic fever (Chronic) H/O Clostridium difficile infection (Chronic) Surgical History H/O cardiac radiofrequency ablation (Resolved) History of bladder surgery (Chronic) S/P foot surgery (Chronic) History of herniorrhaphy (Chronic) S/P ROMAN-BSO (Chronic) S/P partial colectomy (Chronic) Family History Other Cancer Diabetes Heart disease Hypertension Social History Preferred Language: Divehi Communication Ability: Effective Help Desk Associate Required: No Beliefs That Will Affect Care: None marital status: Current Living Situation: Spouse Feels Safe at Home: Yes Smoking Status: Never smoker Second Hand Exposure: No ; Hx Alcohol Use: No Hx Substance Use: No Review of Systems Constitutional: as per Subjective / HPI and + fatigue Eyes: no problem reported Ear, Nose, Mouth, Throat: no problem reported Respiratory: no cough and no dyspnea Cardiovascular: no chest pain and no palpitations Gastrointestinal: as per Subjective / HPI Genitourinary: no problem reported Musculoskeletal: no problem reported Integumentary: no problem reported Neurologic: no problem reported Psychiatric: no problem reported Physical Exam Constitutional: WD/WN, vitals as above Eyes: EOM intact bilaterally Neck: normal visual inspection Respiratory: normal respiratory effort Auscultation: lungs clear to auscultation bilaterally Cardiovascular: Rate/Rhythm: regular rate and regular rhythm Gastrointestinal (Abdomen): Inspection/Auscultation: + abdomen distended and + hypoactive bowel sounds (bilateral lower quadrants) Percussion/Palpation: + abdomen tender and abdomen soft Musculoskeletal: Ankle: no effusion Skin: no rashes, warm and dry Psychiatric: A+Ox3, euthymic affect Results & Data Vital Signs (Past 12 Hours) Vital Signs Temp Pulse Pulse Resp BP BP BP 07/20/19 12:49 72 178/76 H 07/20/19 12:47 36.8 C 72 18 178/76 H 07/20/19 10:01 71 160/68 H 07/20/19 07:31 76 172/67 H 07/20/19 06:50 36.8 C 76 22 172/67 H 07/20/19 05:18 178/69 H 07/20/19 04:05 76 204/78 H 07/20/19 04:01 36.5 C 74 18 204/78 H Pulse Ox 07/20/19 12:49 07/20/19 12:47 97 07/20/19 10:01 07/20/19 07:31 07/20/19 06:50 96 07/20/19 05:18 07/20/19 04:05 07/20/19 04:01 97 Laboratory Results Abnormal lab results 07/19/19 07/19/19 07/20/19 Range/Units 18:04 23:52 05:51 RDW Std Deviation 49.1 H (36.4-46.3) fL RDW Coeff of Carmen 15.9 H (11.5-14.5) % Potassium (3.5-5.1) mmol/L BUN/Creatinine Ratio (10-20) Glucose (70-99) mg/dl POC Glucose 130 H 126 H (70-99) Gastric Occult Blood (Negative) 07/20/19 07/20/19 07/20/19 Range/Units 05:51 05:53 06:25 RDW Std Deviation (36.4-46.3) fL RDW Coeff of Carmen (11.5-14.5) % Potassium 3.2 L (3.5-5.1) mmol/L BUN/Creatinine Ratio 22.0 H (10-20) Glucose 149 H (70-99) mg/dl POC Glucose 135 H (70-99) Gastric Occult Blood Positive A (Negative) 07/20/19 Range/Units 12:54 RDW Std Deviation (36.4-46.3) fL RDW Coeff of Carmen (11.5-14.5) % Potassium (3.5-5.1) mmol/L BUN/Creatinine Ratio (10-20) Glucose (70-99) mg/dl POC Glucose 158 H (70-99) Gastric Occult Blood (Negative) PG Care Time/CCT Total # of Minutes Spent Total Time Spent with Patient: Total time spent is greater than 50% in coordination of care (as documented) at patient's floor/unit and/or counseling patient:
--- NOTE | 2019-07-20 14:59 | Hospitalist Progress Note ---
Date of Service July 20, 2019 Assessment & Plan (1) SBO (small bowel obstruction): Patient with multiple abdominal surgeries, SBO in the past requiring laparotomy and bowel resection presenting with suspected SBO. - NPO - NGT to suction - Small bowel follow through on 07/20 didn't show an SBO; considering clamping tube. Discussing with surgery. - General Surgery consultation - assistance appreciated - GI consulted for darker NGT output - No plan for immediate EGD. Continue PPI IV BID. (2) Hypertensive urgency: Patient with asymptomatic elevation of blood pressure >200/110. No evidence of end-organ ischemia. She has history of labile blood pressure. - Clonidine patch 0.2mg daily & metoprolol 5mg IV q 4 hours while NPO - Added enalaprilat on 07/18 for continued high BPs - Hydralazine 10mg mg IV Q4h PRN for SBP > 180 or DBP > 110 - Restart home meds as able. - On 07/20, BP is still running high. Given tube clamping will try to restart home meds. (3) Diabetes: A1c was 8.8% on 07/19. Patient with DM with neuropathy. Blood sugar elevated at 240 on admission. - Lantus 8u BID - Sliding scale insulin (4) GERD (gastroesophageal reflux disease): History of GERD on daily lansoprazole. - Pepcid IV switched to PPI IV for NGT output. (5) Nonobstructive atherosclerosis of coronary artery: Chronic. Stable. No chest pain today. - Holding ASA while NPO & possibly need for surgery (6) Depression: Controlled with Lexapro. - Hold Lexapro while NPO - Ativan 1mg IV qHS PRN - patient on Clonazepam qHS (7) DVT prophylaxis: SCDs - Due to red NGT output and unclear if she may need surgery eventually Subjective Abdominal pain is somewhat improved. However, her NG tube started draining darker, reddish material overnight. It was fecal occult positive. GI was consulted. Review of Systems Review of Systems: All systems reviewed & are unremarkable except as noted in HPI & below Physical Exam Constitutional: WD/WN, vitals as above Eyes: EOM intact bilaterally; no conjunctival abnormality ENMT: external ear and nose normal, oropharynx normal Neck: trachea midline, no thyromegaly normal visual inspection Respiratory: normal respiratory effort, lungs clear to auscultation no respiratory distress Cardiovascular: RRR, no murmur, no edema Gastrointestinal (Abdomen): Inspection/Auscultation: abdomen normal to inspection and + hypoactive bowel sounds; abdomen not distended Percussion/Palpation: + abdomen tender (Generally, but mostly in lower abdomen) and abdomen soft; no guarding and abdomen not rigid Musculoskeletal: no cyanosis or clubbing, extremities motor strength 5/5 Skin: no rashes, warm and dry Neurologic: moves all extremities and awake Psychiatric: Orientation: alert, oriented to person and cooperative Results & Data Vital Signs (Past 12 Hours) Vital Signs Temp Pulse Pulse Resp BP BP BP 07/20/19 12:49 72 178/76 H 07/20/19 12:47 36.8 C 72 18 178/76 H 07/20/19 10:01 71 160/68 H 07/20/19 07:31 76 172/67 H 07/20/19 06:50 36.8 C 76 22 172/67 H 07/20/19 05:18 178/69 H 07/20/19 04:05 76 204/78 H 07/20/19 04:01 36.5 C 74 18 204/78 H Pulse Ox 07/20/19 12:49 07/20/19 12:47 97 07/20/19 10:01 07/20/19 07:31 07/20/19 06:50 96 07/20/19 05:18 07/20/19 04:05 07/20/19 04:01 97 PG Care Time/CCT Total # of Minutes Spent Total Time Spent with Patient: Total time spent is greater than 50% in coordination of care (as documented) at patient's floor/unit and/or counseling patient: (1) Diabetes Diabetes mellitus type: type 2 Diabetes mellitus terminal system operator insulin use: without terminal system operator use Diabetes mellitus complication status: with neurologic complications Diabetes mellitus complication detail: with polyneuropathy Qualified Code(s): E11.42 - Type 2 diabetes mellitus with diabetic polyneuropathy (2) GERD (gastroesophageal reflux disease) Esophagitis presence: esophagitis presence not specified Qualified Code(s): K21.9 - Gastro-esophageal reflux disease without esophagitis (3) Depression Depression Type: major depressive disorder Major depression recurrence: recurrent Active/Remission status: remission status unspecified Qualified Code(s): F33.9 - Major depressive disorder, recurrent, unspecified
[2019-07-20] MEDS ORDERED: POTASSIUM CHLORIDE 40 MEQ in SODIUM CHLORIDE 0.9% 500 ML IV ONE (15:03)
[2019-07-21] MEDS: METOPROLOL TARTRATE 1 MG/ML VIAL IV SCH ×3 (00:05→08:16)
[2019-07-21] MEDS: CHECK CLONIDINE PATCH PLACEMENT SCH ×2 (00:05→08:17)
[2019-07-21] MEDS: INSULIN ASPART 100 UNITS/ML 3 ML PEN SC SCH ×4 (05:59→21:19)
[2019-07-21 06:19] LABS: Hematocrit (blood only) 38.3 % (37-47); Hemoglobin 12.6 g/dL (12.0-16.0); Mean Corpuscular Hemoglobin 27.6 pg (25-34); Mean Corpuscular Hgb Conc 32.9 g/dL (32-36); Mean Corpuscular Volume 83.8 fL (80-100); Mean Platelet Volume 9.9 fL (7.4-10.4); Platelet Count 211 K/uL (130-400); RDW Standard Deviation 48.7 fL (36.4-46.3); Red Blood Count 4.57 M/uL (4.2-5.4); White Blood Count 8.75 K/uL (4.8-10.8)
[2019-07-21 07:12] LABS: BUN Creatinine Ratio 18.1 (10-20); Calcium 8.9 mg/dl (8.5-10.1); Creatinine Clr Calc Pharmacy 74.8 ml/min; Est GFR (African American) 98.5; Potassium 3.8 mmol/L (3.5-5.1)
[2019-07-21] MEDS: INSULIN GLARGINE SOLOSTAR 100 UNITS/ML 3 ML PEN SC SCH ×2 (08:16→21:19)
[2019-07-21] MEDS: PANTOprazole 40 MG in SYRINGE 0 ML IV SCH (08:16)
--- NOTE | 2019-07-21 08:18 | Surgery Progress Note ---
Date of Service July 21, 2019 Assessment & Plan (1) Small bowel obstruction: sbft shows resolution of her sbo. clinically doing well d/c ngt and start clears/advance slowly. d/w primary team. Subjective pt doing well. hungry. no bm yet but +flatus. Physical Exam Physical Exam: alert/oriented. nad abd: soft. nt. nd. Results & Data Vital Signs (Past 12 Hours) Vital Signs Temp Pulse Pulse Resp BP BP Pulse Ox 07/21/19 08:06 36.8 C 87 18 186/78 H 94 07/21/19 03:49 37.3 C 82 18 175/82 H 91 07/21/19 00:05 67 177/74 H 07/21/19 00:00 36.9 C 79 17 177/74 H 90 07/20/19 20:38 75 196/70 H PG Care Time/CCT Total # of Minutes Spent Total Time Spent with Patient: Total time spent is greater than 50% in coordination of care (as documented) at patient's floor/unit and/or counseling patient:
[2019-07-21] MEDS: HydrALAZINE HCL 20 MG/ML VIAL IV PRN (10:47)
[2019-07-21] MEDS: GABAPENTIN 300 MG CAP PO SCH ×2 (11:00→20:34)
[2019-07-21] MEDS: cloNIDine HCL 0.1 MG TAB PO SCH ×2 (11:00→20:35)
[2019-07-21] MEDS: AMLODIPINE BESYLATE 5 MG TAB PO SCH ×2 (11:00→20:35)
--- NOTE | 2019-07-21 16:17 | Hospitalist Progress Note ---
Date of Service July 21, 2019 Assessment & Plan (1) SBO (small bowel obstruction): Patient with multiple abdominal surgeries, SBO in the past requiring laparotomy and bowel resection presenting with suspected SBO. - General Surgery consultation - assistance appreciated - GI consulted for darker NGT output - No plan for immediate EGD. Continue PPI PO BID. - Advance diet - Now on clears; potentially advance to full tonight. (2) Hypertensive urgency: Patient with asymptomatic elevation of blood pressure >200/110. No evidence of end-organ ischemia. She has history of labile blood pressure. - Hydralazine 10mg mg IV Q4h PRN for SBP > 180 or DBP > 110 - Restarted home meds once not NPO. - On 07/21, BP is better as we restarted most of her home meds. (3) Diabetes: A1c was 8.8% on 07/19. Patient with DM with neuropathy. Blood sugar elevated at 240 on admission. - Lantus 8u BID - Sliding scale insulin - Blood sugars under better control today. (4) GERD (gastroesophageal reflux disease): History of GERD on daily lansoprazole. - PPI BID as above for dark NG tube output. (5) Nonobstructive atherosclerosis of coronary artery: Chronic. Stable. No chest pain today. - Helding ASA while NPO & possibly need for surgery - Can restart tomorrow. (6) Depression: Controlled with Lexapro. - Held Lexapro while NPO - Restart tomorrow - Ativan 1mg IV qHS PRN - patient on Clonazepam qHS (7) DVT prophylaxis: SCDs - Due to red NGT output and unclear if she may need surgery eventually Subjective Doing well today. Less pain. Hungry. Passing flatus. Review of Systems Review of Systems: All systems reviewed & are unremarkable except as noted in HPI & below Physical Exam Constitutional: WD/WN, vitals as above Eyes: EOM intact bilaterally; no conjunctival abnormality ENMT: external ear and nose normal, oropharynx normal Neck: trachea midline, no thyromegaly normal visual inspection Respiratory: normal respiratory effort, lungs clear to auscultation no respiratory distress Cardiovascular: RRR, no murmur, no edema Gastrointestinal (Abdomen): Inspection/Auscultation: abdomen normal to inspection and + hypoactive bowel sounds; abdomen not distended Percussion/Palpation: + abdomen tender (Generally, but mostly in lower abdomen) and abdomen soft; no guarding and abdomen not rigid Musculoskeletal: no cyanosis or clubbing, extremities motor strength 5/5 Skin: no rashes, warm and dry Neurologic: moves all extremities and awake Psychiatric: Orientation: alert, oriented to person and cooperative Results & Data Vital Signs (Past 12 Hours) Vital Signs Temp Pulse Pulse Pulse Resp BP BP 07/21/19 15:27 36.5 C 79 18 151/77 H 07/21/19 12:04 77 144/66 H 07/21/19 10:14 36.7 C 73 16 197/98 H 07/21/19 08:06 36.8 C 87 18 186/78 H 07/21/19 08:00 76 Pulse Ox 07/21/19 15:27 92 07/21/19 12:04 07/21/19 10:14 95 07/21/19 08:06 94 07/21/19 08:00 PG Care Time/CCT Total # of Minutes Spent Total Time Spent with Patient: Total time spent is greater than 50% in coordination of care (as documented) at patient's floor/unit and/or counseling patient: (1) Diabetes Diabetes mellitus type: type 2 Diabetes mellitus continuous churn buttermaker insulin use: without longterm use Diabetes mellitus complication status: with neurologic complications Diabetes mellitus complication detail: with polyneuropathy Qualified Code(s): E11.42 - Type 2 diabetes mellitus with diabetic polyneuropathy (2) GERD (gastroesophageal reflux disease) Esophagitis presence: esophagitis presence not specified Qualified Code(s): K21.9 - Gastro-esophageal reflux disease without esophagitis (3) Depression Depression Type: major depressive disorder Major depression recurrence: recurrent Active/Remission status: remission status unspecified Qualified Code(s): F33.9 - Major depressive disorder, recurrent, unspecified
[2019-07-21] MEDS: PANTOprazole 40 MG TAB PO SCH (20:51)
[2019-07-21] MEDS ORDERED: PROPRANOLOL HCL LA 80 MG CAPCR PO SCH (21:00)
[2019-07-21] MEDS ORDERED: ESCITALOPRAM OXALATE 20 MG TAB PO SCH (21:00)
[2019-07-21] MEDS ORDERED: clonazePAM 1 MG TAB PO SCH (21:00)
--- NOTE | 2019-07-22 08:31 | Surgery Progress Note ---
Date of Service July 22, 2019 Assessment & Plan (1) Small bowel obstruction: resolving PSBO low fiber lunch if continues to do well, advised to stay on low fiber at home for a few weeks and in moderation in the future Subjective small BMs, tolerating full liquids Physical Exam Gastrointestinal (Abdomen): Inspection/Auscultation: abdomen not distended Percussion/Palpation: abdomen soft; abdomen nontender Results & Data Vital Signs (Past 12 Hours) Vital Signs Temp Pulse Resp BP BP Pulse Ox 07/22/19 07:09 36.3 C L 52 L 16 135/67 92 07/21/19 23:30 36.6 C 68 18 133/65 94 07/21/19 21:42 81 123/70 07/21/19 20:31 85 187/75 H PG Care Time/CCT Total # of Minutes Spent Total Time Spent with Patient: Total time spent is greater than 50% in coordination of care (as documented) at patient's floor/unit and/or counseling patient:
[2019-07-22] MEDS: cloNIDine HCL 0.1 MG TAB PO SCH (08:36)
[2019-07-22] MEDS: GABAPENTIN 300 MG CAP PO SCH (08:36)
[2019-07-22] MEDS: AMLODIPINE BESYLATE 5 MG TAB PO SCH (08:36)
[2019-07-22] MEDS: PANTOprazole 40 MG TAB PO SCH (08:38)
[2019-07-22] MEDS: INSULIN ASPART 100 UNITS/ML 3 ML PEN SC SCH (08:40)
[2019-07-22] MEDS: INSULIN GLARGINE SOLOSTAR 100 UNITS/ML 3 ML PEN SC SCH (08:41)
[2019-07-22] MEDS ORDERED: ASPIRIN 81 MG ECTAB PO SCH (09:00)
[2019-07-22] MEDS ORDERED: POLYETHYLENE (MIRALAX) 17 GM PACK PO STA (10:09)
--- NOTE | 2019-07-22 15:30 | Discharge Summary ---
Date of Service July 22, 2019 Admission HPI Per Admitting Provider Varsha Sevilla is a pleasant 74yo C female with history of HTN, DM, GERD presenting with abdominal pain. She reports that this evening around 19:30 she developed sharp severe, diffuse abdominal pain as well as multiple episodes of non-bloody, non-bilious vomiting and abdominal distention. Last BM was prior to arrival. She has a history of bladder surgery as well as ROMAN-BSO. She has had diverticulosis with diverticulitis s/p colon resection with anastamosis performed years ago by Dr. Argueta. She was admitted with an SBO in July 2010 and had laparotomy performed by Dr. Smith revealing severe adhesions of the omentum and small bowel, especially below the umbilicus. She had resection of the mid to distal ileum. Upon arrival to the ER patient was found to be afebrile, markedly hypertensive at 200/96. She has a history of labile blood pressures, difficult to control. She reports adherence to her medications. No recent medication changes. She did take her Clonidine today. ER Course: Versed 4mg, Fentanyl 100mcg for NGT placement, Ofirmev 1000mg, Clonidine patch, Dilaudod 0.5mg, Reglan 10mg, NSS Principal Diagnosis Small bowel obstruction Discharge Exam Constitutional WD/WN, vitals as above Eyes EOM intact bilaterally; no conjunctival abnormality ENMT external ear and nose normal, oropharynx normal Neck trachea midline, no thyromegaly normal visual inspection Respiratory normal respiratory effort, lungs clear to auscultation no respiratory distress Cardiovascular RRR, no murmur, no edema Gastrointestinal (Abdomen) Inspection/Auscultation: abdomen normal to inspection and + hypoactive bowel sounds; abdomen not distended Percussion/Palpation: + abdomen tender (Generally, but mostly in lower abdomen) and abdomen soft; no guarding and abdomen not rigid Musculoskeletal no cyanosis or clubbing, extremities motor strength 5/5 Skin no rashes, warm and dry Neurologic moves all extremities and awake Psychiatric Orientation: alert, oriented to person and cooperative Discharge Data Allergies Allergy/AdvReac Type Severity Reaction Status Date / Time Sulfa (Sulfonamide Allergy Intermediate "SULFA Verified 07/18/19 03:02 Antibiotics) DRUGS": SWELLS iodine Allergy Mild SWELLING, Verified 07/18/19 03:02 ITCHING,RED AND NAUSEA W/CONTRAST DYE (FEEL FUNNY) Egg Derived Allergy Unknown DIARRHEA,ABD Verified 07/18/19 03:02 PAIN Iodinated Contrast Media Allergy Unknown HOT FLASH Verified 07/18/19 03:02 AND RASH shellfish derived Allergy Unknown SWELLING Verified 07/18/19 03:02 AND VOMITING shrimp Allergy Unknown SWELLING Verified 07/18/19 03:02 AND NAUSEA WITH SHRIMP AND SHELLFISH codeine AdvReac Unknown VOMITING Verified 07/18/19 03:02 egg AdvReac Unknown DIARRHEA Verified 07/18/19 03:02 Consultations 07/18/19 04:13 ED Decision to Admit Stat 07/18/19 05:11 Consult General Surgery Stat 07/18/19 06:04 Consult General Surgery Routine 07/20/19 09:18 Consult Gastroenterology Routine Ordered Studies 07/18/19 02:33 CT abd pelvis wo con Urgent 07/20/19 10:04 FL small bowel study Routine Hospital Course (1) SBO (small bowel obstruction): Patient with multiple abdominal surgeries, SBO in the past requiring laparotomy and bowel resection presenting with suspected SBO. - Advanced diet - Did well and discharged on low fiber diet. Given instructions on what to eat and not eat. Will follow up with Dr. Vegas in 2 weeks. - She had darker NGT output on 07/20, and was seen by GI. This resolved on its own and they did not feel EGD was needed. Can follow up outpatient with her PCP and a GI doctor. She reports she has issues with diarrhea, so possible GI referral for colonscopy as well. (2) Hypertensive urgency: Patient with asymptomatic elevation of blood pressure >200/110. No ev idence of end-organ ischemia. She has history of labile blood pressure. - During admission, BP ran high off her home meds. - On 07/22, BP was better as we restarted most of her home meds. -> No changes on discharge. (3) Diabetes: A1c was 8.8% on 07/19. Patient with DM with neuropathy. Blood sugar elevated at 240 on admission. - Blood sugars under decent control in the hospital -> Discharged on home regimen. (4) GERD (gastroesophageal reflux disease): History of GERD on daily lansoprazole. - PPI PO BID, then discharged on home lansoprazole. Could consider GI follow up as outpatient. (5) Nonobstructive atherosclerosis of coronary artery: Chronic. Stable. No chest pain today. - Held ASA while NPO & possibly need for surgery - Restarted on discharge. (6) Depression: Controlled with Lexapro. - Held Lexapro while NPO - Restarted on discharge - Ativan 1mg IV qHS PRN - patient on Clonazepam qHS Total Time Total Time Spent Total Time Spent (In Minutes): 35 Discharge Plan Discharge Items Patient Disposition: Home - Self-Care Reason For Visit: HTN URGENCY,SBO Discharge Diagnosis: Small bowel obstruction Activity: Resume your previous activity Non-emergency contact: Primary Care Provider and Surgeon Call non-emergency contact if: you have any medication questions Follow-up/Referrals: Homero Vegas DO [Surgeon] - 08/08/19 9:50 am (Please, follow up at [facility] General Surgery Office with Dr. Vegas on ThursdayAugust 08 at 9:50 am. *The office is located at [address] [place] [address] in [place]. If you have any questions, call the office at [phone].) Ashley Lui CRNP [Primary Care Provider] - 07/25/19 9:50 am (Please, follow up at JOSE Lui's office with her associate, Dr. Krys Sauceda, on ThursdayJuly 25 at 9:50 am. *If you need to change this appointment, call the office at [phone].) Diet: Low Fiber Addtl Attending Provider Instructions: Eat a low fiber diet until you are seen by Dr. Vegas and cleared for more variety. Foods that are generally allowed on a low-fiber diet include: * White bread without nuts and seeds * White rice, plain white pasta, and crackers * Refined hot cereals, such as Cream of Wheat, or cold cereals with less than 1 gram of fiber per serving * Pancakes or waffles made from white refined flour * Most canned or well-cooked vegetables and fruits without skins or seeds * Fruit and vegetable juice with little or no pulp, fruit-flavored drinks, and flavored pardo * Tender meat, poultry, fish, eggs and tofu * Milk and foods made from milk such as yogurt, pudding, ice cream, cheeses and sour cream if tolerated * Butter, margarine, oils and salad dressings without seeds You should avoid: * Whole-wheat or whole-grain breads, cereals and pasta * Brown or wild rice and other whole grains, such as oats, kasha, barley and quinoa * Dried fruits and prune juice * Raw fruit, including those with seeds, skin or membranes, such as berries * Raw or undercooked vegetables, including corn * Dried beans, peas and lentils * Seeds and nuts and foods containing them, including peanut butter and other nut butters * Coconut * Popcorn Pending Studies at Discharge: No Stand-Alone Forms: My [facility] Medications and DC Order Prescriptions: Continued clonidine HCl 0.1 mg Tablet 0.1 mg PO BID RF: 0 propranolol 160 mg Capsule,Extended Release 24 Hr 160 mg PO HS RF: 0 clonazepam 1 mg Tablet 1 mg PO HS RF: 0 amlodipine 5 mg Tablet 5 mg PO BID RF: 0 aspirin [Aspir-81] 81 mg Tablet,Delayed Release (Dr/Ec) 81 mg PO HS RF: 0 lansoprazole 30 mg Capsule,Delayed Release(Dr/Ec) 30 mg PO QAM RF: 0 nitroglycerin [Nitrostat] 0.4 mg Tablet, Sublingual 0.4 mg Sublingual DIRECTED PRN (Reason: Chest Pain) RF: 0 escitalopram oxalate [Lexapro] 20 mg Tablet 20 mg PO HS RF: 0 magnesium oxide [MagOx] 400 mg (241.3 mg magnesium) tablet 400 mg PO DAILY RF: 0 Tradjenta 5 mg tablet 5 mg PO QAM RF: 0 gabapentin [Neurontin] 300 mg capsule 300 mg PO BID RF: 0 metformin 500 mg Tablet 500 mg PO BID RF: 0 Discharge Orders: Discharge Order (Routine); Ordered 07/22/19 Ordered By: Luisito Espitia/Other Patient Handouts: Diabetes Prison Complications, Diabetes Resources, Diabetes Type 2 Coping, Diabetes Healthy Meals, Diabetes Carbs, Diabetes Exercise Benefits, Diabetes Exercise Get Started, Diabetes Activity Tips, Diabetes Living Life, Diabetes Learn Serve Portion Size, Diabetes Meal Planning Admission Data Admit Date/Time: 07/18/19 04:58 Attending Provider: Luisito Cordova Admit Provider: Pascale Arreola Primary Care Provider: Ashley Lui Other Providers: Luisito Cordova ; Pascale Arreola ; Julián Oakley ; Homero Vegas ; Eduard Belcher Other Interventions: Discharge Summary Assessment (RN) Last Done: 07/22/19 12:54 DC Date/Time DO NOT enter until pt leaves facility: 07/22/19 14:26
== END 2019-07-22 14:26 | disposition home or self-care (01) | DRG 390 ==
LOC: ED 02:21 → 2S 04:58 → SUATTDRO 04:58 → 2S 05:36 → 3W 07-21 10:08
DX: Z79.84 Long term (current) use of oral hypoglycemic drugs; Z79.82 Long term (current) use of aspirin; Z91.012 Allergy to eggs; Z98.890 Other specified postprocedural states; E11.65 Type 2 diabetes mellitus with hyperglycemia; Z88.3 Allergy status to other anti-infective agents; Z88.5 Allergy status to narcotic agent; Z82.49 Family history of ischemic heart disease and other diseases of the circulatory system; Z83.3 Family history of diabetes mellitus; Z91.041 Radiographic dye allergy status; Z91.013 Allergy to seafood; I45.6 Pre-excitation syndrome; K56.600 Partial intestinal obstruction, unspecified as to cause; I10 Essential (primary) hypertension; Z79.899 Other long term (current) drug therapy; Z90.49 Acquired absence of other specified parts of digestive tract; Z90.710 Acquired absence of both cervix and uterus; K21.9 Gastro-esophageal reflux disease without esophagitis; E11.40 Type 2 diabetes mellitus with diabetic neuropathy, unspecified; I16.0 Hypertensive urgency; F32.9 Major depressive disorder, single episode, unspecified; Z88.2 Allergy status to sulfonamides; I25.10 Atherosclerotic heart disease of native coronary artery without angina pectoris

== ENCOUNTER 2019-12-12 19:22 | Inpatient (IN) ==
[2019-12-12] MEDS ORDERED: SODIUM CHLORIDE 0.9% 1000ML 1,000 ML IV SCH (20:15)
[2019-12-12] MEDS ORDERED: ONDANSETRON INJ 2 MG/ML 2 ML VIAL IV STA ×2 (20:16→23:20)
[2019-12-12 20:22] LABS: Basophils # (auto) 0.02 K/uL (0-0.2); Basophils % (auto) 0.2 %; Eosinophils # (auto) 0.13 K/uL (0-0.5); Eosinophils % (auto) 1.4 %; Hematocrit (blood only) 37.4 % (37-47); Hemoglobin 12.5 g/dL (12.0-16.0); Immature Granulocytes # (auto) 0.03 K/uL (0.00-0.02); Immature Granulocytes % (auto) 0.3 %; Lymphocytes # (auto) 3.38 K/uL (1.2-3.4); Lymphocytes % (auto) 35.6 %; Mean Corpuscular Hemoglobin 26.4 pg (25-34); Mean Corpuscular Hgb Conc 33.4 g/dL (32-36); Mean Corpuscular Volume 79.1 fL (80-100); Monocytes # (auto) 0.79 K/uL (0.11-0.59); Monocytes % (auto) 8.3 %; Neutrophils # (auto) 5.15 K/uL (1.4-6.5); Neutrophils % (auto) 54.2 %; Platelet Count 250 K/uL (130-400); RDW Coefficient of Variation 16.1 % (11.5-14.5); Red Blood Count 4.73 M/uL (4.2-5.4)
[2019-12-12 20:38] LABS: Alanine Aminotransferase 49 U/L (12-78); Albumin Level 3.8 gm/dl (3.4-5.0); Aspartate Aminotransferase 44 U/L (15-37); BUN Creatinine Ratio 14.9 (10-20); Blood Urea Nitrogen 14 mg/dl (7-18); Calcium 9.1 mg/dl (8.5-10.1); Carbon Dioxide 25 mmol/L (21-32); Chloride 102 mmol/L (98-107); Est GFR (Non-African American) 61.3; Glucose 218 mg/dl (70-99); Magnesium 1.5 mg/dl (1.8-2.4); Potassium 3.4 mmol/L (3.5-5.1); Sodium 135 mmol/L (136-145)
[2019-12-12 20:42] LABS: Albumin Globulin Ratio 0.9 (0.9-2); Alkaline Phosphatase 79 U/L (45-117); Bilirubin,Total 0.4 mg/dl (0.2-1); Globulin 4.2 gm/dl (2.5-4.0); Troponin I < 0.015 ng/ml (0-0.045)
[2019-12-12 20:46] LABS: INR 1.1 (0.9-1.1); Partial Thromboplastin Ratio 0.9; Partial Thromboplastin Time 25.4 Seconds (21.0-31.0); Prothrombin Time 10.9 Seconds (9.0-12.0)
--- NOTE | 2019-12-12 20:50 | XRay Report ---
XR chest 1V portable CLINICAL HISTORY: stroke symptoms COMPARISON STUDY: Chest radiograph October 22, 2019. FINDINGS: Lung volumes are normal. Lungs are clear. There is no pneumothorax or pleural effusion. Car diac size is normal. Mediastinal contours are normal. There is no evidence for pulmonary edema. IMPRESSION: No acute cardiopulmonary findings. ACT 112: Negative or not required by law. Electronically signed by: Guicho Benitez M.D. 12/12/2019 8:49 PM
[2019-12-12] MEDS ORDERED: ACETAMINOPHEN 1,000 MG/100 ML VIAL IV STA (21:35)
[2019-12-12] MEDS ORDERED: ASPIRIN 300 MG SUPP PR ONE (22:04)
--- NOTE | 2019-12-12 22:05 | CT Scan Report ---
CT OF THE HEAD WITHOUT CONTRAST CLINICAL HISTORY: stroke symptoms COMPARISON STUDY: Head CT January 05, 2019. CT DOSE: 638.56 mGycm TECHNIQUE: Helical axial images of the head were obtained without IV contrast. Automated exposure con trol was utilized for the study. A dose lowering technique was utilized adhering to the principles o f ALARA. FINDINGS: No acute intracranial hemorrhage, midline shift or mass effect is present. The ventricular system is unremarkable. The basilar cisterns are patent. No extra-axial collections are present. Ther e are no findings to suggest acute dural sinus thrombosis or acute territorial infarct. No significan t calvarial abnormalities are present. Visualized portions of the sinuses and mastoid air cells are c lear. White matter hypodensities are unchanged and suggest small vessel disease. IMPRESSION: No acute intracranial findings. ACT 112: Negative or not required by law. Electronically signed by: Guicho Benitez M.D. 12/12/2019 10:03 PM
[2019-12-12 22:28] LABS: Appearance Urine Clear (Clear); Bacteria Urine Automated 4+ (Negative); Bilirubin Urine Negative (Negative); Blood Urine Negative (Negative); Color Urine Yellow; Epithelial Cell Urine Auto >30 /lpf (0-5); Glucose Urine UA 3+ (Negative); Ketones Urine Negative (Negative); Leukocyte Esterase Urine Negative (Negative); Nitrite Urine Positive (Negative); Protein Urine 1+ (Negative); RBC Urine Automated 0-4 /hpf (0-4); Specific Gravity Urine 1.022 (1.000-1.030); Urobilinogen Urine Negative (Negative); pH Urine 5.5 (4.5-7.5)
[2019-12-12] MEDS ORDERED: MoRPHine SULFATE 2 MG/ML CARP IV STA (23:20)
--- NOTE | 2019-12-12 23:54 | History & Physical Report ---
Date of Service December 12, 2019 Assessment & Plan (1) Acute cerebrovascular accident (CVA): Acute CVA with improving right-sided weakness but persistent slurred speech/dysarthria and dysphagia- Last known well interval was close to 36 hours prior to arrival. Daughter has noticed that weakness has been improving over the past few hours that she has been with her mother. Admit to monitored bed. Stroke without TPA protocol order set. Consult PT/OT/speech therapy and neurology. Modified permissive hypertension as exact history of timing is not known, with systolic blood pressure target less than 160. CT of head was negative. Patient has severe allergy to CT dye, therefore, CTA not performed. MRI of brain with and without contrast, and MRA of head without contrast, and MRA of neck with and without contrast have been ordered, but patient will be sedated. Present on Admission?: Yes (2) Right sided weakness: See above Present on Admission?: Yes (3) Dysarthria: See above Present on Admission?: Yes (4) Diabetes mellitus, type II: Hold Tradjenta, and metformin. Placed on Accu-Cheks before meals and at bedtime/every 6 hours with NovoLog coverage. Present on Admission?: Yes (5) Dyslipidemia: Will place on high intensity statin when patient is able to take p.o. Present on Admission?: Yes (6) HTN (hypertension): Hold amlodipine, clonidine, furosemide and propranolol. Lopressor 2.5 mg IV every 4 hours PRN systolic blood pressure greater than 160. Then target systolic blood pressure 130s-140 after the first 12 hours, as noted above for modified permissive hypertension Present on Admission?: Yes (7) Nonobstructive atherosclerosis of coronary artery: Initial troponin negative. Patient has not had any associated symptoms. We will order an echocardiogram. Present on Admission?: Yes (8) GERD (gastroesophageal reflux disease): Hold lansoprazole. Placed on famotidine 20 mg IV every 12 hours Present on Admission?: Yes (9) Depression: Anxiety and depression- For now, hold clonazepam, Escitalopram, and gabapentin Present on Admission?: Yes History of Present Illness Chief Complaint: The patient presents to the emergency department with complaint of improving right upper and lower extremity weakness with persistent speech and swallowing difficulties that initially began about 24 hours prior to arrival. Primary Care Provider: Mary Dickerson MD The patient is a 74-year-old female who was last seen well by son/daughter at 1200 hrs. on 12/11. She reports that she developed right sided weakness along with difficulty with speech and swallowing at some point later on in the afternoon, and when she told her the symptoms, she reports that he had that she was not having a stroke. She ultimately called her family at 1900 hrs. on 12/12, and when she did not sound herself, and had trouble with misplacing words and slurred speech, her daughter went to visit her. At that time the daughter noted that the patient was having difficulty moving her right side, and the speech that was slurred had started to improve. The patient was then brought to the emergency department for further assessment. In the emergency department, the patient was noted to have a improved but still slightly diminished right upper and lower extremity weakness, with continued difficulty with slurred speech and swallowing. Patient at this time, was well outside the therapeutic range for intervention. Allergies Allergy/AdvReac Type Severity Reaction Status Date / Time Sulfa (Sulfonamide Allergy Intermediate "SULFA Verified 12/12/19 20:56 Antibiotics) DRUGS": SWELLS iodine Allergy Mild SWELLING, Verified 12/12/19 20:56 ITCHING,RED AND NAUSEA W/CONTRAST DYE (FEEL FUNNY) Egg Derived Allergy Unknown DIARRHEA,ABD Verified 12/12/19 20:56 PAIN Iodinated Contrast Media Allergy Unknown HOT FLASH Verified 12/12/19 20:56 AND RASH shellfish derived Allergy Unknown SWELLING Verified 12/12/19 20:56 AND VOMITING shrimp Allergy Unknown SWELLING Verified 12/12/19 20:56 AND NAUSEA WITH SHRIMP AND SHELLFISH codeine AdvReac Unknown VOMITING Verified 12/12/19 20:56 egg AdvReac Unknown DIARRHEA Verified 12/12/19 20:56 Home Medications Home Medications Medication Instructions Recorded Confirmed Type lansoprazole [Prevacid] 30 mg PO QAM 08/21/18 12/12/19 History Tradjenta 5 mg PO QAM 03/15/19 12/12/19 History gabapentin [Neurontin] 300 mg PO BID 03/15/19 12/12/19 History amlodipine 10 mg tablet 10 mg PO DAILY #90 tab 08/19/19 12/12/19 Rx clonidine HCl 0.1 mg tablet 0.1 mg PO BID #60 tab 08/19/19 12/12/19 Rx escitalopram oxalate 20 mg tablet 20 mg PO HS #90 tab 08/19/19 12/12/19 Rx furosemide 20 mg tablet See Rx Instructions PO BID #270 tab 08/19/19 12/12/19 Rx nitroglycerin 0.4 mg sublingual 0.4 mg SUBLINGUAL .COMPLEX PRN #10 08/19/19 12/12/19 Rx tablet tab propranolol 160 mg capsule,24 160 mg PO HS #90 cap 08/19/19 12/12/19 Rx hr,extended release cholecalciferol (vitamin D3) 1,250 1,250 mcg PO WEEKLY #8 tab 11/18/19 12/12/19 Rx mcg (50,000 unit) tablet clopidogrel [Plavix] 75 mg PO DAILY #30 tab 12/14/19 Rx insulin aspart U-100 10 units SQ PM #15 ml 12/14/19 Rx metformin 1,000 mg PO HS #0 tab 12/14/19 12/12/19 Rx metformin 500 mg PO QAM #30 tab 12/14/19 Rx Past Med/Surg History Medical History Acute chest pain (Acute) Contrast media allergy (Chronic) Diarrhea (Acute) GERD (gastroesophageal reflux disease) (Chronic) H/O Clostridium difficile infection (Chronic) H/O: rheumatic fever (Chronic) Hemorrhoids (Chronic) Hepatic steatosis (Chronic) HTN (hypertension) (Chronic) Hypertensive cardiovascular disease Labile hypertension (Chronic) Lumbar stenosis with neurogenic claudication LVH (left ventricular hypertrophy) (Chronic) Nonobstructive atherosclerosis of coronary artery (Chronic) "Per cardiac cath May 2016" Vomiting (Acute) WPW (Scscn-Edindljtw-Datui syndrome) (Chronic) Surgical History H/O cardiac radiofrequency ablation (Resolved) History of bladder surgery (Chronic) History of herniorrhaphy (Chronic) Hx of hysterectomy S/P foot surgery (Chronic) S/P partial colectomy (Chronic) S/P ROMAN-BSO (Chronic) Family History Brother Colorectal cancer Prostate cancer Mother Myocardial infarction Other Cancer Diabetes Heart disease Hypertension Denies family history of Ovarian cancer Breast cancer Social History Preferred Language: Swiss Communication Ability: Effective Wrist Closer Required: No Beliefs That Will Affect Care: None marital status: Current Living Situation: Spouse current occupational status: retired Feels Safe at Home: Yes Smoking Status: Unknown if ever smoked Hx Alcohol Use: No Hx Substance Use: No caffeine: Yes Dental Care, Regularly: No Physical Activity Frequency: Does not Exercise Seatbelt Use: always Sunscreen Use: No Review of Systems Review of Systems: The patient denies chest pain, palpitations, shortness of breath, dyspnea on exertion, cough, lower extremity swelling, sore throat, fevers, chills, sweats, nausea, vomiting, diarrhea , constipation, abdominal pain, pelvic pain, blood in urine or stool, dysuria, urinary frequency or urgency, lightheadedness, dizziness, headache, memory loss, loss of consciousness, rash, abnormal bruising or bleeding, focal or generalized weakness, numbness or tingling in left arm and leg, generalized arthralgias or myalgias, back or neck pain, or night sweats. The review of systems is otherwise negative other than for that already noted above, and at least 10 systems have been reviewed. Physical Exam Physical Exam: The patient is awake, alert and oriented 3, normocephalic and atraumatic, lying in bed and in no acute distress. HEENT--PERRL, EOMI, mucous membranes and oropharynx dry. Neck--supple. No JVD. No bruits. Thyroid normal, trachea midline, no adenopathy. Heart--normal S1 and S2. No murmurs, rubs or gallops. Lungs--clear bilaterally, no respiratory distress, no accessory muscle use. Abdomen--normal bowel sounds and soft. Nontender. Nondistended. Extremities--no cyanosis or clubbing. No edema. Dermatologic--normal skin turgor, normal color, no abnormal lymph nodes, no rash. Neurologic/rheumatologic--cranial nerves II through XII grossly intact, except for slurred speech and difficulty with swallowing secretions. --normal range of motion. Motor strength 4+/5 right upper and lower extremities. 5/5 left upper and lower extremities. Sensation intact to light touch Psychiatric--normal affect. Results & Data Vital Signs (Past 12 Hours) Vital Signs Temp Pulse Pulse Resp BP BP Pulse Ox 02/24/20 23:14 74 18 94 12/12/19 23:12 73 18 154/78 H 94 12/12/19 21:56 83 22 186/75 H 94 12/12/19 21:55 93 H 13 95 12/12/19 21:30 93 H 17 186/91 H 94 12/12/19 21:16 93 H 25 H 94 12/12/19 21:15 86 19 168/87 H 94 12/12/19 21:01 88 16 93 12/12/19 21:00 87 17 163/89 H 94 12/12/19 20:46 87 22 92 12/12/19 20:45 87 17 186/96 H 96 12/12/19 20:30 96 H 20 12/12/19 20:16 90 22 95 12/12/19 20:15 91 H 20 175/90 H 94 12/12/19 20:01 95 H 19 95 12/12/19 20:00 100 H 24 169/79 H 94 12/12/19 19:46 100 H 21 94 12/12/19 19:45 97 H 12 194/95 H 95 12/12/19 19:40 103 H 23 203/103 H 95 12/12/19 19:35 103 H 23 95 12/12/19 19:33 106 H 20 223/111 H 95 12/12/19 19:24 98.2 F 116 H 16 213/106 H 96 Laboratory Results Laboratory Results WBC 9.50 K/uL (4.8-10.8) 12/12/19 19:40 RBC 4.73 M/uL (4.2-5.4) 12/12/19 19:40 Hgb 12.5 g/dL (12.0-16.0) 12/12/19 19:40 Hct 37.4 % (37-47) 12/12/19 19:40 MCV 79.1 fL (80-100) L 12/12/19 19:40 MCH 26.4 pg (25-34) 12/12/19 19:40 MCHC 33.4 g/dL (32-36) 12/12/19 19:40 RDW Std Deviation 47.0 fL (36.4-46.3) H 12/12/19 19:40 RDW Coeff of Carmen 16.1 % (11.5-14.5) H 12/12/19 19:40 Plt Count 250 K/uL (130-400) 12/12/19 19:40 MPV 10.0 fL (7.4-10.4) 12/12/19 19:40 Immature Gran % (Auto) 0.3 % 12/12/19 19:40 Neut % (Auto) 54.2 % 12/12/19 19:40 Lymph % (Auto) 35.6 % 12/12/19 19:40 [place] % (Auto) 8.3 % 12/12/19 19:40 Eos % (Auto) 1.4 % 12/12/19 19:40 Baso % (Auto) 0.2 % 12/12/19 19:40 Immature Gran # (Auto) 0.03 K/uL (0.00-0.02) H 12/12/19 19:40 Neut # (Auto) 5.15 K/uL (1.4-6.5) 12/12/19 19:40 Lymph # (Auto) 3.38 K/uL (1.2-3.4) 12/12/19 19:40 [place] # (Auto) 0.79 K/uL (0.11-0.59) H 12/12/19 19:40 Eos # (Auto) 0.13 K/uL (0-0.5) 12/12/19 19:40 Baso # (Auto) 0.02 K/uL (0-0.2) 12/12/19 19:40 PT 10.9 Seconds (9.0-12.0) 12/12/19 19:40 INR 1.1 (0.9-1.1) 12/12/19 19:40 APTT 25.4 Seconds (21.0-31.0) 12/12/19 19:40 PTT Ratio 0.9 12/12/19 19:40 Sodium 135 mmol/L (136-145) L 12/12/19 19:40 Potassium 3.4 mmol/L (3.5-5.1) L 12/12/19 19:40 Chloride 102 mmol/L (98-107) 12/12/19 19:40 Carbon Dioxide 25 mmol/L (21-32) 12/12/19 19:40 Anion Gap 8.0 (3-11) 12/12/19 19:40 BUN 14 mg/dl (7-18) 12/12/19 19:40 Creatinine 0.91 mg/dl (0.6-1.2) 12/12/19 19:40 Est Cr Clr Drug Dosing 56.0 ml/min 12/12/19 19:40 Est GFR ( Amer) 71.0 12/12/19 19:40 Est GFR (Non-Af Amer) 61.3 12/12/19 19:40 BUN/Creatinine Ratio 14.9 (10-20) 12/12/19 19:40 Glucose 218 mg/dl (70-99) H 12/12/19 19:40 POC Glucose 227 mg/dl (70-99) H 12/12/19 19:43 Calcium 9.1 mg/dl (8.5-10.1) 12/12/19 19:40 Magnesium 1.5 mg/dl (1.8-2.4) L 12/12/19 19:40 Total Bilirubin 0.4 mg/dl (0.2-1) 12/12/19 19:40 AST 44 U/L (15-37) H 12/12/19 19:40 ALT 49 U/L (12-78) 12/12/19 19:40 Alkaline Phosphatase 79 U/L (45-117) 12/12/19 19:40 Troponin I < 0.015 ng/ml (0-0.045) 12/12/19 19:40 Total Protein 8.0 gm/dl (6.4-8.2) 12/12/19 19:40 Albumin 3.8 gm/dl (3.4-5.0) 12/12/19 19:40 Globulin 4.2 gm/dl (2.5-4.0) H 12/12/19 19:40 Albumin/Globulin Ratio 0.9 (0.9-2) 12/12/19 19:40 Urine Color Yellow 12/12/19 22:10 Urine Appearance Clear (Clear) 12/12/19 22:10 Urine pH 5.5 (4.5-7.5) 12/12/19 22:10 Ur Specific [place] 1.022 (1.000-1.030) 12/12/19 22:10 Urine Protein 1+ (Negative) H 12/12/19 22:10 Urine Glucose (UA) 3+ (Negative) H 12/12/19 22:10 Urine Ketones Negative (Negative) 12/12/19 22:10 Urine Blood Negative (Negative) 12/12/19 22:10 Urine Nitrite Positive (Negative) A 12/12/19 22:10 Urine Bilirubin Negative (Negative) 12/12/19 22:10 Urine Urobilinogen Negative (Negative) 12/12/19 22:10 Ur Leukocyte Esterase Negative (Negative) 12/12/19 22:10 Urine WBC (Auto) 1-5 /hpf (0-5) 12/12/19 22:10 Urine RBC (Auto) 0-4 /hpf (0-4) 12/12/19 22:10 U Hyaline Cast (Auto) 1-5 /lpf (0-5) 12/12/19 22:10 U Epithel Cells (Auto) >30 /lpf (0-5) H 12/12/19 22:10 Urine Bacteria (Auto) 4+ (Negative) H 12/12/19 22:10 Blood Type O Positive 12/12/19 20:53 Antibody Screen NEGATIVE 12/12/19 20:53 Diagnostic Findings [place], [place] [phone] XRay Report Patient: LEOPOLDO WARD AAdmit Date: 12/12/19 MR#: [id number]: [address] Acct ID:[id number]: Date: [address] [place] [address] Zip: [place] [address] Age: 74Location: ED Sex: F Room/Bed: Att Phy:Diagnosis: STROKE SYMPTOMS Nery Phy: Mary Dickerson MDService Date: 12/12/19 Fam Phy:Interpreting Phy: Guicho Benitez MD Admit Phy: Ordering Phy: Abelardo Dill MD cc: ~ XR chest 1V portable CLINICAL HISTORY: stroke symptoms COMPARISON STUDY: Chest radiograph October 22, 2019. FINDINGS: Lung volumes are normal. Lungs are clear. There is no pneumothorax or pleural effusion. Cardiac size is normal. Mediastinal contours are normal. There is no evidence for pulmonary edema. IMPRESSION: No acute cardiopulmonary findings. ACT 112: Negative or not required by law. Electronically signed by: Guicho Benitez M.D. 12/12/2019 8:49 PM Dictated: 12/12/192047 Transcribed: 12/12/192047 [place], [place] [phone] CT Scan Report Patient: LEOPOLDO WARD AAdmit Date: 12/12/19 MR#: [id number]: [address] Acct ID:[id number]: Date: 1945[facility] Zip: [place] [address] Age: 74Location: ED Sex: F Room/Bed: Att Phy:Diagnosis: STROKE SYMPTOMS Nery Phy: Mary Dickerson MDService Date: 12/12/19 Fam Phy:Interpreting Phy: Guicho Benitez MD Admit Phy: Ordering Phy: Abelardo Dill MD cc: ~ CT OF THE HEAD WITHOUT CONTRAST CLINICAL HISTORY: stroke symptoms COMPARISON STUDY: Head CT January 05, 2019. CT DOSE: 638.56 mGycm TECHNIQUE: Helical axial images of the head were obtained without IV contrast. Automated exposure control was utilized for the study. A dose lowering technique was utilized adhering to the principles of ALARA. FINDINGS: No acute intracranial hemorrhage, midline shift or mass effect is present. The ventricular system is unremarkable. The basilar cisterns are patent. No extra-axial collections are present. There are no findings to suggest acute dural sinus thrombosis or acute territorial infarct. No significant calvarial abnormalities are present. Visualized portions of the sinuses and mastoid air cells are clear. White matter hypodensities are unchanged and suggest small vessel disease. IMPRESSION: No acute intracranial findings. ACT 112: Negative or not required by law. Electronically signed by: Guicho Benitez M.D. 12/12/2019 10:03 PM Dictated: 12/12/192157 Transcribed: 12/12/192157 Code Status & VTE Plan Code Status Full code VTE Prophylaxis Plan VTE Prophylaxis will be ordered: Yes PG Care Time/CCT Total # of Minutes Spent Total Time Spent with Patient: Total time spent is greater than 50% in coordination of care (as documented) at patient's floor/unit and/or counseling patient: Coding Level of Care Code 15685 Initial Inpt Care Lvl 3 Diagnoses Acute cerebrovascular accident (CVA) I63.9 Right sided weakness R53.1 Dysarthria R47.1 Diabetes mellitus, type II E11.9 Dyslipidemia E78.5 HTN (hypertension) I10 Hypertension type: unspecified Nonobstructive atherosclerosis of coronary artery I25.10 GERD (gastroesophageal reflux disease) K21.9 Esophagitis presence: esophagitis presence not specified Depression F33.9 Active/Remission status: remission status unspecified Depression Type: major depressive disorder Major depression recurrence: recurrent (1) Depression Active/Remission status: remission status unspecified Depression Type: major depressive disorder Major depression recurrence: recurrent Qualified Code(s): F33.9 - Major depressive disorder, recurrent, unspecified (2) GERD (gastroesophageal reflux disease) Esophagitis presence: esophagitis presence not specified Qualified Code(s): K21.9 - Gastro-esophageal reflux disease without esophagitis (3) HTN (hypertension) Hypertension type: unspecified Qualified Code(s): I10 - Essential (primary) hypertension
[2019-12-13] MEDS ORDERED: LORazepam 1 MG/2 ML VIAL IV STA ×2 (00:29→01:26)
[2019-12-13] MEDS ORDERED: GLUCOSE 40% GEL 15 GM TUBE PO PRN (01:26)
[2019-12-13] MEDS ORDERED: DEXTROSE 50% 50 ML SYRINGE IV PRN (01:26)
[2019-12-13] MEDS ORDERED: GLUCOSE 10 TABS/TUBE PO PRN (01:26)
[2019-12-13] MEDS ORDERED: ONDANSETRON INJ 2 MG/ML 2 ML VIAL IV PRN (01:26)
[2019-12-13] MEDS ORDERED: CARBOHYDRATES FOR HYPOGLYCEMIA PO PRN (01:26)
[2019-12-13] MEDS ORDERED: GLUCAGON FOR INJ 1 MG VIAL SQ PRN (01:26)
[2019-12-13] MEDS ORDERED: PHARMACIST DISCHARGE MED REC CONSULT PRN (01:26)
--- NOTE | 2019-12-13 03:19 | Emergency Department Note ---
Entered by Nadine Tran acting as a scribe for ED Provider Note CHIEF COMPLAINT: Stroke symptoms HISTORY OF PRESENT ILLNESS: The patient is a 74 year old female who presents to the Emergency Room with complaints of a stroke that occurred at yesterday night. The patient's son states that at 1200 yesterday the patient was acting normally. The patient's son states that the patient called them at 1900 this afternoon and sounded not herself. The patient's son explains that the patient had slurred speech and was misplacing her words.The patient's daughter states that when she arrived the patient was unable to walk due to right sided weakness. The patient's daughter notes that other than a slight slurred speech the patient seems to be improving. The patient expresses that she is still feeling right sided weakness to her upper and lower extremity. The patient expresses that her right lower extremity has tingling and feels stiff. The patient states that she feels nauseous. The patient states that she tried to eat Macaroni when she had trouble swallowing and then vomiting. The patient confirms that she has been feeling this way throughout the day and most of yesterday. The patient informs that she loss her balance a couple of times last night. Pt denies LOC, headache, fevers, chills, diaphoresis, visual changes, neck pain, chest pain, breathing difficulties, abdominal pain, back pain, melena, hematochezia, urinary symptoms, lymphadenopathy, rash, or other complaints. The patient states that she is prescribed a baby aspirin but she did not take any this medication or her blood pressure medication. The patient's daughter denies that she every had a blood transfusion. The patient's daughter denies that the patient has a history of stroke or mini stroke REVIEW OF SYSTEMS: See HPI for pertinent positives and negatives. A total of ten systems were reviewed and were otherwise negative. PMHx/PSHx: Fatigue, diabetes mellitus, dyslipidemia, hypertension, memory loss or impairment, SOCIAL HISTORY: Patient lives at home. PHYSICAL EXAM: GENERAL: Awake, alert, well-appearing, in no distress HENT: Normocephalic, atraumatic. Oropharynx unremarkable. EYES: PERRL. Normal conjunctiva. Sclera non-icteric. NECK: Inspection normal. Non-tender. Supple. No nuchal rigidity. FROM. No ma sses. RESPIRATORY: Clear to auscultation. No wheezes. No rales. Normal respiratory effort. CARDIAC: Normal rate. Normal rhythm. No murmurs. No rubs. Extremities warm and well perfused. Pulses equal. No JVD. GI: Soft, non-distended. No tenderness to palpation. No rebound or guarding. No masses. RECTAL: Deferred. MUSCULOSKELETAL: Atraumatic. Chest examination reveals no tenderness. The back is symmetrical on inspection without obvious abnormality. There is no CVA tenderness to palpation. No joint edema. Weakness to the right upper extremity. LOWER EXTREMITIES: Calves are equal size bilaterally and non-tender. No edema. No discoloration. Lower extremities equal bilaterally. NEURO: Normal sensorium. Slight right drift. Slight difficulty of rapid alternating movements to the right upper extremity. Heel to roblero intact. Right facial droop. SKIN: No rash or jaundice noted. EMERGENCY DEPARTMENT COURSE: 2010: The patient was evaluated in room B6, and a complete history and physical examination were performed. 2030: I discussed the patient's CT scan order with radiology who informs that the patient has a contrast allergy. The order was changed to a plain head CT. 2254: I reviewed the patient's case with Dr. Hoffman, [facility] Hospitalist. He will evaluate the patient for further management. MEDICAL DECISION MAKING: Prior records/ancillary studies reviewed. Nursing notes reviewed and agree them. Additional history obtained from family. The patient's history was concerning for weakness. Differential diagnosis: Etiologies such as metabolic, infection, hypo/hyperglycemia, electrolyte abnormalities, cardiac sources, intracerebral event, toxicologic, neurologic, as well as others were entertained. Physical examination: As above. ER treatment provided: IV Lock Normal saline hydration On reassessment the patient felt better. IV Tylenol Aspirin SC IV morphine IV Zofran Diagnostics interpretation by me: ECG: Sinus rhythm. The labs revealed an unremarkable CBC and chemistry panel. Imaging studies: Chest x-ray and CT scan of the head were performed. Negative for acute process. The patient has findings on examination concerning for an acute CVA. Unfortunately the started about 24 hours ago. She is not a TPA candidate. The patient also has a dye allergy and CT imaging with regards to angiography was initially deferred. She will need MR imaging as well as management in the hospital. Her symptoms have improved since yesterday and even this afternoon. I gave my usual and customary discussion regarding this issue. Consultation: A consultation was placed with the hospitalist. The case was discussed and diagnostics were reviewed. The patient was evaluated in the ER for further treatment. IMPRESSION: Acute CVA Right sided weakness Dysarthria PLAN: Admitted The scribe's documentation has been prepared under my direction and personally reviewed by me in its entirety. I confirm that the note above accurately reflects all work, treatment, procedures, and medical decision making performed by me. Impression & Plan Acute cerebrovascular accident (CVA), Right sided weakness, Dysarthria Past Med/Surg History Medical History Acute chest pain (Acute) Contrast media allergy (Chronic) Diarrhea (Acute) GERD (gastroesophageal reflux disease) (Chronic) H/O Clostridium difficile infection (Chronic) H/O: rheumatic fever (Chronic) Hemorrhoids (Chronic) Hepatic steatosis (Chronic) HTN (hypertension) (Chronic) Hypertensive cardiovascular disease Labile hypertension (Chronic) Lumbar stenosis with neurogenic claudication LVH (left ventricular hypertrophy) (Chronic) Nonobstructive atherosclerosis of coronary artery (Chronic) "Per cardiac cath May 2016" Vomiting (Acute) WPW (Ybnzp-Agvlcokti-Lxoxo syndrome) (Chronic) Surgical History H/O cardiac radiofrequency ablation (Resolved) History of bladder surgery (Chronic) History of herniorrhaphy (Chronic) Hx of hysterectomy S/P foot surgery (Chronic) S/P partial colectomy (Chronic) S/P ROMAN-BSO (Chronic) Family History Brother Colorectal cancer Prostate cancer Mother Myocardial infarction Other Cancer Diabetes Heart disease Hypertension Denies family history of Ovarian cancer Breast cancer Social History Preferred Language: [place] Communication Ability: 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 Beliefs That Will Affect Care: None marital status: Current Living Situation: Spouse current occupational status: retired Feels Safe at Home: Yes Smoking Status: Never smoker Second Hand Exposure: No ; Hx Alcohol Use: No Hx Substance Use: No caffeine: Yes Dental Care, Regularly: No Physical Activity Frequency: Does not Exercise Seatbelt Use: always Sunscreen Use: No Results & Data Vital Signs Vital Signs - 24 hr 12/12/19 19:24 12/12/19 19:33 12/12/19 19:35 Temperature 36.8 C Temperature Source Oral Pulse Rate 116 H 106 H 103 H Pulse Rate [Finger] Pulse Rate from SpO2 Sensor 104 H 104 H Pulse Rhythm Pulse Rhythm [Finger] Pulse Strength [Finger] Respiratory Rate 16 20 23 Respiratory Effort / Characteristics Respiratory Depth Respiratory Pattern Blood Pressure 213/106 H 223/111 H Blood Pressure [Right Arm] Blood Pressure Mean 141 144 Blood Pressure Mean [Right Arm] Blood Pressure Position [Right Arm] Pulse Oximetry 96 95 95 Oxygen Delivery Method Room Air Room Air Room Air Sepsis Recent Fever Within 48 Hours No Sepsis New/Unexplained Change in Mental Status No Sepsis Action Taken by Nursing No Action Required 12/12/19 19:40 12/12/19 19:45 12/12/19 19:46 Temperature Temperature Source Pulse Rate 103 H 97 H 100 H Pulse Rate [Finger] Pulse Rate from SpO2 Sensor 104 H 97 H 99 H Pulse Rhythm Pulse Rhythm [Finger] Pulse Strength [Finger] Respiratory Rate 23 12 21 Respiratory Effort / Characteristics Respiratory Depth Respiratory Pattern Blood Pressure 203/103 H 194/95 H Blood Pressure [Right Arm] Blood Pressure Mean 142 140 Blood Pressure Mean [Right Arm] Blood Pressure Position [Right Arm] Pulse Oximetry 95 95 94 Oxygen Delivery Method Room Air Room Air Room Air Sepsis Recent Fever Within 48 Hours Sepsis New/Unexplained Change in Mental Status Sepsis Action Taken by Nursing 12/12/19 20:00 12/12/19 20:01 12/12/19 20:15 Temperature Temperature Source Pulse Rate 100 H 95 H 91 H Pulse Rate [Finger] Pulse Rate from SpO2 Sensor 100 H 96 H 92 H Pulse Rhythm Pulse Rhythm [Finger] Pulse Strength [Finger] Respiratory Rate 24 19 20 Respiratory Effort / Characteristics Respiratory Depth Respiratory Pattern Blood Pressure 169/79 H 175/90 H Blood Pressure [Right Arm] Blood Pressure Mean 95 116 Blood Pressure Mean [Right Arm] Blood Pressure Position [Right Arm] Pulse Oximetry 94 95 94 Oxygen Delivery Method Room Air Room Air Room Air Sepsis Recent Fever Within 48 Hours Sepsis New/Unexplained Change in Mental Status Sepsis Action Taken by Nursing 12/12/19 20:16 12/12/19 20:30 12/12/19 20:45 Temperature Temperature Source Pulse Rate 90 96 H 87 Pulse Rate [Finger] Pulse Rate from SpO2 Sensor 90 87 Pulse Rhythm Pulse Rhythm [Finger] Pulse Strength [Finger] Respiratory Rate 22 20 17 Respiratory Effort / Characteristics Respiratory Depth Respiratory Pattern Blood Pressure 186/96 H Blood Pressure [Right Arm] Blood Pressure Mean 146 Blood Pressure Mean [Right Arm] Blood Pressure Position [Right Arm] Pulse Oximetry 95 96 Oxygen Delivery Method Room Air Room Air Sepsis Recent Fever Within 48 Hours Sepsis New/Unexplained Change in Mental Status Sepsis Action Taken by Nursing 12/12/19 20:46 12/12/19 21:00 12/12/19 21:01 Temperature Temperature Source Pulse Rate 87 87 88 Pulse Rate [Finger] Pulse Rate from SpO2 Sensor 87 88 87 Pulse Rhythm Pulse Rhythm [Finger] Pulse Strength [Finger] Respiratory Rate 22 17 16 Respiratory Effort / Characteristics Respiratory Depth Respiratory Pattern Blood Pressure 163/89 H Blood Pressure [Right Arm] Blood Pressure Mean 131 Blood Pressure Mean [Right Arm] Blood Pressure Position [Right Arm] Pulse Oximetry 92 94 93 Oxygen Delivery Method Room Air Room Air Room Air Sepsis Recent Fever Within 48 Hours Sepsis New/Unexplained Change in Mental Status Sepsis Action Taken by Nursing 12/12/19 21:15 12/12/19 21:16 12/12/19 21:30 Temperature Temperature Source Pulse Rate 86 93 H 93 H Pulse Rate [Finger] Pulse Rate from SpO2 Sensor 89 93 H 92 H Pulse Rhythm Pulse Rhythm [Finger] Pulse Strength [Finger] Respiratory Rate 19 25 H 17 Respiratory Effort / Characteristics Respiratory Depth Respiratory Pattern Blood Pressure 168/87 H 186/91 H Blood Pressure [Right Arm] Blood Pressure Mean 119 146 Blood Pressure Mean [Right Arm] Blood Pressure Position [Right Arm] Pulse Oximetry 94 94 94 Oxygen Delivery Method Room Air Room Air Room Air Sepsis Recent Fever Within 48 Hours Sepsis New/Unexplained Change in Mental Status Sepsis Action Taken by Nursing 12/12/19 21:31 12/12/19 21:55 12/12/19 21:56 Temperature Temperature Source Pulse Rate 93 H 83 Pulse Rate [Finger] Pulse Rate from SpO2 Sensor 92 H 88 83 Pulse Rhythm Pulse Rhythm [Finger] Pulse Strength [Finger] Respiratory Rate 13 22 Respiratory Effort / Characteristics Respiratory Depth Respiratory Pattern Blood Pressure 186/75 H Blood Pressure [Right Arm] Blood Pressure Mean 133 Blood Pressure Mean [Right Arm] Blood Pressure Position [Right Arm] Pulse Oximetry 95 94 Oxygen Delivery Method Room Air Room Air Sepsis Recent Fever Within 48 Hours Sepsis New/Unexplained Change in Mental Status Sepsis Action Taken by Nursing 12/12/19 23:12 12/12/19 23:14 Temperature Temperature Source Pulse Rate 74 Pulse Rate [Finger] 73 Pulse Rate from SpO2 Sensor Pulse Rhythm Regular Pulse Rhythm [Finger] Regular Pulse Strength [Finger] Normal Respiratory Rate 18 18 Respiratory Effort / Characteristics Non-Labored Spontaneous Respiratory Depth Normal Respiratory Pattern Regular Blood Pressure Blood Pressure [Right Arm] 154/78 H Blood Pressure Mean Blood Pressure Mean [Right Arm] 103 Blood Pressure Position [Right Arm] Lying Pulse Oximetry 94 94 Oxygen Delivery Method Room Air Room Air Sepsis Recent Fever Within 48 Hours Sepsis New/Unexplained Change in Mental Status Sepsis Action Taken by Group Home Medications Current Medication List: was personally reviewed by me Laboratory Data Attestation: I reviewed the patient's lab results. Result diagrams: 12/12/19 19:40 12/12/19 19:40 Lab Results 12/12/19 12/12/19 12/12/19 Range/Units 19:40 19:40 19:40 WBC 9.50 (4.8-10.8) K/uL RBC 4.73 (4.2-5.4) M/uL Hgb 12.5 (12.0-16.0) g/dL Hct 37.4 (37-47) % MCV 79.1 L (80-100) fL MCH 26.4 (25-34) pg MCHC 33.4 (32-36) g/dL RDW Std Deviation 47.0 H (36.4-46.3) fL RDW Coeff of Carmen 16.1 H (11.5-14.5) % Plt Count 250 (130-400) K/uL MPV 10.0 (7.4-10.4) fL Immature Gran % (Auto) 0.3 % Neut % (Auto) 54.2 % Lymph % (Auto) 35.6 % [place] % (Auto) 8.3 % Eos % (Auto) 1.4 % Baso % (Auto) 0.2 % Immature Gran # (Auto) 0.03 H (0.00-0.02) K/uL Neut # (Auto) 5.15 (1.4-6.5) K/uL Lymph # (Auto) 3.38 (1.2-3.4) K/uL [place] # (Auto) 0.79 H (0.11-0.59) K/uL Eos # (Auto) 0.13 (0-0.5) K/uL Baso # (Auto) 0.02 (0-0.2) K/uL PT 10.9 (9.0-12.0) Seconds INR 1.1 (0.9-1.1) APTT 25.4 (21.0-31.0) Seconds PTT Ratio 0.9 Sodium 135 L (136-145) mmol/L Potassium 3.4 L (3.5-5.1) mmol/L Chloride 102 (98-107) mmol/L Carbon Dioxide 25 (21-32) mmol/L Anion Gap 8.0 (3-11) BUN 14 (7-18) mg/dl Creatinine 0.91 (0.6-1.2) mg/dl Est Cr Clr Drug Dosing 56.0 ml/min Est GFR ( Amer) 71.0 Est GFR (Non-Af Amer) 61.3 BUN/Creatinine Ratio 14.9 (10-20) Glucose 218 H (70-99) mg/dl POC Glucose (70-99) mg/dl Calcium 9.1 (8.5-10.1) mg/dl Magnesium 1.5 L (1.8-2.4) mg/dl Total Bilirubin 0.4 (0.2-1) mg/dl AST 44 H (15-37) U/L ALT 49 (12-78) U/L Alkaline Phosphatase 79 (45-117) U/L Troponin I < 0.015 (0-0.045) ng/ml Total Protein 8.0 (6.4-8.2) gm/dl Albumin 3.8 (3.4-5.0) gm/dl Globulin 4.2 H (2.5-4.0) gm/dl Albumin/Globulin Ratio 0.9 (0.9-2) Urine Color Urine Appearance (Clear) Urine pH (4.5-7.5) Ur Specific [place] (1.000-1.030) Urine Protein (Negative) Urine Glucose (UA) (Negative) Urine Ketones (Negative) Urine Blood (Negative) Urine Nitrite (Negative) Urine Bilirubin (Negative) Urine Urobilinogen (Negative) Ur Leukocyte Esterase (Negative) Urine WBC (Auto) (0-5) /hpf Urine RBC (Auto) (0-4) /hpf U Hyaline Cast (Auto) (0-5) /lpf U Epithel Cells (Auto) (0-5) /lpf Urine Bacteria (Auto) (Negative) Blood Type Antibody Screen 12/12/19 12/12/19 12/12/19 Range/Units 19:43 20:53 22:10 WBC (4.8-10.8) K/uL RBC (4.2-5.4) M/uL Hgb (12.0-16.0) g/dL Hct (37-47) % MCV (80-100) fL MCH (25-34) pg MCHC (32-36) g/dL RDW Std Deviation (36.4-46.3) fL RDW Coeff of Carmen (11.5-14.5) % Plt Count (130-400) K/uL MPV (7.4-10.4) fL Immature Gran % (Auto) % Neut % (Auto) % Lymph % (Auto) % [place] % (Auto) % Eos % (Auto) % Baso % (Auto) % Immature Gran # (Auto) (0.00-0.02) K/uL Neut # (Auto) (1.4-6.5) K/uL Lymph # (Auto) (1.2-3.4) K/uL [place] # (Auto) (0.11-0.59) K/uL Eos # (Auto) (0-0.5) K/uL Baso # (Auto) (0-0.2) K/uL PT (9.0-12.0) Seconds INR (0.9-1.1) APTT (21.0-31.0) Seconds PTT Ratio Sodium (136-145) mmol/L Potassium (3.5-5.1) mmol/L Chloride (98-107) mmol/L Carbon Dioxide (21-32) mmol/L Anion Gap (3-11) BUN (7-18) mg/dl Creatinine (0.6-1.2) mg/dl Est Cr Clr Drug Dosing ml/min Est GFR ( Amer) Est GFR (Non-Af Amer) BUN/Creatinine Ratio (10-20) Glucose (70-99) mg/dl POC Glucose 227 H (70-99) mg/dl Calcium (8.5-10.1) mg/dl Magnesium (1.8-2.4) mg/dl Total Bilirubin (0.2-1) mg/dl AST (15-37) U/L ALT (12-78) U/L Alkaline Phosphatase (45-117) U/L Troponin I (0-0.045) ng/ml Total Protein (6.4-8.2) gm/dl Albumin (3.4-5.0) gm/dl Globulin (2.5-4.0) gm/dl Albumin/Globulin Ratio (0.9-2) Urine Color Yellow Urine Appearance Clear (Clear) Urine pH 5.5 (4.5-7.5) Ur Specific [place] 1.022 (1.000-1.030) Urine Protein 1+ H (Negative) Urine Glucose (UA) 3+ H (Negative) Urine Ketones Negative (Negative) Urine Blood Negative (Negative) Urine Nitrite Positive A (Negative) Urine Bilirubin Negative (Negative) Urine Urobilinogen Negative (Negative) Ur Leukocyte Esterase Negative (Negative) Urine WBC (Auto) 1-5 (0-5) /hpf Urine RBC (Auto) 0-4 (0-4) /hpf U Hyaline Cast (Auto) 1-5 (0-5) /lpf U Epithel Cells (Auto) >30 H (0-5) /lpf Urine Bacteria (Auto) 4+ H (Negative) Blood Type O Positive Antibody Screen NEGATIVE Administered Medications Discontinued Medications Aspirin (Aspirin) 300 mg SC ONE ONE Stop: 12/12/19 22:05 Last Admin: 12/12/19 22:17 Dose: 300 mg Documented by: [id number] Sodium Chloride (Nss 1000ml) 1,000 mls @ 50 mls/hr IV .Q20H MARY Stop: 01/11/20 20:14 Last Admin: 12/12/19 20:48 Dose: 50 mls/hr Documented by: [id number] Acetaminophen (Ofirmev) 1,000 mg in 100 mls @ 400 mls/hr IV NOW STA Stop: 12/12/19 21:49 Last Infusion: 12/12/19 22:12 Dose: 0 mls/hr Documented by: [id number] Admin: 12/12/19 21:57 Dose: 400 mls/hr Documented by: [id number] Lorazepam (Ativan) 1 mg in 2 mls @ 2 mls/min IV NOW STA Stop: 12/13/19 00:30 Last Admin: 12/13/19 00:48 Dose: 2 mls/min Documented by: [id number] Lorazepam (Ativan) 1 mg in 2 mls @ 2 mls/min IV NOW STA Stop: 12/13/19 01:27 Last Admin: 12/13/19 01:51 Dose: 2 mls/min Documented by: [id number] Morphine Sulfate (Morphine Sulfate) 1 mg IV NOW STA Stop: 12/12/19 23:21 Last Admin: 12/12/19 23:27 Dose: 1 mg Documented by: [id number] Ondansetron HCl (Zofran) 4 mg IV NOW STA Stop: 12/12/19 20:17 Last Admin: 12/12/19 20:48 Dose: 4 mg Documented by: [id number] Ondansetron HCl (Zofran) 4 mg IV NOW STA Stop: 12/12/19 23:21 Last Admin: 12/12/19 23:27 Dose: 4 mg Documented by: [id number] Imaging Data Radiologist's Impression: Radiology results as stated below per my review and the radiologist's interpretation: XR chest 1V portable CLINICAL HISTORY: stroke symptoms COMPARISON STUDY: Chest radiograph October 22, 2019. FINDINGS: Lung volumes are normal. Lungs are clear. There is no pneumothorax or pleural effusion. Cardiac size is normal. Mediastinal contours are normal. There is no evidence for pulmonary edema. IMPRESSION: No acute cardiopulmonary findings. ACT 112: Negative or not required by law. Electronically signed by: Guicho Benitez M.D. 12/12/2019 8:[address] OF THE HEAD WITHOUT CONTRAST CLINICAL HISTORY: stroke symptoms COMPARISON STUDY: Head CT January 05, 2019. CT DOSE: 638.56 mGycm TECHNIQUE: Helical axial images of the head were obtained without IV contrast. Automated exposure control was utilized for the study. A dose lowering technique was utilized adhering to the principles of ALARA. FINDINGS: No acute intracranial hemorrhage, midline shift or mass effect is present. The ventricular system is unremarkable. The basilar cisterns are patent. No extra-axial collections are present. There are no findings to suggest acute dural sinus thrombosis or acute territorial infarct. No significant calvarial abnormalities are present. Visualized portions of the sinuses and mastoid air cells are clear. White matter hypodensities are unchanged and suggest small vessel disease. IMPRESSION: No acute intracranial findings. ACT 112: Negative or not required by law. Electronically signed by: Guicho Benitez M.D. 12/12/2019 10:03 PM ECG Data Attestation: I personally reviewed and interpreted this ECG as follows: Indication: + other (Stroke-like symptom) Rate (beats per minute): 101 Rhythm: sinus tachycardia ECG Intervals/blocks: + Normal QRS ECG [place]: + Normal ECG ST segments: + Nonspecific ST abnormalities; no ST elevation ECG Findings: + Q waves (Interseptal) and + LVH; no PACs and no PVCs Blood Pressure Blood Pressure Findings: Elevated blood pressure Blood Pressure Disposition: further management by hospitalist Discharge Plan Visit Data *Final* Discharge Date/Time: 12/13/19 00:45 Chief Complaint: Stroke/CVA Symptoms Stated Complaint: STROKE SYMPTOMS ED Provider: Abelardo Dill Discharge Problem: Acute cerebrovascular accident (CVA), Right sided weakness, Dysarthria Patient Disposition: Admitted As Inpatient Discharge Instructions Interventions: ED Discharge Assessment Last Done: 12/13/19 00:45 The scribe's documentation has been prepared under my direction and personally reviewed by me in its entirety. I confirm that the note above accurately reflects all work, treatment, procedures, and medical decision making performed by me.
[2019-12-13] MEDS: NSS + 20MEQ KCL 20 MEQ/1,000 ML BAG IV SCH ×3 (04:01→22:11)
[2019-12-13] MEDS: FAMOTIDINE 20 MG in SYRINGE 3 ML IV SCH ×2 (04:57→22:06)
[2019-12-13] MEDS: MAGNESIUM SULFATE / D5W 1 GM/100 ML BAG IV SCH ×2 (04:58→06:18)
[2019-12-13] MEDS: INSULIN ASPART 100 UNITS/ML 3 ML PEN SC SCH ×4 (05:54→22:07)
[2019-12-13] MEDS: HEPARIN SOD 5,000 UNIT/0.5 ML VIAL SQ SCH ×4 (05:54→22:06)
--- NOTE | 2019-12-13 06:45 | Magnetic Resonance Report ---
MR brain wo con HISTORY: 74 years-old Female CVA acute strokelike symptoms COMPARISON: Head CT 12/12/2019, MRA of the head 12/13/2019 TECHNIQUE: Multiplanar multisequence MRI of the brain was obtained without the use of IV contrast. FINDINGS: There is a 1.2 x 1.2 x 0.8 cm focus of restricted diffusion involving the left mid and ventral aspect of the superior kristen, image 7 of the axial series which demonstrates moderately increased T2/FLAIR s ignal. No additional areas of restricted diffusion identified. Several sequences are mildly motion de graded. There is no acute intracranial hemorrhage, midline shift, abnormal extra-axial collection, hydrocepha roseline or definite intracranial mass identified. Mild age-related involutional changes. Mild to moderate scattered T2/FLAIR hyperintensities throughout the white matter. The major vascular flow voids appea r patent and unremarkable. Mastoid air cells are clear. Complex area of polypoid mucosal thickening i nvolves the left maxillary sinus, 1.6 cm. At least mild mucosal thickening of the nasal turbinates, e thmoid air cells and frontal sinuses. The skull, soft tissues and orbits are unremarkable. IMPRESSION: 1. Acute infarct involves the left mid and ventral aspect of the superior kristen measuring up to 1.2 cm . 2. No acute intracranial hemorrhage or midline shift. 3. Age-related involutional changes with chronic microvascular ischemic disease. ACT 112: Negative or not required by law. The above report was generated using voice recognition software. It may contain grammatical, syntax o r spelling errors. Electronically signed by: Doc Tinajero M.D. 12/13/2019 6:44 AM
--- NOTE | 2019-12-13 07:07 | Magnetic Resonance Report ---
Brain MRA HISTORY: Ataxia. Slurring words. Right-sided numbness. TECHNIQUE: 3-D [id number] MRA of the brain was performed without contrast. COMPARISON STUDY: None. FINDINGS: Motion artifact. Visualized intracranial internal carotid arteries, distal vertebral arteri es, and basilar artery are widely patent. There is no significant stenosis, occlusion, or aneurysm se en within the bilateral ACAs, MCAs, or senior teradata developer. Hypoplastic distal right vertebral artery and comparison to the left. IMPRESSION: Motion artifact. No definite stenosis, occlusion, or aneurysm within the [place]. ACT 112: Negative or not required by law. Electronically signed by: Eduardo Crawley M.D. 12/13/2019 7:05 AM
--- NOTE | 2019-12-13 07:08 | Magnetic Resonance Report ---
MR angio neck wo con CLINICAL HISTORY: Right-sided numbness. Possible stroke. COMPARISON STUDY: None. TECHNIQUE: MRA of the neck was performed without the use of intravenous contrast according to [facility] departmental protocol. FINDINGS: Significant motion artifact results in essentially nondiagnostic evaluation of the cervical vessels. No occlusion of the carotid or vertebral arteries. IMPRESSION: Essentially nondiagnostic evaluation of the cervical vessels. No definite occlusion of t he carotid or vertebral arteries. ACT 112: Negative or not required by law. Electronically signed by: Eduardo Crawley M.D. 12/13/2019 7:07 AM
[2019-12-13 07:41] LABS: Basophils # (auto) 0.02 K/uL (0-0.2); Basophils % (auto) 0.3 %; Eosinophils # (auto) 0.15 K/uL (0-0.5); Eosinophils % (auto) 1.9 %; Hematocrit (blood only) 34.5 % (37-47); Hemoglobin 11.2 g/dL (12.0-16.0); Immature Granulocytes # (auto) 0.02 K/uL (0.00-0.02); Immature Granulocytes % (auto) 0.3 %; Lymphocytes # (auto) 3.05 K/uL (1.2-3.4); Lymphocytes % (auto) 39.6 %; Mean Corpuscular Hemoglobin 25.9 pg (25-34); Mean Corpuscular Hgb Conc 32.5 g/dL (32-36); Mean Corpuscular Volume 79.7 fL (80-100); Mean Platelet Volume 9.6 fL (7.4-10.4); Monocytes # (auto) 0.61 K/uL (0.11-0.59); Monocytes % (auto) 7.9 %; Neutrophils # (auto) 3.86 K/uL (1.4-6.5); Platelet Count 224 K/uL (130-400); RDW Coefficient of Variation 16.2 % (11.5-14.5); RDW Standard Deviation 47.4 fL (36.4-46.3); Red Blood Count 4.33 M/uL (4.2-5.4); White Blood Count 7.71 K/uL (4.8-10.8)
[2019-12-13 07:50] LABS: INR 1.1 (0.9-1.1); Prothrombin Time 11.2 Seconds (9.0-12.0)
[2019-12-13 07:52] LABS: Estimated Average Glucose 214 mg/dl; Hemoglobin A1C 9.1 % (4.5-5.6)
[2019-12-13 08:07] LABS: BUN Creatinine Ratio 13.2 (10-20); Blood Urea Nitrogen 10 mg/dl (7-18); Calcium 8.7 mg/dl (8.5-10.1); Carbon Dioxide 25 mmol/L (21-32); Chloride 105 mmol/L (98-107); Cholesterol 206 mg/dl (0-200); Creatinine Clr Calc Pharmacy 63.3 ml/min; Est GFR (African American) 84.3; Est GFR (Non-African American) 72.7; Glucose 191 mg/dl (70-99); Potassium 3.5 mmol/L (3.5-5.1); Sodium 138 mmol/L (136-145); Triglycerides 232 mg/dl (0-150); VLDL Cholesterol 46 mg/dl
[2019-12-13 08:12] LABS: Chol HDL Ratio 5; HDL Cholesterol 42 mg/dl; LDL Cholesterol Calculated 118 mg/dl; Troponin I < 0.015 ng/ml (0-0.045)
[2019-12-13] MEDS: METOPROLOL TARTRATE 1 MG/ML VIAL IV PRN ×3 (09:13→17:34)
--- NOTE | 2019-12-13 09:13 | Neurology Consultation ---
Date of Consultation December 13, 2019 Assessment & Plan (1) Acute cerebrovascular accident (CVA): Acute left-sided pontine infarct resulting in persistent dysarthria, dysphagia, and a mild to moderate right hemiparesis. Stroke risk factors for this patient include poorly controlled diabetes mellitus and hyperlipidemia. Her blood pressure has been significantly elevated as well during this hospitalization. Would recommend a carotid ultrasound to further assess her cervical arterial circulation given that the noncontrast MRA of the neck was technically limited. It is notable, however, that this patient has an allergy to iodinated contrast and not necessarily gadolinium contrast which would be used for MRA of the neck. If the carotid ultrasound suggests a significant problem, it may be reasonable to consider pursuing a gadolinium enhanced MRA of the neck. Would also recommend completion of a transthoracic echocardiogram with bubble study. Please order if not already done so. Would recommend clopidogrel 75 mg/day for secondary stroke risk reduction, when patient able to reliably swallow. She will need a speech and swallowing evaluation. Please order aspirin 300 mg per rectum daily to be used until patient is able to swallow, at which time would discontinue aspirin in favor of clopidogrel 75 mg/day. Continue with medical management of hypertension and diabetes mellitus. Avoid aggressive reduction in patient's blood pressure to avoid hypoperfusion injury. Would also recommend starting a statin when patient is able to swallow. PT/OT/speech therapy History of Present Illness Reason for Consultation: Stroke Requesting Physician: Massimo Hoffman MD Attending Physician: Peter Pfeiffer History of Present Illness The patient is a 74-year-old female with a chief complaint of slurred speech, dysphasia, and right-sided weakness that began 2 nights ago. She complains of difficulty walking due to poor balance and dizziness. She denies experiencing any vertigo or acute vision changes. Her symptoms have been persistent and were apparently noted by family members last night at around 7 PM. Past medical history notable for poorly controlled diabetes mellitus and hyperlipidemia with intolerance to statin therapy. She is a non-smoker. An initial CT of the head was negative for hemorrhage or acute findings although did reveal chronic small vessel ischemic disease. CT angiography could not be completed as this patient has an iodine contrast allergy. MRI and MR angiography of the head and neck have been completed. Results are described in further detail below. There is evidence of a 1.2 cm acute infarct within the left mid and ventral aspect of the kristen. No significant stenosis on angiography. She has been hypertensive. The patient denies any significant change in her symptoms. She denies any headache or neck pain this morning. Additional details as below. Allergies Allergy/AdvReac Type Severity Reaction Status Date / Time Sulfa (Sulfonamide Allergy Intermediate "SULFA Verified 12/12/19 20:56 Antibiotics) DRUGS": SWELLS iodine Allergy Mild SWELLING, Verified 12/12/19 20:56 ITCHING,RED AND NAUSEA W/CONTRAST DYE (FEEL FUNNY) Egg Derived Allergy Unknown DIARRHEA,ABD Verified 12/12/19 20:56 PAIN Iodinated Contrast Media Allergy Unknown HOT FLASH Verified 12/12/19 20:56 AND RASH shellfish derived Allergy Unknown SWELLING Verified 12/12/19 20:56 AND VOMITING shrimp Allergy Unknown SWELLING Verified 12/12/19 20:56 AND NAUSEA WITH SHRIMP AND SHELLFISH codeine AdvReac Unknown VOMITING Verified 12/12/19 20:56 egg AdvReac Unknown DIARRHEA Verified 12/12/19 20:56 Home Medications Home Medications Medication Instructions Recorded Confirmed Type aspirin [Aspir-81] 81 mg PO HS 08/21/18 12/12/19 History clonazepam 1 mg PO HS 08/21/18 12/12/19 History lansoprazole [Prevacid] 30 mg PO QAM 08/21/18 12/12/19 History Tradjenta 5 mg PO QAM 03/15/19 12/12/19 History gabapentin [Neurontin] 300 mg PO BID 03/15/19 12/12/19 History amlodipine 10 mg tablet 10 mg PO DAILY #90 tab 08/19/19 12/12/19 Rx clonidine HCl 0.1 mg tablet 0.1 mg PO BID #60 tab 08/19/19 12/12/19 Rx escitalopram oxalate 20 mg tablet 20 mg PO HS #90 tab 08/19/19 12/12/19 Rx furosemide 20 mg tablet See Rx Instructions PO BID #270 tab 08/19/19 12/12/19 Rx nitroglycerin 0.4 mg sublingual 0.4 mg SUBLINGUAL .COMPLEX PRN #10 08/19/19 12/12/19 Rx tablet tab propranolol 160 mg capsule,24 160 mg PO HS #90 cap 08/19/19 12/12/19 Rx hr,extended release oxycodone 5 - 10 mg PO Q4H PRN #10 tab 10/22/19 12/12/19 Rx cholecalciferol (vitamin D3) 1,250 1,250 mcg PO WEEKLY #8 tab 11/18/19 12/12/19 Rx mcg (50,000 unit) tablet metformin 1,000 mg PO HS 12/12/19 12/12/19 History Patient History Medical History Acute chest pain (Acute) Contrast media allergy (Chronic) Diarrhea (Acute) GERD (gastroesophageal reflux disease) (Chronic) H/O Clostridium difficile infection (Chronic) H/O: rheumatic fever (Chronic) Hemorrhoids (Chronic) Hepatic steatosis (Chronic) HTN (hypertension) (Chronic) Hypertensive cardiovascular disease Labile hypertension (Chronic) Lumbar stenosis with neurogenic claudication LVH (left ventricular hypertrophy) (Chronic) Nonobstructive atherosclerosis of coronary artery (Chronic) "Per cardiac cath May 2016" Vomiting (Acute) WPW (Bhsoo-Updneiula-Tnzmz syndrome) (Chronic) Surgical History H/O cardiac radiofrequency ablation (Resolved) History of bladder surgery (Chronic) History of herniorrhaphy (Chronic) Hx of hysterectomy S/P foot surgery (Chronic) S/P partial colectomy (Chronic) S/P ROMAN-BSO (Chronic) Family History Brother Colorectal cancer Prostate cancer Mother Myocardial infarction Other Cancer Diabetes Heart disease Hypertension Denies family history of Ovarian cancer Breast cancer Social History Preferred Language: [place] Communication Ability: Effective Financial Planning Consultant Required: No Beliefs That Will Affect Care: None marital status: Current Living Situation: Spouse current occupational status: retired Other Information That Helps Us Care for You: No Feels Safe at Home: Yes Safety Concerns: Feels Safe At This Time Smoking Status: Unknown if ever smoked Hx Alcohol Use: No Hx Substance Use: No caffeine: Yes Dental Care, Regularly: No Physical Activity Frequency: Does not Exercise Seatbelt Use: always Sunscreen Use: No Review of Systems Constitutional: no fever and no chills Eyes: no blind spots, no diplopia and no eye pain Ear, Nose, Mouth, Throat: + hearing loss Respiratory: no cough and no dyspnea Cardiovascular: no chest pain and no palpitations Gastrointestinal: + nausea and + vomiting Genitourinary: no dysuria and no urinary incontinence Musculoskeletal: no neck pain and no myalgia Integumentary: no rash and no lesions Neurologic: as per Subjective / HPI and + localized weakness; no syncope, no headache(s), no confusion and no memory loss Psychiatric: no depression and no anxiety Hematologic / Lymphatic: no easy bleeding and no easy bruising Physical Exam Physical Exam: The patient is a well-developed, well-nourished elderly female. She is alert and fully oriented. Recent and remote memory intact. Attention and concentration normal. Speech is dysarthric. Patient is able to name objects and repeat phrases. Patient exhibits an age-appropriate fund of knowledge and normal comprehension of vocabulary. Visual m[place] full to confrontation. Visual acuity normal. Pupils equal round reactive to light and accommodation. Eye movements normal. There is no nystagmus. There is mild right upper lid ptosis. Facial sensation intact. There is mild right facial weakness. Hearing intact. Palate elevates to midline. There is mild weakness of shoulder shrug on the right. Tongue protrudes to midline. Sensation intact all modalities in all 4 limbs. Deep tendon reflexes are relatively brisk for the right arm and leg as compared to the left. There is a right upgoing toe with plantar stimulation, left toe downgoing. There is mild dysmetria with [id number]-bc-mghg and qcdw-uc-[id number] on the right. No dysmetria with vlrqvj-se-ssar or vrkn-jf-trsa on the left. Ophthalmoscopic examination reveals normal- appearing optic disks and posterior segments. No papilledema or hemorrhages. Carotid pulses normal bilaterally, no bruits to auscultation. Gait and station not tested due to safety concerns. Patient exhibits mild right-sided weakness for the arm and leg. Proximal greater than distal weakness for the right arm noted. Muscle tone normal throughout. No atrophy. No abnormal movements observed. Results & Data Vital Signs (Past 12 Hours) Vital Signs Temp Pulse Pulse Resp BP BP Pulse Ox 12/13/19 07:58 36.5 C 78 20 180/97 H 96 12/13/19 04:00 36.7 C 92 H 18 193/89 H 91 12/13/19 03:35 90 12/13/19 03:31 02/25/20 00:43 80 18 158/75 H 94 12/12/19 23:14 74 18 94 12/12/19 23:12 73 18 154/78 H 94 12/12/19 21:56 83 22 186/75 H 94 12/12/19 21:55 93 H 13 95 12/12/19 21:30 93 H 17 186/91 H 94 12/12/19 21:16 93 H 25 H 94 12/12/19 21:15 86 19 168/87 H 94 12/12/19 21:01 88 16 93 12/12/19 21:00 87 17 163/89 H 94 Pulse Ox 12/13/19 07:58 12/13/19 04:00 12/13/19 03:35 12/13/19 03:31 92 12/13/19 00:43 12/12/19 23:14 12/12/19 23:12 12/12/19 21:56 12/12/19 21:55 12/12/19 21:30 12/12/19 21:16 12/12/19 21:15 12/12/19 21:01 12/12/19 21:00 Laboratory Results WBC 7.71, hemoglobin 11.2, hematocrit 34.5, platelet count 224, sodium 138, potassium 3.5, BUN 10, creatinine 0.79, glucose 191, hemoglobin A1c 9.1, calcium 8.7, triglycerides 232, cholesterol 206, LDL 118, VLDL 46, HDL [address] of the head completed during initial assessment in the emergency department was negative for hemorrhage or acute process. Chronic appearing white matter hypodensities consistent with small vessel disease noted. I reviewed the images as well as the radiologist interpretation of this test. In retrospect, there is some lucency within the left jenni-kristen which would be consistent with the acute infarct identified on MRI below. MRI of the brain reveals an acute infarct within the left mid and ventral aspect of the superior kristen measuring up to 1.2 cm. There are age related involutional changes and chronic microvascular ischemic disease. I reviewed the images as well as the radiologist interpretation of this test. MRA of the head is negative for any definitive stenosis, occlusion, or aneurysm within the [place]. MRA of the neck is negative for any definite occlusion or stenosis within the carotid or vertebral arteries although the study is limited due to motion artifact. I do note on the above MRI the patient has a normal flow void for the basilar and vertebral arteries with a left vertebral artery appearing dominant. An electrocardiogram reveals a normal sinus rhythm, 74 bpm. Coding Level of Care Code 76960 Initial In Care Lvl 3 Diagnoses Acute cerebrovascular accident (CVA) I63.9
--- NOTE | 2019-12-13 11:51 | Ultrasound Report ---
BILATERAL CAROTID DOPPLER STUDY HISTORY: Stroke COMPARISON: Neck MRA 12/13/2019. TECHNIQUE: Real-time, grayscale, and color Doppler sonography of the carotid arteries was performed. Imaging reviewed in the transverse and longitudinal planes. All measurements were calculated based on NASCET criteria. FINDINGS: Antegrade flow is seen in the bilateral vertebral arteries. The brachial pressures were not obtained. Mild calcified plaque within the right carotid bifurcation. The peak systolic velocity within the right ICA is 75 cm/s. The right systolic ratio is 1.0. The peak systolic velocity within the left ICA is 63 cm/s. The left systolic ratio is 0.9. IMPRESSION: No hemodynamically significant stenosis seen within the carotid arteries. ACT 112: Negative or not required by law. Electronically signed by: Eduardo Crawley M.D. 12/13/2019 11:50 AM
--- NOTE | 2019-12-13 14:37 | Electrocardiogram Report ---
Test Reason : Blood Pressure : / mmHG Vent. Rate : 101 BPM Atrial Rate : 101 BPM P-R Int : 162 ms QRS Dur : 088 ms QT Int : 360 ms P-R-T Axes : 050 -04 129 degrees QTc Int : 466 ms Sinus tachycardia Possible Left atrial enlargement Left ventricular hypertrophy with repolarization abnormality Anteroseptal infarct , age undetermined Abnormal ECG When compared with ECG of 22-OCT-2019 10:44, QRS duration has increased Anteroseptal infarct is now Present ST now depressed in Inferior leads Non-specific change in ST segment in Lateral leads Confirmed by Niko Machado ([id number]) on 12/13/2019 2:37:10 PM Referred By: REFERRED SELF Confirmed By:Geovani Machado
--- NOTE | 2019-12-13 14:41 | Electrocardiogram Report ---
Test Reason : Blood Pressure : / mmHG Vent. Rate : 074 BPM Atrial Rate : 074 BPM P-R Int : 184 ms QRS Dur : 088 ms QT Int : 404 ms P-R-T Axes : 057 004 003 degrees QTc Int : 448 ms Normal sinus rhythm Minimal voltage criteria for LVH, may be normal variant ( R in aVL ) Nonspecific T wave abnormality Abnormal ECG When compared with ECG of 12-DEC-2019 19:39, (unconfirmed) Criteria for Anteroseptal infarct are no longer Present Nonspecific T wave abnormality, worse in Inferior leads Confirmed by Niko Machado ([id number]) on 12/13/2019 2:41:24 PM Referred By: REFERRED SELF Confirmed By:Geovani Machado
[2019-12-13] MEDS ORDERED: ENALAPRILAT 1.25 MG in DEXTROSE 5% 25 ML IV ONE (17:48)
[2019-12-13] MEDS ORDERED: PHARMACY GLYCEMIC MGMT CONSULT PRN (18:40)
--- NOTE | 2019-12-13 18:53 | Pharmacy Report ---
Glycemic Control Consultation - Date of Service December 13, 2019 - Scope Scope: Glycemic Pharmacist consulted for glycemic control and to write orders per [facility] inpatient glycemic control protocol - Objective Weight: 83.4 kg Accuchecks BSG (last 24hrs): 12/12/19 12/12/19 12/13/19 19:40 19:43 05:50 Glucose 218 H POC Glucose 227 H 181 H 12/13/19 12/13/19 12/13/19 07:23 12:00 16:11 Glucose 191 H POC Glucose 182 H 161 H Laboratory Data (last 24hrs): 12/12/19 12/13/19 19:40 07:23 Potassium 3.4 L 3.5 Carbon Dioxide 25 25 Anion Gap 8.0 8.0 Creatinine 0.91 0.79 Est Cr Clr Drug Dosing 56.0 63.3 HbA1c: Hemoglobin A1c 9.1 % (4.5-5.6) H 12/13/19 07:23 - Recent Pertinent Medications Outpatient Anti-diabetic Regimen: * Linagliptin 5mg PO QAM * Metformin 1,000 mg PO PM The patient is currently receiving: * Basal insulin: None * Correctional Insulin: Novolog Correction per scale ACHS Goal Range: Low 100 mg/dL - High 150 mg/dL Correction Factor: 25 mg/dL/unit * Prandial insulin: Per carb ratio of 1 unit per 10 grams CHO consumed * Oral Agents: On hold - Assessment & Plan Assessment & Plan: ASSESSMENT: * 74yo T2DM female admitted for CVA * Pt is maintained on oral antidiabetic agents as an outpatient * Oral agents are not recommended for inpatient use d/t drug interactions, changing PO intake, and difficulty titrating for acute hyper/hypoglycemia. ADA recommends re-initiating outpatient oral agents 1-2 days prior to discharge if/when appropriate if they were held on admission. * Will hold oral agents for admission and utilize SQ basal bolus insulin regimen which is the recommended regimen for inpatient glycemic control. * Will initiate weight based insulin dosing for insulin ana laura patient and titrate based on BSG trends. * Basal insulin likely needed with A1c > 9% * Pt will need post dc follow up for A1c >9% PLAN FOR INPATIENT GLYCEMIC CONTROL: * Holding outpatient oral diabetes medications * Basal insulin: start conservative since PO intake is very low (5-13g CHO at meals) * Lantus 15 units (0.2 units/kg) SQ HS * Bolus insulin * NovoLog per scale ACHS or Q6hrs while NPO * Goal Range: Low 110 mg/dL - High 140 mg/dL * Correction Factor: 30 mg/dL/unit * Nutritional / Prandial insulin per carb ratio of 1 unit per 9 grams CHO consumed * Please note that the plan above was derived based on current level of insulin resistance and hospital stress. These recommendations are appropriate for inpatient admission only. Plan of care upon discharge will need to be reassessed to avoid potential outpatient hypo/hyperglycemia. Thank you.
[2019-12-13] MEDS: cloNIDine HCL 0.1 MG TAB PO SCH (19:27)
[2019-12-13] MEDS: GABAPENTIN 300 MG CAP PO SCH (20:39)
[2019-12-13] MEDS ORDERED: INSULIN GLARGINE SOLOSTAR 100 UNITS/ML 3 ML PEN SC SCH (21:00)
[2019-12-13] MEDS ORDERED: PROPRANOLOL HCL LA 80 MG CAPCR PO SCH (21:00)
[2019-12-13] MEDS ORDERED: ESCITALOPRAM OXALATE 20 MG TAB PO SCH (21:00)
--- NOTE | 2019-12-13 22:43 | Hospitalist Progress Note ---
Date of Service December 13, 2019 Assessment & Plan (1) Acute cerebrovascular accident (CVA): Acute CVA of Kayce with improving right-sided weakness but persistent slurred speech/dysarthria and dysphagia- Last known well interval was close to 36 hours prior to arrival. Daughter has noticed that weakness has been improving over the past few hours that she has been with her mother. Admit to monitored bed. Stroke without TPA protocol order set. Consult PT/OT/speech therapy and neurology. Modified permissive hypertension. CT of head was negative. Patient has severe allergy to CT dye, therefore, CTA not performed. MRI of brain showed Kayce infarct. Patient received Aspiring within 2 days/48 hours of symptom onset. Due to dysphagia, Aspirin 300 mg PA was used in ER. Patient will now be placed on plavix in AM. Ultrasound of carotid were obtained. (2) Right sided weakness: See above (3) Dysarthria: See above (4) Diabetes mellitus, type II: Hold Tradjenta, and metformin. Placed on Accu-Cheks before meals and at bedtime/every 6 hours with NovoLog coverage. (5) Dyslipidemia: Will place on high intensity statin when patient is able to take p.o. (6) HTN (hypertension): will resume oral antihypertensives. will closely monitor her BP. will not overly aggressively treat at this time. (7) Nonobstructive atherosclerosis of coronary artery: Initial troponin negative. Patient has not had any associated symptoms. echocardiogram obtained (8) GERD (gastroesophageal reflux disease): Hold lansoprazole. Placed on famotidine 20 mg IV every 12 hours (9) Depression: Anxiety and depression- For now, hold clonazepam, Escitalopram, and gabapentin Admission and Anticipated Discharge Date Admission Date: December 12, 2019 Subjective Patient reports her weakness on her right side has improved. Daughter is at bedside and is updated. Review of Systems Review of Systems: The patient denies chest pain, palpitations, shortness of breath, dyspnea on exertion, cough, lower extremity swelling, sore throat, fevers, chills, sweats, nausea, vomiting, diarrhea , constipation, abdominal pain, pelvic pain, blood in urine or stool, dysuria, urinary frequency or urgency, lightheadedness, dizziness, headache, memory loss, loss of consciousness, rash, abnormal bruising or bleeding, focal or generalized weakness, numbness or tingling in left arm and leg, generalized arthralgias or myalgias, back or neck pain, or night sweats. The review of systems is otherwise negative other than for that already noted above, and at least 10 systems have been reviewed. Physical Exam Physical Exam: The patient is awake, alert and oriented 3, normocephalic and atraumatic, lying in bed and in no acute distress. HEENT--PERRL, EOMI, mucous membranes and oropharynx dry. Neck--supple. No JVD. No bruits. Thyroid normal, trachea midline, no adenopathy. Heart--normal S1 and S2. No murmurs, rubs or gallops. Lungs--clear bilaterally, no respiratory distress, no accessory muscle use. Abdomen--normal bowel sounds and soft. Nontender. Nondistended. Extremities--no cyanosis or clubbing. No edema. Dermatologic--normal skin turgor, normal color, no abnormal lymph nodes, no rash. Neurologic/rheumatologic--cranial nerves II through XII grossly intact, except for slurred speech --normal range of motion. Motor strength 4+/5 right upper and lower extremities. 5/5 left upper and lower extremities. Sensation intact to light touch Psychiatric--normal affect. Results & Data ([facility]) Vital Signs (Past 12 Hours) Vital Signs Temp Pulse Pulse Resp BP BP Pulse Ox 12/13/19 20:00 36.8 C 74 18 188/94 H 96 12/13/19 17:34 89 203/87 H 12/13/19 16:31 60 12/13/19 16:00 194/80 H 12/13/19 15:32 36.8 C 83 17 177/74 H 95 12/13/19 12:00 36.7 C 76 22 185/79 H 94 PG Care Time/CCT Total # of Minutes Spent Total Time Spent with Patient: Total time spent is greater than 50% in coordination of care (as documented) at patient's floor/unit and/or counseling patient: Coding Level of Care Code 24402 Subseq Hosp Care Lvl 3 Diagnoses Acute cerebrovascular accident (CVA) I63.9 Right sided weakness R53.1 Dysarthria R47.1 Diabetes mellitus, type II E11.9 Dyslipidemia E78.5 HTN (hypertension) I10 Hypertension type: unspecified Nonobstructive atherosclerosis of coronary artery I25.10 GERD (gastroesophageal reflux disease) K21.9 Esophagitis presence: esophagitis presence not specified Depression F33.9 Active/Remission status: remission status unspecified Depression Type: major depressive disorder Major depression recurrence: recurrent Time Spent (min) 35 (1) Depression Active/Remission status: remission status unspecified Depression Type: major depressive disorder Major depression recurrence: recurrent Qualified Code(s): F33.9 - Major depressive disorder, recurrent, unspecified (2) GERD (gastroesophageal reflux disease) Esophagitis presence: esophagitis presence not specified Qualified Code(s): K21.9 - Gastro-esophageal reflux disease without esophagitis (3) HTN (hypertension) Hypertension type: unspecified Qualified Code(s): I10 - Essential (primary) hypertension
[2019-12-14] MEDS ORDERED: clonazePAM 1 MG TAB PO ONE (01:15)
[2019-12-14 06:36] LABS: Basophils # (auto) 0.02 K/uL (0-0.2); Basophils % (auto) 0.3 %; Eosinophils # (auto) 0.11 K/uL (0-0.5); Eosinophils % (auto) 1.6 %; Hematocrit (blood only) 34.6 % (37-47); Hemoglobin 11.1 g/dL (12.0-16.0); Immature Granulocytes # (auto) 0.02 K/uL (0.00-0.02); Immature Granulocytes % (auto) 0.3 %; Lymphocytes # (auto) 2.42 K/uL (1.2-3.4); Lymphocytes % (auto) 34.9 %; Mean Corpuscular Hemoglobin 25.7 pg (25-34); Mean Corpuscular Hgb Conc 32.1 g/dL (32-36); Mean Corpuscular Volume 80.1 fL (80-100); Mean Platelet Volume 9.7 fL (7.4-10.4); Monocytes # (auto) 0.59 K/uL (0.11-0.59); Monocytes % (auto) 8.5 %; Neutrophils # (auto) 3.78 K/uL (1.4-6.5); Neutrophils % (auto) 54.4 %; Platelet Count 188 K/uL (130-400); RDW Coefficient of Variation 16.1 % (11.5-14.5); RDW Standard Deviation 47.4 fL (36.4-46.3); Red Blood Count 4.32 M/uL (4.2-5.4); White Blood Count 6.94 K/uL (4.8-10.8)
[2019-12-14] MEDS: HEPARIN SOD 5,000 UNIT/0.5 ML VIAL SQ SCH ×2 (06:41→11:33)
[2019-12-14 06:55] LABS: INR 1.1 (0.9-1.1); Prothrombin Time 11.1 Seconds (9.0-12.0)
[2019-12-14 07:10] LABS: BUN Creatinine Ratio 16.5 (10-20); Calcium 8.7 mg/dl (8.5-10.1); Creatinine Clr Calc Pharmacy 67.6 ml/min; Est GFR (African American) 91.2; Est GFR (Non-African American) 78.7; Potassium 4.3 mmol/L (3.5-5.1)
[2019-12-14] MEDS: NSS + 20MEQ KCL 20 MEQ/1,000 ML BAG IV SCH (08:11)
[2019-12-14] MEDS: INSULIN ASPART 100 UNITS/ML 3 ML PEN SC SCH ×2 (08:22→11:56)
[2019-12-14] MEDS: cloNIDine HCL 0.1 MG TAB PO SCH (08:25)
[2019-12-14] MEDS: GABAPENTIN 300 MG CAP PO SCH (08:26)
[2019-12-14] MEDS: FAMOTIDINE 20 MG in SYRINGE 3 ML IV SCH (08:32)
[2019-12-14] MEDS ORDERED: AMLODIPINE BESYLATE 5 MG TAB PO SCH (09:00)
[2019-12-14] MEDS ORDERED: PANTOprazole 40 MG TAB PO SCH (09:00)
[2019-12-14] MEDS ORDERED: CLOPIDOGREL BISULFATE 75 MG TAB PO ONE (09:46)
[2019-12-14] MEDS ORDERED: STROKE PATIENT DISCHARGE STA (12:47)
--- NOTE | 2019-12-14 14:57 | Electrocardiogram Report ---
Test Reason : Blood Pressure : / mmHG Vent. Rate : 053 BPM Atrial Rate : 053 BPM P-R Int : 176 ms QRS Dur : 088 ms QT Int : 486 ms P-R-T Axes : 060 018 039 degrees QTc Int : 456 ms Sinus bradycardia Otherwise normal ECG When compared with ECG of 13-DEC-2019 06:34, Nonspecific T wave abnormality no longer evident in Inferior leads Nonspecific T wave abnormality no longer evident in Anterolateral leads Confirmed by Niko Machado ([id number]) on 12/14/2019 2:56:54 PM Referred By: REFERRED SELF Confirmed By:Geovani Machado
--- NOTE | 2019-12-16 13:29 | Discharge Summary ---
Date of Service December 16, 2019 Admission HPI Per Admitting Provider The patient is a 74-year-old female who was last seen well by son/daughter at 1200 hrs. on 12/11. She reports that she developed right sided weakness along with difficulty with speech and swallowing at some point later on in the afternoon, and when she told her the symptoms, she reports that he had that she was not having a stroke. She ultimately called her family at 1900 hrs. on 12/12, and when she did not sound herself, and had trouble with misplacing words and slurred speech, her daughter went to visit her. At that time the daughter noted that the patient was having difficulty moving her right side, and the speech that was slurred had started to improve. The patient was then brought to the emergency department for further assessment. In the emergency department, the patient was noted to have a improved but still slightly diminished right upper and lower extremity weakness, with continued difficulty with slurred speech and swallowing. Patient at this time, was well outside the therapeutic range for intervention. Discharge Data Allergies Allergy/AdvReac Type Severity Reaction Status Date / Time Sulfa (Sulfonamide Allergy Intermediate "SULFA Verified 12/12/19 20:56 Antibiotics) DRUGS": SWELLS iodine Allergy Mild SWELLING, Verified 12/12/19 20:56 ITCHING,RED AND NAUSEA W/CONTRAST DYE (FEEL FUNNY) Egg Derived Allergy Unknown DIARRHEA,ABD Verified 02 20:56 PAIN Iodinated Contrast Media Allergy Unknown HOT FLASH Verified 12/12/19 20:56 AND RASH shellfish derived Allergy Unknown SWELLING Verified 12/12/19 20:56 AND VOMITING shrimp Allergy Unknown SWELLING Verified 12/12/19 20:56 AND NAUSEA WITH SHRIMP AND SHELLFISH codeine AdvReac Unknown VOMITING Verified 12/12/19 20:56 egg AdvReac Unknown DIARRHEA Verified 12/12/19 20:56 Consultations 12/12/19 22:10 ED Decision to Admit Stat 12/13/19 01:26 Consult Case Management - Discharge Planning Routine Consult Case Management - Discharge Planning Routine Consult Neurology Routine Ordered Studies 12/12/19 20:28 CT head/brain wo con Stat 12/13/19 00:36 MR angio head wo con Urgent MR angio neck wo con Routine MR brain wo con Routine 12/13/19 11:00 US carotid doppler BI Routine Hospital Course (1) Acute cerebrovascular accident (CVA): Acute CVA of Kayce with improving right-sided weakness but persistent slurred speech/dysarthria and dysphagia- Last known well interval was close to 36 hours prior to arrival. Daughter has noticed that weakness has been improving over the past few hours that she has been with her mother. Admit to monitored bed. Stroke without TPA protocol order set. Consult PT/OT/speech therapy and neurology. Modified permissive hypertension. CT of head was negative. Patient has severe allergy to CT dye, therefore, CTA not performed. MRI of brain showed Kayce infarct. Patient received Aspiring within 2 days/48 hours of symptom onset. Due to dysphagia, Aspirin 300 mg MS was used in ER. Patient will now be placed on plavix in AM. Ultrasound of carotid were obtained. (2) Right sided weakness: See above (3) Dysarthria: See above (4) Diabetes mellitus, type II: Hold Tradjenta, and metformin. Placed on Accu-Cheks before meals and at bedtime/every 6 hours with NovoLog coverage. (5) Dyslipidemia: Will place on high intensity statin when patient is able to take p.o. (6) HTN (hypertension): will resume oral antihypertensives. will closely monitor her BP. will not overly aggressively treat at this time. (7) Nonobstructive atherosclerosis of coronary artery: Initial troponin negative. Patient has not had any associated symptoms. echocardiogram obtained (8) GERD (gastroesophageal reflux disease): Hold lansoprazole. Placed on famotidine 20 mg IV every 12 hours (9) Depression: Anxiety and depression- For now, hold clonazepam, Escitalopram, and gabapentin Discharge Plan Discharge Items Patient Disposition: Transfer Inpatient Rehab Fac Reason For Visit: CVA, RIGHT SIDE WEAKNESS, DYSARTHRIA Discharge Diagnosis: CVA, Right side weakness Activity: As commented below Activity Comment: As per PT/ gradually increase as tolerated Non-emergency contact: Primary Care Provider Call non-emergency contact if: you have any medication questions Follow-up/Referrals: Mary Dickerson MD [Primary Care Provider] - Diet: Heart Healthy Diet Texture: Easy to Chew Addtl Attending Provider Instructions: Risk Factors for Stroke: You can reduce your chances of stroke by working with your medical provider to adopt a healthy lifestyle. Some specific ways to lower your chance of stroke are: * If you are a smoker, now is the time to stop smoking cigarettes * If you are diabetic, improve the control of your blood sugars * Avoid excessive amounts of alcohol * Control high blood pressure * Lose weight if you are overweight * Be sure to lead an active lifestyle * Eat a healthy diet low in salt, cholesterol and fat You should know about other risk factors for stroke that you are unable to control. These include: * Age 55 years or older * Male gender * Certain racial groups: , or / * Family History of Stroke, Mini stroke or Heart Attack * Sickle Cell Disease Follow Up: It is important for you to keep your follow up appointments with your medical provider. Who to Call and When: Medical Emergencies: Call 911 immediately if you experience any of the following warning signs and symptoms of Stroke: * Sudden numbness or weakness of the face, arm or leg, especially on one side of the body * Sudden confusion, trouble speaking or understanding * Sudden trouble seeing in one or both eyes * Sudden trouble walking, dizziness, loss of balance or coordination * Sudden severe headache with no cause Do not delay calling 911 if you experience any warning signs or symptoms of a stroke. Delay in seeking medical attention may affect what treatments can be given to you. . Pending Studies at Discharge: No Stand-Alone Forms: My [employer] Skilled Items Patient informed of condition?: No DNR: No Discharge Level of Care: Acute rehab Communicable Disease: No Discharge Prognosis: Stable Lines: None Urinary Catheter: No Medications and DC Order Prescriptions: New clopidogrel [Plavix] 75 mg tablet 75 mg PO DAILY Qty: 30 RF: 0 metformin 500 mg tablet extended release 24 hr 500 mg PO QAM Qty: 30 RF: 0 insulin aspart U-100 100 unit/mL (3 mL) insulin pen 10 units SQ PM Qty: 15 RF: 0 Continued amlodipine 10 mg tablet 10 mg PO DAILY Qty: 90 RF: 1 escitalopram oxalate [Lexapro] 20 mg tablet 20 mg PO HS Qty: 90 RF: 1 furosemide 20 mg tablet See Rx Instructions PO BID Qty: 270 RF: 1 nitroglycerin [Nitrostat] 0.4 mg tablet, sublingual 0.4 mg Sublingual .COMPLEX PRN (Reason: Chest Pain) Qty: 10 RF: 1 propranolol 160 mg capsule,extended release 24 hr 160 mg PO HS Qty: 90 RF: 1 clonidine HCl 0.1 mg tablet 0.1 mg PO BID Qty: 60 RF: 0 cholecalciferol (vitamin D3) 1,250 mcg (50,000 unit) tablet 1,250 mcg PO WEEKLY Qty: 8 RF: 0 lansoprazole [Prevacid] 30 mg Capsule,Delayed Release(Dr/Ec) 30 mg PO QAM RF: 0 Tradjenta 5 mg tablet 5 mg PO QAM RF: 0 gabapentin [Neurontin] 300 mg capsule 300 mg PO BID RF: 0 metformin 500 mg tablet extended release 24 hr 1,000 mg PO HS Qty: 0 RF: 0 Discontinued clonazepam 1 mg Tablet 1 mg PO HS RF: 0 aspirin [Aspir-81] 81 mg Tablet,Delayed Release (Dr/Ec) 81 mg PO HS RF: 0 oxycodone 5 mg tablet 5 - 10 mg PO Q4H PRN (Reason: pain) Qty: 10 RF: 0 Discharge Orders: Discharge Order (Routine); Ordered 12/14/19 Ordered By: Peter Espitia/Other Patient Handouts: Stroke Sx, What Is Ischemic Stroke Admission Data Admit Date/Time: 12/12/19 23:51 Attending Provider: Peter Pfeiffer Admit Provider: Massimo Hoffman Primary Care Provider: Mary Dickerson Other Providers: Mani Elizondo Other Interventions: Discharge Summary Assessment (RN) Last Done: 12/14/19 13:16 DC Date/Time DO NOT enter until pt leaves facility: 12/14/19 14:16 Coding Diagnoses Acute cerebrovascular accident (CVA) I63.9 Right sided weakness R53.1 Dysarthria R47.1 Diabetes mellitus, type II E11.9 Dyslipidemia E78.5 HTN (hypertension) I10 Hypertension type: unspecified Nonobstructive atherosclerosis of coronary artery I25.10 GERD (gastroesophageal reflux disease) K21.9 Esophagitis presence: esophagitis presence not specified Depression F33.9 Depression Type: major depressive disorder Major depression recurrence: recurrent Active/Remission status: remission status unspecified
--- NOTE | 2019-12-16 13:32 | Discharge Summary ---
Date of Service December 14, 2019 Principal Diagnosis Ischemic stroke of kristen Discharge Exam The patient is awake, alert and oriented 3, normocephalic and atraumatic, lying in bed and in no acute distress. HEENT--PERRL, EOMI, mucous membranes and oropharynx dry. Neck--supple. No JVD. No bruits. Thyroid normal, trachea midline, no adenopathy. Heart--normal S1 and S2. No murmurs, rubs or gallops. Lungs--clear bilaterally, no respiratory distress, no accessory muscle use. Abdomen--normal bowel sounds and soft. Nontender. Nondistended. Extremities--no cyanosis or clubbing. No edema. Dermatologic--normal skin turgor, normal color, no abnormal lymph nodes, no rash. Neurologic/rheumatologic--cranial nerves II through XII grossly intact, except for slurred speech --normal range of motion. Motor strength 4+/5 right upper and lower extremities. 5/5 left upper and lower extremities. Sensation intact to light touch Psychiatric--normal affect Discharge Data Allergies Allergy/AdvReac Type Severity Reaction Status Date / Time Sulfa (Sulfonamide Allergy Intermediate "SULFA Verified 12/12/19 20:56 Antibiotics) DRUGS": SWELLS iodine Allergy Mild SWELLING, Verified 12/12/19 20:56 ITCHING,RED AND NAUSEA W/CONTRAST DYE (FEEL FUNNY) Egg Derived Allergy Unknown DIARRHEA,ABD Verified 12/12/19 20:56 PAIN Iodinated Contrast Media Allergy Unknown HOT FLASH Verified 12/12/19 20:56 AND RASH shellfish derived Allergy Unknown SWELLING Verified 12/12/19 20:56 AND VOMITING shrimp Allergy Unknown SWELLING Verified 12/12/19 20:56 AND NAUSEA WITH SHRIMP AND SHELLFISH codeine AdvReac Unknown VOMITING Verified 12/12/19 20:56 egg AdvReac Unknown DIARRHEA Verified 12/12/19 20:56 Consultations 12/12/19 22:10 ED Decision to Admit Stat 12/13/19 01:26 Consult Case Management - Discharge Planning Routine Consult Case Management - Discharge Planning Routine Consult Neurology Routine Ordered Studies 12/12/19 20:28 CT head/brain wo con Stat 12/13/19 00:36 MR angio head wo con Urgent MR angio neck wo con Routine MR brain wo con Routine 12/13/19 11:00 US carotid doppler BI Routine Hospital Course (1) Acute cerebrovascular accident (CVA): Acute CVA of Kristen with improving right-sided weakness but persistent slurred speech/dysarthria and dysphagia- Last known well interval was close to 36 hours prior to arrival. Daughter had noticed that weakness has been improving over the time when patient was admitted. Admitted to monitored bed. Stroke without TPA protocol order set. Consult PT/OT/speech therapy and neurology. Modified permissive hypertension. CT of head was negative. Patient has severe allergy to CT dye, therefore, CTA not performed. MRI of brain showed Kristen infarct. Patient received Aspiring within 2 days/48 hours of symptom onset. Due to dysphagia, Aspirin 300 mg ND was used in ER. Patient will now be placed on plavix in AM of discharge and will continue. Ultrasound of carotid were obtained. Patient will also be placed on a statin. Also confirmed with rehab facility on 12/16/19 that patient will be on statin. MRI findings: 1. Acute infarct involves the left mid and ventral aspect of the superior kristen measuring up to 1.2 cm (2) Right sided weakness: See above (3) Dysarthria: See above (4) Diabetes mellitus, type II: Hold Tradjenta, and metformin. Placed on Accu-Cheks before meals and at bedtime/every 6 hours with NovoLog coverage. (5) Dyslipidemia: will be on high intensity statin (6) HTN (hypertension): will resume oral antihypertensives. will closely monitor her BP. will not overly aggressively treat at this time. (7) Nonobstructive atherosclerosis of coronary artery: Initial troponin negative. Patient has not had any associated symptoms. echocardiogram obtained (8) GERD (gastroesophageal reflux disease): will resume meds. (9) Depression: Anxiety and depression will resume clonazepam, Escitalopram, and gabapentin Total Time Total Time Spent Total Time Spent (In Minutes): 32 Total Time Includes: Examination of the Patient, Discharge Planning and Medication Reconciliation Discharge Plan Discharge Items Patient Disposition: Transfer Inpatient Rehab Fac Reason For Visit: CVA, RIGHT SIDE WEAKNESS, DYSARTHRIA Discharge Diagnosis: CVA, Right side weakness Activity: As commented below Activity Comment: As per PT/ gradually increase as tolerated Non-emergency contact: Primary Care Provider Call non-emergency contact if: you have any medication questions Follow-up/Referrals: Mary Dickerson MD [Primary Care Provider] - Diet: Heart Healthy Diet Texture: Easy to Chew Addtl Attending Provider Instructions: Risk Factors for Stroke: You can reduce your chances of stroke by working with your medical provider to adopt a healthy lifestyle. Some specific ways to lower your chance of stroke are: * If you are a smoker, now is the time to stop smoking cigarettes * If you are diabetic, improve the control of your blood sugars * Avoid excessive amounts of alcohol * Control high blood pressure * Lose weight if you are overweight * Be sure to lead an active lifestyle * Eat a healthy diet low in salt, cholesterol and fat You should know about other risk factors for stroke that you are unable to control. These include: * Age 55 years or older * Male gender * Certain racial groups: , or / * Family History of Stroke, Mini stroke or Heart Attack * Sickle Cell Disease Follow Up: It is important for you to keep your follow up appointments with your medical provider. Who to Call and When: Medical Emergencies: Call 911 immediately if you experience any of the following warning signs and symptoms of Stroke: * Sudden numbness or weakness of the face, arm or leg, especially on one side of the body * Sudden confusion, trouble speaking or understanding * Sudden trouble seeing in one or both eyes * Sudden trouble walking, dizziness, loss of balance or coordination * Sudden severe headache with no cause Do not delay calling 911 if you experience any warning signs or symptoms of a stroke. Delay in seeking medical attention may affect what treatments can be given to you. . Pending Studies at Discharge: No Stand-Alone Forms: [facility] Patient informed of condition?: No DNR: No Discharge Level of Care: Acute rehab Communicable Disease: No Discharge Prognosis: Stable Lines: None Urinary Catheter: No Medications and DC Order Prescriptions: New clopidogrel [Plavix] 75 mg tablet 75 mg PO DAILY Qty: 30 RF: 0 metformin 500 mg tablet extended release 24 hr 500 mg PO QAM Qty: 30 RF: 0 insulin aspart U-100 100 unit/mL (3 mL) insulin pen 10 units SQ PM Qty: 15 RF: 0 atorvastatin 40 mg tablet 40 mg PO HS Qty: 30 RF: 0 Continued amlodipine 10 mg tablet 10 mg PO DAILY Qty: 90 RF: 1 escitalopram oxalate [Lexapro] 20 mg tablet 20 mg PO HS Qty: 90 RF: 1 furosemide 20 mg tablet See Rx Instructions PO BID Qty: 270 RF: 1 nitroglycerin [Nitrostat] 0.4 mg tablet, sublingual 0.4 mg Sublingual .COMPLEX PRN (Reason: Chest Pain) Qty: 10 RF: 1 propranolol 160 mg capsule,extended release 24 hr 160 mg PO HS Qty: 90 RF: 1 clonidine HCl 0.1 mg tablet 0.1 mg PO BID Qty: 60 RF: 0 cholecalciferol (vitamin D3) 1,250 mcg (50,000 unit) tablet 1,250 mcg PO WEEKLY Qty: 8 RF: 0 lansoprazole [Prevacid] 30 mg Capsule,Delayed Release(Dr/Ec) 30 mg PO QAM RF: 0 Tradjenta 5 mg tablet 5 mg PO QAM RF: 0 gabapentin [Neurontin] 300 mg capsule 300 mg PO BID RF: 0 metformin 500 mg tablet extended release 24 hr 1,000 mg PO HS Qty: 0 RF: 0 Discontinued clonazepam 1 mg Tablet 1 mg PO HS RF: 0 aspirin [Aspir-81] 81 mg Tablet,Delayed Release (Dr/Ec) 81 mg PO HS RF: 0 oxycodone 5 mg tablet 5 - 10 mg PO Q4H PRN (Reason: pain) Qty: 10 RF: 0 Discharge Orders: Discharge Order (Routine); Ordered 12/14/19 Ordered By: Peter Espitia/Other Patient Handouts: Stroke Sx, What Is Ischemic Stroke Admission Data Admit Date/Time: 12/12/19 23:51 Attending Provider: Peter Pfeiffer Admit Provider: Massimo Hoffman Primary Care Provider: Mary Dickerson Other Providers: Mani Elizondo Other Interventions: Discharge Summary Assessment (RN) Last Done: 12/14/19 13:16 DC Date/Time DO NOT enter until pt leaves facility: 12/14/19 14:16 Coding Level of Care Code D/C Day Management >30 mins Diagnoses Acute cerebrovascular accident (CVA) I63.9 Right sided weakness R53.1 Dysarthria R47.1 Diabetes mellitus, type II E11.9 Dyslipidemia E78.5 HTN (hypertension) I10 Hypertension type: unspecified Nonobstructive atherosclerosis of coronary artery I25.10 GERD (gastroesophageal reflux disease) K21.9 Esophagitis presence: esophagitis presence not specified Depression F33.9 Active/Remission status: remission status unspecified Depression Type: major depressive disorder Major depression recurrence: recurrent
== END 2019-12-14 14:16 | DRG 65 ==
LOC: ED 19:22 → 2S 23:51 → SUATTDRO 23:51 → 2S 12-13 00:45

== ENCOUNTER 2022-09-20 15:52 | Inpatient (IN) ==
[2022-09-20 16:19] LABS: iSTAT Hemoglobin 14.3 g/dl (12.0-16.0); iSTAT Ionized Calcium 1.14 mmol/l (1.12-1.32); iSTAT Potassium 3.8 mmol/L (3.3-5.0)
[2022-09-20] MEDS ORDERED: ONDANSETRON INJ 2 MG/ML 2 ML VIAL IV STA (16:26)
[2022-09-20 16:32] LABS: Basophils # (auto) 0.04 K/uL (0-0.2); Basophils % (auto) 0.4 %; Eosinophils # (auto) 0.12 K/uL (0-0.50); Eosinophils % (auto) 1.1 %; Hematocrit (blood only) 41.3 % (34.1-44.9); Hemoglobin 13.9 g/dl (12.0-16.0); Immature Granulocytes # (auto) 0.06 K/uL (0.00-0.02); Immature Granulocytes % (auto) 0.6 %; Lymphocytes # (auto) 2.81 K/uL (1.2-3.4); Lymphocytes % (auto) 26.5 %; Mean Corpuscular Hemoglobin 28.4 pg (25.0-34.0); Mean Corpuscular Hgb Conc 33.7 g/dL (32.0-36.0); Mean Corpuscular Volume 84.5 fL (80.0-100.0); Mean Platelet Volume 10.6 fL (9.4-12.3); Monocytes # (auto) 0.83 K/uL (0.24-0.82); Monocytes % (auto) 7.8 %; Neutrophils # (auto) 6.75 K/uL (1.4-6.5); Neutrophils % (auto) 63.6 %; Platelet Count 270 K/uL (130-400); RDW Coefficient of Variation 15.3 % (11.5-14.5); RDW Standard Deviation 47.1 fL (36.4-46.3); Red Blood Count 4.89 M/uL (3.93-5.22); White Blood Count 10.61 K/ul (4.8-10.8)
[2022-09-20] MEDS: SODIUM CHLORIDE 0.9% 1000ML 1,000 ML IV SCH (16:41)
--- NOTE | 2022-09-20 16:41 | CT Scan Report ---
CT SCAN OF THE BRAIN WITHOUT IV CONTRAST CLINICAL HISTORY: Strokelike symptoms. COMPARISON STUDY: CT of the brain dated 12/12/2019. TECHNIQUE: Unenhanced axial CT scan of the brain is performed from the vertex to the skull base. A do se lowering technique was utilized adhering to the principles of ALARA. CT DOSE: 537.48 mGy.cm FINDINGS: Brain parenchyma: There is age-related involutional change noting mild subcortical and periventricula r microangiopathic disease. There is no hemorrhage, mass effect, or evidence of acute territorial isc hemia by CT criteria. A chronic lacunar infarct is noted in the left external capsule. Peralta-white mat ter differentiation is preserved. No extra-axial fluid collection is seen. Ventricles, sulci, cisterns: Prominent secondary to involutional change. Intracranial vasculature: There is atherosclerotic calcification of the cavernous carotid and vertebr al arteries. Calvarium: Unremarkable. Sinuses and mastoids: The visualized paranasal sinuses are clear. The mastoid air cells are well pneu matized. Orbits: The bony orbits are grossly intact. IMPRESSION: There is no hemorrhage, mass effect, or evidence of acute territorial ischemia by CT deondre lorenzo. ACT 112: Negative or not required by law. Electronically signed by: Fernando Bedolla M.D. 09/20/2022 4:39 PM
[2022-09-20 16:48] LABS: Albumin Globulin Ratio 1.2 (0.9-2); Albumin Level 4.1 gm/dl (3.4-5.0); BUN Creatinine Ratio 16.5 (10-20); Bilirubin,Total 0.4 mg/dl (0.2-1.0); Calcium 9.2 mg/dl (8.5-10.1); Creatinine Clr Calc Pharmacy 50.6 ml/min; Est GFR (African American) 64.4 ml/min; Est GFR (Non-African American) 55.5 ml/min; Globulin 3.3 gm/dl (2.5-4.0); Potassium 3.9 mmol/L (3.5-5.1); Total Protein 7.4 gm/dl (6.0-8.3)
[2022-09-20 17:35] LABS: Influenza A virus by PCR Negative (Neg); Influenza B virus by PCR Negative (Neg); RSV by PCR Negative (Neg); SARS CoV2 RNA(COVID-19) Ceph NEGATIVE (Negative)
--- NOTE | 2022-09-20 17:36 | XRay Report ---
SINGLE VIEW CHEST CLINICAL HISTORY: Generalized weakness. FINDINGS: An AP, portable, upright chest radiograph is compared to study dated 12/12/2019. The examina tion is degraded by portable technique and apical lordotic positioning. The cardiomediastinal silhoue tte is top normal for projection. There is chronic elevation of the right hemidiaphragm and bibasilar atelectasis. The lungs and pleural spaces are otherwise clear. No pneumothorax is seen. The skeletal structures are osteopenic. The bony thorax is grossly intact. IMPRESSION: No active disease in the chest. ACT 112: Negative or not required by law. Electronically signed by: Fernando Bedolla M.D. 09/20/2022 5:34 PM
[2022-09-20] MEDS ORDERED: LORazepam 0.5 MG TAB PO STA (18:08)
--- NOTE | 2022-09-20 18:23 | History & Physical Report ---
Date of Service September 20, 2022 Assessment & Plan (1) TIA (transient ischemic attack): Plan: Transient period of ataxia at home with a previous history of stroke and risk factors of diabetes hypertension and dyslipidemia. ABCD Score of 3 with 1% 2 day risk of stroke Patient will be maintained on her Plavix with addition of aspirin neurology consultation and continuing treating and modifying risk factors for stroke Pending results of MRI Echocardiogram will be ordered Cardiac monitoring as patient has history of WPW ablation Patient also has urinary frequency and incontinence we will check a urine analysis in case the symptoms are metabolic encephalopathy from urinary tract infection present on admission (2) Diabetes mellitus, type II: Plan: pt will be placed on basal bolus insulin, hold oral meds and check A1C (3) HTN (hypertension): Plan: Patient is on amlodipine 10 clonidine 1 twice daily Lasix 20 as needed lisinop ril 5 (4) WPW (Anzzf-Xrkzklmbk-Pppww syndrome): Plan: Patient has a history of an ablation. The daughter says the patient's been villasenor ving some symptoms of late. The patient does not wish to see physicians so she does not usually complain about anything and she is not on a beta-randy or any other rate controlling agents. Subsequently she will be on telemetry her initial troponin was unremarkable she has not had any anginal-like symptoms. A TSH check today was normal. (5) Depression: Plan: lexapro 5 mg (6) Dyslipidemia: Plan: atrovastatin History of Present Illness Primary Care Provider: Mary Dickerson MD 77-year-old female with a history of hypertension diabetes dyslipidemia and prev ious stroke who presents after having between 30 and 60-minute period of aphasia at home. Patient had resolution of symptoms upon arrival. Initial evaluation was unremarkable however the patient has a dye allergy and IV contrast could not be used as it is a respiratory allergy. CT head without contrast was negative and pending MRI. 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 and her daughter says lately she has been having some symptoms reminiscent of what she had prior to her ablation her ablation was at least 10 years or more ago performed by [facility] any physician group patient cannot recall who during the event today the patient does not complain of any palpitations initial troponin and EKG are unremarkable there are no delta wave seen Allergies Allergy/AdvReac Type Severity Reaction Status Date / Time Sulfa (Sulfonamide Allergy Intermediate "SULFA Verified 09/10/22 10:54 Antibiotics) DRUGS": SWELLS iodine Allergy Mild SWELLING, Verified 09/10/22 10:54 ITCHING,RED AND NAUSEA W/CONTRAST DYE (FEEL FUNNY) Egg Derived Allergy Unknown DIARRHEA,ABD Verified 09/10/22 10:54 PAIN Iodinated Contrast Media Allergy Unknown HOT FLASH Verified 09/10/22 10:54 AND RASH shellfish derived Allergy Unknown SWELLING Verified 09/10/22 10:54 AND VOMITING shrimp Allergy Unknown SWELLING Verified 09/10/22 10:54 AND NAUSEA WITH SHRIMP AND SHELLFISH codeine AdvReac Unknown VOMITING Verified 09/10/22 10:54 egg AdvReac Unknown DIARRHEA Verified 09/10/22 10:54 Home Medications Medication Instructions Recorded Confirmed Type pen needle, diabetic 31 gauge x #100 ea 01/16/21 03/10/22 Rx 5/16" (Easy Comfort Pen [place]) tramadol 50 mg tablet 50 mg PO Q6H PRN pain #30 tabs 05/15/21 09/10/22 Rx blood sugar diagnostic #100 ea 11/21/21 03/10/22 Rx blood-glucose meter (OneTouch #1 ea 11/21/21 03/10/22 Rx Ultra2 Meter) lancets 33 gauge (OneTouch [place] #100 ea 11/21/21 03/10/22 Rx Lancets) atorvastatin 40 mg tablet 40 mg PO QPM #90 tabs 03/10/22 09/10/22 Rx clonidine HCl 0.1 mg tablet 0.1 mg PO BID #180 tabs 03/10/22 09/10/22 Rx clopidogrel 75 mg tablet 75 mg PO DAILY #90 tabs 03/10/22 09/10/22 Rx furosemide 20 mg tablet See Rx Instructions PO BID #270 03/10/22 09/10/22 Rx tabs lansoprazole 30 mg capsule,delayed 30 mg PO QAM #90 caps 03/10/22 09/10/22 Rx release (Prevacid) lisinopril 5 mg tablet 5 mg PO DAILY #90 tabs 03/10/22 09/10/22 Rx pregabalin 50 mg capsule 50 mg PO TID #270 caps 07/24/22 09/10/22 Rx escitalopram oxalate 5 mg tablet 5 mg PO DAILY #30 tabs 07/28/22 09/10/22 Rx nitroglycerin 0.4 mg sublingual 0.4 mg sublingual .COMPLEX PRN 09/10/22 09/10/22 Rx tablet (Nitrostat) Chest Pain #10 tabs amlodipine 10 mg tablet 10 mg PO DAILY #90 tabs 09/15/22 Rx glimepiride 2 mg tablet 2 mg PO DAILY #30 tabs 09/15/22 Rx lorazepam 1 mg tablet 1 mg PO BID PRN anxiety #30 tabs 09/15/22 Rx Past Med/Surg History Medical History (Updated 09/20/22 @ 18:22 by Khris Jackson MD) Abdominal pain Abnormal glucose Acute cerebrovascular accident (CVA) Acute chest pain Bacteremia Contrast media allergy Diabetes Diabetes mellitus, type II Diarrhea Fatigue GERD (gastroesophageal reflux disease) H/O Clostridium difficile infection H/O: rheumatic fever Hemorrhoids Hepatic steatosis History of diarrhea HTN (hypertension) Hypertension, accelerated Hypertensive cardiovascular disease Labile hypertension Left lower quadrant pain Lumbar stenosis with neurogenic claudication LVH (left ventricular hypertrophy) Nonobstructive atherosclerosis of coronary artery "Per cardiac cath May 2016" Routine health maintenance Small bowel obstruction Vasovagal near-syncope Vomiting WPW (Xuqgr-Vkzinfyvc-Fjgzp syndrome) Surgical History H/O cardiac radiofrequency ablation History of bladder surgery History of herniorrhaphy Hx of hysterectomy S/P foot surgery S/P partial colectomy S/P ROMAN-BSO Family History Brother Colorectal cancer Prostate cancer Mother Myocardial infarction Other Cancer Diabetes Heart disease Hypertension Denies family history of Ovarian cancer Breast cancer Social History (Updated 09/10/22 @ 10:59 by Debbie Zaidi LPN) Smoking Status: Former smoker Tobacco Type: Cigarettes Age Started Using Tobacco: 32; Age Quit Using Tobacco: 33; Second Hand Exposure: No; Hx Alcohol Use: No Hx Substance Use: No Preferred Language: Belarusian Communication Ability: Effective Wet Pan Operator Required: No Beliefs That Will Affect Care: None marital status: Current Living Situation: Spouse current occupational status: retired How many Children do You have: 3 Feels Safe at Home: Yes Childhood Exposure to Second-Hand Smoke: Yes caffeine: Yes Dental Care, Regularly: No Physical Activity Frequency: Does not Exercise Seatbelt Use: always Sunscreen Use: No Assistive Devices: Glasses and Walker Review of Systems Review of Systems: Mild distress and fatigue no headache, no visual changes no speech or swallowing issues no chest pain, pressure or palpitations no shortness of breath, cough or wheezes no abdominal pain, nausea or vomiting, diarrhea or constipation no dysuria, hematuria or frequency no focal joint pain or swelling no back pain, CVA tenderness or radicular pain no bruising, bleeding or rashes no focal signs of weakness or numbness or altered sensation no complaints of anxiety or depression.. Physical Exam Physical Exam: The patient appeared well nourished and normally developed. Vital signs as documented. Head exam is normocephalic atraumatic Neck is without JVD, thyromegaly, or carotid bruits. Lungs are clear to auscultation, no focal loss of breath sounds Cardiac exam, Rhythm is regular.. No murmurs, rubs or gallops. Abdominal exam reveals normal bowel sounds, soft non tender, no masses Extremities are nonedematous and both pedal pulses are present Neurologic exam is alert and oriented, no focal loss of strength or sensation Skin is without bruises or rashes Psychologically is without concerns for anxiety or depression.. Results & Data Results & Data ([facility]) Vital Signs (Past 12 Hours) Vital Signs Temp Pulse Pulse Resp BP BP Pulse Ox 09/20/22 17:43 63 18 133/68 96 09/20/22 16:48 69 16 138/65 93 09/20/22 16:05 98 09/20/22 16:01 97.7 F 82 18 111/75 94 O2 Del Method 09/20/22 17:43 Room Air 09/20/22 16:48 09/20/22 16:05 Room Air 09/20/22 16:01 Room Air PG Care Time/CCT Total # of Minutes Spent Total Time Spent with Patient: Total time spent is greater than 50% in coordination of care (as documented) at patient's floor/unit and/or counseling patient: Coding Level of Care Code 61560 Initial Inpt Care Lvl 3 Diagnoses TIA (transient ischemic attack) G45.9 Diabetes mellitus, type II E11.9 HTN (hypertension) I10 Hypertension type: unspecified WPW (Tedrv-Vddfemyxy-Efjgo syndrome) I45.6 Depression F32.A Dyslipidemia E78.5 (1) HTN (hypertension) Hypertension type: unspecified Qualified Code(s): I10 - Essential (primary) hypertension
--- NOTE | 2022-09-20 20:35 | Emergency Department Note ---
Impression & Plan Stroke-like symptoms, Aphasia, Generalized weakness ED Provider Note INFORMANT: Patient and daughter ED PROVIDER(S): Abelardo Dill MD CHIEF COMPLAINT: Weakness and strokelike symptoms PLAN: Disposition: Admitted Condition: Good Outpatient prescription management: none Referral: None MEDICAL DECISION MAKING: Patient presented to the emergency department because of weakness and strokelike symptoms. Her episode had resolved by time I saw her. Given her history she underwent a full evaluation. She was not made a stroke alert as her symptoms had resolved. The patient had an unremarkable dry CT. She did not have CT angiography performed because she has a severe reaction to contrast. The patient had unremarkable laboratory testing. ECG showed a sinus rhythm. nuclear monitoring technician did not reveal any abnormal findings. COVID testing was negative. The patient, daughter and I discussed further management in the hospital. Patient will need MR imaging and MRA imaging to further evaluate her symptoms. Patient was in agreement. MR imaging was ordered. Patient also had Ativan ordered on-call to MRI. Consultation was made with Dr. Khris Jackson of the [facility] service. Patient was evaluated in the ER for further management. Triage Nursing notes reviewed and agree them. Vital Signs: reviewed and remarkable for mild hypertension Differential diagnosis: CVA, TIA,Infection, dehydration, metabolic abnormality, hypo/hyperglycemia, electrolyte disturbance, anemia, hypoxia, cardiac sources, intracerebral event, toxicologic, neurologic, as well as other pathologies. Diagnostics interpreted by me: ECG: Twelve-lead ECG reveals sinus rhythm with PVCs at [address] elevation or depression. Cardiac Monitoring: Cardiac monitoring ordered by me: The patient was placed on continuous cardiac monitoring and observed. It revealed a sinus rhythm at 68 bpm without evidence of dysrhythmia. Imaging studies: Head CT: A noncontrast CT scan of the head was performed and was negative for tumor, fracture, intracranial hemorrhage, or other acute pathology. Chest x-ray. Findings: A chest x-ray was performed and revealed no pneumothorax, effusion, infiltrate, pulmonary edema, free air under the diaphragm, or wide mediastinum. Impression: No acute disease. HPI: The patient is a 77year old female who presents to the Emergency Room with complaints of strokelike symptoms. This started around 1430 hrs. today and is currently resolved. The patient states that she woke up from a nap and then started to feel unusual in her head. She felt like she was having generalized weakness and some tingling. The patient then noted that she was having difficulty getting her words out. She thinks this lasted about an hour. Family thought it was more like 30 minutes. She then developed a mild headache which resolved. She still feels generally weak. Patient and family were concerned that she has a history of stroke. The patient also notes the following ass ociated symptoms, none. The patient has taken no medication for relieving factors. Current pain is rated as 0/10. Pt denies LOC, fevers, chills, diaphoresis, visual changes, neck pain, chest pain, breathing difficulties, nausea, vomiting, abdominal pain, back pain, melena, hematochezia, urinary symptoms, lymphadenopathy, rash, or other complaints. ROS: See above HPI for pertinent positives & negatives. A total of 10 systems reviewed and were otherwise negative. PAST MEDICAL HISTORY:See Below , stroke PAST SURGICAL HISTORY:See Below, FAMILY HISTORY:See Below SOCIAL HISTORY:See Below, retired HOME MEDICATIONS:See Below ALLERGIES:See Below VITALS:See Below PHYSICAL EXAMINATION: GENERAL: Awake, tired-appearing, in no distress HENT: Normocephalic, atraumatic. Oropharynx unremarkable. EYES: Normal conjunctiva. Sclera non-icteric. PERRLA. EOMI. NECK: Inspection normal. Non-tender. Supple. No nuchal rigidity. FROM. No masses. RESPIRATORY: Clear to auscultation. No wheezes. No rales. Normal respiratory effort. CARDIAC: Normal rate. Normal rhythm. No murmurs. No rubs. Extremities warm and well perfused. Pulses equal. No JVD. GI: Soft, non-distended. No tenderness to palpation. No rebound or guarding. No masses. RECTAL: Deferred. MUSCULOSKELETAL: Atraumatic. Chest examination reveals no tenderness. The back is symmetrical on inspection without obvious abnormality. There is no CVA tenderness to palpation. No joint edema. LOWER EXTREMITIES: Calves are equal size bilaterally and non-tender. No edema. No discoloration. NEURO: Normal sensorium. No focal sensory or motor deficits noted. Speech normal. Cranial nerves II through XII intact. No drift. Normal rapid alternating movements. SKIN: No rash or jaundice noted. Abelardo Dill MD Past Med/Surg History Medical History (Updated 09/20/22 @ 20:35 by Abelardo Dill MD) Abdominal pain Abnormal glucose Acute cerebrovascular accident (CVA) Acute chest pain Bacteremia Contrast media allergy Diabetes Diabetes mellitus, type II Diarrhea Fatigue GERD (gastroesophageal reflux disease) H/O Clostridium difficile infection H/O: rheumatic fever Hemorrhoids Hepatic steatosis History of diarrhea HTN (hypertension) Hypertension, accelerated Hypertensive cardiovascular disease Labile hypertension Left lower quadrant pain Lumbar stenosis with neurogenic claudication LVH (left ventricular hypertrophy) Nonobstructive atherosclerosis of coronary artery "Per cardiac cath May 2016" Routine health maintenance Small bowel obstruction Vasovagal near-syncope Vomiting WPW (Kqfim-Ofwozjrly-Ukrjh syndrome) Surgical History H/O cardiac radiofrequency ablation History of bladder surgery History of herniorrhaphy Hx of hysterectomy S/P foot surgery S/P partial colectomy S/P ROMAN-BSO Family History Brother Colorectal cancer Prostate cancer Mother Myocardial infarction Other Cancer Diabetes Heart disease Hypertension Denies family history of Ovarian cancer Breast cancer Social History (Updated 09/10/22 @ 10:59 by Debbie Zaidi LPN) Smoking Status: Former smoker Tobacco Type: Cigarettes Age Started Using Tobacco: 32; Age Quit Using Tobacco: 33; Second Hand Exposure: No; Hx Alcohol Use: No Hx Substance Use: No Preferred Language: Icelandic Communication Ability: Effective Senior Product Marketing Manager Required: No Beliefs That Will Affect Care: None marital status: Current Living Situation: Spouse current occupational status: retired How many Children do You have: 3 Feels Safe at Home: Yes Childhood Exposure to Second-Hand Smoke: Yes caffeine: Yes Dental Care, Regularly: No Physical Activity Frequency: Does not Exercise Seatbelt Use: always Sunscreen Use: No Assistive Devices: Glasses and Walker Allergies Allergies Allergy/AdvReac Type Severity Reaction Status Date / Time Sulfa (Sulfonamide Allergy Intermediate "SULFA Verified 09/20/22 20:03 Antibiotics) DRUGS": SWELLS iodine Allergy Mild SWELLING, Verified 09/20/22 20:03 ITCHING,RED AND NAUSEA W/CONTRAST DYE (FEEL FUNNY) Egg Derived Allergy Unknown DIARRHEA,ABD Verified 09/20/22 20:03 PAIN Iodinated Contrast Media Allergy Unknown HOT FLASH Verified 09/20/22 20:03 AND RASH shellfish derived Allergy Unknown SWELLING Verified 09/20/22 20:03 AND VOMITING shrimp Allergy Unknown SWELLING Verified 09/20/22 20:03 AND NAUSEA WITH SHRIMP AND SHELLFISH codeine AdvReac Unknown VOMITING Verified 09/20/22 20:03 egg AdvReac Unknown DIARRHEA Verified 09/20/22 20:03 vaccines Allergy Difficulty Uncoded 09/20/22 20:08 Breathing,Rash Home Meds Home Medications Medication Instructions Recorded Confirmed furosemide 20 mg tablet 20 mg PO QPM 09/20/22 09/20/22 furosemide 20 mg tablet 40 mg PO QAM 09/20/22 09/20/22 nitroglycerin 0.4 mg sublingual 0.4 mg sublingual .PRN/UD PRN 09/20/22 09/20/22 tablet (Nitrostat) Chest Pain Previous Rx's Medication Instructions Recorded pen needle, diabetic 31 gauge x #100 ea 01/16/2103/03" (Easy Comfort Pen [place]) tramadol 50 mg tablet 50 mg PO Q6H PRN pain #30 tabs 05/15/21 blood sugar diagnostic #100 ea 11/21/21 blood-glucose meter (OneTouch #1 ea 11/21/21 Ultra2 Meter) lancets 33 gauge (OneTouch Delica #100 ea 11/21/21 Lancets) atorvastatin 40 mg tablet 40 mg PO QPM #90 tabs 03/10/22 clonidine HCl 0.1 mg tablet 0.1 mg PO BID #180 tabs 03/10/22 clopidogrel 75 mg tablet 75 mg PO DAILY #90 tabs 03/10/22 lansoprazole 30 mg capsule,delayed 30 mg PO QAM #90 caps 03/10/22 release (Prevacid) lisinopril 5 mg tablet 5 mg PO DAILY #90 tabs 03/10/22 pregabalin 50 mg capsule 50 mg PO TID #270 caps 07/24/22 escitalopram oxalate 5 mg tablet 5 mg PO DAILY #30 tabs 07/28/22 amlodipine 10 mg tablet 10 mg PO DAILY #90 tabs 09/15/22 glimepiride 2 mg tablet 2 mg PO DAILY #30 tabs 09/15/22 lorazepam 1 mg tablet 1 mg PO BID PRN anxiety #30 tabs 09/15/22 Results & Data (ED) Vital Signs Vital Signs - 24 hr 09/20/22 16:01 09/20/22 16:05 09/20/22 16:48 Temperature 36.5 C Temperature Source Oral Pulse Rate 82 Pulse Rate [Apical] 69 Pulse Rhythm [Apical] Pulse Strength [Apical] Respiratory Rate 18 16 Respiratory Effort / Characteristics Non-Labored Spontaneous Non-Labored Spontaneous Respiratory Depth Normal Normal Respiratory Pattern Blood Pressure 111/75 Blood Pressure [Left Arm] 138/65 Blood Pressure Mean 87 Blood Pressure Mean [Left Arm] 89 Pulse Oximetry 94 98 93 Oxygen Delivery Method Room Air Room Air Sepsis Recent Fever Within 48 Hours No Sepsis New/Unexplained Change in Mental Status No Sepsis Action Taken by Nursing No Action Required 09/20/22 17:43 09/20/22 19:00 Temperature Temperature Source Pulse Rate Pulse Rate [Apical] 63 68 Pulse Rhythm [Apical] Regular Pulse Strength [Apical] Normal Respiratory Rate 18 18 Respiratory Effort / Characteristics Non-Labored Spontaneous Non-Labored Respiratory Depth Normal Normal Respiratory Pattern Regular Blood Pressure Blood Pressure [Left Arm] 133/68 152/76 H Blood Pressure Mean Blood Pressure Mean [Left Arm] 89 101 Pulse Oximetry 96 92 Oxygen Delivery Method Room Air Sepsis Recent Fever Within 48 Hours Sepsis New/Unexplained Change in Mental Status Sepsis Action Taken by Nursing Laboratory Data Result diagrams: 09/20/22 16:02 09/20/22 16:02 Lab Results 09/20/22 09/20/22 09/20/22 Range/Units 16:02 16:02 16:02 WBC 10.61 (4.8-10.8) K/ul RBC 4.89 (3.93-5.22) M/uL Hgb 13.9 (12.0-16.0) g/dl POC Hgb (12.0-16.0) g/dl Hct 41.3 (34.1-44.9) % POC Hct (37-47) % MCV 84.5 (80.0-100.0) fL MCH 28.4 (25.0-34.0) pg MCHC 33.7 (32.0-36.0) g/dL RDW Std Deviation 47.1 H (36.4-46.3) fL RDW Coeff of Carmen 15.3 H (11.5-14.5) % Plt Count 270 (130-400) K/uL MPV 10.6 (9.4-12.3) fL Immature Gran % (Auto) 0.6 % Neut % (Auto) 63.6 % Lymph % (Auto) 26.5 % [place] % (Auto) 7.8 % Eos % (Auto) 1.1 % Baso % (Auto) 0.4 % Neut # (Auto) 6.75 H (1.4-6.5) K/uL Lymph # (Auto) 2.81 (1.2-3.4) K/uL [place] # (Auto) 0.83 H (0.24-0.82) K/uL Eos # (Auto) 0.12 (0-0.50) K/uL Baso # (Auto) 0.04 (0-0.2) K/uL Immature Gran # (Auto) 0.06 H (0.00-0.02) K/uL POC Sodium (135-144) mmol/L Sodium 136 (136-145) mmol/L POC Potassium (3.3-5.0) mmol/L Potassium 3.9 (3.5-5.1) mmol/L POC Chloride (101-112) mmol/L Chloride 102 (98-107) mmol/L Carbon Dioxide 23 (21-32) mmol/L POC Total CO2 (24-31) mmol/L Anion Gap 11 (3-11) POC Anion Gap (16-25) mmol/L POC BUN (7-18) mg/dl BUN 16 (6-23) mg/dl Creatinine 0.97 (0.6-1.2) mg/dl POC Creatinine (0.6-1.3) mg/dl Est Cr Clr Drug Dosing 50.6 ml/min Est GFR ( Amer) 64.4 ml/min Est GFR (Non-Af Amer) 55.5 ml/min BUN/Creatinine Ratio 16.5 (10-20) Glucose 203 H (70-99(Fasting)) mg/dl POC Glucose (other) (70-99) mg/dl Calcium 9.2 (8.5-10.1) mg/dl POC Ioniz Calcium Andie (1.12-1.32) mmol/l Total Bilirubin 0.4 (0.2-1.0) mg/dl AST 45 H (13-39) U/L ALT 42 (7-52) U/L Alkaline Phosphatase 65 (34-104) U/L Troponin I High Sens 7.0 (0-14) pg/ml Total Protein 7.4 (6.0-8.3) gm/dl Albumin 4.1 (3.4-5.0) gm/dl Globulin 3.3 (2.5-4.0) gm/dl Albumin/Globulin Ratio 1.2 (0.9-2) TSH 2.603 (0.300-4.500) uIu/ml SARS-CoV-2 (PCR) (Negative) Influenza Type A (PCR) (Neg) Influenza Type B (PCR) (Neg) RSV (RT-PCR) (Neg) 09/20/22 09/20/22 Range/Units 16:07 16:48 WBC (4.8-10.8) K/ul RBC (3.93-5.22) M/uL Hgb (12.0-16.0) g/dl POC Hgb 14.3 (12.0-16.0) g/dl Hct (34.1-44.9) % POC Hct 42 (37-47) % MCV (80.0-100.0) fL MCH (25.0-34.0) pg MCHC (32.0-36.0) g/dL RDW Std Deviation (36.4-46.3) fL RDW Coeff of Carmen (11.5-14.5) % Plt Count (130-400) K/uL MPV (9.4-12.3) fL Immature Gran % (Auto) % Neut % (Auto) % Lymph % (Auto) % [place] % (Auto) % Eos % (Auto) % Baso % (Auto) % Neut # (Auto) (1.4-6.5) K/uL Lymph # (Auto) (1.2-3.4) K/uL [place] # (Auto) (0.24-0.82) K/uL Eos # (Auto) (0-0.50) K/uL Baso # (Auto) (0-0.2) K/uL Immature Gran # (Auto) (0.00-0.02) K/uL POC Sodium 138 (135-144) mmol/L Sodium (136-145) mmol/L POC Potassium 3.8 (3.3-5.0) mmol/L Potassium (3.5-5.1) mmol/L POC Chloride 102 (101-112) mmol/L Chloride (98-107) mmol/L Carbon Dioxide (21-32) mmol/L POC Total CO2 23 L (24-31) mmol/L Anion Gap (3-11) POC Anion Gap 18.0 (16-25) mmol/L POC BUN 16 (7-18) mg/dl BUN (6-23) mg/dl Creatinine (0.6-1.2) mg/dl POC Creatinine 1.0 (0.6-1.3) mg/dl Est Cr Clr Drug Dosing ml/min Est GFR ( Amer) ml/min Est GFR (Non-Af Amer) ml/min BUN/Creatinine Ratio (10-20) Glucose (70-99(Fasting)) mg/dl POC Glucose (other) 211 H (70-99) mg/dl Calcium (8.5-10.1) mg/dl POC Ioniz Calcium Andie 1.14 (1.12-1.32) mmol/l Total Bilirubin (0.2-1.0) mg/dl AST (13-39) U/L ALT (7-52) U/L Alkaline Phosphatase (34-104) U/L Troponin I High Sens (0-14) pg/ml Total Protein (6.0-8.3) gm/dl Albumin (3.4-5.0) gm/dl Globulin (2.5-4.0) gm/dl Albumin/Globulin Ratio (0.9-2) TSH (0.300-4.500) uIu/ml SARS-CoV-2 (PCR) NEGATIVE (Negative) Influenza Type A (PCR) Negative (Neg) Influenza Type B (PCR) Negative (Neg) RSV (RT-PCR) Negative (Neg) Administered Medications Sodium Chloride (Nss 1000ml) 1,000 mls @ 125 mls/hr IV .Q8H MARY Stop: 10/20/22 16:29 Last Admin: 09/20/22 16:41 Dose: 125 mls/hr Documented By: ASW Discontinued Medications Ondansetron HCl (Ondansetron Inj 2 Mg/Ml 2 Ml Vial) 4 mg IV NOW STA Stop: 09/20/22 16:27 Last Admin: 09/20/22 16:41 Dose: 4 mg Documented By: ASW Imaging Data Radiologist's Impression: Chest X-Ray 09/20/22 16:09 SINGLE VIEW CHEST CLINICAL HISTORY: Generalized weakness. FINDINGS: An AP, portable, upright chest radiograph is compared to study dated 12/12/2019. The examination is degraded by portable technique and apical lordotic positioning. The cardiomediastinal silhouette is top normal for projection. There is chronic elevation of the right hemidiaphragm and bibasilar atelectasis. The lungs and pleural spaces are otherwise clear. No pneumothorax is seen. The skeletal structures are osteopenic. The bony thorax is grossly intact. IMPRESSION: No active disease in the chest. ACT 112: Negative or not required by law. Electronically signed by: Fernando Bedolla M.D. 09/20/2022 5:[address] 09/20/22 16:26 CT SCAN OF THE BRAIN WITHOUT IV CONTRAST CLINICAL HISTORY: Strokelike symptoms. COMPARISON STUDY: CT of the brain dated 12/12/2019. TECHNIQUE: Unenhanced axial CT scan of the brain is performed from the vertex to the skull base. A dose lowering technique was utilized adhering to the principles of ALARA. CT DOSE: 537.48 mGy.cm FINDINGS: Brain parenchyma: There is age-related involutional change noting mild subcortical and periventricular microangiopathic disease. There is no hemorrhage, mass effect, or evidence of acute territorial ischemia by CT criteria. A chronic lacunar infarct is noted in the left external capsule. [place]- white matter differentiation is preserved. No extra-axial fluid collection is seen. Ventricles, sulci, cisterns: Prominent secondary to involutional change. Intracranial vasculature: There is atherosclerotic calcification of the cavernous carotid and vertebral arteries. Calvarium: Unremarkable. Sinuses and mastoids: The visualized paranasal sinuses are clear. The mastoid air cells are well pneumatized. Orbits: The bony orbits are grossly intact. IMPRESSION: There is no hemorrhage, mass effect, or evidence of acute territorial ischemia by CT criteria. ACT 112: Negative or not required by law. Electronically signed by: Fernando Bedolal M.D. 09/20/2022 4:39 PM Discharge Plan Visit Data Chief Complaint: Weakness Stated Complaint: weakness, KIRBY, numbness ED Provider: Abelardo Dill Discharge Problem: Stroke-like symptoms, Aphasia, Generalized weakness Discharge Instructions Interventions: ED Discharge Assessment Last Done: 09/20/22 20:24 Forms Stand Alone Forms: My [facility] Prescriptions Prescriptions: No Action (DME) pen needle, diabetic [Easy Comfort Pen [place]] 31 gauge x 5/16" needle See Rx Instructions .ROUTE .MEDSUPPLY Qty: 100 1RF Rx Instructions: As directed QHS with Basaglar E11.69, E11.59 tramadol 50 mg tablet 50 mg PO Q6H PRN (Reason: pain) Qty: 30 0RF pregabalin 50 mg capsule 50 mg PO TID Qty: 270 1RF escitalopram oxalate 5 mg tablet 5 mg PO DAILY Qty: 30 3RF glimepiride 2 mg tablet 2 mg PO DAILY Qty: 30 5RF lorazepam 1 mg tablet 1 mg PO BID PRN (Reason: anxiety) Qty: 30 0RF amlodipine 10 mg tablet 10 mg PO DAILY Qty: 90 1RF (DME) OneTouch Ultra Blue Test Strip Strip See Rx Instructions .ROUTE .MEDSUPPLY Qty: 100 2RF Rx Instructions: As directed; test twice a day once fasting. Dx: E11.9 (DME) blood-glucose meter [InnofideiTouch Ultra2 Meter] [facility] See Rx Instructions .ROUTE .MEDSUPPLY Qty: 1 0RF Rx Instructions: As directed; test twice a day once fasting Dx: E11.9 (DME) lancets [InnofideiTouch Delica Lancets] [facility] See Rx Instructions .ROUTE .MEDSUPPLY Qty: 100 2RF Rx Instructions: As directed; test twice a day once fasting. Dx: ELL.9 atorvastatin 40 mg tablet 40 mg PO QPM Qty: 90 1RF clonidine HCl 0.1 mg tablet 0.1 mg PO BID Qty: 180 1RF clopidogrel 75 mg tablet 75 mg PO DAILY Qty: 90 1RF lansoprazole [Prevacid] 30 mg capsule,delayed release(DR/EC) 30 mg PO QAM Qty: 90 1RF lisinopril 5 mg tablet 5 mg PO DAILY Qty: 90 1RF furosemide 20 mg tablet 40 mg PO QAM furosemide 20 mg tablet 20 mg PO QPM nitroglycerin [Nitrostat] 0.4 mg tablet, sublingual 0.4 mg Sublingual .PRN/UD PRN (Reason: Chest Pain) Rx Instructions: as needed for chest pain : one tablet under the tongue, every five minutes up to 3 doses. Referrals Referrals: Mary Dickerson MD [Primary Care Provider] -
[2022-09-20] MEDS ORDERED: ALUMINUM/MAGNESIUM SUSP 30 ML UDC PO PRN (20:57)
[2022-09-20] MEDS ORDERED: traMADol HCL 50 MG TABLET PO PRN (20:57)
[2022-09-20] MEDS ORDERED: ACETAMINOPHEN 325 MG TAB PO PRN (20:57)
[2022-09-20] MEDS ORDERED: ONDANSETRON INJ 2 MG/ML 2 ML VIAL IV PRN (20:57)
[2022-09-20] MEDS ORDERED: PHARMACIST DISCHARGE MED REC CONSULT PRN (20:57)
[2022-09-20] MEDS ORDERED: DEXTROSE 50% 50 ML SYRINGE IV PRN (20:57)
[2022-09-20] MEDS ORDERED: GLUCAGON FOR INJ 1 MG VIAL SQ PRN (20:57)
[2022-09-20] MEDS ORDERED: CARBOHYDRATES FOR HYPOGLYCEMIA PO PRN (20:57)
[2022-09-20] MEDS ORDERED: GLUCOSE 10 TAB/TUBE PO PRN (20:57)
[2022-09-20] MEDS ORDERED: ENOXAPARIN INJ 40 MG/0.4 ML SYR SQ SCH (20:57)
[2022-09-20] MEDS ORDERED: GLUCOSE 40% GEL 15 GM TUBE PO PRN (20:57)
[2022-09-20] MEDS ORDERED: ATORVASTATIN 40 MG TAB PO SCH (21:00)
[2022-09-20] MEDS: LORazepam 1 MG TAB PO PRN (22:30)
[2022-09-20] MEDS: cloNIDine HCL 0.1 MG TAB PO SCH (22:30)
[2022-09-20] MEDS: LANTUS PER UNIT CHARGE SQ SCH (22:31)
[2022-09-20] MEDS: PREGABALIN 50 MG CAP PO SCH (22:31)
[2022-09-20] MEDS: INSULIN ASPART PER UNIT SC SCH (22:32)
[2022-09-20 22:58] LABS: Appearance Urine Cloudy (Clear); Bacteria Urine Automated 4+ (Negative); Bilirubin Urine Negative (Negative); Blood Urine Negative (Negative); Color Urine Yellow; Epithelial Cell Urine Auto 20-30 /lpf (0-5); Glucose Urine UA 1+ (Negative); Ketones Urine Negative (Negative); Leukocyte Esterase Urine Negative (Negative); Nitrite Urine Positive (Negative); Protein Urine Trace (Negative); RBC Urine Automated 0-4 /hpf (0-4); Specific Gravity Urine 1.012 (1.000-1.030); Urobilinogen Urine Negative (Negative); pH Urine 5.5 (4.5-7.5)
[2022-09-21] MEDS: SODIUM CHLORIDE 0.9% 1000ML 1,000 ML IV SCH ×3 (01:25→10:38)
[2022-09-21 07:19] LABS: Basophils # (auto) 0.04 K/uL (0-0.2); Basophils % (auto) 0.4 %; Eosinophils # (auto) 0.17 K/uL (0-0.50); Eosinophils % (auto) 1.8 %; Hematocrit (blood only) 34.5 % (34.1-44.9); Hemoglobin 11.3 g/dl (12.0-16.0); Immature Granulocytes # (auto) 0.03 K/uL (0.00-0.02); Immature Granulocytes % (auto) 0.3 %; Lymphocytes # (auto) 3.26 K/uL (1.2-3.4); Lymphocytes % (auto) 34.5 %; Mean Corpuscular Hemoglobin 27.7 pg (25.0-34.0); Mean Corpuscular Hgb Conc 32.8 g/dL (32.0-36.0); Mean Corpuscular Volume 84.6 fL (80.0-100.0); Mean Platelet Volume 10.7 fL (9.4-12.3); Monocytes # (auto) 0.75 K/uL (0.24-0.82); Monocytes % (auto) 7.9 %; Neutrophils # (auto) 5.19 K/uL (1.4-6.5); Neutrophils % (auto) 55.1 %; Platelet Count 215 K/uL (130-400); RDW Coefficient of Variation 15.5 % (11.5-14.5); RDW Standard Deviation 47.5 fL (36.4-46.3); Red Blood Count 4.08 M/uL (3.93-5.22); White Blood Count 9.44 K/ul (4.8-10.8)
[2022-09-21 07:52] LABS: BUN Creatinine Ratio 24.3 (10-20); Calcium 8.3 mg/dl (8.5-10.1); Chol HDL Ratio 3.7 (0-5); Creatinine Clr Calc Pharmacy 66.6 ml/min; Est GFR (African American) 89.3 ml/min; Est GFR (Non-African American) 77.1 ml/min; Potassium 3.8 mmol/L (3.5-5.1)
[2022-09-21] MEDS: PREGABALIN 50 MG CAP PO SCH ×2 (08:07→15:00)
[2022-09-21] MEDS: cloNIDine HCL 0.1 MG TAB PO SCH (08:08)
[2022-09-21] MEDS: INSULIN ASPART PER UNIT SC SCH ×2 (08:12→12:25)
[2022-09-21] MEDS: LANTUS PER UNIT CHARGE SQ SCH (08:13)
[2022-09-21] MEDS ORDERED: CLOPIDOGREL BISULFATE 75 MG TAB PO SCH (09:00)
[2022-09-21] MEDS ORDERED: amLODIPine BESYLATE 5 MG TAB PO SCH (09:00)
[2022-09-21] MEDS ORDERED: lisinopril 5 MG TAB PO SCH (09:00)
[2022-09-21] MEDS ORDERED: ASPIRIN 81 MG CHEW PO SCH (09:00)
[2022-09-21] MEDS ORDERED: ESCITALOPRAM OXALATE 10 MG TAB PO SCH (09:00)
[2022-09-21] MEDS ORDERED: ASPIRIN 81 MG ECTAB PO SCH (09:00)
[2022-09-21] MEDS ORDERED: FUROSEMIDE 40 MG TAB PO SCH (09:00)
[2022-09-21] MEDS ORDERED: PANTOprazole 40 MG TAB PO SCH (09:00)
[2022-09-21] MEDS: LORazepam 1 MG TAB PO PRN (09:37)
[2022-09-21] MEDS ORDERED: LORazepam 1 MG in SYRINGE 0 ML IV STA (09:42)
--- NOTE | 2022-09-21 09:51 | Neurology Consultation ---
Date of Consultation September 21, 2022 Assessment & Plan (1) TIA (transient ischemic attack): Plan Probable TIA presenting with transient expressive aphasia as well as some nonspecific/nonlocalizing symptoms including funny feeling in her head, feeling of generalized weakness and paresthesias, upon awakening from a nap yesterday. Patient has not experienced any symptomatic recurrence. She does have a chronic left pontine infarct which would not typically cause aphasia. Stroke risk factors for this patient include hypertension and diabetes mellitus. She does not have a known history of atrial fibrillation although I see that she has a history of paroxysmal supraventricular tachycardia and Qpeck-Gcmcnedzp-Gppjr syndrome. She has been taking atorvastatin 40 mg/day and Plavix 75 mg/day as an outpatient. I agree with the addition of daily low-dose aspirin to her current medication regimen, dual antiplatelet therapy, aspirin and Plavix, for the next 3 weeks. Afterwards, however, will transition back to Plavix monotherapy. I would not typically recommend long-term use of 2 antiplatelet medications for secondary stroke risk reduction given increased bleeding risk. Would continue with atorvastatin 40 mg/day. Recent lipid panel results are acceptable, LDL 65. Her triglycerides are elevated, however. Further, patient's diabetes may be suboptimally controlled, hemoglobin A1c from this past December was 7.9. Most recent A1c pending, follow-up with results. I would recommend additional cardiac monitoring as an outpatient, 30-day mobile cardiac outpatient telemetry. Further, would probably be a good idea to have this patient touch base with cardiology as well, regarding her history of paroxysmal supraventricular tachycardia, stated history of Neqpk-Zqxnfbxbi-Utzpc syndrome, history of stroke, now with TIA potentially localizing to a different vascular territory. Cardioembolic phenomenon not excluded. Acute systolic blood pressure management goal, 140 to 160 mmHg, allow for permissive hypertension. Would recommend up-to-date MR angiography of the head and neck, intolerance to iodinated contrast media noted. Would recommend up-to-date transthoracic echocardiogram with bubble study. Previous study was technically limited. History of Present Illness Reason for Consultation: TIA Requesting Physician: Dr. Jackson Attending Physician: Checo Zafar MD History of Present Illness The patient is a 77-year-old female who presented to the emergency department yesterday with a chief complaint of word finding difficulty, strange feeling in her head, nonspecific generalized weakness and paresthesia occurring upon awakening from a nap, duration about 30 to 60 minutes, followed by low-grade headache, resolved. No symptoms during her assessment in the emergency department. A CT of the head was negative for hemorrhage or acute process. Past medical history notable for hypertension, type 2 diabetes mellitus, and an ischemic left pontine infarct occurring in November 2019 for which she had been following with Dr. Olsen. MR angiography of the head and neck and carotid ultrasound at that time unremarkable. She has been on Plavix and atorvastatin as an outpatient. She last saw Dr. Olsen in June 2020 and had also been prescribed gabapentin at that time for management of polyneuropathy although she is currently prescribed Lyrica. She was to continue with Plavix. Additional appointments with neurology were not planned at that time, she was to follow-up on an as-needed basis. Allergies Allergy/AdvReac Type Severity Reaction Status Date / Time Sulfa (Sulfonamide Allergy Intermediate "SULFA Verified 09/20/22 20:03 Antibiotics) DRUGS": SWELLS iodine Allergy Mild SWELLING, Verified 09/20/22 20:03 ITCHING,RED AND NAUSEA W/CONTRAST DYE (FEEL FUNNY) Egg Derived Allergy Unknown DIARRHEA,ABD Verified 09/20/22 20:03 PAIN Iodinated Contrast Media Allergy Unknown HOT FLASH Verified 09/20/22 20:03 AND RASH shellfish derived Allergy Unknown SWELLING Verified 09/20/22 20:03 AND VOMITING shrimp Allergy Unknown SWELLING Verified 09/20/22 20:03 AND NAUSEA WITH SHRIMP AND SHELLFISH codeine AdvReac Unknown VOMITING Verified 09/20/22 20:03 egg AdvReac Unknown DIARRHEA Verified 09/20/22 20:03 vaccines Allergy Difficulty Uncoded 09/20/22 20:08 Breathing,Rash Home Medications Medication Instructions Recorded Confirmed Type pen needle, diabetic 31 gauge x #100 ea 01/16/21 03/10/22 Rx 5/16" (Easy Comfort Pen [place]) tramadol 50 mg tablet 50 mg PO Q6H PRN pain #30 tabs 05/15/21 09/20/22 Rx blood sugar diagnostic #100 ea 11/21/21 03/10/22 Rx blood-glucose meter (OneTouch #1 ea 11/21/21 03/10/22 Rx Ultra2 Meter) lancets 33 gauge (OneTouch Delica #100 ea 11/21/21 03/10/22 Rx Lancets) atorvastatin 40 mg tablet 40 mg PO QPM #90 tabs 03/10/22 09/20/22 Rx clonidine HCl 0.1 mg tablet 0.1 mg PO BID #180 tabs 03/10/22 09/20/22 Rx clopidogrel 75 mg tablet 75 mg PO DAILY #90 tabs 03/10/22 09/20/22 Rx lansoprazole 30 mg capsule,delayed 30 mg PO QAM #90 caps 03/10/22 09/20/22 Rx release (Prevacid) lisinopril 5 mg tablet 5 mg PO DAILY #90 tabs 03/10/22 09/20/22 Rx pregabalin 50 mg capsule 50 mg PO TID #270 caps 07/24/22 09/20/22 Rx escitalopram oxalate 5 mg tablet 5 mg PO DAILY #30 tabs 07/28/22 09/20/22 Rx amlodipine 10 mg tablet 10 mg PO DAILY #90 tabs 09/15/22 09/20/22 Rx glimepiride 2 mg tablet 2 mg PO DAILY #30 tabs 09/15/22 09/20/22 Rx lorazepam 1 mg tablet 1 mg PO BID PRN anxiety #30 tabs 09/15/22 09/20/22 Rx furosemide 20 mg tablet 20 mg PO QPM 09/20/22 09/20/22 History furosemide 20 mg tablet 40 mg PO QAM 09/20/22 09/20/22 History nitroglycerin 0.4 mg sublingual 0.4 mg sublingual .PRN/UD PRN 09/20/22 09/20/22 History tablet (Nitrostat) Chest Pain Patient History Medical History Abdominal pain Abnormal glucose Acute cerebrovascular accident (CVA) Acute chest pain Bacteremia Contrast media allergy Diabetes Diabetes mellitus, type II Diarrhea Fatigue GERD (gastroesophageal reflux disease) H/O Clostridium difficile infection H/O: rheumatic fever Hemorrhoids Hepatic steatosis History of diarrhea HTN (hypertension) Hypertension, accelerated Hypertensive cardiovascular disease Labile hypertension Left lower quadrant pain Lumbar stenosis with neurogenic claudication LVH (left ventricular hypertrophy) Nonobstructive atherosclerosis of coronary artery "Per cardiac cath May 2016" Routine health maintenance Small bowel obstruction Vasovagal near-syncope Vomiting WPW (Uzztq-Eenvzzemr-Pwmeg syndrome) Surgical History H/O cardiac radiofrequency ablation History of bladder surgery History of herniorrhaphy Hx of hysterectomy S/P foot surgery S/P partial colectomy S/P ROMAN-BSO Family History Brother Colorectal cancer Prostate cancer Mother Myocardial infarction Other Cancer Diabetes Heart disease Hypertension Denies family history of Ovarian cancer Breast cancer Social History Smoking Status: Former smoker Tobacco Type: Cigarettes Age Started Using Tobacco: 32; Age Quit Using Tobacco: 33; Second Hand Exposure: No; Do You Dip or Chew Tobacco: No; Tobacco Cessation Education Requested by Patient: No Hx Alcohol Use: No Hx Substance Use: No Preferred Language: Bhutanese Communication Ability: Effective Engineer Sergeant Required: No Beliefs That Will Affect Care: None marital status: Current Living Situation: Family current occupational status: retired How many Children do You have: 3 Other Information That Helps Us Care for You: No Feels Safe at Home: Yes Safety Concerns: Feels Safe At This Time Childhood Exposure to Second-Hand Smoke: Yes caffeine: Yes Dental Care, Regularly: No Physical Activity Frequency: Does not Exercise Seatbelt Use: always Sunscreen Use: No Assistive Devices: Denture - Upper, Glasses and Walker Review of Systems Review of Systems: All systems reviewed & are unremarkable except as noted in Subjective Exam (Neuro) Constitutional: well developed and well nourished; no acute distress Eyes: normal visual mendoza by confrontation, PERRL, normal accommodation and EOM intact bilaterally; no fundoscopic abnormality, no nystagmus and no papilledema Cardiovascular: Vessels: normal carotid upstroke; no carotid bruit Neurologic: Oriented to:: Person, Place and Time Memory: Short Term Intact and Remote Intact Attention: Span Intact and Concentration Intact Language: Naming Objects and Repeating Phrases Speech Fluency: negative Dysarthria Speech Aphasia: negative Aphasia Fund of Knowledge: Current Events, Past History and Vocabulary Cranial Nerves: Normal II (Visual mendoza full to confrontation, visual acuity normal), III, IV, (Pupils equal round reactive to light and accommodation, eye movements normal), V (Facial sensation intact), VII (There is no facial droop or weakness), VIII (Hearing intact), IX, X (Palate elevates to midline), XI (Shoulder shrug intact) and XII (Tongue protrudes to midline) Motor Strength: Normal Lower Extremities and Normal Upper Extremities; negative Pronator Drift Motor Tone: Normal Lower Extremities and Normal Upper Extremities Muscle Bulk/Involuntary Movements: No Involuntary Movements; negative Muscle Atrophy Sensation: Light Touch Intact and Proprioception Intact; negative Pain/Temperature Intact or Vibration Intact Coordination: Normal; negative Limited Balance, Dysdiadochokinesia, Finger-Nose Abnormal or Heel-Bhatti Abnormal Deep Tendon Reflexes: Rt Triceps: 1+, Lt Triceps: 1+, Rt Biceps: 1+, Lt Biceps: 1+, Rt Brachioradialis: 1+, Lt Brachioradialis: 1+, Rt Patellar: 1+, Lt Patellar: 1+, Rt Ankle: 0 and Lt Ankle: 0 Special Tests: negative Babinski Present Details: Gait cannot be tested in the context of patient's current neurological status. Results & Data ([facility]) Vital Signs (Past 12 Hours) Vital Signs Temp Pulse Resp BP Pulse Ox Pulse Ox O2 Del Method 09/21/22 08:53 94 09/21/22 08:41 Room Air 09/21/22 08:06 37.1 C 72 16 169/77 H 93 Room Air 09/21/22 02:26 36.6 C 67 18 105/53 L 93 Room Air 09/20/22 22:22 36.4 C L 73 18 160/75 H 93 Room Air O2 Flow Rate 09/21/22 08:53 0 09/21/22 08:41 09/21/22 08:06 09/21/22 02:26 09/20/22 22:22 Laboratory Results WBC 9.44, hemoglobin 11.3, hematocrit 34.5, platelet count 215, sodium 139, potassium 3.8, BUN 18, creatinine 0.74, glucose 148, AST 45, ALT 42, triglycerides 319, cholesterol 177, LDL 65, VLDL 64, HDL 48, TSH 2.603. Hemoglobin A1c from this past December was 7.9, up-to-date A1c pending. Diagnostic Findings CT of the head negative for hemorrhage or acute process. I did independently review the images. There is a lucency or hypodensity within the left anterior kristen which likely correlates with the history of ischemic infarct in this area is identified on brain MRI completed in November 2019. Results of additional previous imaging from November 2019 including MR angiography and carotid Dopplers as described in the HPI. Electrocardiogram revealed a sinus rhythm with occasional PVCs. An echocardiogram from November 2019 was technically limited, revealing mild concentric LVH, normal left ventricular systolic function, left atrium not well visualized. EF 60 to 65%. PG Care Time/CCT Total # of Minutes Spent Total Time Spent with Patient: Total time spent is greater than 50% in coordination of care (as documented) at patient's floor/unit and/or counseling patient: Coding Level of Care Code 71064 Initial Inpt Care Lvl 3 Diagnoses TIA (transient ischemic attack) G45.9
--- NOTE | 2022-09-21 11:16 | Electrocardiogram Report ---
Test Reason : Blood Pressure : / mmHG Vent. Rate : 076 BPM Atrial Rate : 076 BPM P-R Int : 168 ms QRS Dur : 074 ms QT Int : 412 ms P-R-T Axes : 051 007 004 degrees QTc Int : 463 ms Sinus rhythm with occasional Premature ventricular complexes Moderate voltage criteria for LVH, may be normal variant Borderline ECG When compared with ECG of 14-DEC-2019 06:28, Premature ventricular complexes are now Present T wave inversion now evident in Inferior leads Confirmed by Ezequiel Menjivar ([id number]) on 09/21/2022 11:16:26 AM Referred By: SHANELL PCP Confirmed By:Ezequiel Menjivar
--- NOTE | 2022-09-21 11:52 | XCELERA ---
[id number]
[2022-09-21] MEDS ORDERED: methylPREDNISolone 125 MG in SYRINGE 0 ML IV STA (13:54)
[2022-09-21] MEDS ORDERED: diphenhydrAMINE Capsule 25 MG CAP PO ONE (13:54)
--- NOTE | 2022-09-21 14:01 | Hospitalist Progress Note ---
Date of Service September 21, 2022 Assessment & Plan (1) TIA (transient ischemic attack): Plan: Aphasia has completely resolved. Neurology consultation appreciated. The patient cannot undergo MRI/MRA due to claustrophobia. She has an allergy to contrast dye. She will be premedicated prior to head and neck CTA. Cardiac echo with bubble study ordered and pending. 30-day MCOT will be ordered at discharge. (2) Diabetes mellitus, type II: Plan: ADA diet. Basal insulin therapy. Sliding scale coverage as needed while hospitalized (3) HTN (hypertension): Plan: Patient is on amlodipine 10 clonidine 1 twice daily Lasix 20 as needed lisinopril 5 (4) WPW (Cnpmo-Wzogagspl-Hckum syndrome): Plan: Patient has a history of an ablation. Telemetry. TSH normal. (5) Depression: Plan: Treated and stable with lexapro 5 mg (6) Dyslipidemia: Plan: atrovastatin therapy. Low-fat diet Plan Anticipate eventual discharge to home. Hopefully tomorrowSeptember 22 Admission and Anticipated Discharge Date Admission Date: September 20, 2022 Subjective Alert and oriented. Aphasia has completely resolved. Neurology consultation appreciated. We will premedicate prior to head and neck CTA. She cannot undergo MRI scanning due to claustrophobia. 30-day M cot will be ordered at discharge. Hopefully she can go home tomorrowSeptember 22 Review of Systems Review of Systems: Constitutional-no fever or chills ENT-no blurred vision, no double vision, no epistaxis, no sore throat Respiratory-no cough, no wheezing, no shortness of breath Cardiac-no palpitations, no chest pain, no syncope GI-no nausea, vomiting, diarrhea, melena, hematochezia -no urinary retention, no urinary incontinence, no dysuria, no hematuria Musculoskeletal-no joint pain, no muscle tenderness Skin-no bruising, no rashes, no pruritus Neuro-no isolated weakness, no paresthesia, no weakness Psych-no depression, no anxiety Physical Exam Physical Exam: General-alert and oriented x3, no fevers, no chills HEENT-head atraumatic and normocephalic, pupils equal and reactive to light, extraocular muscles intact Neck-no lymphadenopathy or thyromegaly, trachea midline Chest-clear to auscultation percussion. No rales wheezing or rhonchi Cardiac-regular rate and rhythm, normal S1 and S2, no murmurs Abdomen-normal bowel sounds, nontender, no hepatosplenomegaly Extremities-no cyanosis, clubbing, or edema Neuro-cranial nerves II through XII intact, motor and sensory function within normal limits, strength symmetrical , no focal deficits Psych-normal affect, normal mood Results & Data Results & Data ([facility]) Vital Signs (Past 12 Hours) Vital Signs Temp Pulse Resp BP Pulse Ox Pulse Ox O2 Del Method 09/21/22 12:20 36.4 C L 76 17 120/68 93 Room Air 09/21/22 08:53 94 09/21/22 08:41 Room Air 09/21/22 08:06 37.1 C 72 16 169/77 H 93 Room Air 09/21/22 02:26 36.6 C 67 18 105/53 L 93 Room Air O2 Flow Rate 09/21/22 12:20 09/21/22 08:53 0 09/21/22 08:41 09/21/22 08:06 09/21/22 02:26 Laboratory Results 09/21/22 06:15 09/21/22 06:15 PG Care Time/CCT Total # of Minutes Spent Total Time Spent with Patient: Total time spent is greater than 50% in coordination of care (as documented) at patient's floor/unit and/or counseling patient: Coding Level of Care Code 75013 Subseq Hosp Care Lvl 3 Diagnoses TIA (transient ischemic attack) G45.9 Diabetes mellitus, type II E11.9 HTN (hypertension) I10 Hypertension type: unspecified WPW (Ygrnm-Xjscgolfy-Mimuy syndrome) I45.6 Depression F32.A Dyslipidemia E78.5 (1) HTN (hypertension) Hypertension type: unspecified Qualified Code(s): I10 - Essential (primary) hypertension
--- NOTE | 2022-09-21 15:08 | Discharge Summary ---
Date of Service September 21, 2022 Admission HPI Per Admitting Provider 77-year-old female with a history of hypertension diabetes dyslipidemia and previous stroke who presents after having between 30 and 60-minute period of aphasia at home. Patient had resolution of symptoms upon arrival. Initial evaluation was unremarkable however the patient has a dye allergy and IV contrast could not be used as it is a respiratory allergy. CT head without contrast was negative and pending MRI. 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 and her daughter says lately she has been having some symptoms reminiscent of what she had prior to her ablation her ablation was at least 10 years or more ago performed by [facility] [place] [facility] any physician group patient cannot recall who during the event today the patient does not complain of any palpitations initial troponin and EKG are unremarkable there are no delta wave seen Principal Diagnosis TIA with transient aphasia Discharge Exam General-alert and oriented x3, no fevers, no chills HEENT-head atraumatic and normocephalic, pupils equal and reactive to light, extraocular muscles intact Neck-no lymphadenopathy or thyromegaly, trachea midline Chest-clear to auscultation percussion. No rales wheezing or rhonchi Cardiac-regular rate and rhythm, normal S1 and S2, no murmurs Abdomen-normal bowel sounds, nontender, no hepatosplenomegaly Extremities-no cyanosis, clubbing, or edema Neuro-cranial nerves II through XII intact, motor and sensory function within normal limits, strength symmetrical , no focal deficits Psych-normal affect, normal mood Discharge Data Allergies Allergy/AdvReac Type Severity Reaction Status Date / Time Sulfa (Sulfonamide Allergy Intermediate "SULFA Verified 09/20/22 20:03 Antibiotics) DRUGS": SWELLS iodine Allergy Mild SWELLING, Verified 09/20/22 20:03 ITCHING,RED AND NAUSEA W/CONTRAST DYE (FEEL FUNNY) Egg Derived Allergy Unknown DIARRHEA,ABD Verified 09/20/22 20:03 PAIN Iodinated Contrast Media Allergy Unknown HOT FLASH Verified 09/20/22 20:03 AND RASH shellfish derived Allergy Unknown SWELLING Verified 09/20/22 20:03 AND VOMITING shrimp Allergy Unknown SWELLING Verified 09/20/22 20:03 AND NAUSEA WITH SHRIMP AND SHELLFISH codeine AdvReac Unknown VOMITING Verified 09/20/22 20:03 egg AdvReac Unknown DIARRHEA Verified 09/20/22 20:03 vaccines Allergy Difficulty Uncoded 09/20/22 20:08 Breathing,Rash Consultations 09/20/22 18:08 ED Decision to Admit Stat 09/20/22 20:57 Consult Neurology Routine Ordered Studies 09/20/22 16:26 CT head/brain wo con Stat 09/21/22 13:54 CTA head w con [CT angio head w con] Routine CTA neck with con [CT angio neck with con] Routine 09/21/22 18:08 MR brain wo con Routine 09/21/22 20:57 MR angio head wo con Urgent MR angio neck wo con Routine Hospital Course (1) TIA (transient ischemic attack): Aphasia has completely resolved. Neurology consultation appreciated. The patient cannot undergo MRI/MRA due to claustrophobia. She has an allergy to contrast dye. She has also refused CT angiography. Cardiac echo with bubble study ordered and pending. 30-day MCOT will be ordered at discharge. (2) Diabetes mellitus, type II: ADA diet. Basal insulin therapy. Sliding scale coverage as needed while hospitalized . Will resume usual diabetic regimen at discharge (3) HTN (hypertension): Patient is on amlodipine 10 clonidine 1 twice daily Lasix 20 as needed lisinopril 5 (4) WPW (Lihrr-Tcrvzzite-Obtyp syndrome): Patient has a history of an ablation. Telemetry. TSH normal. (5) Depression: Treated and stable with lexapro 5 mg (6) Dyslipidemia: atrovastatin therapy. Low-fat diet Plan The patient and her daughter state that they want to go home today, September 21. She is refusing any further testing. She will be discharged. 30-day environmental manager offered at the time of discharge but on not sure they will follow-up with it. Anticipate eventual discharge to home. Hopefully tomorrow, September 22 Total Time Total Time Spent Total Time Spent (In Minutes): 35 minutes Discharge Plan Discharge Items Patient Disposition: Home - Self-Care Reason For Visit: TIA Discharge Diagnosis: TIA with aphasia Activity: Resume your previous activity Non-emergency contact: Primary Care Provider Call non-emergency contact if: you have any medication questions and your symptoms worsen Follow-up/Referrals: Mary Dickerson MD [Primary Care Provider] - Diet: Carb Consistent or DM2 and Heart Healthy Addtl Attending Provider Instructions: Low-dose aspirin therapy is new. 30-day heart monitor after discharge is recommended Pending Studies at Discharge: No Stand-Alone Forms: My [facility] [employer], Smoking Cessation Medications and DC Order Prescriptions: New aspirin 81 mg Tablet,Delayed Release (Dr/Ec) 81 mg PO QAM Qty: 30 0RF Continued (DME) pen needle, diabetic [Easy Comfort Pen [place]] 31 gauge x 5/16" needle See Rx Instructions .ROUTE .MEDSUPPLY Qty: 100 1RF Rx Instructions: As directed QHS with Basaglar E11.69, E11.59 tramadol 50 mg tablet 50 mg PO Q6H PRN (Reason: pain) Qty: 30 0RF pregabalin 50 mg capsule 50 mg PO TID Qty: 270 1RF escitalopram oxalate 5 mg tablet 5 mg PO DAILY Qty: 30 3RF glimepiride 2 mg tablet 2 mg PO DAILY Qty: 30 5RF lorazepam 1 mg tablet 1 mg PO BID PRN (Reason: anxiety) Qty: 30 0RF amlodipine 10 mg tablet 10 mg PO DAILY Qty: 90 1RF (DME) OneTouch Ultra Blue Test Strip Strip See Rx Instructions .ROUTE .MEDSUPPLY Qty: 100 2RF Rx Instructions: As directed; test twice a day once fasting. Dx: E11.9 (DME) blood-glucose meter [OneTouch Ultra2 Meter] Misc See Rx Instructions .ROUTE .MEDSUPPLY Qty: 1 0RF Rx Instructions: As directed; test twice a day once fasting Dx: E11.9 (DME) lancets [OneTouch Delica Lancets] 33 gauge misc See Rx Instructions .ROUTE .MEDSUPPLY Qty: 100 2RF Rx Instructions: As directed; test twice a day once fasting. Dx: ELL.9 atorvastatin 40 mg tablet 40 mg PO QPM Qty: 90 1RF clonidine HCl 0.1 mg tablet 0.1 mg PO BID Qty: 180 1RF clopidogrel 75 mg tablet 75 mg PO DAILY Qty: 90 1RF lansoprazole [Prevacid] 30 mg capsule,delayed release(DR/EC) 30 mg PO QAM Qty: 90 1RF lisinopril 5 mg tablet 5 mg PO DAILY Qty: 90 1RF furosemide 20 mg tablet 40 mg PO QAM furosemide 20 mg tablet 20 mg PO QPM nitroglycerin [Nitrostat] 0.4 mg tablet, sublingual 0.4 mg Sublingual .PRN/UD PRN (Reason: Chest Pain) Rx Instructions: as needed for chest pain : one tablet under the tongue, every five minutes up to 3 doses. Discharge Orders: Discharge Order (Routine); Ordered 09/21/22 Ordered By: Checo Zafar Admission Data Admit Date/Time: 09/20/22 18:32 Attending Provider: Checo Zafar Admit Provider: Khris Jackson Primary Care Provider: Mary Dickerson Other Providers: Khris Jackson ; Mani Elizondo Coding Level of Care Code D/C DAY MANAGEMENT >30 MINS Diagnoses TIA (transient ischemic attack) G45.9 Diabetes mellitus, type II E11.9 HTN (hypertension) I10 Hypertension type: unspecified WPW (Jfkei-Qejpexndh-Sixha syndrome) I45.6 Depression F32.A Dyslipidemia E78.5
[2022-09-21] MEDS ORDERED: STROKE PATIENT DISCHARGE STA (15:10)
--- NOTE | 2022-09-21 15:38 | Discharge Summary ---
Date of Service September 21, 2022 Admission HPI Per Admitting Provider 77-year-old female with a history of hypertension diabetes dyslipidemia and previous stroke who presents after having between 30 and 60-minute period of aphasia at home. Patient had resolution of symptoms upon arrival. Initial evaluation was unremarkable however the patient has a dye allergy and IV contrast could not be used as it is a respiratory allergy. CT head without contrast was negative and pending MRI. 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 and her daughter says lately she has been having some symptoms reminiscent of what she had prior to her ablation her ablation was at least 10 years or more ago performed by [facility] any physician group patient cannot recall who during the event today the patient does not complain of any palpitations initial troponin and EKG are unremarkable there are no delta wave seen Principal Diagnosis TIA, UTI Discharge Data Allergies Allergy/AdvReac Type Severity Reaction Status Date / Time Sulfa (Sulfonamide Allergy Intermediate "SULFA Verified 09/20/22 20:03 Antibiotics) DRUGS": SWELLS iodine Allergy Mild SWELLING, Verified 09/20/22 20:03 ITCHING,RED AND NAUSEA W/CONTRAST DYE (FEEL FUNNY) Egg Derived Allergy Unknown DIARRHEA,ABD Verified 09/20/22 20:03 PAIN Iodinated Contrast Media Allergy Unknown HOT FLASH Verified 09/20/22 20:03 AND RASH shellfish derived Allergy Unknown SWELLING Verified 09/20/22 20:03 AND VOMITING shrimp Allergy Unknown SWELLING Verified 09/20/22 20:03 AND NAUSEA WITH SHRIMP AND SHELLFISH codeine AdvReac Unknown VOMITING Verified 09/20/22 20:03 egg AdvReac Unknown DIARRHEA Verified 09/20/22 20:03 vaccines Allergy Difficulty Uncoded 09/20/22 20:08 Breathing,Rash Consultations 09/20/22 18:08 ED Decision to Admit Stat 09/20/22 20:57 Consult Neurology Routine Ordered Studies 09/20/22 16:26 CT head/brain wo con Stat Total Time Total Time Spent Total Time Spent (In Minutes): 35 minutes Discharge Plan Discharge Items Patient Disposition: Home - Self-Care Reason For Visit: TIA Discharge Diagnosis: TIA with aphasia Activity: Resume your previous activity Non-emergency contact: Primary Care Provider Call non-emergency contact if: you have any medication questions and your symptoms worsen Follow-up/Referrals: Mary Dickerson MD [Primary Care Provider] - Diet: Carb Consistent or DM2 and Heart Healthy Addtl Attending Provider Instructions: Low-dose aspirin therapy is new. 30-day heart monitor after discharge is recommended Pending Studies at Discharge: No Stand-Alone Forms: My [facility], Smoking Cessation, Medications to Prevent Stroke Medications and DC Order Prescriptions: New aspirin 81 mg Tablet,Delayed Release (Dr/Ec) 81 mg PO QAM Qty: 30 0RF cephalexin 250 mg capsule 250 mg PO TID Qty: 10 0RF Continued (DME) pen needle, diabetic [Easy Comfort Pen [place]] 31 gauge x 5/16" needle See Rx Instructions .ROUTE .MEDSUPPLY Qty: 100 1RF Rx Instructions: As directed QHS with Basaglar E11.69, E11.59 tramadol 50 mg tablet 50 mg PO Q6H PRN (Reason: pain) Qty: 30 0RF pregabalin 50 mg capsule 50 mg PO TID Qty: 270 1RF escitalopram oxalate 5 mg tablet 5 mg PO DAILY Qty: 30 3RF glimepiride 2 mg tablet 2 mg PO DAILY Qty: 30 5RF lorazepam 1 mg tablet 1 mg PO BID PRN (Reason: anxiety) Qty: 30 0RF amlodipine 10 mg tablet 10 mg PO DAILY Qty: 90 1RF (DME) blood sugar diagnostic Strip See Rx Instructions .ROUTE .MEDSUPPLY Qty: 100 2RF Rx Instructions: As directed; test twice a day once fasting. Dx: E11.9 (DME) blood-glucose meter [OneTouch Ultra2 Meter] [facility] [place] See Rx Instructions .ROUTE .MEDSUPPLY Qty: 1 0RF Rx Instructions: As directed; test twice a day once fasting Dx: E11.9 (DME) lancets [OneTouch Delica Lancets] 33 gauge misc See Rx Instructions .ROUTE .MEDSUPPLY Qty: 100 2RF Rx Instructions: As directed; test twice a day once fasting. Dx: ELL.9 atorvastatin 40 mg tablet 40 mg PO QPM Qty: 90 1RF clonidine HCl 0.1 mg tablet 0.1 mg PO BID Qty: 180 1RF clopidogrel 75 mg tablet 75 mg PO DAILY Qty: 90 1RF lansoprazole [Prevacid] 30 mg capsule,delayed release(DR/EC) 30 mg PO QAM Qty: 90 1RF lisinopril 5 mg tablet 5 mg PO DAILY Qty: 90 1RF furosemide 20 mg tablet 40 mg PO QAM furosemide 20 mg tablet 20 mg PO QPM nitroglycerin [Nitrostat] 0.4 mg tablet, sublingual 0.4 mg Sublingual .PRN/UD PRN (Reason: Chest Pain) Rx Instructions: as needed for chest pain : one tablet under the tongue, every five minutes up to 3 doses. Discharge Orders: Discharge Order (Routine); Ordered 09/21/22 Ordered By: Checo Zafar Admission Data Admit Date/Time: 09/20/22 18:32 Attending Provider: Checo Zafar Admit Provider: Khris Jackson Primary Care Provider: Mary Dickerson Other Providers: Khris Jackson ; Mani Elizondo Other Interventions: Discharge Summary Assessment (RN) Last Done: 09/21/22 15:15 Coding Level of Care Code D/C DAY MANAGEMENT >30 MINS
[2022-09-21] MEDS ORDERED: FUROSEMIDE 20 MG TAB PO SCH (17:00)
[2022-09-22 06:52] LABS: Estimated Average Glucose 197 mg/dl; Hemoglobin A1C 8.5 % (4.5-5.6)
--- NOTE | 2022-09-24 12:06 | Pharmacy Report ---
Pharmacist Stroke Counseling - Date of Service September 24, 2022 - Scope: Pharmacy has been consulted to provide medication discharge counseling for this patient admitted with transient ischemic attack as per the Pharmacist Discharge Counseling for Stroke Patients Protocol. - Medications on Discharge: Home Medications Medication Instructions Recorded Confirmed furosemide 20 mg tablet 20 mg PO QPM 09/20/22 09/20/22 furosemide 20 mg tablet 40 mg PO QAM 09/20/22 09/20/22 nitroglycerin 0.4 mg sublingual 0.4 mg sublingual .PRN/UD PRN 09/20/22 09/20/22 tablet (Nitrostat) Chest Pain New Rx's Medication Instructions Recorded pen needle, diabetic 31 gauge x #100 ea 01/16/21 5/16" (Easy Comfort Pen [place]) tramadol 50 mg tablet 50 mg PO Q6H PRN pain #30 tabs 05/15/21 blood sugar diagnostic #100 ea 11/21/21 blood-glucose meter (OneTouch #1 ea 11/21/21 Ultra2 Meter) lancets 33 gauge (OneTouch Delica #100 ea 11/21/21 Lancets) atorvastatin 40 mg tablet 40 mg PO QPM #90 tabs 03/10/22 clonidine HCl 0.1 mg tablet 0.1 mg PO BID #180 tabs 03/10/22 clopidogrel 75 mg tablet 75 mg PO DAILY #90 tabs 03/10/22 lansoprazole 30 mg capsule,delayed 30 mg PO QAM #90 caps 03/10/22 release (Prevacid) lisinopril 5 mg tablet 5 mg PO DAILY #90 tabs 03/10/22 pregabalin 50 mg capsule 50 mg PO TID #270 caps 07/24/22 escitalopram oxalate 5 mg tablet 5 mg PO DAILY #30 tabs 07/28/22 amlodipine 10 mg tablet 10 mg PO DAILY #90 tabs 09/15/22 glimepiride 2 mg tablet 2 mg PO DAILY #30 tabs 09/15/22 lorazepam 1 mg tablet 1 mg PO BID PRN anxiety #30 tabs 09/15/22 aspirin 81 mg tablet,delayed 81 mg PO QAM #30 tabs 09/21/22 release cephalexin 250 mg capsule 250 mg PO TID #10 caps 09/21/22 - Action: The above medications, specifically ones for stroke treatment/prophylaxis, have been reviewed in detail with the patient via phone call post-discharge. - Outcome: The patient has demonstrated understanding of the medications. Additional comments: * Discussed aspirin + clopidogrel for 3 weeks only with plan to stop aspirin after that time. Patient was already aware of this plan. * Discussed importance of atorvastatin * Discussed likely benefit to diabetes medication that also has cardiovascular benefit and that patient is *not* currently prescribed one. Noted that the best provider to decide which would be best for her long-term is not the hospitalist but is instead her PCP. Encouraged her to follow up with her PCP and noted that the medications for both diabetes and stroke/TIA were listed in her discharge packet on the "Medications to prevent stroke" page. Thank you for allowing pharmacy to be involved in the care of this patient.
== END 2022-09-21 16:00 | disposition home or self-care (01) | DRG 69 ==
LOC: ED 15:52 → SUATTDRO 18:32 → 2S 18:32

== ENCOUNTER 2022-10-08 16:55 | Inpatient (IN) ==
[2022-10-08] MEDS ORDERED: SODIUM CHLORIDE 0.9% 1000ML 1,000 ML IV SCH (17:15)
[2022-10-08] MEDS ORDERED: ACETAMINOPHEN 1,000 MG/100 ML VIAL IV STA (17:25)
[2022-10-08] MEDS ORDERED: ONDANSETRON INJ 2 MG/ML 2 ML VIAL IV STA (17:25)
[2022-10-08 17:29] LABS: Basophils # (auto) 0.05 K/uL (0-0.2); Basophils % (auto) 0.3 %; Eosinophils # (auto) 0.06 K/uL (0-0.50); Eosinophils % (auto) 0.4 %; Hematocrit (blood only) 39.2 % (34.1-44.9); Hemoglobin 13.2 g/dl (12.0-16.0); Immature Granulocytes # (auto) 0.05 K/uL (0.00-0.02); Immature Granulocytes % (auto) 0.3 %; Lymphocytes # (auto) 2.81 K/uL (1.2-3.4); Lymphocytes % (auto) 18.9 %; Mean Corpuscular Hemoglobin 27.6 pg (25.0-34.0); Mean Corpuscular Hgb Conc 33.7 g/dL (32.0-36.0); Mean Corpuscular Volume 81.8 fL (80.0-100.0); Mean Platelet Volume 10.3 fL (9.4-12.3); Monocytes # (auto) 1.47 K/uL (0.24-0.82); Monocytes % (auto) 9.9 %; Neutrophils # (auto) 10.44 K/uL (1.4-6.5); Neutrophils % (auto) 70.2 %; Platelet Count 245 K/uL (130-400); RDW Coefficient of Variation 14.9 % (11.5-14.5); RDW Standard Deviation 44.9 fL (36.4-46.3); Red Blood Count 4.79 M/uL (3.93-5.22); White Blood Count 14.88 K/ul (4.8-10.8)
[2022-10-08 17:55] LABS: Albumin Globulin Ratio 1.3 (0.9-2); Albumin Level 4.3 gm/dl (3.4-5.0); BUN Creatinine Ratio 17.3 (10-20); Bilirubin,Total 0.6 mg/dl (0.2-1.0); Calcium 9.1 mg/dl (8.5-10.1); Creatinine Clr Calc Pharmacy 59.5 ml/min; Est GFR (African American) 80.1 ml/min; Est GFR (Non-African American) 69.1 ml/min; Globulin 3.3 gm/dl (2.5-4.0); Magnesium 1.2 mg/dl (1.7-2.4); Potassium 3.6 mmol/L (3.5-5.1); Total Protein 7.6 gm/dl (6.0-8.3)
[2022-10-08 17:58] LABS: Troponin I High Sensitivity 5.8 pg/ml (0-14)
--- NOTE | 2022-10-08 18:05 | CT Scan Report ---
CT head/brain wo con CLINICAL HISTORY: syncope, right arm weakness Technique: Contiguous axial CT images of the head were acquired from the base of the skull to the jens matias without intravenous contrast administration. Images were viewed in brain, subdural and [facility]. Automated dose lowering techniques and/or adjustment according to patient size were utilized for this exam. Comparison: Comparison is made to CT head 09/20/2022 Findings: The ventricles, basal cisterns, and cerebral sulci are normal. There is no acute intracranial hemorrh age or evidence of acute territorial infarction. Neither mass effect, shift of the midline structures , nor abnormal extra-axial fluid collections are shown. Imaged portions of the paranasal sinuses and mastoid air cells are clear. The orbits appear normal. There are no acute fractures of the calvaria or scalp swelling. Impression: No acute intracranial hemorrhage, no evidence of acute territorial infarction or other acute intracra nial disease process. ACT 112: Negative or not required by law. Electronically signed by: Everett Nation M.D. 10/08/2022 6:03 PM
[2022-10-08] MEDS ORDERED: MAGNESIUM SULFATE / D5W 1 GM/100 ML BAG IV ONE (18:07)
--- NOTE | 2022-10-08 18:12 | Emergency Department Note ---
Impression & Plan Syncope and collapse, Acute hypotension, Acute pain of right wrist, Hypomagnesemia ED Provider Note INFORMANT: Patient ED PROVIDER(S): Abelardo Dill MD CHIEF COMPLAINT: Syncope PLAN: Disposition: Admitted Condition: Good Outpatient prescription management: none Referral: None MEDICAL DECISION MAKING: Patient presented because of syncope. A work-up was initiated. Head CT was negative. The patient was hydrated. She was given Zofran as well. The patient was given IV Tylenol due to the pain in her wrist and the nausea. The patient underwent laboratory testing which revealed a mild leukocytosis. Chemistry panel was unremarkable. Lyme testing pending. The patient does have very low magnesium. She was given IV magnesium in the emergency department. In light of her history and the events of today further management in the hospital was deemed appropriate. Consultation was made with Dr. Massimo Hoffman of the [facility] service. Patient was evaluated in the ER for further management. Triage Nursing notes reviewed and agree them. Vital Signs: reviewed and remarkable for no significant abnormalities Differential diagnosis: Vasovagal event, dehydration, infection, hypoglycemia, electrolyte abnorma lities, cardiac sources, intracerebral event, pulmonary embolism, seizure, toxicologic, neurologic, as well as other pathologies. Diagnostics interpreted by me: EC Lead ECG performed and revealed Normal sinus rhythm at 90. LVH. normal [place], QRS normal. No elevation or depression. No PACs or PVCs Cardiac Monitoring: Cardiac monitoring ordered by me: The patient was placed on continuous cardiac monitoring and observed. It revealed a normal sinus rhythm at 71 beats per minute without ectopy or evidence of dysrhythmia. Imaging studies: Head CT: A noncontrast CT scan of the head was performed and was negative for tumor, fracture, intracranial hemorrhage, or other acute pathology. Chest x-ray. Findings: A chest x-ray was performed and revealed no pneumothorax, effusion, infiltrate, pulmonary edema, free air under the diaphragm, or wide mediastinum. Impression: No acute disease. X-ray imaging of the right wrist reveals significant degenerative changes. There is some mild scapholunate dissociation. No evidence of fracture. Radiology read pending. HPI: The patient is a 77year old female who presents to the Emergency Room with complaints of syncope. This started during her primary care visit today and is currently resolved. The patient was at the end of her appointment and was feeling lightheaded. She then had a syncopal episode. Her blood pressure was noted to be in the 70s. The patient had a sinus rhythm on ECG. EMS was [facility] and the patient was sent to the ER for evaluation. Patient did have an episode of nausea and vomiting as well. The patient also notes the following associated symptoms, right wrist and hand pain for the last 3 days. Denies any trauma. The patient has been given oral Zofran at the PCP office for relieving factors. Current pain is rated as 5/10. Pt denies LOC, headache, fevers, chills, diaphoresis, visual changes, neck pain, chest pain, breathing difficulties, nausea, vomiting, abdominal pain, back pain, melena, hematochezia, urinary symptoms, numbness, weakness, lymphadenopathy, rash, or other complaints. ROS: See above HPI for pertinent positives & negatives. A total of 10 systems reviewed and were otherwise negative. PAST MEDICAL HISTORY:See Below , CVA, TIA, WPW, hypertension PAST SURGICAL HISTORY:See Below, ablation FAMILY HISTORY:See Below SOCIAL HISTORY: see below, retired HOME MEDICATIONS:See Below ALLERGIES:See Below VITALS:See Below PHYSICAL EXAMINATION: GENERAL: Awake, tired-appearing, in no distress HENT: Normocephalic, atraumatic. Oropharynx unremarkable. EYES: Normal conjunctiva. Sclera non-icteric. PERRLA. EOMI. NECK: Inspection normal. Non-tender. Supple. No nuchal rigidity. FROM. No masses. RESPIRATORY: Clear to auscultation. No wheezes. No rales. Normal respiratory effort. CARDIAC: Normal rate. Normal rhythm. No murmurs. No rubs. Extremities warm and well perfused. Pulses equal. No JVD. GI: Soft, non-distended. No tenderness to palpation. No rebound or guarding. No masses. RECTAL: Deferred. MUSCULOSKELETAL: Atraumatic. There is some tenderness noted about the radial aspect of the right wrist with limited range of motion secondary to pain. No signs of erythema or warmth. No gross bony deformities appreciated. Chest examination reveals no tenderness. The back is symmetrical on inspection without obvious abnormality. There is no CVA tenderness to palpation. No joint edema. LOWER EXTREMITIES: Calves are equal size bilaterally and non-tender. No edema. No discoloration. NEURO: Normal sensorium. No sensory or motor deficits noted. No drift. Normal [id number]. Normal speech. SKIN: No rash or jaundice noted. Abelardo Dill MD Past Med/Surg History Medical History Abdominal pain Acute chest pain Bacteremia Contrast media allergy Fatigue H/O Clostridium difficile infection H/O: rheumatic fever Hemorrhoids History of CVA (cerebrovascular accident) Labile hypertension Left lower quadrant pain Lumbar stenosis with neurogenic claudication LVH (left ventricular hypertrophy) Nonobstructive atherosclerosis of coronary artery "Per cardiac cath May 2016" Small bowel obstruction Vasovagal near-syncope Vomiting WPW (Toabw-Rkqyipbcg-Jsswa syndrome) Surgical History H/O cardiac radiofrequency ablation History of bladder surgery History of herniorrhaphy Hx of hysterectomy S/P foot surgery S/P partial colectomy S/P ROMAN-BSO Family History Brother Colorectal cancer Prostate cancer Mother Myocardial infarction Other Cancer Diabetes Heart disease Hypertension Denies family history of Ovarian cancer Breast cancer Social History Smoking Status: Former smoker Tobacco Type: Cigarettes Age Started Using Tobacco: 32; Age Quit Using Tobacco: 33; Second Hand Exposure: No; Hx Alcohol Use: No Hx Substance Use: No Preferred Language: Syrian Communication Ability: Effective [employer] Supervisor Required: No Beliefs That Will Affect Care: None marital status: Current Living Situation: Family current occupational status: retired How many Children do You have: 3 Feels Safe at Home: Yes Childhood Exposure to Second-Hand Smoke: Yes caffeine: Yes Dental Care, Regularly: No Physical Activity Frequency: Does not Exercise Seatbelt Use: always Sunscreen Use: No Assistive Devices: Denture - Upper, Glasses and Walker Allergies Allergies Allergy/AdvReac Type Severity Reaction Status Date / Time Sulfa (Sulfonamide Allergy Intermediate "SULFA Verified 10/08/22 15:34 Antibiotics) DRUGS": SWELLS iodine Allergy Mild SWELLING, Verified 10/08/22 15:34 ITCHING,RED AND NAUSEA W/CONTRAST DYE (FEEL FUNNY) Egg Derived Allergy Unknown DIARRHEA,ABD Verified 10/08/22 15:34 PAIN Iodinated Contrast Media Allergy Unknown HOT FLASH Verified 10/08/22 15:34 AND RASH shellfish derived Allergy Unknown SWELLING Verified 10/08/22 15:34 AND VOMITING shrimp Allergy Unknown SWELLING Verified 10/08/22 15:34 AND NAUSEA WITH SHRIMP AND SHELLFISH codeine AdvReac Unknown VOMITING Verified 10/08/22 15:34 egg AdvReac Unknown DIARRHEA Verified 10/08/22 15:34 vaccines Allergy Difficulty Uncoded 10/08/22 15:34 Breathing,Rash Home Meds Home Medications Medication Instructions Recorded Confirmed furosemide 20 mg tablet 40 mg PO QAM 09/20/22 10/08/22 nitroglycerin 0.4 mg sublingual 0.4 mg sublingual .PRN/UD PRN 09/20/22 10/08/22 tablet (Nitrostat) Chest Pain Previous Rx's Medication Instructions Recorded pen needle, diabetic 31 gauge x #100 ea 01/16/21 5/16" (Easy Comfort Pen Ranger) blood sugar diagnostic #100 ea 11/21/21 blood-glucose meter ([employer]Touch #1 ea 11/21/21 Ultra2 Meter) lancets 33 gauge (OneTouch Delica #100 ea 11/21/21 Lancets) atorvastatin 40 mg tablet 40 mg PO QPM #90 tabs 03/10/22 clonidine HCl 0.1 mg tablet 0.1 mg PO BID #180 tabs 03/10/22 clopidogrel 75 mg tablet 75 mg PO DAILY #90 tabs 03/10/22 lansoprazole 30 mg capsule,delayed 30 mg PO QAM #90 caps 03/10/22 release (Prevacid) lisinopril 5 mg tablet 5 mg PO DAILY #90 tabs 03/10/22 pregabalin 50 mg capsule 50 mg PO TID #270 caps 07/24/22 escitalopram oxalate 5 mg tablet 5 mg PO DAILY #30 tabs 07/28/22 amlodipine 10 mg tablet 10 mg PO DAILY #90 tabs 09/15/22 glimepiride 2 mg tablet 2 mg PO DAILY #30 tabs 09/15/22 lorazepam 1 mg tablet 1 mg PO BID PRN anxiety #30 tabs 09/15/22 aspirin 81 mg tablet,delayed 81 mg PO QAM #30 tabs 09/21/22 release Results & Data (ED) Vital Signs Vital Signs - 24 hr 10/08/22 17:09 10/08/22 17:09 10/08/22 17:25 Temperature 36.6 C Temperature Source Oral Pulse Rate 91 H Pulse Rate [Apical] Pulse Rate from SpO2 Sensor Respiratory Rate 21 Blood Pressure 144/75 H Blood Pressure [Left Arm] Blood Pressure Mean 98 Blood Pressure Mean [Left Arm] Pulse Oximetry 92 92 92 Oxygen Delivery Method Room Air Room Air Room Air Sepsis Recent Fever Within 48 Hours No Sepsis New/Unexplained Change in Mental Status N/A Sepsis Action Taken by Nursing No Action Required 10/08/22 18:15 10/08/22 18:43 Temperature Temperature Source Pulse Rate 78 Pulse Rate [Apical] 71 Pulse Rate from SpO2 Sensor 76 Respiratory Rate 18 15 Blood Pressure 150/72 H Blood Pressure [Left Arm] 150/72 H Blood Pressure Mean 98 Blood Pressure Mean [Left Arm] 98 Pulse Oximetry 92 93 Oxygen Delivery Method Room Air Room Air Sepsis Recent Fever Within 48 Hours Sepsis New/Unexplained Change in Mental Status Sepsis Action Taken by Nursing Laboratory Data Result diagrams: 10/08/22 17:05 10/08/22 17:05 Lab Results 10/08/22 10/08/22 10/08/22 Range/Units 17:05 17:05 17:05 WBC 14.88 H (4.8-10.8) K/ul RBC 4.79 (3.93-5.22) M/uL Hgb 13.2 (12.0-16.0) g/dl Hct 39.2 (34.1-44.9) % MCV 81.8 (80.0-100.0) fL MCH 27.6 (25.0-34.0) pg MCHC 33.7 (32.0-36.0) g/dL RDW Std Deviation 44.9 (36.4-46.3) fL RDW Coeff of Carmen 14.9 H (11.5-14.5) % Plt Count 245 (130-400) K/uL MPV 10.3 (9.4-12.3) fL Immature Gran % (Auto) 0.3 % Neut % (Auto) 70.2 % Lymph % (Auto) 18.9 % Sutter % (Auto) 9.9 % Eos % (Auto) 0.4 % Baso % (Auto) 0.3 % Neut # (Auto) 10.44 H (1.4-6.5) K/uL Lymph # (Auto) 2.81 (1.2-3.4) K/uL Sutter # (Auto) 1.47 H (0.24-0.82) K/uL Eos # (Auto) 0.06 (0-0.50) K/uL Baso # (Auto) 0.05 (0-0.2) K/uL Immature Gran # (Auto) 0.05 H (0.00-0.02) K/uL Sodium 136 (136-145) mmol/L Potassium 3.6 (3.5-5.1) mmol/L Chloride 100 (98-107) mmol/L Carbon Dioxide 26 (21-32) mmol/L Anion Gap 10 (3-11) BUN 14 (6-23) mg/dl Creatinine 0.81 (0.6-1.2) mg/dl Est Cr Clr Drug Dosing 59.5 ml/min Est GFR ( Amer) 80.1 ml/min Est GFR (Non-Af Amer) 69.1 ml/min BUN/Creatinine Ratio 17.3 (10-20) Glucose 223 H (70-99(Fasting)) mg/dl Uric Acid (2.6-7.2) mg/dl Calcium 9.1 (8.5-10.1) mg/dl Magnesium 1.2 L (1.7-2.4) mg/dl Total Bilirubin 0.6 (0.2-1.0) mg/dl AST 18 (13-39) U/L ALT 18 (7-52) U/L Alkaline Phosphatase 68 (34-104) U/L Troponin I High Sens 5.8 (0-14) pg/ml Total Protein 7.6 (6.0-8.3) gm/dl Albumin 4.3 (3.4-5.0) gm/dl Globulin 3.3 (2.5-4.0) gm/dl Albumin/Globulin Ratio 1.3 (0.9-2) TSH 2.638 (0.300-4.500) uIu/ml Lyme Disease IgG Ab (Negative) Lyme Disease IgM Ab (Negative) SARS-CoV-2 (PCR) (Negative) Influenza Type A (PCR) (Neg) Influenza Type B (PCR) (Neg) RSV (RT-PCR) (Neg) 10/08/22 10/08/22 10/08/22 Range/Units 17:05 17:05 18:09 WBC (4.8-10.8) K/ul RBC (3.93-5.22) M/uL Hgb (12.0-16.0) g/dl Hct (34.1-44.9) % MCV (80.0-100.0) fL MCH (25.0-34.0) pg MCHC (32.0-36.0) g/dL RDW Std Deviation (36.4-46.3) fL RDW Coeff of Carmen (11.5-14.5) % Plt Count (130-400) K/uL MPV (9.4-12.3) fL Immature Gran % (Auto) % Neut % (Auto) % Lymph % (Auto) % Sutter % (Auto) % Eos % (Auto) % Baso % (Auto) % Neut # (Auto) (1.4-6.5) K/uL Lymph # (Auto) (1.2-3.4) K/uL Sutter # (Auto) (0.24-0.82) K/uL Eos # (Auto) (0-0.50) K/uL Baso # (Auto) (0-0.2) K/uL Immature Gran # (Auto) (0.00-0.02) K/uL Sodium (136-145) mmol/L Potassium (3.5-5.1) mmol/L Chloride (98-107) mmol/L Carbon Dioxide (21-32) mmol/L Anion Gap (3-11) BUN (6-23) mg/dl Creatinine (0.6-1.2) mg/dl Est Cr Clr Drug Dosing ml/min Est GFR ( Amer) ml/min Est GFR (Non-Af Amer) ml/min BUN/Creatinine Ratio (10-20) Glucose (70-99(Fasting)) mg/dl Uric Acid 5.1 (2.6-7.2) mg/dl Calcium (8.5-10.1) mg/dl Magnesium (1.7-2.4) mg/dl Total Bilirubin (0.2-1.0) mg/dl AST (13-39) U/L ALT (7-52) U/L Alkaline Phosphatase (34-104) U/L Troponin I High Sens (0-14) pg/ml Total Protein (6.0-8.3) gm/dl Albumin (3.4-5.0) gm/dl Globulin (2.5-4.0) gm/dl Albumin/Globulin Ratio (0.9-2) TSH (0.300-4.500) uIu/ml Lyme Disease IgG Ab Negative (Negative) Lyme Disease IgM Ab Negative (Negative) SARS-CoV-2 (PCR) NEGATIVE (Negative) Influenza Type A (PCR) Negative (Neg) Influenza Type B (PCR) Negative (Neg) RSV (RT-PCR) Negative (Neg) Administered Medications Sodium Chloride (Nss 1000ml) 1,000 mls @ 125 mls/hr IV .Q8H MARY Stop: 10/09/22 01:14 Last Admin: 10/08/22 17:41 Dose: 125 mls/hr Documented By: ML Discontinued Medications Acetaminophen (Ofirmev) 1,000 mg in 100 mls @ 400 mls/hr IV NOW STA Stop: 10/08/22 17:39 Last Infusion: 10/08/22 17:57 Dose: 0 mls/hr Documented By: Admin: 10/08/22 17:42 Dose: 400 mls/hr Documented By: ML Magnesium Sulfate/Dextrose (Magnesium Sulfate / D5w) 1 gm in 100 mls @ 50 mls/hr IV ONE ONE Stop: 10/08/22 20:06 Last Admin: 10/08/22 18:17 Dose: 50 mls/hr Documented By: NH Ondansetron HCl (Ondansetron Inj 2 Mg/Ml 2 Ml Vial) 4 mg IV NOW STA Stop: 10/08/22 17:26 Last Admin: 10/08/22 17:41 Dose: 4 mg Documented By: ML Imaging Data Radiologist's Impression: Chest X-Ray 10/08/22 17:16 XR chest 1V portable CLINICAL HISTORY: weakness TECHNIQUE: Single frontal radiograph of the chest was obtained. Comparison: Comparison is made to chest radiograph 09/20/2022 FINDINGS: No lines and tubes are seen. The cardiomediastinal silhouette is normal. The lungs are clear. No evidence of pleural effusion or pneumothorax. IMPRESSION: No acute chest disease. ACT 112: Negative or not required by law. Electronically signed by: Everett Nation M.D. 10/08/2022 6:[address] 10/08/22 17:25 CT head/brain wo con CLINICAL HISTORY: syncope, right arm weakness Technique: Contiguous axial CT images of the head were acquired from the base of the skull to the vertex without intravenous contrast administration. Images were viewed in brain, subdural and bone windows. Automated dose lowering techniques and/or adjustment according to patient size were utilized for this exam. Comparison: Comparison is made to CT head 09/20/2022 Findings: The ventricles, basal cisterns, and cerebral sulci are normal. There is no acute intracranial hemorrhage or evidence of acute territorial infarction. Neither mass effect, shift of the midline structures, nor abnormal extra-axial fluid collections are shown. Imaged portions of the paranasal sinuses and mastoid air cells are clear. The orbits appear normal. There are no acute fractures of the calvaria or scalp swelling. Impression: No acute intracranial hemorrhage, no evidence of acute territorial infarction or other acute intracranial disease process. ACT 112: Negative or not required by law. Electronically signed by: Everett Nation M.D. 10/08/2022 6:03 PM Discharge Plan Visit Data Chief Complaint: Syncope ED Provider: Abelardo Dill Discharge Problem: Syncope and collapse, Acute hypotension, Acute pain of right wrist, Hypomagnesemia Forms Stand Alone Forms: [facility] [place] [employer] Prescriptions Prescriptions: No Action (DME) pen needle, diabetic [Easy Comfort Pen Ranger] 31 gauge x 5/16" needle See Rx Instructions .ROUTE .MEDSUPPLY Qty: 100 1RF Rx Instructions: As directed QHS with Basaglar E11.69, E11.59 pregabalin 50 mg capsule 50 mg PO TID Qty: 270 1RF escitalopram oxalate 5 mg tablet 5 mg PO DAILY Qty: 30 3RF glimepiride 2 mg tablet 2 mg PO DAILY Qty: 30 5RF lorazepam 1 mg tablet 1 mg PO BID PRN (Reason: anxiety) Qty: 30 0RF amlodipine 10 mg tablet 10 mg PO DAILY Qty: 90 1RF (DME) blood sugar diagnostic Strip See Rx Instructions .ROUTE .MEDSUPPLY Qty: 100 2RF Rx Instructions: As directed; test twice a day once fasting. Dx: E11.9 (DME) blood-glucose meter [OneTouch Ultra2 Meter] [facility] [place] See Rx Instructions .ROUTE .MEDSUPPLY Qty: 1 0RF Rx Instructions: As directed; test twice a day once fasting Dx: E11.9 (DME) lancets [OneTouch Delica Lancets] 33 gauge [facility] [place] See Rx Instructions .ROUTE .MEDSUPPLY Qty: 100 2RF Rx Instructions: As directed; test twice a day once fasting. Dx: ELL.9 atorvastatin 40 mg tablet 40 mg PO QPM Qty: 90 1RF clonidine HCl 0.1 mg tablet 0.1 mg PO BID Qty: 180 1RF clopidogrel 75 mg tablet 75 mg PO DAILY Qty: 90 1RF lansoprazole [Prevacid] 30 mg capsule,delayed release(DR/EC) 30 mg PO QAM Qty: 90 1RF lisinopril 5 mg tablet 5 mg PO DAILY Qty: 90 1RF furosemide 20 mg tablet 40 mg PO QAM nitroglycerin [Nitrostat] 0.4 mg tablet, sublingual 0.4 mg Sublingual .PRN/UD PRN (Reason: Chest Pain) Rx Instructions: as needed for chest pain : one tablet under the tongue, every five minutes up to 3 doses. aspirin 81 mg Tablet,Delayed Release (Dr/Ec) 81 mg PO QAM Qty: 30 0RF Referrals Referrals: Mary Dickerson MD [Primary Care Provider] -
[2022-10-08 19:03] LABS: Influenza A virus by PCR Negative (Neg); Influenza B virus by PCR Negative (Neg); RSV by PCR Negative (Neg); SARS CoV2 RNA(COVID-19) Ceph NEGATIVE (Negative)
--- NOTE | 2022-10-08 19:25 | History & Physical Report ---
Date of Service October 08, 2022 Assessment & Plan (1) Syncope and collapse: Plan: - Patient had a witnessed syncopal event at her PCP office with hypotension, emesis, fully regained consciousness without any neurodeficits. 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 Her troponin is within normal limits and EKG does not show any concerning ST segment or T wave changes, or evidence of WPW, which patient has history of, s/p ablation 10+ years ago. No concern for hypoglycemia as her glucose is 223 on BMP. - Her magnesium is low, otherwise electrolytes are all within normal limits. - For now while we rule out cardiac causes, will aim for goal of K+ 4.0, Mg++ 2.0. - Recently had an echo earlier this month, will order limited echo to look for wall motion abnormalities. - We will trend troponin. - UA pending, will hold off on antibiotics for now unless source is identified. (2) Hypomagnesemia: Plan: - Magnesium 1.2, will replenish and recheck with a.m. labs. - Will also give oral potassium to achieve goal K > 4.0 (3) HTN (hypertension): Plan: - COMPOSITE MECHANIC--> Lasix 40 mg daily, lisinopril 5 mg daily, clonidine 0.1 mg twice daily, amlodipine 10 mg daily. (4) Diabetes mellitus, type II: Plan: - COMPOSITE MECHANIC--> glimepiride, will put on basal/bolus insulin. - A1c 8.5% when checked on last admit 09/21. - DM diet. 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 Prefers to continue meds for prevention of future strokes. - Continue on daily aspirin and Plavix. - Continue BP management, DM management, statin therapy. (6) Depression: Plan: - Continue Lexapro, lorazepam 1 mg twice daily as needed. - Has chronic insomnia, will add on melatonin. (7) Dyslipidemia: Plan: - Continue statin therapy. (8) WPW (Yzvfu-Zowklkvly-Ozdcf syndrome): Plan: - History of, had an ablation 10+ years ago, has on and off palpitations over the past couple months, currently without any. - EKG without any concerns for WPW or other arrhythmias, however will be on telemetry unit overnight for observation of such. Plan - Admit to PCU. - SCDs, Lovenox for VTE ppx. - Full Code, stated by patient on arrival and to me on admission (change from DNR/DNI earlier this month). History of Present Illness Chief Complaint: witnessed syncope this afternoon at PCP appointment Primary Care Provider: Mary Dickerson MD Varsha Sevilla is a 77-year-old female with past medical history of multiple CVA and TIAs, hypertension, dyslipidemia, DM2, Lifbd-Jtqqhbdco-Ueems syndrome s/p ablation 10+ years ago, and depression who is presenting from her PCP office today after syncopal event. Patient was at PCP appt for follow-up after last hospitalization 09/20- for TIA when she suddenly she felt hot as if she was going to pass out. She did shortly after pass out and vomited, BP check 73/47, HR 85, O2 96%. She did regain consciousness and was given sublingual Zofran. An EKG was checked that showed normal sinus rhythm. She was then transported to ED for further evaluation. At the time of transfer patient was alert, oriented, without any neuro-deficits. Patient is without any current complaints. Daughter at bedside states that since discharge on 09/21 patient has been more fatigued and generally weak and felt warm yesterday. She has had ongoing right arm/hand pain and stiffness which is more like a clumsiness for the past month, however interestingly this has become significantly better while she is in our ED. Patient is denying any limb numbness, tingling, weakness, speech difficulties, chest pain, palpitations, shortness of breath, pain, nausea. On presentation today she has been moderately hypertensive, otherwise vital signs are within normal limits. Labs notable for WBC of 15, glucose 223, magnesium 1.2. TSH is within normal limits, no other electrolyte abnormalities, troponin is 5.8. COVID/flu/RSV negative, Lyme negative. Head CT unremarkable for intracranial hemorrhage, territorial infarction or other acute intracranial disease process. CXR without any evidence of acute chest disease. She received IV fluids, Zofran, and magnesium as well as Tylenol in the ED. Allergies Allergy/AdvReac Type Severity Reaction Status Date / Time Sulfa (Sulfonamide Allergy Intermediate "SULFA Verified 10/08/22 15:34 Antibiotics) DRUGS": SWELLS iodine Allergy Mild SWELLING, Verified 10/08/22 15:34 ITCHING,RED AND NAUSEA W/CONTRAST DYE (FEEL FUNNY) Egg Derived Allergy Unknown DIARRHEA,ABD Verified 10/08/22 15:34 PAIN Iodinated Contrast Media Allergy Unknown HOT FLASH Verified 10/08/22 15:34 AND RASH shellfish derived Allergy Unknown SWELLING Verified 10/08/22 15:34 AND VOMITING shrimp Allergy Unknown SWELLING Verified 10/08/22 15:34 AND NAUSEA WITH SHRIMP AND SHELLFISH codeine AdvReac Unknown VOMITING Verified 10/08/22 15:34 egg AdvReac Unknown DIARRHEA Verified 10/08/22 15:34 vaccines Allergy Difficulty Uncoded 10/08/22 15:34 Breathing,Rash Home Medications Medication Instructions Recorded Confirmed Type pen needle, diabetic 31 gauge x #100 ea 01/16/21 10/08/22 Rx 5/16" (Easy Comfort Pen [place]) blood sugar diagnostic #100 ea 11/21/21 10/08/22 Rx blood-glucose meter (OneTouch #1 ea 11/21/21 10/08/22 Rx Ultra2 Meter) lancets 33 gauge (OneTouch Delica #100 ea 11/21/21 10/08/22 Rx Lancets) atorvastatin 40 mg tablet 40 mg PO QPM #90 tabs 03/10/22 10/08/22 Rx clonidine HCl 0.1 mg tablet 0.1 mg PO BID #180 tabs 03/10/22 10/08/22 Rx clopidogrel 75 mg tablet 75 mg PO DAILY #90 tabs 03/10/22 10/08/22 Rx lansoprazole 30 mg capsule,delayed 30 mg PO QAM #90 caps 03/10/22 10/08/22 Rx release (Prevacid) lisinopril 5 mg tablet 5 mg PO DAILY #90 tabs 03/10/22 10/08/22 Rx pregabalin 50 mg capsule 50 mg PO TID #270 caps 07/24/22 10/08/22 Rx escitalopram oxalate 5 mg tablet 5 mg PO DAILY #30 tabs 07/28/22 10/08/22 Rx amlodipine 10 mg tablet 10 mg PO DAILY #90 tabs 09/15/22 10/08/22 Rx glimepiride 2 mg tablet 2 mg PO DAILY #30 tabs 09/15/22 10/08/22 Rx lorazepam 1 mg tablet 1 mg PO BID PRN anxiety #30 tabs 09/15/22 10/08/22 Rx furosemide 20 mg tablet 40 mg PO QAM 09/20/22 10/08/22 History nitroglycerin 0.4 mg sublingual 0.4 mg sublingual .PRN/UD PRN 09/20/22 10/08/22 History tablet (Nitrostat) Chest Pain aspirin 81 mg tablet,delayed 81 mg PO QAM #30 tabs 09/21/22 10/08/22 Rx release Past Med/Surg History Medical History Abdominal pain Acute chest pain Bacteremia Contrast media allergy Fatigue H/O Clostridium difficile infection H/O: rheumatic fever Hemorrhoids History of CVA (cerebrovascular accident) Labile hypertension Left lower quadrant pain Lumbar stenosis with neurogenic claudication LVH (left ventricular hypertrophy) Nonobstructive atherosclerosis of coronary artery "Per cardiac cath May 2016" Small bowel obstruction Vasovagal near-syncope Vomiting WPW (Veqyb-Ihmnxdeqe-Hrfie syndrome) Surgical History H/O cardiac radiofrequency ablation History of bladder surgery History of herniorrhaphy Hx of hysterectomy S/P foot surgery S/P partial colectomy S/P ROMAN-BSO Family History Brother Colorectal cancer Prostate cancer Mother Myocardial infarction Other Cancer Diabetes Heart disease Hypertension Denies family history of Ovarian cancer Breast cancer Social History Smoking Status: Former smoker Tobacco Type: Cigarettes Age Started Using Tobacco: 32; Age Quit Using Tobacco: 33; Second Hand Exposure: No; Do You Dip or Chew Tobacco: No; Tobacco Cessation Education Requested by Patient: No Hx Alcohol Use: No Hx Substance Use: No Preferred Language: Georgian Communication Ability: Effective Front Desk Specialist Required: No Beliefs That Will Affect Care: None marital status: Current Living Situation: Family current occupational status: retired How many Children do You have: 3 Feels Safe at Home: Yes Safety Concerns: Feels Safe At This Time Childhood Exposure to Second-Hand Smoke: Yes caffeine: Yes Dental Care, Regularly: No Physical Activity Frequency: Does not Exercise Seatbelt Use: always Sunscreen Use: No Assistive Devices: None Review of Systems Review of Systems: Constitutional: No fever/chills, weakness, fatigue, myalgias, anorexia, night sweats Eyes: No diplopia, no worsening or blurred vision ENT: normal hearing, no trouble swallowing Respiratory: No cough, sputum, dyspnea at rest or on exertion Cardiovascular: No chest pain, tightness or palpitations Abdomen: No pain, nausea, vomiting, diarrhea or constipation : Denies dysuria, hematuria, increased urgency/frequency, urinary retention Musculoskeletal: No joint pain, calf pain, swelling Neurologic: No weakness, numbness/tingling, or balance problems Psychiatric: No anxiety or depression Skin: No rash or itch Physical Exam Physical Exam: General: awake, alert, no apparent distress Head: Normocephalic, atraumatic ENT: PERRL, EOMI, no pharyngeal exudate, mucous membranes moist Chest: Clear to auscultation, on room air, no adventitious breath sounds Cardiac: Regular rate and rhythm, no murmur, no JVD, normal peripheral pulses, good capillary refill Abdominal: NABS x 4 quadrants, soft, nontender to palpation, no rebound, guarding or tenderness Extremities: Normal inspection, no peripheral edema or erythema, calfs nontender to palpation Psych: Normal mood and affect Neuro: AAO x 3, strength intact bilaterally and rated 5/5, no motor deficits, speech is clear, no peripheral sensory deficits Skin: no rash or erythema Results & Data Results & Data ([facility]) Vital Signs (Past 12 Hours) Vital Signs Temp Pulse Pulse Resp BP BP Pulse Ox 10/08/22 18:43 71 15 150/72 H 93 10/08/22 18:15 78 18 150/72 H 92 10/08/22 17:25 92 10/08/22 17:09 92 10/08/22 17:09 36.6 C 91 H 21 144/75 H 92 O2 Del Method 12/21/22 18:43 Room Air 10/08/22 18:15 Room Air 10/08/22 17:25 Room Air 10/08/22 17:09 Room Air 10/08/22 17:09 Room Air Laboratory Results Abnormal lab results 10/08/22 10/08/22 Range/Units 17:05 17:05 WBC 14.88 H (4.8-10.8) K/ul RDW Coeff of Carmen 14.9 H (11.5-14.5) % Neut # (Auto) 10.44 H (1.4-6.5) K/uL [place]oup # (Auto) 1.47 H (0.24-0.82) K/uL Immature Gran # (Auto) 0.05 H (0.00-0.02) K/uL Glucose 223 H (70-99(Fasting)) mg/dl Magnesium 1.2 L (1.7-2.4) mg/dl Diagnostic Findings Chest X-Ray 10/08/22 17:16 XR chest 1V portable CLINICAL HISTORY: weakness TECHNIQUE: Single frontal radiograph of the chest was obtained. Comparison: Comparison is made to chest radiograph 09/20/2022 FINDINGS: No lines and tubes are seen. The cardiomediastinal silhouette is normal. The lungs are clear. No evidence of pleural effusion or pneumothorax. IMPRESSION: No acute chest disease. ACT 112: Negative or not required by law. Electronically signed by: Everett Nation M.D. 10/08/2022 6:[address] 10/08/22 17:25 CT head/brain wo con CLINICAL HISTORY: syncope, right arm weakness Technique: Contiguous axial CT images of the head were acquired from the base of the skull to the vertex without intravenous contrast administration. Images were viewed in brain, subdural and bone windows. Automated dose lowering techniques and/or adjustment according to patient size were utilized for this exam. Comparison: Comparison is made to CT head 09/20/2022 Findings: The ventricles, basal cisterns, and cerebral sulci are normal. There is no acute intracranial hemorrhage or evidence of acute territorial infarction. Neither mass effect, shift of the midline structures, nor abnormal extra-axial fluid collections are shown. Imaged portions of the paranasal sinuses and mastoid air cells are clear. The orbits appear normal. There are no acute fractures of the calvaria or scalp s welling. Impression: No acute intracranial hemorrhage, no evidence of acute territorial infarction or other acute intracranial disease process. ACT 112: Negative or not required by law. Electronically signed by: Everett Nation M.D. 10/08/2022 6:03 PM ECG Additional Comments: Normal sinus rhythm Moderate voltage criteria for LVH, may be normal variant Nonspecific T wave abnormality Abnormal ECG When compared with ECG of 20-SEP-2022 15:58, Premature ventricular complexes are no longer Present. Code Status & VTE Plan Code Status Full Code. Supervising Physician Co-Signing Physician Notes Attending addendum: I have physically seen this patient, have supervised the ALFRED's activities, and agree with the H&P unless as otherwise noted. Assessment and Plan: Syncope and collapse- Telemetry admission History of WPW Hypomagnesemia will be replaced IV and recheck Negative for COVID, RSV and flu Negative for Lyme CT head negative Symptoms may be due to vasovagal episode associated with urinary tract infection which will be treated Hypomagnesemia- Magnesium 1.2 replace with IV and recheck laboratories Potassium 3.6, optimize orally and recheck in a.m. Hypertension- Continue outpatient regimen, but would allow pressure to be systolic 1 30-1 40 Diabetes mellitus- Hold glimepiride, no suggestion of hypoglycemia at this time as cause Placed on Accu-Cheks with SSI, basal/bolus insulin TIA history- Previously refused evaluation due to concerns regarding contrast allergy Would advise getting MRI brain if symptoms persist/recur, although patient reports being severely claustrophobic and would require IV Ativan as a premedication Remaining orders and notations as noted PG Care Time/CCT Total # of Minutes Spent Total Time Spent with Patient: Total time spent is greater than 50% in coordination of care (as documented) at patient's floor/unit and/or counseling patient: Coding Level of Care Code 66164 Initial Inpt Care Lvl 3 Diagnoses Syncope and collapse R55 Hypomagnesemia E83.42 HTN (hypertension) I10 Hypertension type: unspecified Diabetes mellitus, type II E11.9 TIA (transient ischemic attack) G45.9 Depression F32.A Dyslipidemia E78.5 WPW (Xggun-Mpzflhnrc-Pbmqf syndrome) I45.6 (1) HTN (hypertension) Hypertension type: unspecified Qualified Code(s): I10 - Essential (primary) hypertension
[2022-10-08 19:44] LABS: Lyme Ab IgG w/WB Rflx Negative (Negative); Lyme Ab IgM w/WB Rflx Negative (Negative)
[2022-10-08] MEDS ORDERED: POTASSIUM CHLORIDE CRTAB 20 MEQ TABCR PO STA (19:47)
--- NOTE | 2022-10-08 20:13 | XRay Report ---
XR wrist RT min 3V routine CLINICAL HISTORY: non-traumatic pain TECHNIQUE: 4 views of the right wrist were obtained. Comparison: None available at the time of this dictation. FINDINGS: There is no evidence of an acute fracture. Extensive degenerative changes are seen most prominent in the radiocarpal row. There is mild widening of the scapholunate interval measuring 5 mm. No soft tiss ue abnormality is seen. IMPRESSION: No evidence of acute osseous injury. Degenerative changes and likely mild scapholunate dissociation. ACT 112: Negative or not required by law. Electronically signed by: Everett Nation M.D. 10/08/2022 8:11 PM
[2022-10-08] MEDS: MAGNESIUM SULFATE / D5W 1 GM/100 ML BAG IV SCH ×2 (20:23→22:11)
[2022-10-08] MEDS ORDERED: GLUCOSE 40% GEL 15 GM TUBE PO PRN (21:40)
[2022-10-08] MEDS ORDERED: GLUCOSE 10 TAB/TUBE PO PRN (21:40)
[2022-10-08] MEDS ORDERED: DEXTROSE 50% 50 ML SYRINGE IV PRN (21:40)
[2022-10-08] MEDS ORDERED: ALUMINUM/MAGNESIUM SUSP 30 ML UDC PO PRN (21:40)
[2022-10-08] MEDS ORDERED: POLYETHYLENE (MIRALAX) 17 GM PACK PO PRN (21:40)
[2022-10-08] MEDS ORDERED: GLUCAGON FOR INJ 1 MG VIAL SQ PRN (21:40)
[2022-10-08] MEDS ORDERED: NITROGLYCERIN SL 0.4 MG/TAB TAB SL PRN (21:40)
[2022-10-08] MEDS ORDERED: LORazepam 1 MG TAB PO PRN (21:40)
[2022-10-08] MEDS ORDERED: ONDANSETRON INJ 2 MG/ML 2 ML VIAL IV PRN (21:40)
[2022-10-08] MEDS ORDERED: CARBOHYDRATES FOR HYPOGLYCEMIA PO PRN (21:40)
[2022-10-08 22:11] LABS: Appearance Urine Clear (Clear); Bilirubin Urine Negative (Negative); Blood Urine Negative (Negative); Color Urine Yellow; Glucose Urine UA 1+ (Negative); Ketones Urine Negative (Negative); Leukocyte Esterase Urine Negative (Negative); Nitrite Urine Negative (Negative); Protein Urine Negative (Negative); Urobilinogen Urine Negative (Negative); pH Urine 5.5 (4.5-7.5)
[2022-10-08] MEDS: LANTUS PER UNIT CHARGE SQ SCH (22:38)
[2022-10-08] MEDS: ENOXAPARIN INJ 40 MG/0.4 ML SYR SQ SCH (22:41)
[2022-10-08] MEDS: PREGABALIN 50 MG CAP PO SCH (22:41)
[2022-10-08] MEDS: ATORVASTATIN 40 MG TAB PO SCH (22:42)
[2022-10-08] MEDS: cloNIDine HCL 0.1 MG TAB PO SCH (22:42)
[2022-10-08] MEDS: ACETAMINOPHEN 325 MG TAB PO PRN (23:32)
[2022-10-08] MEDS: INSULIN ASPART PER UNIT SC SCH (23:53)
[2022-10-09 03:48] LABS: Basophils # (auto) 0.02 K/uL (0-0.2); Basophils % (auto) 0.2 %; Eosinophils # (auto) 0.13 K/uL (0-0.50); Eosinophils % (auto) 1.3 %; Hematocrit (blood only) 33.2 % (34.1-44.9); Hemoglobin 11.2 g/dl (12.0-16.0); Immature Granulocytes # (auto) 0.03 K/uL (0.00-0.02); Immature Granulocytes % (auto) 0.3 %; Lymphocytes # (auto) 2.79 K/uL (1.2-3.4); Lymphocytes % (auto) 27.5 %; Mean Corpuscular Hgb Conc 33.7 g/dL (32.0-36.0); Monocytes # (auto) 1.01 K/uL (0.24-0.82); Monocytes % (auto) 9.9 %; Neutrophils # (auto) 6.18 K/uL (1.4-6.5); Neutrophils % (auto) 60.8 %; Platelet Count 204 K/uL (130-400); RDW Coefficient of Variation 14.9 % (11.5-14.5); RDW Standard Deviation 45.5 fL (36.4-46.3); White Blood Count 10.16 K/ul (4.8-10.8)
[2022-10-09 04:31] LABS: BUN Creatinine Ratio 17.9 (10-20); Creatinine Clr Calc Pharmacy 57.7 ml/min; Est GFR (African American) 76.6 ml/min; Est GFR (Non-African American) 66.1 ml/min; Magnesium 2.1 mg/dl (1.7-2.4); Potassium 3.9 mmol/L (3.5-5.1)
[2022-10-09] MEDS: ACETAMINOPHEN 325 MG TAB PO PRN ×2 (05:35→11:41)
[2022-10-09] MEDS ORDERED: MoRPHine SULFATE 2 MG/ML CARP IV STA (06:11)
[2022-10-09] MEDS: cloNIDine HCL 0.1 MG TAB PO SCH ×2 (08:01→20:54)
[2022-10-09] MEDS: ESCITALOPRAM OXALATE 10 MG TAB PO SCH (08:02)
[2022-10-09] MEDS: lisinopril 5 MG TAB PO SCH (08:02)
[2022-10-09] MEDS: CLOPIDOGREL BISULFATE 75 MG TAB PO SCH (08:02)
[2022-10-09] MEDS: ASPIRIN 81 MG ECTAB PO SCH (08:03)
[2022-10-09] MEDS: FUROSEMIDE 40 MG TAB PO SCH (08:03)
[2022-10-09] MEDS: PANTOprazole 40 MG TAB PO SCH (08:03)
[2022-10-09] MEDS: amLODIPine BESYLATE 5 MG TAB PO SCH (08:04)
[2022-10-09] MEDS: INSULIN ASPART PER UNIT SC SCH ×4 (08:08→20:50)
[2022-10-09] MEDS: LANTUS PER UNIT CHARGE SQ SCH ×2 (08:08→20:50)
[2022-10-09] MEDS: PREGABALIN 50 MG CAP PO SCH ×3 (08:09→20:55)
[2022-10-09] MEDS: methylPREDNISolone 40 MG in SYRINGE 0 ML IV SCH ×2 (11:39→16:37)
[2022-10-09] MEDS ORDERED: HYDROCODONE/ACETAMOPHEN 5/325MG TAB PO PRN (12:47)
--- NOTE | 2022-10-09 13:41 | Hospitalist Progress Note ---
Date of Service October 09, 2022 Assessment & Plan (1) Syncope and collapse: Plan: Now resolved. Telemetry is unremarkable. Blood pressure has stabilized. This may have simply been a vasovagal episode. No evidence of infection. Continue telemetry and will follow. No evidence of acute coronary syndrome (2) Hypomagnesemia: Plan: Replacement ordered. Serial labs (3) HTN (hypertension): Plan: Currently stable. Continue current medical management (4) Diabetes mellitus, type II: Plan: Diabetic diet. Sliding scale coverage. Glucose is likely to increase transiently with intravenous Solu-Medrol therapy for the wrist tenosynovitis. (5) TIA (transient ischemic attack): Plan: History of CVA in 2019 with TIA symptoms. Currently stable. Continue current medical management (6) Depression: Plan: Stable on Lexapro, lorazepamas needed. (7) Dyslipidemia: Plan: Continue statin therapy. (8) WPW (Zanrq-Pxucztbbo-Jvsxt syndrome): Plan: had an ablation 10+ years ago. Notes occasional palpitations. Telemetry. Continue current medications. (9) Tenosynovitis of wrist: Plan: Methylprednisolone IV scheduled dosing. Aurora as needed. Denies any trauma Plan Hopefully home tomorrowOctober 10 Admission and Anticipated Discharge Date Admission Date: October 08, 2022 Subjective Alert and oriented. Blood pressure is now stable. Troponin series is negative. She has what appears to be a tenosynovitis of the right wrist. No fracture seen on x-ray. No apparent injury. Intravenous Solu-Medrol ordered along with as needed Aurora. Hopefully this will improve quickly. Her glucose is likely to increase transiently with intravenous steroid therapy. OT and PT assessments have been requested. Hopefully she can go home tomorrow, October 10 Review of Systems Review of Systems: Constitutional-no fever or chills ENT-no blurred vision, no double vision, no epistaxis, no sore throat Respiratory-no cough, no wheezing, no shortness of breath Cardiac-no palpitations, no chest pain, no syncope GI-no nausea, vomiting, diarrhea, melena, hematochezia -no urinary retention, no urinary incontinence, no dysuria, no hematuria Musculoskeletal-right wrist pain and limited range of motion Skin-no bruising, no rashes, no pruritus Neuro-no isolated weakness, no paresthesia, no weakness Psych-no depression, no anxiety Physical Exam Physical Exam: General-alert and oriented x3, no fevers, no chills HEENT-head atraumatic and normocephalic, pupils equal and reactive to light, extraocular muscles intact Neck-no lymphadenopathy or thyromegaly, trachea midline Chest-clear to auscultation percussion. No rales wheezing or rhonchi Cardiac-regular rate and rhythm, normal S1 and S2 Abdomen-normal bowel sounds, nontender, no hepatosplenomegaly Extremities-right wrist is tender dorsally and ventrally without erythema or swelling. Limited range of motion Neuro-cranial nerves II through XII intact, motor and sensory function within normal limits, strength symmetrical , no focal deficits Psych-normal affect, normal mood Results & Data Results & Data ([facility]) Vital Signs (Past 12 Hours) Vital Signs Temp Pulse Resp BP Pulse Ox O2 Del Method 10/09/22 11:49 36.8 C 73 16 99/59 L 90 Room Air 10/09/22 07:54 36.6 C 72 17 138/67 90 Room Air 10/09/22 03:27 36.8 C 66 18 136/72 92 Room Air Laboratory Results 10/09/22 03:35 10/09/22 03:35 PG Care Time/CCT Total # of Minutes Spent Total Time Spent with Patient: Total time spent is greater than 50% in coordination of care (as documented) at patient's floor/unit and/or counseling patient: Coding Level of Care Code 54878 Subseq Hosp Care Lvl 3 Diagnoses Syncope and collapse R55 Hypomagnesemia E83.42 HTN (hypertension) I10 Hypertension type: unspecified Diabetes mellitus, type II E11.9 TIA (transient ischemic attack) G45.9 Depression F32.A Dyslipidemia E78.5 WPW (Xagzb-Lzdohrhtv-Qjqqp syndrome) I45.6 Tenosynovitis of wrist M65.9 (1) HTN (hypertension) Hypertension type: unspecified Qualified Code(s): I10 - Essential (primary) hypertension
--- NOTE | 2022-10-09 13:58 | XCELERA ---
[id number]
[2022-10-09] MEDS: ENOXAPARIN INJ 40 MG/0.4 ML SYR SQ SCH (20:54)
[2022-10-09] MEDS: ATORVASTATIN 40 MG TAB PO SCH (20:54)
[2022-10-10] MEDS ORDERED: MELATONIN 3 MG TAB PO PRN (02:15)
[2022-10-10] MEDS: methylPREDNISolone 40 MG in SYRINGE 0 ML IV SCH ×2 (02:15→10:54)
[2022-10-10] MEDS: INSULIN ASPART PER UNIT SC SCH ×2 (08:55→11:30)
[2022-10-10] MEDS: LANTUS PER UNIT CHARGE SQ SCH (08:55)
[2022-10-10] MEDS: PREGABALIN 50 MG CAP PO SCH (08:57)
[2022-10-10] MEDS: cloNIDine HCL 0.1 MG TAB PO SCH (08:58)
[2022-10-10] MEDS: ASPIRIN 81 MG ECTAB PO SCH (08:58)
[2022-10-10] MEDS: amLODIPine BESYLATE 5 MG TAB PO SCH (08:58)
[2022-10-10] MEDS: CLOPIDOGREL BISULFATE 75 MG TAB PO SCH (08:58)
[2022-10-10] MEDS: ESCITALOPRAM OXALATE 10 MG TAB PO SCH (08:58)
[2022-10-10] MEDS: PANTOprazole 40 MG TAB PO SCH (08:59)
[2022-10-10] MEDS: lisinopril 5 MG TAB PO SCH (08:59)
[2022-10-10] MEDS: FUROSEMIDE 40 MG TAB PO SCH (08:59)
--- NOTE | 2022-10-10 10:59 | Discharge Summary ---
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 Patient was at PCP appt for follow-up after last hospitalization 09/20- for TIA when she suddenly she felt hot as if she was going to pass out. She did shortly after pass out and vomited, BP check 73/47, HR 85, O2 96%. She did regain consciousness and was given sublingual Zofran. An EKG was checked that showed normal sinus rhythm. She was then transported to ED for further evaluation. At the time of transfer patient was alert, oriented, without any neuro-deficits. Patient is without any current complaints. Daughter at bedside states that since discharge on 09/21 patient has been more fatigued and generally weak and felt warm yesterday. She has had ongoing right arm/hand pain and stiffness which is more like a clumsiness for the past month, however interestingly this has become significantly better while she is in our ED. Patient is denying any limb numbness, tingling, weakness, speech difficulties, chest pain, palpitation s, shortness of breath, pain, nausea. On presentation today she has been moderately hypertensive, otherwise vital signs are within normal limits. Labs notable for WBC of 15, glucose 223, magnesium 1.2. TSH is within normal limits, no other electrolyte abnormalities, troponin is 5.8. COVID/flu/RSV negative, Lyme negative. Head CT unremarkable for intracranial hemorrhage, territorial infarction or other acute intracranial disease process. CXR without any evidence of acute chest disease. She received IV fluids, Zofran, and magnesium as well as Tylenol in the ED. Principal Diagnosis Syncope, probably vasovagal. Hypomagnesemia. Right wrist tenosynovitis Discharge Exam General-alert and oriented x3, no fevers, no chills HEENT-head atraumatic and normocephalic, pupils equal and reactive to light, extraocular muscles intact Neck-no lymphadenopathy or thyromegaly, trachea midline Chest-clear to auscultation percussion. No rales wheezing or rhonchi Cardiac-regular rate and rhythm, normal S1 and S2, no murmurs Abdomen-normal bowel sounds, nontender, no hepatosplenomegaly Extremities-no cyanosis, clubbing, or edema. Right wrist tenosynovitis much improved with steroid therapy Neuro-cranial nerves II through XII intact, motor and sensory function within normal limits, strength symmetrical , no focal deficits Psych-normal affect, normal mood Discharge Data Allergies Allergy/AdvReac Type Severity Reaction Status Date / Time Sulfa (Sulfonamide Allergy Intermediate "SULFA Verified 10/08/22 15:34 Antibiotics) DRUGS": SWELLS iodine Allergy Mild SWELLING, Verified 10/08/22 15:34 ITCHING,RED AND NAUSEA W/CONTRAST DYE (FEEL FUNNY) Egg Derived Allergy Unknown DIARRHEA,ABD Verified 10/08/22 15:34 PAIN Iodinated Contrast Media Allergy Unknown HOT FLASH Verified 10/08/22 15:34 AND RASH shellfish derived Allergy Unknown SWELLING Verified 10/08/22 15:34 AND VOMITING shrimp Allergy Unknown SWELLING Verified 10/08/22 15:34 AND NAUSEA WITH SHRIMP AND SHELLFISH codeine AdvReac Unknown VOMITING Verified 10/08/22 15:34 egg AdvReac Unknown DIARRHEA Verified 10/08/22 15:34 vaccines Allergy Difficulty Uncoded 10/08/22 15:34 Breathing,Rash Consultations 10/08/22 19:32 ED Decision to Admit Stat Ordered Studies 10/08/22 17:25 CT head/brain wo con Stat Hospital Course (1) Syncope and collapse: Probably vasovagal in etiology. Now resolved. (2) Hypomagnesemia: Corrected with replacement therapy (3) HTN (hypertension): Now stable (4) Diabetes mellitus, type II: ADA diet. Sliding scale coverage as needed. Continue home medications (5) TIA (transient ischemic attack): History of. No current issues (6) Depression: Stable with current medical management (7) Dyslipidemia: Stable with current medical management. Low-cholesterol diet (8) WPW (Aszhh-Xhgzrcxba-Ouqvr syndrome): Stable. History of ablation therapy in the past (9) Tenosynovitis of wrist: Much improved, right wrist, with intravenous Solu-Medrol. Will discharge on a tapering dose of prednisone Plan Discharge to home today, October 10, on a tapering dose of oral prednisone Total Time Total Time Spent Total Time Spent (In Minutes): 35 minutes Discharge Plan Discharge Items Reason For Visit: SYNCOPAL EVENT ETIOLOGY Discharge Diagnosis: Vasovagal syncope, hypomagnesemia, right wrist tenosynovitis Activity: Resume your previous activity Non-emergency contact: Primary Care Provider Call non-emergency contact if: you have any medication questions Follow-up/Referrals: Mary Dickerson MD [Primary Care Provider] - Diet: Carb Consistent or DM2 and Heart Healthy Addtl Attending Provider Instructions: Take prednisone in a tapering dose fashion as prescribed Pending Studies at Discharge: No Stand-Alone Forms: My [facility] [employer], Smoking Cessation Medications and DC Order Prescriptions: New prednisone 10 mg tablet See Rx Instructions .ROUTE .COMPLEX Qty: 12 0RF Rx Instructions: 10 mg orally 3 times a day for 2 days, then 10 mg twice a day for 2 days, then 10 mg once daily for 2 days, then stop Continued (DME) pen needle, diabetic [Easy Comfort Pen [place]] 31 gauge x 5/16" needle See Rx Instructions .ROUTE .MEDSUPPLY Qty: 100 1RF Rx Instructions: As directed QHS with Basaglar E11.69, E11.59 pregabalin 50 mg capsule 50 mg PO TID Qty: 270 1RF escitalopram oxalate 5 mg tablet 5 mg PO DAILY Qty: 30 3RF glimepiride 2 mg tablet 2 mg PO DAILY Qty: 30 5RF lorazepam 1 mg tablet 1 mg PO BID PRN (Reason: anxiety) Qty: 30 0RF amlodipine 10 mg tablet 10 mg PO DAILY Qty: 90 1RF (DME) blood sugar diagnostic Strip See Rx Instructions .ROUTE .MEDSUPPLY Qty: 100 2RF Rx Instructions: As directed; test twice a day once fasting. Dx: E11.9 (DME) blood-glucose meter [place]Touch Ultra2 Meter[place] [facility] [place] Instructions .ROUTE .MEDSUPPLY Qty: 1 0RF Rx Instructions: As directed; test twice a day once fasting Dx: E11.9 (DME) lancets [OneTouch Delica Lancets] 33 gauge misc See Rx Instructions .ROUTE .MEDSUPPLY Qty: 100 2RF Rx Instructions: As directed; test twice a day once fasting. Dx: ELL.9 atorvastatin 40 mg tablet 40 mg PO QPM Qty: 90 1RF clonidine HCl 0.1 mg tablet 0.1 mg PO BID Qty: 180 1RF clopidogrel 75 mg tablet 75 mg PO DAILY Qty: 90 1RF lansoprazole [Prevacid] 30 mg capsule,delayed release(DR/EC) 30 mg PO QAM Qty: 90 1RF lisinopril 5 mg tablet 5 mg PO DAILY Qty: 90 1RF furosemide 20 mg tablet 40 mg PO QAM nitroglycerin [Nitrostat] 0.4 mg tablet, sublingual 0.4 mg Sublingual .PRN/UD PRN (Reason: Chest Pain) Rx Instructions: as needed for chest pain : one tablet under the tongue, every five minutes up to 3 doses. aspirin 81 mg Tablet,Delayed Release (Dr/Ec) 81 mg PO QAM Qty: 30 0RF Admission Data Admit Date/Time: 10/08/22 20:00 Attending Provider: Checo Zafar Admit Provider: Massimo Hoffman Primary Care Provider: Mary Dickerson Other Providers: Massimo Hoffman Coding Level of Care Code D/C DAY MANAGEMENT >30 MINS Diagnoses Syncope and collapse R55 Hypomagnesemia E83.42 HTN (hypertension) I10 Hypertension type: unspecified Diabetes mellitus, type II E11.9 TIA (transient ischemic attack) G45.9 Depression F32.A Dyslipidemia E78.5 WPW (Dsbif-Fxnplwdwx-Pnfjr syndrome) I45.6 Tenosynovitis of wrist M65.9
--- NOTE | 2022-10-10 16:01 | Electrocardiogram Report ---
Test Reason : Blood Pressure : / mmHG Vent. Rate : 090 BPM Atrial Rate : 090 BPM P-R Int : 162 ms QRS Dur : 074 ms QT Int : 364 ms P-R-T Axes : 045 003 -02 degrees QTc Int : 445 ms Normal sinus rhythm Moderate voltage criteria for LVH, may be normal variant Nonspecific T wave abnormality Abnormal ECG When compared with ECG of 20-SEP-2022 15:58, Premature ventricular complexes are no longer Present Confirmed by Emmanuel Knox ([id number]) on 10/10/2022 4:01:14 PM Referred By: REFERRED SELF Confirmed By:Emmanuel Knox
== END 2022-10-10 12:24 | disposition home or self-care (01) | DRG 312 ==
LOC: ED 16:55 → 2S 20:00 → SUATTDRO 20:00 → 2S 21:03

== ENCOUNTER 2023-11-13 06:52 | Inpatient (IN) ==
[2023-11-13] MEDS ORDERED: SODIUM CHLORIDE 0.9% 500 ML IV ONE (07:08)
--- NOTE | 2023-11-13 07:12 | Emergency Department Note ---
Impression & Plan Small bowel obstruction, Herpes zoster virus infection of face and ear nerves ED Provider Note Name: LEOPOLDO WARD Age: 78 Sex: Female Arrives Via: Ambulance Informant: Patient, Daughter, EMS ED Provider: Kian Gutiérrez MD Chief Complaint: Abdominal pain Impression: As per impressions above Medical Decision Makin-year-old female arrives for evaluation of abdominal pain. Ongoing the last few days now associated with vomiting. She is also dealing with some pain on the right side of her face. On examination she has shingles of the right face still with some blisters and they are not all scabbed over at this time. There is 1 blister just under the right eye on the eyelid. There is no evidence of injection of the eye at this point. She has no visual complaints. Patient has been on Valtrex for the last few days as well. Her abdominal exam is remarkable for hyperactive bowel sounds but she does not have severe tenderness palpation nor any pain out of proportion to exam either. With a history of bowel obstruction CT was obtained. I also get a CT of the head given she is complaining of a headache that I feel it is more likely this is just due to the shingles she has. CT head is fortunately negative. CT abdomen pelvis does reveal small bowel obstruction. With her continued nausea I think NG tube is warranted at this point. She was given some IV Ativan to help with getting the NG tube down. She did still have some abdominal discomfort at which point some IV pain medications were given. Laboratory otherwise is relatively benign. I discussed case with general surgery as well as hospitalist and she will come into medicine service with them consulted along. IV acyclovir given as patient is unable to tolerate p.o. she does not have evidence of disseminated shingles at this time. Triage/Nursing Notes reviewed by Me Differential:Bowel obstruction, bowel ischemia, free air, scar tissue, pancreatitis, colitis, cholecystitis, appendicitis, shingles, cellulitis, many other pathologies considered Vital Signs: reviewed and remarkable for moderately hypertensive on arrival improved with pain control Interventions: Normal saline bolus IV, Ativan IV, Dilaudid IV, acyclovir IV Labs:ED labs Reviewed by me and remarkable for no significant abnormalities Imaging:CT abdomen pelvis with IV contrast reveals partial small bowel obstruction radiologist confirmed EKG:Normal sinus rhythm at 84 bpm a QTc of 446. There is no ectopy nor ischemia. When compared to EKG of November 30, 2022 no significant change. Cardiac/Tele Monitoring: Cardiac Monitoring: An Order was placed for continuous cardiac monitoring. The monitor shows a rate of 84 with a normal sinus rhythm. Consults:Dr Cordova Gen Surg MD Hospitalist (Dr Craft) Plan: Disposition:Hospitalization. Condition: Fair History of Present Illness: 78-year-old female arrives for evaluation of illness. Patient notes she has not been feeling well the last 1 to 2 weeks. Diffuse abdominal discomfort. Over the last few days though rapidly worsening. Overnight started vomiting though she also has a right-sided headache. She seen her PCP a few days ago and she was told that she has a cold sore. Since then she has developed worsening rash over the right side of her face and worsening right-sided headache. Denies any neurodeficits, slurred speech, visual changes. Denies any eye pain or difficulty seeing. Denies any sore throat, shortness of breath, chest pain, syncope, leg swelling, urinary burning, diarrhea. Believes she had a bowel movement in the last few days. Per EMS patient was given Zofran and Toradol in route IV. Past Medical History:See Below Home Medications:See Below Allergies:See Below Vitals:Blood Pressure: 148/113, Pulse 91, RR 18, T 36.9C, O2 94% on RA Physical Exam: GENERAL: Patient is unwell appearing and in mild distress. RESPIRATORY: No dyspnea. Clear to auscultation and equal bilaterally. CARDIOVASCULAR: Regular rate and rhythm.No murmur appreciated. GASTROINTESTINAL: Abdomen is mildly distended with hyperactive bowel sounds noted minimal tenderness throughout. EXTREMITIES: Normal motion all extremities, no cyanosis, no edema. NEUROLOGIC: Alert and oriented. No focal neurologic deficits appreciated SKIN: No rash, no jaundice, no diaphoresis. PSYCH: Appropriate GCS: 15 ED Course: Times/Reassessments: Repeat evaluation patient continues to note some worsening nausea feel like she may need to vomit. At this point she is agreeable to NG tube Kian Gutiérrez MD Past Med/Surg History Medical History History of CVA (cerebrovascular accident) Fatigue Left lower quadrant pain Abdominal pain Small bowel obstruction Bacteremia H/O Clostridium difficile infection H/O: rheumatic fever Hemorrhoids Nonobstructive atherosclerosis of coronary artery "Per cardiac cath May 2016" LVH (left ventricular hypertrophy) Labile hypertension Lumbar stenosis with neurogenic claudication Contrast media allergy Acute chest pain Vomiting WPW (Jlxmc-Hfyockvpj-Fwerz syndrome) Vasovagal near-syncope Surgical History Hx of hysterectomy S/P partial colectomy S/P ROMAN-BSO History of herniorrhaphy S/P foot surgery History of bladder surgery H/O cardiac radiofrequency ablation Family History Brother Colorectal cancer Prostate cancer Mother Myocardial infarction Other Cancer Diabetes Heart disease Hypertension Denies family history of Ovarian cancer Breast cancer Social History Smoking Status: Never smoker Tobacco Type: Cigarettes Age Started Using Tobacco: 32; Age Quit Using Tobacco: 33; Second Hand Exposure: No; Do You Dip or Chew Tobacco: No; Hx Alcohol Use: No Hx Substance Use: No Preferred Language: Maltese Communication Ability: Effective [employer] Required: No Beliefs That Will Affect Care: None marital status: Current Living Situation: Family current occupational status: retired How many Children do You have: 3 Feels Safe at Home: Yes Childhood Exposure to Second-Hand Smoke: Yes Diet: regular caffeine: Yes Dental Care, Regularly: No Physical Activity Frequency: Does not Exercise Seatbelt Use: always Sunscreen Use: No Assistive Devices: None Allergies Allergies Allergy/AdvReac Type Severity Reaction Status Date / Time Iodinated Contrast Media Allergy Intermediate HOT FLASH Verified 11/13/23 10:33 AND RASH iodine Allergy Intermediate SWELLING, Verified 11/13/23 10:33 ITCHING,RED AND NAUSEA W/CONTRAST DYE (FEEL FUNNY) shellfish derived Allergy Intermediate SWELLING Verified 11/13/23 10:33 AND VOMITING shrimp Allergy Intermediate SWELLING Verified 11/13/23 10:33 AND NAUSEA WITH SHRIMP AND SHELLFISH Sulfa (Sulfonamide Allergy Intermediate "SULFA Verified 11/13/23 10:33 Antibiotics) DRUGS": SWELLS Egg Derived AdvReac Severe DIARRHEA,ABD Verified 11/13/23 10:33 PAIN codeine AdvReac Intermediate VOMITING Verified 11/13/23 10:33 egg AdvReac Intermediate DIARRHEA Verified 11/13/23 10:33 vaccines Allergy Severe Difficulty Uncoded 01/26/24 10:33 Breathing,Rash Home Meds Home Medications Medication Instructions Recorded Confirmed nitroglycerin 0.4 mg sublingual 0.4 mg sublingual .PRN/UD PRN 09/20/22 11/13/23 tablet (Nitrostat) Chest Pain amlodipine 10 mg tablet 10 mg PO QAM 11/13/23 11/13/23 aspirin 81 mg tablet,delayed 81 mg PO HS 11/13/23 11/13/23 release atorvastatin 40 mg tablet 40 mg PO HS 11/13/23 11/13/23 clopidogrel 75 mg tablet 75 mg PO QAM 11/13/23 11/13/23 escitalopram oxalate 10 mg tablet 10 mg PO PM 11/13/23 11/13/23 (Lexapro) glimepiride 4 mg tablet 4 mg PO QAM 11/13/23 11/13/23 lisinopril 5 mg tablet 5 mg PO QAM 11/13/23 11/13/23 lorazepam 1 mg tablet 2 mg PO HS sleep 11/13/23 11/13/23 mirabegron 25 mg tablet,extended 25 mg PO PM 11/13/23 11/13/23 release 24 hr (Myrbetriq) pregabalin 50 mg capsule 0 mg PO BID 11/13/23 11/13/23 pumpkin seed extract-soy germ 300 300 cap PO BID 11/13/23 11/13/23 mg capsule (Azo Bladder Control) Previous Rx's Medication Instructions Recorded pen needle, diabetic 31 gauge x #100 ea 01/16/21 5/16" (Easy Comfort Pen [place]) blood sugar diagnostic #100 ea 11/21/21 blood-glucose meter (OneTouch #1 ea 11/21/21 Ultra2 Meter) lancets 33 gauge (OneTouch Delica #100 ea 11/21/21 Lancets) clonidine HCl 0.1 mg tablet 0.1 mg PO BID #180 tabs 04/13/23 lansoprazole 30 mg capsule,delayed 30 mg PO QAM #90 caps 04/13/23 release (Prevacid) azithromycin 250 mg tablet See Rx Instructions PO .COMPLEX #6 11/10/23 tabs nystatin 100,000 unit/gram topical 1 applic topical BID #15 grams 11/10/23 powder prednisone 20 mg tablet See Rx Instructions PO .COMPLEX 11/10/23 #30 tabs Results & Data (ED) Vital Signs Vital Signs - 24 hr 11/13/23 06:56 11/13/23 08:22 11/13/23 08:30 Temperature 36.9 C Temperature Source Oral Pulse Rate 91 H 84 79 Pulse Rate [Finger] Pulse Rate from SpO2 Sensor 79 Pulse Rhythm [Finger] Pulse Strength [Finger] Respiratory Rate 18 16 Respiratory Effort / Characteristics Respiratory Depth Normal Respiratory Pattern Blood Pressure 148/113 H 156/80 H Blood Pressure [Right Arm] Blood Pressure Mean 124 105 Blood Pressure Mean [Right Arm] Blood Pressure Position [Right Arm] Pulse Oximetry 94 92 Oxygen Delivery Method Room Air Oxygen Flow Rate Sepsis Recent Fever Within 48 Hours No Sepsis New/Unexplained Change in Mental Status No Sepsis Action Taken by Nursing No Action Required 11/13/23 09:30 11/13/23 09:38 11/13/23 11:00 Temperature Temperature Source Pulse Rate 88 Pulse Rate [Finger] 85 93 H Pulse Rate from SpO2 Sensor 87 Pulse Rhythm [Finger] Regular Regular Pulse Strength [Finger] Normal Respiratory Rate 26 H 20 20 Respiratory Effort / Characteristics Non-Labored Spontaneous Non-Labored Respiratory Depth Normal Normal Respiratory Pattern Regular Blood Pressure 184/91 H Blood Pressure [Right Arm] 184/91 H 152/78 H Blood Pressure Mean 122 Blood Pressure Mean [Right Arm] 122 102 Blood Pressure Position [Right Arm] Sitting Pulse Oximetry 92 94 90 Oxygen Delivery Method Room Air Nasal Cannula Oxygen Flow Rate 2 Sepsis Recent Fever Within 48 Hours Sepsis New/Unexplained Change in Mental Status Sepsis Action Taken by Nursing 11/13/23 11:00 11/13/23 11:30 11/13/23 12:00 Temperature Temperature Source Pulse Rate 94 H 94 H 91 H Pulse Rate [Finger] Pulse Rate from SpO2 Sensor 94 H 94 H 91 H Pulse Rhythm [Finger] Pulse Strength [Finger] Respiratory Rate 16 14 15 Respiratory Effort / Characteristics Respiratory Depth Respiratory Pattern Blood Pressure 152/78 H 138/82 139/75 Blood Pressure [Right Arm] Blood Pressure Mean 102 100 96 Blood Pressure Mean [Right Arm] Blood Pressure Position [Right Arm] Pulse Oximetry 90 91 92 Oxygen Delivery Method Oxygen Flow Rate Sepsis Recent Fever Within 48 Hours Sepsis New/Unexplained Change in Mental Status Sepsis Action Taken by Nursing 11/13/23 12:30 11/13/23 12:30 11/13/23 13:00 Temperature Temperature Source Pulse Rate 88 87 82 Pulse Rate [Finger] Pulse Rate from SpO2 Sensor 87 82 Pulse Rhythm [Finger] Pulse Strength [Finger] Respiratory Rate 14 14 Respiratory Effort / Characteristics Respiratory Depth Respiratory Pattern Blood Pressure 142/84 H 147/72 H Blood Pressure [Right Arm] Blood Pressure Mean 103 97 Blood Pressure Mean [Right Arm] Blood Pressure Position [Right Arm] Pulse Oximetry 93 94 Oxygen Delivery Method Oxygen Flow Rate Sepsis Recent Fever Within 48 Hours Sepsis New/Unexplained Change in Mental Status Sepsis Action Taken by Nursing 11/13/23 13:30 11/13/23 14:00 Temperature Temperature Source Pulse Rate 84 81 Pulse Rate [Finger] Pulse Rate from SpO2 Sensor 84 82 Pulse Rhythm [Finger] Pulse Strength [Finger] Respiratory Rate 15 15 Respiratory Effort / Characteristics Respiratory Depth Respiratory Pattern Blood Pressure 149/78 H 144/86 H Blood Pressure [Right Arm] Blood Pressure Mean 101 105 Blood Pressure Mean [Right Arm] Blood Pressure Position [Right Arm] Pulse Oximetry 94 94 Oxygen Delivery Method Oxygen Flow Rate Sepsis Recent Fever Within 48 Hours Sepsis New/Unexplained Change in Mental Status Sepsis Action Taken by Nursing Laboratory Data 11/13/23 07:05 11/13/23 07:05 Lab Results 11/13/23 11/13/23 Range/Units 07:05 07:12 WBC 12.76 H (4.8-10.8) K/ul RBC 5.25 (4.20-5.40) M/uL Hgb 13.8 (12.0-16.0) g/dl POC Hgb 14.3 (12.0-16.0) g/dl Hct 42.3 (37.0-47.0) % POC Hct 42 (37-47) % MCV 80.6 (80.0-100.0) fL MCH 26.3 (25.0-34.0) pg MCHC 32.6 (32.0-36.0) g/dL RDW Std Deviation 49.3 H (36.4-46.3) fL RDW Coeff of Carmen 16.9 H (11.5-14.5) % Plt Count 239 (130-400) K/uL MPV 10.7 (9.4-12.4) fL Immature Gran % (Auto) 0.5 % Neut % (Auto) 75.7 % Lymph % (Auto) 15.8 % Collin % (Auto) 6.7 % Eos % (Auto) 0.9 % Baso % (Auto) 0.4 % Neut # (Auto) 9.68 H (1.40-6.50) K/uL Lymph # (Auto) 2.01 (1.20-3.40) K/uL Collin # (Auto) 0.85 H (0.11-0.59) K/uL Eos # (Auto) 0.11 (0.00-0.50) K/uL Baso # (Auto) 0.05 (0.00-0.20) K/uL Immature Gran # (Auto) 0.06 (0.01-0.20) K/uL POC Sodium 137 (135-144) mmol/L Sodium 136 (136-145) mmol/L POC Potassium 4.2 (3.3-5.0) mmol/L Potassium 4.3 (3.5-5.1) mmol/L POC Chloride 97 L (101-112) mmol/L Chloride 100 (98-107) mmol/L Carbon Dioxide 27 (21-32) mmol/L POC Total CO2 26 (24-31) mmol/L Anion Gap 9 (3-11) POC Anion Gap 20.0 (16-25) mmol/L POC BUN 13 (7-18) mg/dl BUN 14 (6-23) mg/dl Creatinine 0.67 (0.6-1.2) mg/dl POC Creatinine 0.6 (0.6-1.3) mg/dl Est Cr Clr Drug Dosing 73.2 ml/min Est GFR ( Amer) 96.2 ml/min Est GFR (Non-Af Amer) 83.0 ml/min BUN/Creatinine Ratio 20.9 H (10-20) Glucose 262 H (70-99(Fasting)) mg/dl POC Glucose (other) 267 H (70-99) mg/dl Calcium 9.4 (8.6-10.3) mg/dl POC Ioniz Calcium Andie 1.12 (1.12-1.32) mmol/l Magnesium 1.3 L (1.7-2.4) mg/dl Total Bilirubin 0.5 (0.2-1.0) mg/dl Direct Bilirubin 0.1 (0-0.2) mg/dl AST 37 (13-39) U/L ALT 36 (7-52) U/L Alkaline Phosphatase 65 (34-104) U/L Troponin I High Sens 6.5 (0-14) pg/ml Total Protein 7.2 (6.0-8.3) gm/dl Albumin 4.4 (3.4-5.0) gm/dl Lipase 8 L (11-82) U/L SARS-CoV-2 (PCR) NEGATIVE (Negative) Influenza Type A (PCR) Negative (Neg) Influenza Type B (PCR) Negative (Neg) RSV (RT-PCR) Negative (Neg) Administered Medications Discontinued Medications Hydromorphone HCl (Hydromorphone Inj 0.5 Mg/0.5 Ml Syr) 0.5 mg IV NOW STA Stop: 11/13/23 09:51 Last Admin: 11/13/23 10:08 Dose: 0.5 mg Documented By: THERESA Sodium Chloride (Nss) 500 mls @ 999 mls/hr IV .Q31M ONE Stop: 11/13/23 07:38 Last Infusion: 11/13/23 09:07 Dose: Infused Documented By: Admin: 11/13/23 07:41 Dose: 999 mls/hr Documented By: THERESA Magnesium Sulfate/Dextrose (Magnesium Sulfate / D5w) 1 gm in 100 mls @ 100 mls/hr IV NOW STA Stop: 11/13/23 10:09 Last Infusion: 11/13/23 11:47 Dose: Infused Documented By: Admin: 11/13/23 10:08 Dose: 100 mls/hr Documented By: THERESA Acyclovir Sodium 800 mg/ (Dextrose) 266 mls @ 250 mls/hr IV NOW ONE; Protocol Stop: 11/13/23 10:14 Last Infusion: 11/13/23 11:47 Dose: Infused Documented By: Admin: 11/13/23 10:08 Dose: 250 mls/hr Documented By: THERESA Lorazepam (Lorazepam 1 Mg/1 Ml Syr Ed Inj Use) 0.5 mg IV ONE STA Stop: 11/13/23 08:25 Last Admin: 11/13/23 08:46 Dose: 0.5 mg Documented By: THERESA Imaging Data Radiologist's Impression: Abdomen/Pelvis CT 11/13/23 07:08 CT OF THE ABDOMEN AND PELVIS WITHOUT CONTRAST CLINICAL HISTORY: Vomiting. History of small bowel obstruction. COMPARISON STUDY: CT of the abdomen and pelvis July 18, 2019. KUB July 19, 2019. Small bowel follow-through July 20, 2019. TECHNIQUE: Axial images of the abdomen and pelvis were obtained without IV contrast. Images were reviewed in the axial, sagittal, and coronal planes. Automated exposure control was utilized for the study. A dose lowering technique was utilized adhering to the principles of ALARA. FINDINGS: Lung bases are unremarkable. Small hiatal hernia. No pneumatosis, free air or portal venous gas is present. Evaluation of the abdomen and pelvis is suboptimal on this unenhanced exam. There is hepatic steatosis. No biliary or pancreatic ductal dilatation is present. A 4.4 cm water attenuation right renal lesion is unchanged since prior exam. This favors a cyst. There is no hydronephrosis. Multiple fat containing ventral hernias are present. These are unchanged. There is colonic diverticulosis without evidence for acute diverticulitis. Ileal small bowel anastomosis is noted. There are several loops of mildly dilated ileal loops with small bowel feces sign. There is trace associated interloop fluid and mild mesenteric stranding. The terminal ileum is decompressed. Transition point within the distal ileum is present. This is in close proximity to a small bowel anastomosis. The appearance is similar to CT of July 18, 2019 and consistent with a recurrent small bowel obstruction. IMPRESSION: 1. Findings consistent with a partial small bowel obstruction with transition point within the ileum, in close proximity to a small bowel anastomosis. Trace associated interloop fluid and mild mesenteric stranding. The pattern is similar to CT of July 18, 2019. 2. Colonic diverticulosis. No evidence for acute diverticulitis. 3. Hepatic steatosis. ACT 112: Negative or not required by law. Electronically signed by: Guicho Benitez M.D. 11/13/2023 8:[address] 11/13/23 07:08 CT head/brain wo con CLINICAL HISTORY: right sided headache Technique: Contiguous axial CT images of the head were acquired from the base of the skull to the vertex without intravenous contrast administration. Images were viewed in brain, subdural and bone windows. Automated dose lowering techniques and/or adjustment according to patient size were utilized for this exam. Comparison: Comparison is made to CT head 10/08/2022 Findings: The ventricles, basal cisterns, and cerebral sulci are normal. There is no acute intracranial hemorrhage or evidence of acute territorial infarction. Neither mass effect, shift of the midline structures, nor abnormal extra-axial fluid collections are shown. Imaged portions of the paranasal sinuses and mastoid air cells are clear. The orbits appear normal. There are no acute fractures of the calvaria or scalp swelling. Impression: No acute intracranial hemorrhage, no evidence of acute territorial infarction or other acute intracranial disease process. ACT 112: Negative or not required by law. Electronically signed by: Everett Nation M.D. 11/13/2023 7:50 AM KUB X-Ray 11/13/23 09:26 KUB CLINICAL HISTORY: NG insertion COMPARISON STUDY: CT of the abdomen and pelvis performed earlier today. FINDINGS: Tip of nasogastric tube is within the body of the stomach. Postoperative findings within the spine are incidentally noted. Dilated small bowel loops are better depicted on CT performed earlier today. IMPRESSION: Appropriately positioned nasogastric tube. ACT 112: Negative or not required by law. Electronically signed by: Guicho Benitez M.D. 11/13/2023 10:36 AM Discharge Plan Visit Data Chief Complaint: Abdominal Pain Stated Complaint: Abdominal Pain, N/V, Bronchitis ED Provider: Kian Gutiérrez Discharge Problem: Small bowel obstruction, Herpes zoster virus infection of face and ear nerves Discharge Instructions Interventions: ED Discharge Assessment Last Done: 11/13/23 13:47 Forms Stand Alone Forms: [facility] [employer] Prescriptions Prescriptions: No Action (DME) pen needle, diabetic [Easy Comfort Pen [place]] 31 gauge x 5/16" needle See Rx Instructions .ROUTE .MEDSUPPLY Qty: 100 1RF Rx Instructions: As directed QHS with Basaglar E11.69, E11.59 lansoprazole [Prevacid] 30 mg capsule,delayed release(DR/EC) 30 mg PO QAM Qty: 90 1RF clonidine HCl 0.1 mg tablet 0.1 mg PO BID Qty: 180 1RF (DME) blood sugar diagnostic Strip See Rx Instructions .ROUTE .MEDSUPPLY Qty: 100 2RF Rx Instructions: As directed; test twice a day once fasting. Dx: E11.9 (DME) blood-glucose meter [OneTouch Ultra2 Meter] Misc See Rx Instructions .ROUTE .MEDSUPPLY Qty: 1 0RF Rx Instructions: As directed; test twice a day once fasting Dx: E11.9 (DME) lancets [OneTouch Delica Lancets] 33 gauge misc See Rx Instructions .ROUTE .MEDSUPPLY Qty: 100 2RF Rx Instructions: As directed; test twice a day once fasting. Dx: ELL.9 prednisone 20 mg tablet See Rx Instructions PO .COMPLEX Qty: 30 0RF Rx Instructions: 60mg PO daily X 5 days, then 40mg PO daily X 5 days, then 20mg PO daily X 5 days, then stop. Start Date 11/10/23 - End Date 11/25/23. t has taken 3 doses as of 11/13/23 azithromycin 250 mg tablet See Rx Instructions PO .COMPLEX Qty: 6 0RF Rx Instructions: take 500 mg today (day 1), then 250 mg for 4 days (days 2-5). Start Date 11/10/23 - End Date 11/15/23. Pt has taken 3 doses as of 11/13/23 nystatin 100,000 unit/gram powder 1 applic topical BID Qty: 15 4RF Azo Bladder Control 300 mg Capsule 300 cap PO BID atorvastatin 40 mg tablet 40 mg PO HS clopidogrel 75 mg tablet 75 mg PO QAM aspirin 81 mg tablet,delayed release (DR/EC) 81 mg PO HS amlodipine 10 mg tablet 10 mg PO QAM glimepiride 4 mg tablet 4 mg PO QAM lisinopril 5 mg tablet 5 mg PO QAM lorazepam 1 mg tablet 2 mg PO HS escitalopram oxalate [Lexapro] 10 mg tablet 10 mg PO PM pregabalin 50 mg capsule 0 mg PO BID Rx Instructions: Take 50mg by mouth in the morning and 100mg by mouth at bedtime Myrbetriq 25 mg tablet extended release 24 hr 25 mg PO PM nitroglycerin [Nitrostat] 0.4 mg tablet, sublingual 0.4 mg Sublingual .PRN/UD PRN (Reason: Chest Pain) Rx Instructions: as needed for chest pain : one tablet under the tongue, every five minutes up to 3 doses. Referrals Referrals: Mary Dickerson MD [Primary Care Provider] -
[2023-11-13 07:24] LABS: iSTAT Creatinine 0.6 mg/dl (0.6-1.3); iSTAT Hemoglobin 14.3 g/dl (12.0-16.0); iSTAT Ionized Calcium 1.12 mmol/l (1.12-1.32); iSTAT Potassium 4.2 mmol/L (3.3-5.0)
[2023-11-13 07:28] LABS: Basophils # (auto) 0.05 K/uL (0.00-0.20); Basophils % (auto) 0.4 %; Eosinophils # (auto) 0.11 K/uL (0.00-0.50); Eosinophils % (auto) 0.9 %; Hematocrit (blood only) 42.3 % (37.0-47.0); Hemoglobin 13.8 g/dl (12.0-16.0); Immature Granulocytes # (auto) 0.06 K/uL (0.01-0.20); Immature Granulocytes % (auto) 0.5 %; Lymphocytes # (auto) 2.01 K/uL (1.20-3.40); Lymphocytes % (auto) 15.8 %; Mean Corpuscular Hemoglobin 26.3 pg (25.0-34.0); Mean Corpuscular Hgb Conc 32.6 g/dL (32.0-36.0); Mean Corpuscular Volume 80.6 fL (80.0-100.0); Mean Platelet Volume 10.7 fL (9.4-12.4); Monocytes # (auto) 0.85 K/uL (0.11-0.59); Monocytes % (auto) 6.7 %; Neutrophils # (auto) 9.68 K/uL (1.40-6.50); Neutrophils % (auto) 75.7 %; Platelet Count 239 K/uL (130-400); RDW Coefficient of Variation 16.9 % (11.5-14.5); RDW Standard Deviation 49.3 fL (36.4-46.3); Red Blood Count 5.25 M/uL (4.20-5.40); White Blood Count 12.76 K/ul (4.8-10.8)
[2023-11-13 07:46] LABS: Albumin Level 4.4 gm/dl (3.4-5.0); BUN Creatinine Ratio 20.9 (10-20); Bilirubin Direct 0.1 mg/dl (0-0.2); Bilirubin,Total 0.5 mg/dl (0.2-1.0); Calcium 9.4 mg/dl (8.6-10.3); Creatinine Clr Calc Pharmacy 73.2 ml/min; Est GFR (African American) 96.2 ml/min; Magnesium 1.3 mg/dl (1.7-2.4); Potassium 4.3 mmol/L (3.5-5.1); Total Protein 7.2 gm/dl (6.0-8.3)
--- NOTE | 2023-11-13 07:52 | CT Scan Report ---
CT head/brain wo con CLINICAL HISTORY: right sided headache Technique: Contiguous axial CT images of the head were acquired from the base of the skull to the jens matias without intravenous contrast administration. Images were viewed in brain, subdural and [facility]. Automated dose lowering techniques and/or adjustment according to patient size were utilized for this exam. Comparison: Comparison is made to CT head 10/08/2022 Findings: The ventricles, basal cisterns, and cerebral sulci are normal. There is no acute intracranial hemorrh age or evidence of acute territorial infarction. Neither mass effect, shift of the midline structures , nor abnormal extra-axial fluid collections are shown. Imaged portions of the paranasal sinuses and mastoid air cells are clear. The orbits appear normal. There are no acute fractures of the calvaria or scalp swelling. Impression: No acute intracranial hemorrhage, no evidence of acute territorial infarction or other acute intracra nial disease process. ACT 112: Negative or not required by law. Electronically signed by: Everett Nation M.D. 11/13/2023 7:50 AM
[2023-11-13 07:53] LABS: Troponin I High Sensitivity 6.5 pg/ml (0-14)
--- NOTE | 2023-11-13 08:13 | CT Scan Report ---
CT OF THE ABDOMEN AND PELVIS WITHOUT CONTRAST CLINICAL HISTORY: Vomiting. History of small bowel obstruction. COMPARISON STUDY: CT of the abdomen and pelvis July 18, 2019. KUB July 19, 2019. Small bowel follow-through July 20, 2019. TECHNIQUE: Axial images of the abdomen and pelvis were obtained without IV contrast. Images were revi ewed in the axial, sagittal, and coronal planes. Automated exposure control was utilized for the jerzy dy. A dose lowering technique was utilized adhering to the principles of ALARA. FINDINGS: Lung bases are unremarkable. Small hiatal hernia. No pneumatosis, free air or portal venous gas is present. Evaluation of the abdomen and pelvis is suboptimal on this unenhanced exam. There is hepatic steatosis. No biliary or pancreatic ductal dilatation is present. A 4.4 cm water attenuation right renal lesion is unchanged since prior exam. This favors a cyst. There is no hydronephrosis. Mu ltiple fat containing ventral hernias are present. These are unchanged. There is colonic diverticulos is without evidence for acute diverticulitis. Ileal small bowel anastomosis is noted. There are sever al loops of mildly dilated ileal loops with small bowel feces sign. There is trace associated interlo op fluid and mild mesenteric stranding. The terminal ileum is decompressed. Transition point within t he distal ileum is present. This is in close proximity to a small bowel anastomosis. The appearance i s similar to CT of July 18, 2019 and consistent with a recurrent small bowel obstruction. IMPRESSION: 1. Findings consistent with a partial small bowel obstruction with transition point within the ileum, in close proximity to a small bowel anastomosis. Trace associated interloop fluid and mild mesenteri c stranding. The pattern is similar to CT of July 18, 2019. 2. Colonic diverticulosis. No evidence for acute diverticulitis. 3. Hepatic steatosis. ACT 112: Negative or not required by law. Electronically signed by: Guicho Benitez M.D. 11/13/2023 8:12 AM
[2023-11-13] MEDS ORDERED: LORazepam 1 MG/1 ML SYR ED Inj Use IV STA (08:24)
[2023-11-13 09:00] LABS: Influenza A virus by PCR Negative (Neg); Influenza B virus by PCR Negative (Neg); RSV by PCR Negative (Neg); SARS CoV2 RNA(COVID-19) Ceph NEGATIVE (Negative)
[2023-11-13] MEDS ORDERED: MAGNESIUM SULFATE / D5W 1 GM/100 ML BAG IV STA (09:10)
[2023-11-13] MEDS ORDERED: ACYCLOVIR SOD 800 MG in DEXTROSE 5% 250 ML IV ONE (09:11)
[2023-11-13] MEDS ORDERED: HYDROmorphone INJ 0.5 MG/0.5 ML SYR IV STA (09:50)
--- NOTE | 2023-11-13 10:38 | XRay Report ---
KUB CLINICAL HISTORY: NG insertion COMPARISON STUDY: CT of the abdomen and pelvis performed earlier today. FINDINGS: Tip of nasogastric tube is within the body of the stomach. Postoperative findings within th e spine are incidentally noted. Dilated small bowel loops are better depicted on CT performed earlier today. IMPRESSION: Appropriately positioned nasogastric tube. ACT 112: Negative or not required by law. Electronically signed by: Guicho Benitez M.D. 11/13/2023 10:36 AM
--- NOTE | 2023-11-13 13:20 | Surgery Consultation ---
Date of Consultation November 13, 2023 Assessment & Plan (1) SBO (small bowel obstruction): Plan 78-year-old woman with small bowel obstruction. This is partial in nature with no definite transition point. She has had a bowel obstruction in the past, 4 years ago. NG tube in place. I recommend conservative management with IV fluids, NG tube, n.p.o. status. We will observe for now. No surgical intervention required at this time. We will continue to follow her while she is in the hospital. History of Present Illness Reason for Consultation: Small bowel obstruction Requesting Physician: Kian Gutiérrez MD Attending Physician: Kian Gutiérrez MD History of Present Illness 78-year-old woman with a past medical and surgical history significant for multiple operations of the abdomen presents with a week history of pain in the generalized abdominal area. This has been worsening over time. She has been passing small amounts of flatus and stool. She has not passed flatus today. The pain worsened and was accompanied by nausea and vomiting today which brought her to the emergency department. She denies fevers but endorses chills. She denies other complaints. CT scan demonstrates small bowel obstruction, partial, near a small bowel anastomosis. No evidence of perforation, necrosis. Allergies Allergy/AdvReac Type Severity Reaction Status Date / Time Iodinated Contrast Media Allergy Intermediate HOT FLASH Verified 11/13/23 10:33 AND RASH iodine Allergy Intermediate SWELLING, Verified 11/13/23 10:33 ITCHING,RED AND NAUSEA W/CONTRAST DYE (FEEL FUNNY) shellfish derived Allergy Intermediate SWELLING Verified 11/13/23 10:33 AND VOMITING shrimp Allergy Intermediate SWELLING Verified 11/13/23 10:33 AND NAUSEA WITH SHRIMP AND SHELLFISH Sulfa (Sulfonamide Allergy Intermediate "SULFA Verified 11/13/23 10:33 Antibiotics) DRUGS": SWELLS Egg Derived AdvReac Severe DIARRHEA,ABD Verified 11/13/23 10:33 PAIN codeine AdvReac Intermediate VOMITING Verified 11/13/23 10:33 egg AdvReac Intermediate DIARRHEA Verified 11/13/23 10:33 vaccines Allergy Severe Difficulty Uncoded 11/13/23 10:33 Breathing,Rash Home Medications Medication Instructions Recorded Confirmed Type pen needle, diabetic 31 gauge x #100 ea 01/16/21 11/10/23 Rx 5/16" (Easy Comfort Pen [place]) blood sugar diagnostic #100 ea 11/21/21 11/10/23 Rx blood-glucose meter (OneTouch #1 ea 11/21/21 11/10/23 Rx Ultra2 Meter) lancets 33 gauge (OneTouch Delica #100 ea 11/21/21 11/10/23 Rx Lancets) nitroglycerin 0.4 mg sublingual 0.4 mg sublingual .PRN/UD PRN 09/20/22 11/13/23 History tablet (Nitrostat) Chest Pain clonidine HCl 0.1 mg tablet 0.1 mg PO BID #180 tabs 04/13/23 11/13/23 Rx lansoprazole 30 mg capsule,delayed 30 mg PO QAM #90 caps 04/13/23 11/13/23 Rx release (Prevacid) azithromycin 250 mg tablet See Rx Instructions PO .COMPLEX #6 11/10/23 11/13/23 Rx tabs nystatin 100,000 unit/gram topical 1 applic topical BID #15 grams 11/10/23 11/13/23 Rx powder prednisone 20 mg tablet See Rx Instructions PO .COMPLEX 11/10/23 11/13/23 Rx #30 tabs amlodipine 10 mg tablet 10 mg PO QAM 11/13/23 11/13/23 History aspirin 81 mg tablet,delayed 81 mg PO HS 11/13/23 11/13/23 History release atorvastatin 40 mg tablet 40 mg PO HS 11/13/23 11/13/23 History clopidogrel 75 mg tablet 75 mg PO QAM 11/13/23 11/13/23 History escitalopram oxalate 10 mg tablet 10 mg PO PM 11/13/23 11/13/23 History (Lexapro) glimepiride 4 mg tablet 4 mg PO QAM 11/13/23 11/13/23 History lisinopril 5 mg tablet 5 mg PO QAM 11/13/23 11/13/23 History lorazepam 1 mg tablet 2 mg PO HS sleep 11/13/23 11/13/23 History mirabegron 25 mg tablet,extended 25 mg PO PM 11/13/23 11/13/23 History release 24 hr (Myrbetriq) pregabalin 50 mg capsule 0 mg PO BID 11/13/23 11/13/23 History pumpkin seed extract-soy germ 300 300 cap PO BID 11/13/23 11/13/23 History mg capsule (Azo Bladder Control) Patient History Medical History History of CVA (cerebrovascular accident) Fatigue Left lower quadrant pain Abdominal pain Small bowel obstruction Bacteremia H/O Clostridium difficile infection H/O: rheumatic fever Hemorrhoids Nonobstructive atherosclerosis of coronary artery "Per cardiac cath May 2016" LVH (left ventricular hypertrophy) Labile hypertension Lumbar stenosis with neurogenic claudication Contrast media allergy Acute chest pain Vomiting WPW (Xztet-Aauxzyvei-Rthje syndrome) Vasovagal near-syncope Surgical History Hx of hysterectomy S/P partial colectomy S/P ROMAN-BSO History of herniorrhaphy S/P foot surgery History of bladder surgery H/O cardiac radiofrequency ablation Family History Brother Colorectal cancer Prostate cancer Mother Myocardial infarction Other Cancer Diabetes Heart disease Hypertension Denies family history of Ovarian cancer Breast cancer Social History Smoking Status: Never smoker Tobacco Type: Cigarettes Age Started Using Tobacco: 32; Age Quit Using Tobacco: 33; Second Hand Exposure: No; Do You Dip or Chew Tobacco: No; Hx Alcohol Use: No Hx Substance Use: No Preferred Language: Mohawk Communication Ability: Effective [place] Debeader Required: No Beliefs That Will Affect Care: None marital status: Current Living Situation: Family current occupational status: retired How many Children do You have: 3 Feels Safe at Home: Yes Childhood Exposure to Second-Hand Smoke: Yes Diet: regular caffeine: Yes Dental Care, Regularly: No Physical Activity Frequency: Does not Exercise Seatbelt Use: always Sunscreen Use: No Assistive Devices: None Review of Systems Review of Systems: All systems reviewed & are unremarkable except as noted in HPI & below Physical Exam Constitutional: WD/WN, vitals as above Eyes: PERRL, conjunctivae normal, anicteric sclerae Neck: trachea midline, no thyromegaly Respiratory: normal respiratory effort, lungs clear to auscultation Cardiovascular: RRR, no murmur, no edema Gastrointestinal (Abdomen): Inspection/Auscultation: abdomen normal to inspection and + abdomen distended (Mild) Percussion/Palpation: + abdomen tender (Diffusely) and abdomen soft; no guarding and abdomen not rigid NG tube in place draining yellowish fluid Skin: no rashes, warm and dry Psychiatric: A+Ox3, euthymic affect Results & Data Vital Signs (Past 12 Hours) Vital Signs Temp Pulse Pulse Resp BP BP Pulse Ox 11/13/23 12:30 88 11/13/23 12:00 91 H 15 139/75 92 11/13/23 11:30 94 H 14 138/82 91 11/13/23 11:00 94 H 16 152/78 H 90 11/13/23 11:00 93 H 20 152/78 H 90 11/13/23 09:38 85 20 184/91 H 94 11/13/23 09:30 88 26 H 184/91 H 92 11/13/23 08:30 79 16 156/80 H 92 11/13/23 08:22 84 11/13/23 06:56 36.9 C 91 H 18 148/113 H 94 O2 Del Method O2 Flow Rate 11/13/23 12:30 11/13/23 12:00 11/13/23 11:30 11/13/23 11:00 11/13/23 11:00 Nasal Cannula 2 11/13/23 09:38 Room Air 11/13/23 09:30 11/13/23 08:30 11/13/23 08:22 11/13/23 06:56 Room Air Laboratory Results 11/13/23 11/13/23 Range/Units 07:12 07:05 WBC 12.76 H (4.8-10.8) K/ul RBC 5.25 (4.20-5.40) M/uL Hgb 13.8 (12.0-16.0) g/dl POC Hgb 14.3 (12.0-16.0) g/dl Hct 42.3 (37.0-47.0) % POC Hct 42 (37-47) % MCV 80.6 (80.0-100.0) fL MCH 26.3 (25.0-34.0) pg MCHC 32.6 (32.0-36.0) g/dL RDW Std Deviation 49.3 H (36.4-46.3) fL RDW Coeff of Carmen 16.9 H (11.5-14.5) % Plt Count 239 (130-400) K/uL MPV 10.7 (9.4-12.4) fL Immature Gran % (Auto) 0.5 % Neut % (Auto) 75.7 % Lymph % (Auto) 15.8 % Hopkins % (Auto) 6.7 % Eos % (Auto) 0.9 % Baso % (Auto) 0.4 % Neut # (Auto) 9.68 H (1.40-6.50) K/uL Lymph # (Auto) 2.01 (1.20-3.40) K/uL Hopkins # (Auto) 0.85 H (0.11-0.59) K/uL Eos # (Auto) 0.11 (0.00-0.50) K/uL Baso # (Auto) 0.05 (0.00-0.20) K/uL Immature Gran # (Auto) 0.06 (0.01-0.20) K/uL POC Sodium 137 (135-144) mmol/L Sodium 136 (136-145) mmol/L POC Potassium 4.2 (3.3-5.0) mmol/L Potassium 4.3 (3.5-5.1) mmol/L POC Chloride 97 L (101-112) mmol/L Chloride 100 (98-107) mmol/L Carbon Dioxide 27 (21-32) mmol/L POC Total CO2 26 (24-31) mmol/L Anion Gap 9 (3-11) POC Anion Gap 20.0 (16-25) mmol/L POC BUN 13 (7-18) mg/dl BUN 14 (6-23) mg/dl Creatinine 0.67 (0.6-1.2) mg/dl POC Creatinine 0.6 (0.6-1.3) mg/dl Est Cr Clr Drug Dosing 73.2 ml/min Est GFR ( Amer) 96.2 ml/min Est GFR (Non-Af Amer) 83.0 ml/min BUN/Creatinine Ratio 20.9 H (10-20) Glucose 262 H (70-99(Fasting)) mg/dl POC Glucose (other) 267 H (70-99) mg/dl Calcium 9.4 (8.6-10.3) mg/dl POC Ioniz Calcium Andie 1.12 (1.12-1.32) mmol/l Magnesium 1.3 L (1.7-2.4) mg/dl Total Bilirubin 0.5 (0.2-1.0) mg/dl Direct Bilirubin 0.1 (0-0.2) mg/dl AST 37 (13-39) U/L ALT 36 (7-52) U/L Alkaline Phosphatase 65 (34-104) U/L Troponin I High Sens 6.5 (0-14) pg/ml Total Protein 7.2 (6.0-8.3) gm/dl Albumin 4.4 (3.4-5.0) gm/dl Lipase 8 L (11-82) U/L SARS-CoV-2 (PCR) NEGATIVE (Negative) Influenza Type A (PCR) Negative (Neg) Influenza Type B (PCR) Negative (Neg) RSV (RT-PCR) Negative (Neg) Diagnostic Findings CT OF THE ABDOMEN AND PELVIS WITHOUT CONTRAST CLINICAL HISTORY: Vomiting. History of small bowel obstruction. COMPARISON STUDY: CT of the abdomen and pelvis July 18, 2019. KUB July 19, 2019. Small bowel follow-through July 20, 2019. TECHNIQUE: Axial images of the abdomen and pelvis were obtained without IV contrast. Images were reviewed in the axial, sagittal, and coronal planes. Automated exposure control was utilized for the study. A dose lowering technique was utilized adhering to the principles of ALARA. FINDINGS: Lung bases are unremarkable. Small hiatal hernia. No pneumatosis, free air or portal venous gas is present. Evaluation of the abdomen and pelvis is garcia boptimal on this unenhanced exam. There is hepatic steatosis. No biliary or pancreatic ductal dilatation is present. A 4.4 cm water attenuation right renal lesion is unchanged since prior exam. This favors a cyst. There is no hydronephrosis. Multiple fat containing ventral hernias are present. These are unchanged. There is colonic diverticulosis without evidence for acute diverticulitis. Ileal small bowel anastomosis is noted. There are several loops of mildly dilated ileal loops with small bowel feces sign. There is trace associated interloop fluid and mild mesenteric stranding. The terminal ileum is decompressed. Transition point within the distal ileum is present. This is in close proximity to a small bowel anastomosis. The appearance is similar to CT of July 18, 2019 and consistent with a recurrent small bowel obstruction. IMPRESSION: 1. Findings consistent with a partial small bowel obstruction with transition point within the ileum, in close proximity to a small bowel anastomosis. Trace associated interloop fluid and mild mesenteric stranding. The pattern is similar to CT of July 18, 2019. 2. Colonic diverticulosis. No evidence for acute diverticulitis. 3. Hepatic steatosis. ACT 112: Negative or not required by law.
[2023-11-13] MEDS ORDERED: MAGNESIUM SULFATE / D5W 1 GM/100 ML BAG IV ONE (13:37)
--- NOTE | 2023-11-13 13:37 | History & Physical Report ---
Date of Service November 13, 2023 Assessment & Plan (1) SBO (small bowel obstruction): Plan: presents with transition point in right lower quadrant at site of a prior bowel anastomosis, consistent with partial small bowel obstruction related to adhesions from prior surgery, likely to resolve with conservative treatment NG tube placed in ED - continue to LIS Consulted general surgery - reviewed recommendations in note today IVF - D5 1/2NS + 20K Monitor BMP at least daily PRN morphine and ondansetron IV (2) Herpes zoster: Plan: One possible lesion on R lower eyelid but not otherwise in V1 distribution at all, appears to be all V2. No lesions on side or tip of nose. No R eye pain, conjunctival inflammation, or vision changes from baseline VZV opthalmicus unlikely -acyclovir 10 mg/kg q8h while npo then change to valacyclovir x 7 days course -monitor for any R eye pain, conjunctival inflammation, change in vision, nasal lesions -pain control as above (3) GERD (gastroesophageal reflux disease): Plan: Pepcid 20 mg IV daily while npo (4) Diabetes mellitus, type II: Plan: Uncontrolled with BG in 300s on presentation to ED and recently on prednisone for URI Monitor BG q6h while NPO -PRN short acting insulin until eating (5) HTN (hypertension): Plan: Meds held while NPO Home meds include clonidine Metoprolol scheduled if necessary. Currently only mild BP elevation (6) Hypomagnesemia: Plan: 1g IV given in ED for mag 1.3 K in IVF, K normal -will order additional 1g magnesium IV -AM mag check Admission and Anticipated Discharge Date Admission Date: 11/13 Anticipated date of discharge: 11/16/23 History of Present Illness Chief Complaint: nausea and abdominal pain Primary Care Provider: Mary Dickerson MD 78 y/o with past history of partial colectomy bladder surgery and hysterectomy who has recent 1-2 weeks history of not feeling well. Seen in primary care 11/10 with flulike/cold symptoms for 5 days and started on azithromycin and prednisone. She developed onset of new symptoms two days ago of nausea, generalized abdominal pain and bloating. Symptoms were similar to past episodes of small bowel obstruction. She sought care in ED and had CT abdomen/pelvis remarkable for SBO with transition point in RLQ at site of prior small bowel anastomosis. NG tube was placed. Since then nausea has resolved and abdominal pain and distention has improved. Not passing flatus and last stool was apx 2 days ago. She also developed right sided facial/head pain two days ago, then developed painful vesicular rash with few lesions on right midface, lip below dose, and one on right lower eyelid. Some of these lesions are crusting at this point. She denies any right eye pain or redness or change in vision. She has no lesions on her nose or ear. She has never had shingles before and did not have vaccine. Right now she is not coughing short of breath or wheezing. She has had stroke in past which caused R arm and R leg weakness. Her leg is full strength and her arm strength is good but she still has trouble writing. Allergies Allergy/AdvReac Type Severity Reaction Status Date / Time Iodinated Contrast Media Allergy Intermediate HOT FLASH Verified 11/13/23 10:33 AND RASH iodine Allergy Intermediate SWELLING, Verified 11/13/23 10:33 ITCHING,RED AND NAUSEA W/CONTRAST DYE (FEEL FUNNY) shellfish derived Allergy Intermediate SWELLING Verified 11/13/23 10:33 AND VOMITING shrimp Allergy Intermediate SWELLING Verified 11/13/23 10:33 AND NAUSEA WITH SHRIMP AND SHELLFISH Sulfa (Sulfonamide Allergy Intermediate "SULFA Verified 11/13/23 10:33 Antibiotics) DRUGS": SWELLS Egg Derived AdvReac Severe DIARRHEA,ABD Verified 11/13/23 10:33 PAIN codeine AdvReac Intermediate VOMITING Verified 11/13/23 10:33 egg AdvReac Intermediate DIARRHEA Verified 11/13/23 10:33 vaccines Allergy Severe Difficulty Uncoded 11/13/23 10:33 Breathing,Rash Home Medications Medication Instructions Recorded Confirmed Type pen needle, diabetic 31 gauge x #100 ea 01/16/21 11/10/23 Rx 5/16" (Easy Comfort Pen [place]) blood sugar diagnostic #100 ea 11/21/21 11/10/23 Rx blood-glucose meter (OneTouch #1 ea 11/21/21 11/10/23 Rx Ultra2 Meter) lancets 33 gauge (OneTouch [place] #100 ea 11/21/21 11/10/23 Rx Lancets) nitroglycerin 0.4 mg sublingual 0.4 mg sublingual .PRN/UD PRN 09/20/22 11/13/23 History tablet (Nitrostat) Chest Pain clonidine HCl 0.1 mg tablet 0.1 mg PO BID #180 tabs 04/13/23 11/13/23 Rx lansoprazole 30 mg capsule,delayed 30 mg PO QAM #90 caps 04/13/23 11/13/23 Rx release (Prevacid) azithromycin 250 mg tablet See Rx Instructions PO .COMPLEX #6 11/10/23 11/13/23 Rx tabs nystatin 100,000 unit/gram topical 1 applic topical BID #15 grams 11/10/23 11/13/23 Rx powder prednisone 20 mg tablet See Rx Instructions PO .COMPLEX 11/10/23 11/13/23 Rx #30 tabs amlodipine 10 mg tablet 10 mg PO QAM 11/13/23 11/13/23 History aspirin 81 mg tablet,delayed 81 mg PO HS 11/13/23 11/13/23 History release atorvastatin 40 mg tablet 40 mg PO HS 11/13/23 11/13/23 History clopidogrel 75 mg tablet 75 mg PO QAM 11/13/23 11/13/23 History escitalopram oxalate 10 mg tablet 10 mg PO PM 11/13/23 11/13/23 History (Lexapro) glimepiride 4 mg tablet 4 mg PO QAM 11/13/23 11/13/23 History lisinopril 5 mg tablet 5 mg PO QAM 11/13/23 11/13/23 History lorazepam 1 mg tablet 2 mg PO HS sleep 11/13/23 11/13/23 History mirabegron 25 mg tablet,extended 25 mg PO PM 11/13/23 11/13/23 History release 24 hr (Myrbetriq) pregabalin 50 mg capsule 0 mg PO BID 11/13/23 11/13/23 History pumpkin seed extract-soy germ 300 300 cap PO BID 11/13/23 11/13/23 History mg capsule (Azo Bladder Control) Past Med/Surg History Medical History History of CVA (cerebrovascular accident) Fatigue Left lower quadrant pain Abdominal pain Small bowel obstruction Bacteremia H/O Clostridium difficile infection H/O: rheumatic fever Hemorrhoids Nonobstructive atherosclerosis of coronary artery "Per cardiac cath May 2016" LVH (left ventricular hypertrophy) Labile hypertension Lumbar stenosis with neurogenic claudication Contrast media allergy Acute chest pain Vomiting WPW (Rzqap-Qsapoldts-Nnqdy syndrome) Vasovagal near-syncope Surgical History Hx of hysterectomy S/P partial colectomy S/P ROMAN-BSO History of herniorrhaphy S/P foot surgery History of bladder surgery H/O cardiac radiofrequency ablation Family History Brother Colorectal cancer Prostate cancer Mother Myocardial infarction Other Cancer Diabetes Heart disease Hypertension Denies family history of Ovarian cancer Breast cancer Social History Smoking Status: Never smoker Tobacco Type: Cigarettes Age Started Using Tobacco: 32; Age Quit Using Tobacco: 33; Second Hand Exposure: No; Do You Dip or Chew Tobacco: No; Hx Alcohol Use: No Hx Substance Use: No Preferred Language: Swedish Communication Ability: Effective Tribal Judge Required: No Beliefs That Will Affect Care: None marital status: Current Living Situation: Family current occupational status: retired How many Children do You have: 3 Feels Safe at Home: Yes Childhood Exposure to Second-Hand Smoke: Yes Diet: regular caffeine: Yes Dental Care, Regularly: No Physical Activity Frequency: Does not Exercise Seatbelt Use: always Sunscreen Use: No Assistive Devices: None Review of Systems 2 Review of Systems: All systems reviewed & are unremarkable except as noted in HPI & below Physical Exam 2 Physical Exam: PHYSICAL EXAMINATION Last 24h vital signs reviewed, see documentation in flowsheet General: comfortable appearing, no distress, elderly woman lying on gurney in ED, NG tube in place with yellowish drainage HEENT: pupils round and equal, sclerae anicteric, no conjunctival injection, dry mucus membranes few scattered vesicular lesions some crusted on right side of face in V2 distribution. There is a single 2 mm pink lesion on right inferior eyelid. There are no lesions on the tip of the nose or right side of the nose. Her right eye conjunctiva is clear with no erythema no drainage. Right eye visual acuity is intact at her baseline which is myopic and she does not have her glasses with her however she can read words off a card several feet away. She has no pain with extraocular movement of her right eye, no lesions near her right ear/ear canal Lungs: Normal respiratory effort. Clear to auscultation bilaterally. No RRW Heart: Regular rate and rhythm, systolic murmur murmurs. No JVD Abdomen: Soft, mildly tender in right lower quadrant without rebound rigidity or guarding, mildly distended. Bowel sounds present. Extremities: Warm, dry, well-perfused. No extremity edema. Neuro: Alert and oriented x 4, face symmetric, moves 4 extremities well Psych: Normal affect and behavior Results & Data Results & Data Vital Signs (Past 12 Hours) Vital Signs Temp Pulse Pulse Resp BP BP Pulse Ox 11/13/23 12:30 88 11/13/23 12:00 91 H 15 139/75 92 11/13/23 11:30 94 H 14 138/82 91 11/13/23 11:00 94 H 16 152/78 H 90 11/13/23 11:00 93 H 20 152/78 H 90 11/13/23 09:38 85 20 184/91 H 94 11/13/23 09:30 88 26 H 184/91 H 92 11/13/23 08:30 79 16 156/80 H 92 11/13/23 08:22 84 11/13/23 06:56 36.9 C 91 H 18 148/113 H 94 O2 Del Method O2 Flow Rate 11/13/23 12:30 11/13/23 12:00 11/13/23 11:30 11/13/23 11:00 11/13/23 11:00 Nasal Cannula 2 11/13/23 09:38 Room Air 11/13/23 09:30 11/13/23 08:30 11/13/23 08:22 11/13/23 06:56 Room Air Laboratory Results 11/13/23 07:05 11/13/23 07:05 Diagnostic Findings Abdomen/Pelvis CT 11/13/23 07:08 CT OF THE ABDOMEN AND PELVIS WITHOUT CONTRAST CLINICAL HISTORY: Vomiting. History of small bowel obstruction. COMPARISON STUDY: CT of the abdomen and pelvis July 18, 2019. KUB July 19, 2019. Small bowel follow-through July 20, 2019. TECHNIQUE: Axial images of the abdomen and pelvis were obtained without IV contrast. Images were reviewed in the axial, sagittal, and coronal planes. Automated exposure control was utilized for the study. A dose lowering technique was utilized adhering to the principles of ALARA. FINDINGS: Lung bases are unremarkable. Small hiatal hernia. No pneumatosis, free air or portal venous gas is present. Evaluation of the abdomen and pelvis is suboptimal on this unenhanced exam. There is hepatic steatosis. No biliary or pancreatic ductal dilatation is present. A 4.4 cm water attenuation right renal lesion is unchanged since prior exam. This favors a cyst. There is no hydronephrosis. Multiple fat containing ventral hernias are present. These are unchanged. There is colonic diverticulosis without evidence for acute diverticulitis. Ileal small bowel anastomosis is noted. There are several loops of mildly dilated ileal loops with small bowel feces sign. There is trace associated interloop fluid and mild mesenteric stranding. The terminal ileum is decompressed. Transition point within the distal ileum is present. This is in close proximity to a small bowel anastomosis. The appearance is similar to CT of July 18, 2019 and consistent with a recurrent small bowel obstruction. IMPRESSION: 1. Findings consistent with a partial small bowel obstruction with transition point within the ileum, in close proximity to a small bowel anastomosis. Trace associated interloop fluid and mild mesenteric stranding. The pattern is similar to CT of July 18, 2019. 2. Colonic diverticulosis. No evidence for acute diverticulitis. 3. Hepatic steatosis. ACT 112: Negative or not required by law. Electronically signed by: Guicho Benitez M.D. 11/13/2023 8:[address] 11/13/23 07:08 CT head/brain wo con CLINICAL HISTORY: right sided headache Technique: Contiguous axial CT images of the head were acquired from the base of the skull to the vertex without intravenous contrast administration. Images were viewed in brain, subdural and bone windows. Automated dose lowering techniques and/or adjustment according to patient size were utilized for this exam. Comparison: Comparison is made to CT head 10/08/2022 Findings: The ventricles, basal cisterns, and cerebral sulci are normal. There is no acute intracranial hemorrhage or evidence of acute territorial infarction. Neither mass effect, shift of the midline structures, nor abnormal extra-axial fluid collections are shown. Imaged portions of the paranasal sinuses and mastoid air cells are clear. The orbits appear normal. There are no acute fractures of the calvaria or scalp swelling. Impression: No acute intracranial hemorrhage, no evidence of acute territorial infarction or other acute intracranial disease process. ACT 112: Negative or not required by law. Electronically signed by: Everett Nation M.D. 11/13/2023 7:50 AM KUB X-Ray 11/13/23 09:26 KUB CLINICAL HISTORY: NG insertion COMPARISON STUDY: CT of the abdomen and pelvis performed earlier today. FINDINGS: Tip of nasogastric tube is within the body of the stomach. Postoperative findings within the spine are incidentally noted. Dilated small bowel loops are better depicted on CT performed earlier today. IMPRESSION: Appropriately positioned nasogastric tube. ACT 112: Negative or not required by law. Electronically signed by: Guicho Benitez M.D. 11/13/2023 10:36 AM Code Status & VTE Plan Code Status She requests DNR VTE Prophylaxis Plan VTE Prophylaxis will be ordered: Yes PG Care Time/CCT Total # of Minutes Spent Total Time Spent with Patient: Total time spent is greater than 50% in coordination of care (as documented) at patient's floor/unit and/or counseling patient: Coding Level of Care Code 24891 INT INP/OBS CARE 2MIN Diagnoses SBO (small bowel obstruction) K56.609 Herpes zoster B02.9 Gastroesophageal reflux disease, esophagitis presence not specified K21.9 Esophagitis presence: esophagitis presence not specified Type 2 diabetes mellitus with diabetic polyneuropathy, without long-term current use of insulin E11.42 Diabetes mellitus complication detail: with polyneuropathy Diabetes mellitus complication status: with neurologic complications Diabetes mellitus jail insulin use: without terminal operator use Essential hypertension I10 Hypertension type: unspecified Hypomagnesemia E83.42 (3) GERD (gastroesophageal reflux disease) Esophagitis presence: esophagitis presence not specified Qualified Code(s): K 21.9 - Gastro-esophageal reflux disease without esophagitis (4) Diabetes mellitus, type II Diabetes mellitus complication detail: with polyneuropathy Diabetes mellitus complication status: with neurologic complications Diabetes mellitus terminal operator insulin use: without jail use Qualified Code(s): E11.42 - Type 2 diabetes mellitus with diabetic polyneuropathy (5) HTN (hypertension) Hypertension type: unspecified Qualified Code(s): I10 - Essential (primary) hypertension
[2023-11-13] MEDS ORDERED: DEXTROSE 50% 50 ML SYRINGE IV PRN (14:22)
[2023-11-13] MEDS ORDERED: GLUCAGON FOR INJ 1 MG VIAL SQ PRN (14:22)
[2023-11-13] MEDS ORDERED: GLUCOSE 10 TAB/TUBE PO PRN (14:22)
[2023-11-13] MEDS ORDERED: GLUCOSE 40% GEL 15 GM TUBE PO PRN (14:22)
[2023-11-13] MEDS ORDERED: CARBOHYDRATES FOR HYPOGLYCEMIA PO PRN (14:22)
[2023-11-13] MEDS: MoRPHine SULFATE 2 MG/ML CARP IV PRN ×2 (14:39→20:00)
[2023-11-13 15:11] LABS: Appearance Urine Clear (Clear); Bilirubin Urine Negative (Negative); Blood Urine Negative (Negative); Color Urine Yellow; Glucose Urine UA Trace (Negative); Ketones Urine Negative (Negative); Leukocyte Esterase Urine 1+ (Negative); Nitrite Urine Positive (Negative); Protein Urine Negative (Negative); Specific Gravity Urine 1.016 (1.000-1.030); Urobilinogen Urine Negative (Negative); pH Urine 6.5 (4.5-7.5)
[2023-11-13] MEDS: FAMOTIDINE 20 MG in SYRINGE 3 ML IV SCH (15:20)
[2023-11-13] MEDS: D5W AND 1/2NSS + 20MEQ KCL 20 MEQ/1,000 ML BAG IV SCH ×2 (15:20→22:19)
[2023-11-13] MEDS: ENOXAPARIN INJ 40 MG/0.4 ML SYR SQ SCH (15:25)
[2023-11-13 15:44] LABS: Bacteria Urine 4+ (Negative); Epithelial Cell Urine 0-5 /lpf (0-5); Hyaline Casts Urine 0-5 /lpf (0-5); RBC Urine 0-4 /hpf (0-4)
[2023-11-13] MEDS: INSULIN ASPART PER UNIT CHARGE SC SCH ×3 (16:18→22:20)
--- NOTE | 2023-11-13 17:32 | Electrocardiogram Report ---
Test Reason : Blood Pressure : / mmHG Vent. Rate : 084 BPM Atrial Rate : 084 BPM P-R Int : 162 ms QRS Dur : 070 ms QT Int : 378 ms P-R-T Axes : 056 015 -08 degrees QTc Int : 446 ms Normal sinus rhythm Nonspecific ST abnormality When compared with ECG of 30-NOV-2022 20:55, T wave inversion now evident in Inferior leads Nonspecific T wave abnormality, improved in Lateral leads Confirmed by Niko Machado ([id number]) on 11/13/2023 5:31:54 PM Referred By: REFERRED SELF Confirmed By:Geovani Machado
[2023-11-13] MEDS ORDERED: ACYCLOVIR SOD 700 MG in DEXTROSE 5% 250 ML IV SCH (18:00)
[2023-11-13] MEDS: ACYCLOVIR SOD 700 MG in DEXTROSE 5% 100 ML IV SCH (20:14)
[2023-11-13] MEDS: MICONAZOLE NITRATE POWDER 85 GM EXT SCH (21:10)
[2023-11-14] MEDS: ONDANSETRON INJ 2 MG/ML 2 ML VIAL IV PRN ×3 (00:09→16:07)
[2023-11-14] MEDS: ACYCLOVIR SOD 700 MG in DEXTROSE 5% 100 ML IV SCH ×3 (02:27→18:20)
--- NOTE | 2023-11-14 02:28 | Surgery Progress Note ---
Date of Service November 14, 2023 Assessment & Plan (1) SBO (small bowel obstruction): Plan: HD #2 with SBO, improving abdominal pain Continue NG tube, n.p.o., IVF Continue pain control as needed Encourage incentive spirometry and ambulation Awaiting return of bowel function Admission and Anticipated Discharge Date Admission Date: November 13, 2023 Subjective No nausea or vomiting. NG tube in place. Decreasing abdominal pain. No flatus yet Physical Exam Physical Exam: AFVSS NAD, A&O x 3 Abdomen: Soft, mild distention Mild diffuse TTP NG tube in place Results & Data Vital Signs (Past 12 Hours) Vital Signs Temp Pulse Pulse Resp BP BP Pulse Ox 11/14/23 00:48 184/75 H 11/13/23 23:38 11/13/23 23:08 37.1 C 88 20 191/78 H 95 11/13/23 22:19 89 16 183/87 H 94 11/13/23 20:00 85 15 167/79 H 96 11/13/23 19:00 78 16 161/74 H 95 11/13/23 18:00 76 15 165/78 H 95 11/13/23 17:00 80 17 142/86 H 95 11/13/23 16:00 82 16 151/73 H 94 11/13/23 15:00 84 11/13/23 15:00 77 18 153/77 H 98 O2 Del Method O2 Flow Rate 11/14/23 00:48 11/13/23 23:38 Nasal Cannula 2 11/13/23 23:08 Nasal Cannula 2 11/13/23 22:19 Nasal Cannula 2 11/13/23 20:00 11/13/23 19:00 11/13/23 18:00 Nasal Cannula 2 11/13/23 17:00 Room Air 11/13/23 16:00 Nasal Cannula 2 11/13/23 15:00 11/13/23 15:00 Nasal Cannula 2
[2023-11-14] MEDS: MoRPHine SULFATE 2 MG/ML CARP IV PRN ×2 (03:42→11:04)
[2023-11-14] MEDS ORDERED: LABETALOL HCL IV 5 MG/ML 20ML IV STA (04:02)
[2023-11-14] MEDS ORDERED: dilTIAZem HCl 5 MG/ML 5 ML VIAL IV STA (04:13)
[2023-11-14] MEDS ORDERED: ONDANSETRON INJ 2 MG/ML 2 ML VIAL IV STA (04:14)
[2023-11-14] MEDS ORDERED: dilTIAZem HCl 60 MG TAB PO ONE (04:18)
[2023-11-14 07:05] LABS: Hematocrit (blood only) 44.2 % (37.0-47.0); Hemoglobin 14.1 g/dl (12.0-16.0); Mean Corpuscular Hemoglobin 25.8 pg (25.0-34.0); Mean Corpuscular Hgb Conc 31.9 g/dL (32.0-36.0); Mean Corpuscular Volume 80.8 fL (80.0-100.0); Mean Platelet Volume 10.7 fL (9.4-12.4); Platelet Count 252 K/uL (130-400); RDW Coefficient of Variation 16.9 % (11.5-14.5); RDW Standard Deviation 49.7 fL (36.4-46.3); Red Blood Count 5.47 M/uL (4.20-5.40); White Blood Count 10.31 K/ul (4.8-10.8)
[2023-11-14 07:26] LABS: BUN Creatinine Ratio 12.7 (10-20); Calcium 9.4 mg/dl (8.6-10.3); Creatinine Clr Calc Pharmacy 67.8 ml/min; Est GFR (African American) 93.2 ml/min; Est GFR (Non-African American) 80.4 ml/min; Magnesium 1.7 mg/dl (1.7-2.4); Potassium 4.5 mmol/L (3.5-5.1)
[2023-11-14] MEDS: NITROGLYCERIN 2% OINTMENT 30GM TUBE EXT SCH ×3 (07:35→18:20)
[2023-11-14] MEDS: INSULIN ASPART PER UNIT CHARGE SC SCH ×4 (08:45→18:03)
[2023-11-14] MEDS ORDERED: MAGNESIUM SULFATE / D5W 1 GM/100 ML BAG IV ONE (09:00)
[2023-11-14] MEDS: FAMOTIDINE 20 MG in SYRINGE 3 ML IV SCH (09:18)
[2023-11-14] MEDS: MICONAZOLE NITRATE POWDER 85 GM EXT SCH ×2 (09:18→20:00)
[2023-11-14] MEDS ORDERED: Nursing to Pharmacy Communication SCH (11:45)
[2023-11-14] MEDS ORDERED: LORazepam 1 MG TAB SL PRN (11:52)
--- NOTE | 2023-11-14 13:19 | XRay Report ---
XR KUB/Abdomen 1 view CLINICAL HISTORY: follow up SBO TECHNIQUE: 1 view of the abdomen was obtained. Comparison: Comparison is made to abdomen radiograph 11/13/2023 FINDINGS: Lung bases are unremarkable. Degenerative changes are seen in the visualized skeleton. Posterior fixa tion hardware is seen in the lumbar spine. The bowel gas pattern is nonobstructive. A moderate amount of stool is noted within the large bowel. IMPRESSION: Nonobstructive bowel gas pattern. ACT 112: Negative or not required by law. Electronically signed by: Everett Nation M.D. 11/14/2023 1:18 PM
[2023-11-14] MEDS: ENOXAPARIN INJ 40 MG/0.4 ML SYR SQ SCH (15:49)
[2023-11-14] MEDS: HYDROmorphone INJ 0.5 MG/0.5 ML SYR IV PRN ×2 (16:07→19:58)
--- NOTE | 2023-11-14 17:37 | Hospitalist Progress Note ---
Date of Service November 14, 2023 Assessment & Plan (1) SBO (small bowel obstruction): Plan: presents with transition point in right lower quadrant at site of a prior bowel anastomosis, consistent with partial small bowel obstruction related to adhesions from prior surgery, likely to resolve with conservative treatment NG tube placed in ED - continue to LIS Consulted general surgery - reviewed recommendations in note today - continue conservative treatment IVF - D5 1/2NS + 20K Monitor BMP at least daily - stable today normal K and mag PRN morphine changed to low dose hydromorphone and increased frequency and ondansetron IV KUB today reviewed - few mildly distended loops of small bowel no air/fluid levels per my interpretation of the film In evening NG may have pulled out few cm - ordered CXR to confirm still in stomach (2) Herpes zoster: Plan: One possible lesion on R lower eyelid but not otherwise in V1 distribution at all, appears to be all V2. No lesions on side or tip of nose. No R eye pain, conjunctival inflammation, or vision changes from baseline VZV opthalmicus unlikely -acyclovir 10 mg/kg q8h while npo then change to valacyclovir x 7 days course -monitor for any R eye pain, conjunctival inflammation, change in vision, nasal lesions -pain control as above 11/14 improved - no new lesions and most lesions crusted. No eye pain redness or smyptoms (3) GERD (gastroesophageal reflux disease): Plan: Pepcid 20 mg IV daily while npo (4) Diabetes mellitus, type II: Plan: Uncontrolled with BG in 300s on presentation to ED and recently on prednisone for URI Monitor BG q6h while NPO -PRN short acting insulin until eating -above goal will increase correction factor (5) HTN (hypertension): Plan: Meds held while NPO Home meds include clonidine, metoprolol -ordered nitropaste and increased to 1 inch q6h today (6) Hypomagnesemia: Plan: 2g IV given on admission for mag 1.3 K in IVF, K normal -AM mag check - 1.7 -AM mag ordered Plan Updated daughter at bedside extensively today. Explained reasons why surgeon would not recommend operation at this point. Varsha is frustrated. Has been a recurrent issue. Last SBO was several years ago however. Admission and Anticipated Discharge Date Admission Date: November 13, 2023 Subjective continues to have abdominal pain, sometimes severe, morphine causing itching, lasts 2-3h, no emesis, no stools, passing flatus Physical Exam 2 Physical Exam: PHYSICAL EXAMINATION Last 24h vital signs reviewed, see documentation in flowsheet General: no distress, mildly uncomfortable appearing NG tube with yellowish drainage HEENT: pupils round and equal, sclerae anicteric, no conjunctival injection, dry mucus membranes few scattered vesicular mostly crusted on right side of face in V2 distribution. There is a single 2 mm pink lesion on right inferior eyelid. There are no lesions on the tip of the nose or right side of the nose. Her right eye conjunctiva is clear with no erythema no drainage. No new lesions, no lesions near her right ear/ear canal, EOMI no pain Lungs: Normal respiratory effort. Clear to auscultation bilaterally. No RRW Heart: Regular rate and rhythm, systolic murmur murmurs. No JVD Abdomen: Soft, less distended, no longer tender to palp, NG suction sounds present. Extremities: Warm, dry, well-perfused. No extremity edema. Neuro: Alert and oriented x 4, face symmetric, moves 4 extremities well Psych: Normal affect and behavior Results & Data Results & Data Vital Signs (Past 12 Hours) Vital Signs Temp Pulse Resp BP Pulse Ox O2 Del Method O2 Flow Rate 11/14/23 16:13 177/78 H 11/14/23 15:46 36.7 C 97 H 20 94 Nasal Cannula 2 11/14/23 12:13 75 160/62 H 11/14/23 09:41 88 177/73 H 95 Nasal Cannula 2 11/14/23 07:50 Nasal Cannula 2 11/14/23 06:57 36.9 C 84 18 193/79 H 94 Room Air Laboratory Results 11/14/23 06:37 11/14/23 06:37 PG Care Time/CCT Total # of Minutes Spent Total Time Spent with Patient: I personally spent: 50 minutes today on clinical care activities including: reviewing chart notes and vital signs reviewing labs reviewing studies, outside solar sales consultant recommendation discussion with RN examining and counseling the patient counseling the patient's family writing orders documentation Coding Level of Care Code 18544 SUB INP/OBS CARE 3/50MIN Diagnoses SBO (small bowel obstruction) K56.609 Herpes zoster B02.9 Gastroesophageal reflux disease, esophagitis presence not specified K21.9 Esophagitis presence: esophagitis presence not specified Type 2 diabetes mellitus with diabetic polyneuropathy, without long-term current use of insulin E11.42 Diabetes mellitus jail insulin use: without jail use Diabetes mellitus complication status: with neurologic complications Diabetes mellitus complication detail: with polyneuropathy Essential hypertension I10 Hypertension type: unspecified Hypomagnesemia E83.42 (3) GERD (gastroesophageal reflux disease) Esophagitis presence: esophagitis presence not specified Qualified Code(s): K 21.9 - Gastro-esophageal reflux disease without esophagitis (4) Diabetes mellitus, type II Diabetes mellitus terminal carman insulin use: without terminal carman use Diabetes mellitus complication status: with neurologic complications Diabetes mellitus complication detail: with polyneuropathy Qualified Code(s): E11.42 - Type 2 diabetes mellitus with diabetic polyneuropathy (5) HTN (hypertension) Hypertension type: unspecified Qualified Code(s): I10 - Essential (primary) hypertension
--- NOTE | 2023-11-14 18:16 | XRay Report ---
XR chest 1V portable HISTORY: check NG tube placement COMPARISON: KUB 11/14/2023. Chest x-ray 11/30/2022. FINDINGS: The nasogastric tube has been pulled back and now resides at the expected location of the m idesophagus. There are low lung volumes. No pneumothorax. Mild elevation of the right hemidiaphragm. The heart is normal in size. No focal lung consolidations to suggest a pneumonia. No evidence for pul monary edema. No acute fractures. IMPRESSION: Nasogastric tube has been pulled back and now resides at the expected location of the midesophagus. T his should be repositioned. This was communicated with the patient's craft center director ,Penny Gaviriak, at the ti me of dictation. ACT 112: Negative or not required by law. Electronically signed by: Eduardo Crawley M.D. 11/14/2023 6:13 PM
[2023-11-14] MEDS ORDERED: bisacodyL 10 MG SUPP PR STA (18:34)
[2023-11-14] MEDS: cloNIDine HCL 0.1 MG TAB PO SCH (20:00)
[2023-11-15] MEDS: INSULIN ASPART PER UNIT CHARGE SC SCH ×5 (00:38→21:00)
[2023-11-15] MEDS: NITROGLYCERIN 2% OINTMENT 30GM TUBE EXT SCH ×3 (00:41→11:24)
[2023-11-15] MEDS: ACYCLOVIR SOD 700 MG in DEXTROSE 5% 100 ML IV SCH ×2 (01:52→09:24)
[2023-11-15] MEDS: ONDANSETRON INJ 2 MG/ML 2 ML VIAL IV PRN ×3 (02:29→18:47)
[2023-11-15] MEDS ORDERED: ACETAMINOPHEN 325 MG TAB PO PRN (02:34)
[2023-11-15] MEDS: HYDROmorphone INJ 0.5 MG/0.5 ML SYR IV PRN (02:43)
[2023-11-15 06:59] LABS: Hematocrit (blood only) 39.6 % (37.0-47.0); Hemoglobin 12.7 g/dl (12.0-16.0); Mean Corpuscular Hemoglobin 25.8 pg (25.0-34.0); Mean Corpuscular Hgb Conc 32.1 g/dL (32.0-36.0); Mean Corpuscular Volume 80.5 fL (80.0-100.0); Mean Platelet Volume 10.4 fL (9.4-12.4); Platelet Count 198 K/uL (130-400); RDW Coefficient of Variation 16.6 % (11.5-14.5); RDW Standard Deviation 48.5 fL (36.4-46.3); Red Blood Count 4.92 M/uL (4.20-5.40); White Blood Count 9.45 K/ul (4.8-10.8)
[2023-11-15 07:20] LABS: BUN Creatinine Ratio 12.2 (10-20); Calcium 9.3 mg/dl (8.6-10.3); Creatinine Clr Calc Pharmacy 39.1 ml/min; Est GFR (Non-African American) 41.4 ml/min; Magnesium 1.6 mg/dl (1.7-2.4); Potassium 4.4 mmol/L (3.5-5.1)
[2023-11-15] MEDS ORDERED: MAGNESIUM SULFATE / D5W 1 GM/100 ML BAG IV ONE (08:11)
[2023-11-15] MEDS ORDERED: SODIUM CHLORIDE 0.9% 1,000 ML IV SCH (08:15)
--- NOTE | 2023-11-15 08:19 | Hospitalist Progress Note ---
Date of Service November 15, 2023 Assessment & Plan (1) SBO (small bowel obstruction): Plan: presents with transition point in right lower quadrant at site of a prior bowel anastomosis, consistent with partial small bowel obstruction related to adhesions from prior surgery, likely to resolve with conservative treatment NG tube placed in ED - continued through evening 11/14 when was found to have pulled out into esophagus. -removed NG tube evening 11/14, had large stool that night, sips/chips tolerated, KUB without worsening this AM I personally reviewed the film, appears non-obstructed - advance diet to clears -repeat dulcolax supp today -Cr increased from 0.7--> 1.23 and IV fluids had been held overnight. IV fluids with NS x 1L ordered -replace mild hypomagnesemia IV -AM BMP -prn low dose IV hydromorphone and IV ondansetron (2) Herpes zoster: Plan: One possible lesion on R lower eyelid but not otherwise in V1 distribution at all, appears to be all V2. No lesions on side or tip of nose. No R eye pain, conjunctival inflammation, or vision changes from baseline VZV opthalmicus unlikely -acyclovir 10 mg/kg q8h when taking good po then change to valacyclovir x 7 days course -monitor for any R eye pain, conjunctival inflammation, change in vision, nasal lesions - none so far -pain control as above 11/15 improved - no new lesions and most lesions crusted. No eye pain redness or vision changes (3) GERD (gastroesophageal reflux disease): Plan: Pepcid 20 mg IV daily while npo (4) Diabetes mellitus, type II: Plan: Uncontrolled with BG in 300s on presentation to ED and recently on prednisone for URI Monitor BG q6h while NPO -PRN short acting insulin until eating -above goal 11/15 - increase CF/CR again today (5) HTN (hypertension): Plan: Meds held while NPO Home meds include clonidine, metoprolol - resumed this am (6) Hypomagnesemia: Plan: 2g IV given on admission for mag 1.3 K in IVF, K normal -mag check - 1.6 - ordered 1g IV -AM mag ordered Plan Updated daughter at bedside extensively 11/14. Admission and Anticipated Discharge Date Admission Date: November 13, 2023 Subjective NG tube out since last night. She had a good sized stool in the middle of the night per bedside RN, she also had headache from the nitro paste and dry heaves Tolerating sips this am will try clears, not currently nauseated but still with some generalized abdominal pain R facial rash continues to improve and less painful. No R eye pain or vision changes Physical Exam 2 Physical Exam: PHYSICAL EXAMINATION Last 24h vital signs reviewed, see documentation in flowsheet General: no distress, much more comfortable NG tube was removed HEENT: pupils round and equal, sclerae anicteric, no conjunctival injection, moist mucus membranes few scattered vesicular mostly crusted on right side of face in V2 distribution. There is a single 2 mm pink vesicular lesion on right inferior eyelid - no worsening, not crusted. There are no lesions on the tip of the nose or right side of the nose. Her right eye conjunctiva is clear with no erythema no drainage. No new lesions, no lesions near her right ear/ear canal, EOMI no pain Lungs: Normal respiratory effort. Clear to auscultation bilaterally. No RRW Heart: Regular rate and rhythm, systolic murmur murmurs. No JVD Abdomen: Soft, not distended, no longer tender to palp, quiet bowel sounds present Extremities: Warm, dry, well-perfused. No extremity edema. Neuro: Alert and oriented x 4, face symmetric, moves 4 extremities well Psych: Normal affect and behavior Results & Data Results & Data Vital Signs (Past 12 Hours) Vital Signs Temp Pulse Resp BP BP Pulse Ox O2 Del Method 11/15/23 07:38 37.4 C 88 18 177/72 H 93 Nasal Cannula 11/15/23 00:39 94 H 172/83 H O2 Flow Rate 11/15/23 07:38 2 11/15/23 00:39 Laboratory Results 11/15/23 06:31 11/15/23 06:31 PG Care Time/CCT Total # of Minutes Spent Total Time Spent with Patient: Total time spent is greater than 50% in coordination of care (as documented) at patient's floor/unit and/or counseling patient: Coding Level of Care Code 85604 SUB INP/OBS CARE 2/35MIN Diagnoses SBO (small bowel obstruction) K56.609 Herpes zoster B02.9 Gastroesophageal reflux disease, esophagitis presence not specified K21.9 Esophagitis presence: esophagitis presence not specified Type 2 diabetes mellitus with diabetic polyneuropathy, without long-term current use of insulin E11.42 Diabetes mellitus complication detail: with polyneuropathy Diabetes mellitus complication status: with neurologic complications 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 use Essential hypertension I10 Hypertension type: unspecified Hypomagnesemia E83.42 (3) GERD (gastroesophageal reflux disease) Esophagitis presence: esophagitis presence not specified Qualified Code(s): K 21.9 - Gastro-esophageal reflux disease without esophagitis (4) Diabetes mellitus, type II Diabetes mellitus complication detail: with polyneuropathy Diabetes mellitus complication status: with neurologic complications Diabetes mellitus penitentiary insulin use: without penitentiary use Qualified Code(s): E11.42 - Type 2 diabetes mellitus with diabetic polyneuropathy (5) HTN (hypertension) Hypertension type: unspecified Qualified Code(s): I10 - Essential (primary) hypertension
[2023-11-15] MEDS: cloNIDine HCL 0.1 MG TAB PO SCH ×2 (09:26→20:46)
[2023-11-15] MEDS: amLODIPine BESYLATE 5 MG TAB PO SCH (09:26)
--- NOTE | 2023-11-15 09:26 | XRay Report ---
XR KUB/Abdomen 1 view CLINICAL HISTORY: follow up SBO TECHNIQUE: 1 view of the abdomen was obtained. Comparison: Comparison is made to abdomen radiograph 11/14/2023 FINDINGS: Lumbar fixation hardware is seen. The osseous structures are grossly unremarkable. The bowel gas darshana rufino is nonobstructive. A moderate amount of stool is noted within the large bowel. IMPRESSION: Nonobstructive bowel gas pattern. No evidence of small bowel obstruction. ACT 112: Negative or not required by law. Electronically signed by: Everett Nation M.D. 11/15/2023 9:25 AM
[2023-11-15] MEDS: FAMOTIDINE 20 MG in SYRINGE 3 ML IV SCH (09:27)
[2023-11-15] MEDS: MICONAZOLE NITRATE POWDER 85 GM EXT SCH ×2 (09:27→20:47)
[2023-11-15] MEDS: LORazepam 1 MG TAB SL PRN (09:28)
[2023-11-15] MEDS: cephALEXin 500 MG CAP PO SCH ×2 (09:38→20:46)
[2023-11-15] MEDS ORDERED: bisacodyL 10 MG SUPP PR STA (09:46)
[2023-11-15] MEDS ORDERED: Nursing to Pharmacy Communication SCH (10:15)
[2023-11-15] MEDS: ENOXAPARIN INJ 40 MG/0.4 ML SYR SQ SCH (12:44)
--- NOTE | 2023-11-15 14:07 | Surgery Progress Note ---
Date of Service November 15, 2023 Assessment & Plan (1) SBO (small bowel obstruction): Plan: HD #3 with SBO, improving abdominal pain Passing flatus and bowel movements, advance diet as tolerated Continue pain control as needed Encourage incentive spirometry and ambulation Possible discharge to home tomorrow Admission and Anticipated Discharge Date Admission Date: November 13, 2023 Subjective Significant improvement today. Passing flatus and bowel movements. NG tube is out. No nausea or vomiting. Tolerating clears. Physical Exam Physical Exam: AFVSS NAD, A&O x 3 Abdomen: Soft, mild distention Nontender Results & Data Vital Signs (Past 12 Hours) Vital Signs Temp Pulse Resp BP Pulse Ox O2 Del Method O2 Flow Rate 11/15/23 11:19 139/73 11/15/23 08:00 Room Air 11/15/23 07:38 37.4 C 88 18 177/72 H 93 Nasal Cannula 2 Laboratory Results 11/15/23 11/15/23 11/15/23 Range/Units 11:48 06:31 05:49 WBC 9.45 (4.8-10.8) K/ul RBC 4.92 (4.20-5.40) M/uL Hgb 12.7 (12.0-16.0) g/dl Hct 39.6 (37.0-47.0) % MCV 80.5 (80.0-100.0) fL MCH 25.8 (25.0-34.0) pg MCHC 32.1 (32.0-36.0) g/dL RDW Std Deviation 48.5 H (36.4-46.3) fL RDW Coeff of Carmen 16.6 H (11.5-14.5) % Plt Count 198 (130-400) K/uL MPV 10.4 (9.4-12.4) fL Sodium 135 L (136-145) mmol/L Potassium 4.4 (3.5-5.1) mmol/L Chloride 100 (98-107) mmol/L Carbon Dioxide 28 (21-32) mmol/L Anion Gap 7 (3-11) BUN 15 (6-23) mg/dl Creatinine 1.23 H D (0.6-1.2) mg/dl Est Cr Clr Drug Dosing 39.1 ml/min Est GFR ( Amer) 48.0 ml/min Est GFR (Non-Af Amer) 41.4 ml/min BUN/Creatinine Ratio 12.2 (10-20) Glucose 252 H (70-99(Fasting)) mg/dl POC Glucose 268 H 226 H (70-99) mg/dl Calcium 9.3 (8.6-10.3) mg/dl Magnesium 1.6 L (1.7-2.4) mg/dl 11/14/23 11/14/23 Range/Units 23:51 17:51 WBC (4.8-10.8) K/ul RBC (4.20-5.40) M/uL Hgb (12.0-16.0) g/dl Hct (37.0-47.0) % MCV (80.0-100.0) fL MCH (25.0-34.0) pg MCHC (32.0-36.0) g/dL RDW Std Deviation (36.4-46.3) fL RDW Coeff of Carmen (11.5-14.5) % Plt Count (130-400) K/uL MPV (9.4-12.4) fL Sodium (136-145) mmol/L Potassium (3.5-5.1) mmol/L Chloride (98-107) mmol/L Carbon Dioxide (21-32) mmol/L Anion Gap (3-11) BUN (6-23) mg/dl Creatinine (0.6-1.2) mg/dl Est Cr Clr Drug Dosing ml/min Est GFR ( Amer) ml/min Est GFR (Non-Af Amer) ml/min BUN/Creatinine Ratio (10-20) Glucose (70-99(Fasting)) mg/dl POC Glucose 202 H 177 H (70-99) mg/dl Calcium (8.6-10.3) mg/dl Magnesium (1.7-2.4) mg/dl
--- NOTE | 2023-11-15 16:27 | Communication Note ---
Date of Service: November 15, 2023 Improving throughout the day, abdominal pain and distention resolving, having several large BMs today, tolerating clears well On exam no longer distended or tender, +BT -advance to full liquid diet for dinner -change IV acyclovir to po valacyclovir
[2023-11-15] MEDS: valACYclovir HCL 500 MG TABLET PO SCH ×2 (17:09→20:46)
[2023-11-16 07:57] LABS: Calcium 9.1 mg/dl (8.6-10.3); Creatinine Clr Calc Pharmacy 25.3 ml/min; Est GFR (African American) 28.4 ml/min; Est GFR (Non-African American) 24.5 ml/min; Magnesium 1.8 mg/dl (1.7-2.4); Potassium 3.9 mmol/L (3.5-5.1)
--- NOTE | 2023-11-16 08:45 | Surgery Progress Note ---
Date of Service November 16, 2023 Assessment & Plan (1) SBO (small bowel obstruction): Plan: HD #4 with SBO, resolved Passing flatus and bowel movements, advance diet as tolerated Continue pain control as needed Encourage incentive spirometry and ambulation May discharge to home from surgical standpoint Surgery will sign off, please call with questions Admission and Anticipated Discharge Date Admission Date: November 13, 2023 Subjective Doing well. Tolerating diet. No pain. Having bowel movements and flatus. Physical Exam Physical Exam: AFVSS NAD, A&O x 3 Abdomen: Soft, mild distention Nontender Results & Data Vital Signs (Past 12 Hours) Vital Signs Temp Pulse Resp BP BP Pulse Ox O2 Del Method 11/16/23 07:03 37.1 C 82 16 169/84 H 177/76 H 95 Room Air 11/15/23 21:33 37 C 86 16 176/77 H 93 Room Air Laboratory Results 11/16/23 11/16/23 11/15/23 Range/Units 07:41 06:43 20:45 Sodium 136 (136-145) mmol/L Potassium 3.9 (3.5-5.1) mmol/L Chloride 100 (98-107) mmol/L Carbon Dioxide 29 (21-32) mmol/L Anion Gap 7 (3-11) BUN 19 (6-23) mg/dl Creatinine 1.90 H D (0.6-1.2) mg/dl Est Cr Clr Drug Dosing 25.3 ml/min Est GFR ( Amer) 28.4 ml/min Est GFR (Non-Af Amer) 24.5 ml/min BUN/Creatinine Ratio 10.0 (10-20) Glucose 217 H (70-99(Fasting)) mg/dl POC Glucose 201 H 171 H (70-99) mg/dl Calcium 9.1 (8.6-10.3) mg/dl Magnesium 1.8 (1.7-2.4) mg/dl 11/15/23 11/15/23 Range/Units 16:40 11:48 Sodium (136-145) mmol/L Potassium (3.5-5.1) mmol/L Chloride (98-107) mmol/L Carbon Dioxide (21-32) mmol/L Anion Gap (3-11) BUN (6-23) mg/dl Creatinine (0.6-1.2) mg/dl Est Cr Clr Drug Dosing ml/min Est GFR ( Amer) ml/min Est GFR (Non-Af Amer) ml/min BUN/Creatinine Ratio (10-20) Glucose (70-99(Fasting)) mg/dl POC Glucose 142 H 268 H (70-99) mg/dl Calcium (8.6-10.3) mg/dl Magnesium (1.7-2.4) mg/dl
[2023-11-16] MEDS: INSULIN ASPART PER UNIT CHARGE SC SCH ×4 (09:18→21:29)
[2023-11-16] MEDS: CLOPIDOGREL BISULFATE 75 MG TAB PO SCH (09:20)
[2023-11-16] MEDS: PANTOprazole 40 MG TAB PO SCH (09:20)
[2023-11-16] MEDS: valACYclovir HCL 500 MG TABLET PO SCH (09:20)
[2023-11-16] MEDS: MICONAZOLE NITRATE POWDER 85 GM EXT SCH ×2 (09:21→20:06)
[2023-11-16] MEDS: amLODIPine BESYLATE 5 MG TAB PO SCH (09:21)
[2023-11-16] MEDS: SODIUM CHLORIDE 0.9% 1,000 ML IV SCH ×2 (09:21→20:03)
[2023-11-16] MEDS: cloNIDine HCL 0.1 MG TAB PO SCH ×2 (09:21→20:09)
[2023-11-16] MEDS: cephALEXin 500 MG CAP PO SCH ×2 (09:21→20:05)
[2023-11-16 10:12] LABS: Appearance Urine Turbid (Clear); Bilirubin Urine Negative (Negative); Blood Urine Trace-intact (Negative); Color Urine Yellow; Glucose Urine UA 2+ (Negative); Ketones Urine Negative (Negative); Leukocyte Esterase Urine 1+ (Negative); Nitrite Urine Negative (Negative); Protein Urine Negative (Negative); Urobilinogen Urine Negative (Negative)
[2023-11-16 10:20] LABS: Epithelial Cell Urine >30 /lpf (0-5)
[2023-11-16 10:21] LABS: Bacteria Urine Negative (Negative); RBC Urine 0-4 /hpf (0-4)
[2023-11-16 10:32] LABS: Creatinine Urine Random 44.1 mg/dl
[2023-11-16] MEDS: LORazepam 1 MG TAB SL PRN ×2 (11:11→20:12)
[2023-11-16] MEDS: DOCUSATE SODIUM/SENNA 50/8.6MG TAB PO SCH (17:20)
--- NOTE | 2023-11-16 17:55 | Hospitalist Progress Note ---
Date of Service November 16, 2023 Assessment & Plan (1) SBO (small bowel obstruction): Plan: presents with transition point in right lower quadrant at site of a prior bowel anastomosis, consistent with partial small bowel obstruction related to adhesions from prior surgery, likely to resolve with conservative treatment NG tube placed in ED - continued through evening 11/14 when was found to have pulled out into esophagus. -removed NG tube evening 11/14, had large stool that night, sips/chips tolerated -had multiple stools after dulcolax supp 11/15 -has tolerated advancement to general diet and SBO has resolved at this point -started senna/chilango -Cr increased from 0.7--> 1.23 and IV fluids had been held overnight. IV fluids with NS x 1L ordered -replace mild hypomagnesemia IV -AM BMP -prn low dose IV hydromorphone and IV ondansetron (2) VAN (acute kidney injury): Plan: Prerenal injury caused by SBO and also was on SONIA Cr increaed from 0.7-->1.23-->1.9 despite additional IV fluids overnight -continue IV NS -UA and Yonatan UCr - FeNa 1.6% consistent with ATN -continue holding lisinopril -urinating good quantity -AM BMP if stable/improved reasonable to discharge home with outpatient follow up (3) Herpes zoster: Plan: One possible lesion on R lower eyelid but not otherwise in V1 distribution at all, appears to be all V2. No lesions on side or tip of nose. No R eye pain, conjunctival inflammation, or vision changes from baseline VZV opthalmicus unlikely -acyclovir 10 mg/kg q8h while NPO then changed to valacyclovir x 7 days course -monitor for any R eye pain, conjunctival inflammation, change in vision, nasal lesions - none so far -pain control as above 11/16 improved - all lesions crusted. No eye pain redness or vision changes (4) GERD (gastroesophageal reflux disease): Plan: resume oral pepcid (5) Diabetes mellitus, type II: Plan: Uncontrolled with BG in 300s on presentation to ED and recently on prednisone for URI Monitor BG -PRN short acting insulin - continue -near goal 11/16 (6) HTN (hypertension): Plan: clonidine, metoprolol - resumed lisinopril held for VAN (7) Hypomagnesemia: Plan: 2g IV given on admission for mag 1.3 K in IVF, K normal -mag check - 1.6 - ordered 1g IV -normalized Plan Updated daughter at bedside extensively 11/14. Admission and Anticipated Discharge Date Admission Date: November 13, 2023 Subjective bowel symptoms resolving tolerating FLD well last night, ate regular breakfast without difficulty. No abdominal pain, having stools Physical Exam 2 Physical Exam: PHYSICAL EXAMINATION Last 24h vital signs reviewed, see documentation in flowsheet General: no distress HEENT: pupils round and equal, sclerae anicteric, no conjunctival injection, moist mucus membranes few scattered vesicular all crusted on right side of face in V2 distribution. There is a single 2 mm pink vesicular lesion on right inferior eyelid - now crusted. There are no lesions on the tip of the nose or right side of the nose. Her right eye conjunctiva is clear with no erythema no drainage. No new lesions, no lesions near her right ear/ear canal, EOMI no pain Lungs: Normal respiratory effort. Clear to auscultation bilaterally. No RRW Heart: Regular rate and rhythm, systolic murmur murmurs. No JVD Abdomen: Soft, not distended, nontender, bowel sounds present Extremities: Warm, dry, well-perfused. No extremity edema. Neuro: Alert and oriented x 4, face symmetric, moves 4 extremities well Psych: Normal affect and behavior Results & Data Results & Data Vital Signs (Past 12 Hours) Vital Signs Temp Pulse Resp BP BP Pulse Ox O2 Del Method 11/16/23 14:21 37.1 C 81 16 161/79 H 93 Room Air 11/16/23 09:20 Room Air 11/16/23 07:03 37.1 C 82 16 169/84 H 177/76 H 95 Room Air Laboratory Results 11/15/23 06:31 11/16/23 06:43 PG Care Time/CCT Total # of Minutes Spent Total Time Spent with Patient: Total time spent is greater than 50% in coordination of care (as documented) at patient's floor/unit and/or counseling patient: Coding Level of Care Code 18604 SUB INP/OBS CARE 2/35MIN Diagnoses SBO (small bowel obstruction) K56.609 VAN (acute kidney injury) N17.9 Herpes zoster B02.9 Gastroesophageal reflux disease, esophagitis presence not specified K21.9 Esophagitis presence: esophagitis presence not specified Type 2 diabetes mellitus with diabetic polyneuropathy, without long-term current use of insulin E11.42 Diabetes mellitus intermediate card tender insulin use: without senior care use Diabetes mellitus complication status: with neurologic complications Diabetes mellitus complication detail: with polyneuropathy Essential hypertension I10 Hypertension type: unspecified Hypomagnesemia E83.42 (4) GERD (gastroesophageal reflux disease) Esophagitis presence: esophagitis presence not specified Qualified Code(s): K 21.9 - Gastro-esophageal reflux disease without esophagitis (5) Diabetes mellitus, type II Diabetes mellitus intermediate card tender insulin use: without senior care use Diabetes mellitus complication status: with neurologic complications Diabetes mellitus complication detail: with polyneuropathy Qualified Code(s): E11.42 - Type 2 diabetes mellitus with diabetic polyneuropathy (6) HTN (hypertension) Hypertension type: unspecified Qualified Code(s): I10 - Essential (primary) hypertension
[2023-11-16] MEDS: HEPARIN SOD 5,000 UNIT/0.5 ML VIAL SQ SCH (20:04)
[2023-11-16] MEDS ORDERED: MELATONIN 3 MG TAB PO PRN (20:26)
[2023-11-16] MEDS ORDERED: ATORVASTATIN 40 MG TAB PO SCH (21:00)
[2023-11-16] MEDS ORDERED: ESCITALOPRAM OXALATE 10 MG TAB PO SCH (21:00)
[2023-11-16] MEDS ORDERED: ASPIRIN 81 MG ECTAB PO SCH (21:00)
[2023-11-17] MEDS: SODIUM CHLORIDE 0.9% 1,000 ML IV SCH (05:15)
[2023-11-17] MEDS: PANTOprazole 40 MG TAB PO SCH (07:39)
[2023-11-17] MEDS: valACYclovir HCL 500 MG TABLET PO SCH (07:39)
[2023-11-17] MEDS: cloNIDine HCL 0.1 MG TAB PO SCH (07:39)
[2023-11-17] MEDS: cephALEXin 500 MG CAP PO SCH (07:40)
[2023-11-17] MEDS: amLODIPine BESYLATE 5 MG TAB PO SCH (07:40)
[2023-11-17] MEDS: CLOPIDOGREL BISULFATE 75 MG TAB PO SCH (07:41)
[2023-11-17] MEDS: DOCUSATE SODIUM/SENNA 50/8.6MG TAB PO SCH (07:43)
[2023-11-17] MEDS: MICONAZOLE NITRATE POWDER 85 GM EXT SCH (07:44)
[2023-11-17] MEDS: HEPARIN SOD 5,000 UNIT/0.5 ML VIAL SQ SCH (07:49)
[2023-11-17 08:47] LABS: BUN Creatinine Ratio 15.7 (10-20); Calcium 8.9 mg/dl (8.6-10.3); Creatinine Clr Calc Pharmacy 35.9 ml/min; Est GFR (African American) 43.3 ml/min; Est GFR (Non-African American) 37.3 ml/min; Potassium 4.1 mmol/L (3.5-5.1)
[2023-11-17] MEDS: INSULIN ASPART PER UNIT CHARGE SC SCH (09:05)
--- NOTE | 2023-11-17 18:27 | Discharge Summary ---
Date of Service November 17, 2023 Admission HPI Per Admitting Provider 78 y/o with past history of partial colectomy bladder surgery and hysterectomy who has recent 1-2 weeks history of not feeling well. Seen in primary care 11/10 with flulike/cold symptoms for 5 days and started on azithromycin and prednisone. She developed onset of new symptoms two days ago of nausea, generalized abdominal pain and bloating. Symptoms were similar to past episodes of small bowel obstruction. She sought care in ED and had CT abdomen/pelvis remarkable for SBO with transition point in RLQ at site of prior small bowel anastomosis. NG tube was placed. Since then nausea has resolved and abdominal pain and distention has improved. Not passing flatus and last stool was apx 2 days ago. She also developed right sided facial/head pain two days ago, then developed painful vesicular rash with few lesions on right midface, lip below dose, and one on right lower eyelid. Some of these lesions are crusting at this point. She denies any right eye pain or redness or change in vision. She has no lesions on her nose or ear. She has never had shingles before and did not have vaccine. Right now she is not coughing short of breath or wheezing. She has had stroke in past which caused R arm and R leg weakness. Her leg is full strength and her arm strength is good but she still has trouble writing. Principal Diagnosis Small bowel obstruction Discharge Exam PHYSICAL EXAMINATION Last 24h vital signs reviewed, see documentation in flowsheet General: no distress HEENT: pupils round and equal, sclerae anicteric, no conjunctival injection, moist mucus membranes few scattered vesicular all crusted on right side of face in V2 distribution. There is a single 2 mm pink vesicular lesion on right inferior eyelid - now crusted. There are no lesions on the tip of the nose or right side of the nose. Her right eye conjunctiva is clear with no erythema no drainage. No new lesions, no lesions near her right ear/ear canal Lungs: Normal respiratory effort. Clear to auscultation bilaterally. No RRW Heart: Regular rate and rhythm, systolic murmur. No JVD Abdomen: Soft, not distended, nontender, bowel sounds present Extremities: Warm, dry, well-perfused. No extremity edema. Neuro: Alert and oriented x 4, face symmetric, moves 4 extremities well Psych: Normal affect and behavior Discharge Data Allergies Allergy/AdvReac Type Severity Reaction Status Date / Time Iodinated Contrast Media Allergy Intermediate HOT FLASH Verified 11/13/23 10:33 AND RASH iodine Allergy Intermediate SWELLING, Verified 11/13/23 10:33 ITCHING,RED AND NAUSEA W/CONTRAST DYE (FEEL FUNNY) shellfish derived Allergy Intermediate SWELLING Verified 11/13/23 10:33 AND VOMITING shrimp Allergy Intermediate SWELLING Verified 11/13/23 10:33 AND NAUSEA WITH SHRIMP AND SHELLFISH Sulfa (Sulfonamide Allergy Intermediate "SULFA Verified 11/13/23 10:33 Antibiotics) DRUGS": SWELLS Egg Derived AdvReac Severe DIARRHEA,ABD Verified 11/13/23 10:33 PAIN codeine AdvReac Intermediate VOMITING Verified 11/13/23 10:33 egg AdvReac Intermediate DIARRHEA Verified 11/13/23 10:33 vaccines Allergy Severe Difficulty Uncoded 11/13/23 10:33 Breathing,Rash Consultations 11/13/23 09:25 Consult General Surgery Routine ED Decision to Admit Stat Ordered Studies 11/13/23 07:08 CT abd pelvis wo con Stat CT head/brain wo con Stat Abdomen/Pelvis CT 11/13/23 07:08 CT OF THE ABDOMEN AND PELVIS WITHOUT CONTRAST CLINICAL HISTORY: Vomiting. History of small bowel obstruction. COMPARISON STUDY: CT of the abdomen and pelvis July 18, 2019. KUB July 19, 2019. Small bowel follow-through July 20, 2019. TECHNIQUE: Axial images of the abdomen and pelvis were obtained without IV contrast. Images were reviewed in the axial, sagittal, and coronal planes. Automated exposure control was utilized for the study. A dose lowering technique was utilized adhering to the principles of ALARA. FINDINGS: Lung bases are unremarkable. Small hiatal hernia. No pneumatosis, free air or portal venous gas is present. Evaluation of the abdomen and pelvis is suboptimal on this unenhanced exam. There is hepatic steatosis. No biliary or pancreatic ductal dilatation is present. A 4.4 cm water attenuation right renal lesion is unchanged since prior exam. This favors a cyst. There is no hydronephrosis. Multiple fat containing ventral hernias are present. These are unchanged. There is colonic diverticulosis without evidence for acute diverticulitis. Ileal small bowel anastomosis is noted. There are several loops of mildly dilated ileal loops with small bowel feces sign. There is trace associated interloop fluid and mild mesenteric stranding. The terminal ileum is decompressed. Transition point within the distal ileum is present. This is in close proximity to a small bowel anastomosis. The appearance is similar to CT of July 18, 2019 and consistent with a recurrent small bowel obstruction. IMPRESSION: 1. Findings consistent with a partial small bowel obstruction with transition point within the ileum, in close proximity to a small bowel anastomosis. Trace associated interloop fluid and mild mesenteric stranding. The pattern is similar to CT of July 18, 2019. 2. Colonic diverticulosis. No evidence for acute diverticulitis. 3. Hepatic steatosis. ACT 112: Negative or not required by law. Electronically signed by: Guicho Benitez M.D. 11/13/2023 8:[address] 11/13/23 07:08 CT head/brain wo con CLINICAL HISTORY: right sided headache Technique: Contiguous axial CT images of the head were acquired from the base of the skull to the vertex without intravenous contrast administration. Images were viewed in brain, subdural and bone windows. Automated dose lowering techniques and/or adjustment according to patient size were utilized for this exam. Comparison: Comparison is made to CT head 10/08/2022 Findings: The ventricles, basal cisterns, and cerebral sulci are normal. There is no acute intracranial hemorrhage or evidence of acute territorial infarction. Neither mass effect, shift of the midline structures, nor abnormal extra-axial fluid collections are shown. Imaged portions of the paranasal sinuses and mastoid air cells are clear. The orbits appear normal. There are no acute fractures of the calvaria or scalp swelling. Impression: No acute intracranial hemorrhage, no evidence of acute territorial infarction or other acute intracranial disease process. ACT 112: Negative or not required by law. Electronically signed by: Everett Nation M.D. 11/13/2023 7:50 AM KUB X-Ray 11/13/23 09:26 KUB CLINICAL HISTORY: NG insertion COMPARISON STUDY: CT of the abdomen and pelvis performed earlier today. FINDINGS: Tip of nasogastric tube is within the body of the stomach. Postoperative findings within the spine are incidentally noted. Dilated small bowel loops are better depicted on CT performed earlier today. IMPRESSION: Appropriately positioned nasogastric tube. ACT 112: Negative or not required by law. Electronically signed by: Guicho Benitez M.D. 11/13/2023 10:36 AM KUB X-Ray 11/14/23 09:00 XR KUB/Abdomen 1 view CLINICAL HISTORY: follow up SBO TECHNIQUE: 1 view of the abdomen was obtained. Comparison: Comparison is made to abdomen radiograph 11/13/2023 FINDINGS: Lung bases are unremarkable. Degenerative changes are seen in the visualized skeleton. Posterior fixation hardware is seen in the lumbar spine. The bowel gas pattern is nonobstructive. A moderate amount of stool is noted within the large bowel. IMPRESSION: Nonobstructive bowel gas pattern. ACT 112: Negative or not required by law. Electronically signed by: Everett Nation M.D. 11/14/2023 1:18 PM Chest X-Ray 11/14/23 17:26 XR chest 1V portable HISTORY: check NG tube placement COMPARISON: KUB 11/14/2023. Chest x-ray 11/30/2022. FINDINGS: The nasogastric tube has been pulled back and now resides at the expected location of the midesophagus. There are low lung volumes. No pneumothorax. Mild elevation of the right hemidiaphragm. The heart is normal in size. No focal lung consolidations to suggest a pneumonia. No evidence for pulmonary edema. No acute fractures. IMPRESSION: Nasogastric tube has been pulled back and now resides at the expected location of the midesophagus. This should be repositioned. This was communicated with the patient's insurance risk surveyor ,Penny Craft, at the time of dictation. ACT 112: Negative or not required by law. Electronically signed by: Eduardo Crawley M.D. 11/14/2023 6:13 PM KUB X-Ray 11/15/23 08:11 XR KUB/Abdomen 1 view CLINICAL HISTORY: follow up SBO TECHNIQUE: 1 view of the abdomen was obtained. Comparison: Comparison is made to abdomen radiograph 11/14/2023 FINDINGS: Lumbar fixation hardware is seen. The osseous structures are grossly unremarkable. The bowel gas pattern is nonobstructive. A moderate amount of stool is noted within the large bowel. IMPRESSION: Nonobstructive bowel gas pattern. No evidence of small bowel obstruction. ACT 112: Negative or not required by law. Electronically signed by: Everett Nation M.D. 11/15/2023 9:25 AM 11/15/23 06:31 11/17/23 07:07 Hospital Course (1) SBO (small bowel obstruction): presented with abdominal pain nausea and vomiting, CT abdomen with transition point in right lower quadrant at site of a prior bowel anastomosis, consistent with partial small bowel obstruction related to adhesions from prior surgery NG tube placed in ED - continued through evening 11/14 when was found to have pulled out into esophagus. -removed NG tube evening 11/14, had large stool that night, sips/chips tolerated -had multiple stools after dulcolax supp 11/15 -has tolerated advancement to general diet and SBO has resolved at this point -recommended daily miralax at home to prevent recurrent obstipation (2) VAN (acute kidney injury): Mild VAN with ATN. Prerenal injury caused by SBO and also was on SONIA Cr increaed from 0.7-->1.23-->1.9 then back down to 1.3 with IV fluids, has maintained good urine output -UA and Yonatan UCr - FeNa 1.6% consistent with ATN -continue holding lisinopril - instructed to hold for about 2 weeks / until primary care restarts it -recommend BMP upon primary care follow up (3) Herpes zoster: One possible lesion on R lower eyelid but not otherwise in V1 distribution at all, appears to be all V2. No lesions on side or tip of nose. No R eye pain, conjunctival inflammation, or vision changes from baseline VZV opthalmicus unlikely -acyclovir 10 mg/kg q8h while NPO then changed to valacyclovir x 7 days course -monitored for any R eye pain, conjunctival inflammation, change in vision, nasal lesions - none occurred -resolving and all lesions crusted -complete total 7d of antiviral - valacyclovir at renal dose 1000 mg bid for discharge (4) GERD (gastroesophageal reflux disease): resume oral pepcid (5) Diabetes mellitus, type II: Uncontrolled with BG in 300s on presentation to ED and recently on prednisone for URI -PRN short acting insulin while in hospital -prednisone discontinued -resume diet control at home (6) HTN (hypertension): clonidine, metoprolol - resumed lisinopril held for VAN (7) Hypomagnesemia: replaced IV Plan Possible klebsiella UTI vs asymptomatic bacteriuria - no discrete dysuria but had abdominal pain, VAN so treating with oral cephalexin Updated daughter by phone day of discharge. Total Time Total Time Spent Total Time Spent (In Minutes): I personally spent: 35 minutes today on clinical care activities including: reviewing chart notes and vital signs reviewing labs examining and counseling the patient counseling the patient's family writing orders, discharge prescriptions and instructions documentation Discharge Plan Discharge Items Patient Disposition: Home - Self-Care Reason For Visit: SMALL BOWEL OBSTRUCTION Discharge Diagnosis: small bowel obstruction, acute kidney injury, shingles Activity: Resume your previous activity Non-emergency contact: Primary Care Provider Call non-emergency contact if: you have any medication questions and your symptoms worsen Follow-up/Referrals: Mary Dickerson MD [Primary Care Provider] - 11/30/23 2:00 pm Diet: Carb Consistent or DM2 Addtl Attending Provider Instructions: You were treated for small bowl obstruction, you were very constipated Take miralax daily so that you have at least one soft BM daily. If that is not enough, increase to miralax twice a day. If you do not have a bowel movement, take an extra dose of miralax You can also add senna 1-2 tabs at bedtime if miralax alone is not effective -these medications are available over the counter at the drugstore You had a mild kidney injury related to when you were dehydrated with the bowel obstruction This improved with IV fluids -see your primary care within 1-2 weeks and have your labs checked for kidney function -HOLD lisinopril until your doctor tells you to restart it (usually around 2 weeks) -avoid NSAIDS like ibuprofen/motrin/advil and naproxen/aleve -tylenol/acetaminophen is ok to take I prescribed valacyclovir to finish treating your shingles - next dose is tonight I prescribed cephalexin for possible UTI (vs asymptomatic bacteria in your urine) - next dose is tonight Penny Craft MD Pending Studies at Discharge: No Stand-Alone Forms: [facility] [employer], Smoking Cessation Medications and DC Order Prescriptions: New cephalexin 500 mg Capsule 500 mg PO BID Qty: 5 0RF valacyclovir 1 gram tablet 1,000 mg PO BID Qty: 5 0RF Continued (DME) pen needle, diabetic [Easy Comfort Pen [place]] 31 gauge x 5/16" needle See Rx Instructions .ROUTE .MEDSUPPLY Qty: 100 1RF Rx Instructions: As directed QHS with Basaglar E11.69, E11.59 lansoprazole [Prevacid] 30 mg capsule,delayed release(DR/EC) 30 mg PO QAM Qty: 90 1RF clonidine HCl 0.1 mg tablet 0.1 mg PO BID Qty: 180 1RF (DME) blood sugar diagnostic Strip See Rx Instructions .ROUTE .MEDSUPPLY Qty: 100 2RF Rx Instructions: As directed; test twice a day once fasting. Dx: E11.9 (DME) blood-glucose meter [OneTouch Ultra2 Meter] [facility] See Rx Instructions .ROUTE .MEDSUPPLY Qty: 1 0RF Rx Instructions: As directed; test twice a day once fasting Dx: E11.9 (DME) lancets [OneTouch Delica Lancets] 33 gauge [facility] See Rx Instructions .ROUTE .MEDSUPPLY Qty: 100 2RF Rx Instructions: As directed; test twice a day once fasting. Dx: ELL.9 nystatin 100,000 unit/gram powder 1 applic topical BID Qty: 15 4RF Azo Bladder Control 300 mg Capsule 300 cap PO BID atorvastatin 40 mg tablet 40 mg PO HS clopidogrel 75 mg tablet 75 mg PO QAM aspirin 81 mg tablet,delayed release (DR/EC) 81 mg PO HS amlodipine 10 mg tablet 10 mg PO QAM glimepiride 4 mg tablet 4 mg PO QAM lorazepam 1 mg tablet 2 mg PO HS escitalopram oxalate [Lexapro] 10 mg tablet 10 mg PO PM pregabalin 50 mg capsule 0 mg PO BID Rx Instructions: Take 50mg by mouth in the morning and 100mg by mouth at bedtime Myrbetriq 25 mg tablet extended release 24 hr 25 mg PO PM nitroglycerin [Nitrostat] 0.4 mg tablet, sublingual 0.4 mg Sublingual .PRN/UD PRN (Reason: Chest Pain) Rx Instructions: as needed for chest pain : one tablet under the tongue, every five minutes up to 3 doses. Held lisinopril 5 mg tablet 5 mg PO QAM Hold Instructions: Resume on 12/01/23. hold until your doctor tells you to start taking it again Discontinued prednisone 20 mg tablet See Rx Instructions PO .COMPLEX Qty: 30 0RF Rx Instructions: 60mg PO daily X 5 days, then 40mg PO daily X 5 days, then 20mg PO daily X 5 days, then stop. Start Date 11/10/23 - End Date 11/25/23. t has taken 3 doses as of 11/13/23 azithromycin 250 mg tablet See Rx Instructions PO .COMPLEX Qty: 6 0RF Rx Instructions: take 500 mg today (day 1), then 250 mg for 4 days (days 2-5). Start Date 11/10/23 - End Date 11/15/23. Pt has taken 3 doses as of 11/13/23 Discharge Orders: Discharge Order (Routine); Ordered 11/17/23 Ordered By: Penny Espitia/Other Patient Handouts: High Blood Sugar (Hyperglycemia), Managing Type 2 Diabetes Admission Data Admit Date/Time: 11/13/23 13:20 Attending Provider: Penny Craft Admit Provider: Penny Craft Primary Care Provider: Mary Dickerson Other Providers: Penny Craft; Reggie Cordova. Other Interventions: Discharge Summary Assessment (RN) Last Done: 11/17/23 12:33 Coding Level of Care Code 98472 INP/OBS DISCH >30 MIN Diagnoses SBO (small bowel obstruction) K56.609 VAN (acute kidney injury) N17.9 Herpes zoster B02.9 Gastroesophageal reflux disease, esophagitis presence not specified K21.9 Esophagitis presence: esophagitis presence not specified Type 2 diabetes mellitus with diabetic polyneuropathy, without long-term current use of insulin E11.42 Diabetes mellitus long term care pharmacist insulin use: without care home use Diabetes mellitus complication status: with neurologic complications Diabetes mellitus complication detail: with polyneuropathy Essential hypertension I10 Hypertension type: unspecified Hypomagnesemia E83.42
== END 2023-11-17 14:02 | disposition home or self-care (01) | DRG 388 ==
LOC: ED 06:52 → EDINP 13:20 → 3N 13:47

== ENCOUNTER 2025-04-01 16:39 | Observation (INO) ==
--- NOTE | 2025-04-01 16:54 | Emergency Department Note ---
Impression & Plan Acute pain of left shoulder, HTN (hypertension), Forgetfulness, Jaw pain, Acute UTI ED Provider Note Provider: Garrett Rodrigues MD CHIEF COMPLAINT: Left shoulder and jaw pain HISTORY OF PRESENT ILLNESS: Patient is a 80-year-old female past medical history significant for CVA, hypertension, diabetes, SVT presenting here today via ambulance from her home. Evidently last day or 2 has been experiencing some left shoulder pain. May be more muscular as it does hurt some when she moves. Today however this morning experiencing pain rating to left jaw. Did have some nausea and route that improved with Zofran. Reports a little bit of abdominal discomfort but not severe. Minimal shoulder no jaw discomfort currently. Received aspirin for EMS and around. Noted be severely hypertensive and again off her blood pressure medications. She states the pharmacy often takes quite a while to get her medications refilled. No falls reported. Denies passing out but states maybe was a little bit dizzy earlier. Denies any dizziness now or significant headache. Denies any no focal numbness or weakness. Maybe a little bit of trace leg swelling. Denies significant shortness of breath currently. No history of left shoulder injury or pain before. PAST MEDICAL HISTORY: As noted above MEDICATIONS: Reviewed home medications, ran out of her blood pressure medicine 2 to 3 days ago SOCIAL HISTORY: Resides at home PHYSICAL EXAM: GENERAL: alert and oriented in no acute distress on stretcher Head: normocephalic and atraumatic EYES: No injection, discharge or icterus. PERRL, EOMI. NECK: Trachea midline. Supple. Good range of motion. No crepitus or swelling noted. ENT: Mucous membranes pink and moist. No tongue elevation. LUNGS: Airway patent. No retractions. Breath sounds clear with good air entry bilaterally. HEART: Regular rate and rhythm. No chest wall tenderness ABDOMEN: Soft and non-tender, without guarding or rebound. SKIN: Acyanotic, warm, dry, without rashes EXTREMITIES: Without swelling, tenderness or deformity with some mild pain with arm extension of the left shoulder region. NEUROLOGICAL: No focal deficits. No aphasia. No facial droop or slurred speech. Normal strength and tone in the extremities. Sensation to gross touch normal. EK bpm sinus tachycardia with PVC, left bundle branch block is present. LVH changes. No clear acute ST segment elevation. QTc 438. Compared to previous from January 20, 2024, now with what appears to be a left bundle branch block. CONTINUOUS CARDIAC MONITORING: was ordered and showed a heart rate of 90s to 110s bpm in normal sinus rhythm to sinus tachycardia rare PVC Patient's laboratory studies and imaging reviewed. Differential includes Benign hypertension, hypertensive emergency, cardiovascular pathology including ACS,, toxicologic, pheochromocytoma, electrolyte abnormality, renal disease, endorgan damage, as well as other pathologies. IMPRESSION/MEDICAL DECISION MAKING: Patient with some left shoulder pain is somewhat reduced but had left jaw pain earlier and is severely hypertensive. Reports significant allergy to IV contrast and cannot tolerate. Reports a little bit of abdominal discomfort and some nausea earlier. Does have a history of SBO and prior abdominal surgeries but not severely tender. Given some clonidine and amlodipine her home medications here to help with her severe hypertension upon arrival. Received aspirin prior to arrival. EKG here without evidence of STEMI but appears to be significant left bundle changes new compared to previous from last year. Troponin is sent. Will complete a CT scan of the abdomen pelvis to look for any occult intra-abdominal findings. Doubt CVA and she is not having any focal deficits however given her history of CVA as well as some dizziness and severe hypertension a CT of the head as well as completing a CT of the chest will be completed. Noncontrast given her severe allergy by her report. Respiratory viral panel sent for completeness. Borderline hypoxia here. Blood work here without anemia or thrombocytopenia with a slight leukocytosis 11.2. This is fairly similar to previous. No severe electrolyte abnormalities (note mild hypomagnesemia of 1.6.) or sign or renal dysfunction. No transaminitis. Normal TSH. Normal troponin of 10.3. Negative respiratory viral panel. Chest x-ray and shoulder x-ray without acute findings noted. Some of the left shoulder pain seems arthritic in nature. Urinalysis questions possible infection with nitrates and bacteria. Patient covered with a dose of ceftriaxone here. Does not appear septic. CT head, chest, and abdomen pelvis per radiology report show no acute pulmonary abnormality with small anal hernia, diverticulosis, unchanged fatty hernia with a right renal cyst noted, and no acute intracranial bleed. There is question of a small pontine hypodense area without mass effect. New compared to October 2023 but not having significant acute symptoms or weakness consistent with stroke. On reassessment patient's daughter is now present. She reports the patient evidently did have her blood pressure medicine earlier and thus received a double dose here which is improving her blood pressure. States the patient's been somewhat confused recently frequently gets UTIs. Patient herself not sure that she has dysuria. Covered empirically with a dose of ceftriaxone at this point. Daughter obviously concerned about patient's breathing here right around 90% but do not see an obvious explanation such as pneumonia, fluid overload, or positive viral panel. Does not sound particularly wheezy. Allergy precludes CTA at this time. Do not have a high enough suspicion for empiric anticoagulation. Again CT findings question possible old CVA and in discussion with patient and daughter, daughter in particular feels the patient needs to stay for further evaluation. DIAGNOSIS: Weak, left shoulder pain, UTI, hypertensive urgency DISPOSITION: Hospitalist will evaluate Discussion with patient and her daughter will bring in for further observation. Past Med/Surg History Problem List Acute UTI (Acute) Jaw pain (Acute) Forgetfulness (Acute) HTN (hypertension) (Acute) Acute pain of left shoulder (Acute) Abnormal finding on urinalysis Uncontrolled hypertension Chest pain Uncontrolled diabetes mellitus with hyperglycemia VAN (acute kidney injury) Herpes zoster virus infection of face and ear nerves (Acute) Small bowel obstruction (Acute) Herpes zoster Toenail deformity Rash Flu-like symptoms Cognitive and behavioral changes Anxiety Swelling of right wrist Sore throat Tenosynovitis of wrist Syncope and collapse (Acute) Acute hypotension (Acute) Acute pain of right wrist (Acute) Hypomagnesemia (Acute) Stroke-like symptoms (Acute) Aphasia (Acute) Generalized weakness (Acute) HTN (hypertension) TIA (transient ischemic attack) Diabetes mellitus, type II Depression Impacted cerumen of both ears Routine health maintenance Vitamin D deficiency History of dental problems Obesity, diabetes, and hypertension syndrome Encounter for examination following treatment at hospital (Acute) Right sided weakness (Acute) Dysarthria (Acute) Lower extremity edema (Chronic) Abnormality of gait (Acute) Arthralgia of multiple sites (Acute) Calf swelling (Acute) Chronic diarrhea of unknown origin (Acute) Dyslipidemia (Chronic) Dyspnea on exertion (Acute) Fecal urgency (Acute) Hiatal hernia (Acute) Incisional hernia (Acute) Incomplete emptying of bladder (Acute) Joint pain, knee (Acute) Lichen sclerosus et atrophicus (Acute) Lumbar spondylosis (Acute) Memory loss or impairment (Acute) Microscopic hematuria (Acute) Murmur (Acute) Myalgia and myositis (Acute) Nonocclusive coronary atherosclerosis of [place] coronary artery (Acute) Palpitations (Acute) Paroxysmal SVT (supraventricular tachycardia) (Acute) Polyneuropathy (Acute) Postmenopausal atrophic vaginitis (Acute) Rectal pressure (Acute) Renal cyst, acquired (Acute) Right leg weakness (Acute) Sleep disturbances (Acute) Swelling of limb, left (Acute) Tremor (Acute) Urinary incontinence (Acute) Urinary urgency (Acute) Ventral hernia (Acute) Vitamin B12 deficiency (Acute) Depression Hypertensive urgency SBO (small bowel obstruction) History of Clostridium difficile colitis Vasovagal near-syncope WPW (Xdjdg-Vnisznyve-Skmwr syndrome) (Chronic) Hypertensive cardiovascular disease Vomiting (Acute) Contrast media allergy (Chronic) Lumbar stenosis with neurogenic claudication Labile hypertension (Chronic) LVH (left ventricular hypertrophy) (Chronic) Nonobstructive atherosclerosis of coronary artery (Chronic) "Per cardiac cath May 2016" GERD (gastroesophageal reflux disease) (Chronic) Hepatic steatosis (Chronic) H/O: rheumatic fever (Chronic) H/O Clostridium difficile infection (Chronic) History of herniorrhaphy (Chronic) S/P ROMAN-BSO (Chronic) Medical History History of CVA (cerebrovascular accident) Fatigue Left lower quadrant pain Abdominal pain Small bowel obstruction Bacteremia Hemorrhoids Acute chest pain Vasovagal near-syncope Surgical History Hx of hysterectomy S/P partial colectomy S/P foot surgery History of bladder surgery H/O cardiac radiofrequency ablation Family History Brother Colorectal cancer Prostate cancer Mother Myocardial infarction Other Cancer Diabetes Heart disease Hypertension Denies family history of Ovarian cancer Breast cancer Social History Smoking Status: Never smoker Tobacco Type: Cigarettes Age Started Using Tobacco: 32; Age Quit Using Tobacco: 33; packs per day: 1; Second Hand Exposure: No; Do You Dip or Chew Tobacco: No; Hx Alcohol Use: No Hx Substance Use: No Preferred Language: Kinyarwanda Communication Ability: Effective Visual Impairment: Limited Hearing Ability: Normal Pickle Sorter Required: No Beliefs That Will Affect Care: None marital status: / Current Living Situation: Family Current Living Situation Comment: pt lives on top floor, daughter lives on bottom floor current occupational status: retired How many Children do You have: 3 Feels Safe at Home: Yes Childhood Exposure to Second-Hand Smoke: Yes Diet: regular caffeine: Yes during the past year weight has: remained stable Dental Care, Regularly: No Physical Activity Frequency: Does not Exercise Seatbelt Use: always Sunscreen Use: No Do you think of yourself as: straight/heterosexual Sexual Activity: has been sexually active, but not for at least 12 months Gender Identity: Female Assistive Devices: Denture - Upper, Glasses and Walker Allergies Allergies Allergy/AdvReac Type Severity Reaction Status Date / Time Iodinated Contrast Media Allergy Intermediate HOT FLASH Verified 09/14/24 15:14 AND RASH iodine Allergy Intermediate SWELLING, Verified 09/14/24 15:14 ITCHING,RED AND NAUSEA W/CONTRAST DYE (FEEL FUNNY) shellfish derived Allergy Intermediate SWELLING Verified 09/14/24 15:14 AND VOMITING shrimp Allergy Intermediate SWELLING Verified 09/14/24 15:14 AND NAUSEA WITH SHRIMP AND SHELLFISH Sulfa (Sulfonamide Allergy Intermediate "SULFA Verified 09/14/24 15:14 Antibiotics) DRUGS": SWELLS Egg Derived AdvReac Severe DIARRHEA,ABD Verified 09/14/24 15:14 PAIN codeine AdvReac Intermediate VOMITING Verified 09/14/24 15:14 egg AdvReac Intermediate DIARRHEA Verified 09/14/24 15:14 vaccines Allergy Severe Difficulty Uncoded 09/14/24 15:14 Breathing,Rash Home Meds Home Medications Medication Instructions Recorded Confirmed nitroglycerin 0.4 mg sublingual 0.4 mg sublingual UD PRN Chest Pain 09/20/22 06/27/24 tablet (Nitrostat) aspirin 81 mg tablet,delayed 81 mg PO HS 11/13/23 06/27/24 release mirabegron 25 mg tablet,extended 25 mg PO PM 11/13/23 06/27/24 release 24 hr (Myrbetriq) pumpkin seed extract-soy germ 300 300 cap PO BID 11/13/23 06/27/24 mg capsule (Azo Bladder Control) Previous Rx's Medication Instructions Recorded pen needle, diabetic 31 gauge x #100 ea 03/31/21 5/16" (Easy Comfort Pen Marsteller) blood sugar diagnostic #100 ea 11/21/21 blood-glucose meter (OneTouch #1 ea 11/21/21 Ultra2 Meter) lancets 33 gauge (OneTouch Delica #100 ea 11/21/21 Lancets) nystatin 100,000 unit/gram topical 1 applic topical BID #15 grams 11/10/23 powder blood-glucose meter (OneTouch #1 ea 03/09/24 Ultra2 Meter) lancets 33 gauge (OneTouch Delica #100 ea 03/09/24 Plus Lancet) miscellaneous medical supply 2 ea miscellaneous DAILY DX: 03/09/24 G45.9, R06.09, R53.83 #2 ea blood sugar diagnostic (OneTouch #100 ea 03/10/24 Ultra Test strips) nystatin 100,000 unit/gram topical 1 applic topical TID fungal infx 09/14/24 powder #30 grams ciprofloxacin HCl 500 mg tablet 500 mg PO BID complicated UTI #14 09/20/24 tabs empagliflozin 10 mg tablet 10 mg PO DAILY #10 tabs 11/08/24 (Jardiance) atorvastatin 40 mg tablet 40 mg PO HS #90 tabs 12/20/24 glimepiride 4 mg tablet 4 mg PO QAM #90 tabs 12/20/24 escitalopram oxalate 10 mg tablet 10 mg PO PM #30 tabs 02/07/25 (Lexapro) pregabalin 100 mg capsule See Rx Instructions PO .COMPLEX 02/09/25 #270 caps clonidine HCl 0.1 mg tablet 0.1 mg PO BID #180 tabs 02/10/25 lisinopril 5 mg tablet 5 mg PO QAM #90 tabs 02/10/25 lorazepam 1 mg tablet 2 mg (2 x 1 mg) PO HS sleep #60 03/14/25 tabs amlodipine 10 mg tablet 10 mg PO QAM #90 tabs 03/27/25 clopidogrel 75 mg tablet 75 mg PO QAM #90 tabs 03/27/25 lansoprazole 30 mg capsule,delayed 30 mg PO QAM #90 caps 03/27/25 release (Prevacid) Results & Data (ED) Vital Signs Vital Signs - 24 hr 04/01/25 16:42 04/01/25 16:42 04/01/25 16:49 Temperature 37.1 C Temperature Source Oral Pulse Rate 109 H 109 H Pulse Rate [Apical] Pulse Rate from SpO2 Sensor Respiratory Rate 24 24 Respiratory Effort / Characteristics Non-Labored Spontaneous Respiratory Depth Normal Respiratory Pattern Regular Blood Pressure 183/102 H 185/96 H Blood Pressure [Right Arm] Blood Pressure Mean 129 129 Blood Pressure Mean [Right Arm] Blood Pressure Position [Right Arm] Pulse Oximetry 91 91 Oxygen Delivery Method Room Air Room Air Oxygen Flow Rate Sepsis Recent Fever Within 48 Hours No Sepsis New/Unexplained Change in Mental Status No Sepsis Action Taken by Nursing Physician Notified 04/01/25 16:50 04/01/25 16:53 04/01/25 16:59 Temperature Temperature Source Pulse Rate 91 H 115 H Pulse Rate [Apical] 98 H Pulse Rate from SpO2 Sensor Respiratory Rate 20 19 Respiratory Effort / Characteristics Respiratory Depth Respiratory Pattern Blood Pressure Blood Pressure [Right Arm] 185/96 H Blood Pressure Mean Blood Pressure Mean [Right Arm] 125 Blood Pressure Position [Right Arm] Pulse Oximetry 94 93 Oxygen Delivery Method Nasal Cannula Nasal Cannula Oxygen Flow Rate 2 2 Sepsis Recent Fever Within 48 Hours Sepsis New/Unexplained Change in Mental Status Sepsis Action Taken by Nursing 04/01/25 17:03 04/01/25 17:21 04/01/25 18:00 Temperature Temperature Source Pulse Rate 98 H 88 Pulse Rate [Apical] 86 Pulse Rate from SpO2 Sensor 98 H 74 Respiratory Rate 19 18 15 Respiratory Effort / Characteristics Non-Labored Spontaneous Respiratory Depth Normal Respiratory Pattern Regular Blood Pressure 165/91 H Blood Pressure [Right Arm] 140/73 Blood Pressure Mean 115 Blood Pressure Mean [Right Arm] 95 Blood Pressure Position [Right Arm] Semi-fowlers Pulse Oximetry 94 93 95 Oxygen Delivery Method Nasal Cannula Oxygen Flow Rate 1.5 Sepsis Recent Fever Within 48 Hours Sepsis New/Unexplained Change in Mental Status Sepsis Action Taken by Nursing 04/01/25 18:15 04/01/25 18:18 04/01/25 18:30 Temperature Temperature Source Pulse Rate 84 83 86 Pulse Rate [Apical] Pulse Rate from SpO2 Sensor Respiratory Rate 15 24 14 Respiratory Effort / Characteristics Respiratory Depth Respiratory Pattern Blood Pressure 130/72 124/71 Blood Pressure [Right Arm] Blood Pressure Mean 106 95 Blood Pressure Mean [Right Arm] Blood Pressure Position [Right Arm] Pulse Oximetry 94 95 94 Oxygen Delivery Method Room Air Oxygen Flow Rate Sepsis Recent Fever Within 48 Hours Sepsis New/Unexplained Change in Mental Status Sepsis Action Taken by Nursing 04/01/25 18:45 04/01/25 19:00 04/01/25 19:30 Temperature Temperature Source Pulse Rate 82 83 87 Pulse Rate [Apical] Pulse Rate from SpO2 Sensor 74 86 Respiratory Rate 12 15 18 Respiratory Effort / Characteristics Respiratory Depth Respiratory Pattern Blood Pressure 120/71 158/87 H 138/78 Blood Pressure [Right Arm] Blood Pressure Mean 87 136 98 Blood Pressure Mean [Right Arm] Blood Pressure Position [Right Arm] Pulse Oximetry 88 L 93 92 Oxygen Delivery Method Oxygen Flow Rate Sepsis Recent Fever Within 48 Hours Sepsis New/Unexplained Change in Mental Status Sepsis Action Taken by Nursing 04/01/25 19:45 04/01/25 20:00 04/01/25 20:15 Temperature Temperature Source Pulse Rate 76 73 76 Pulse Rate [Apical] Pulse Rate from SpO2 Sensor 72 76 Respiratory Rate 21 17 19 Respiratory Effort / Characteristics Respiratory Depth Respiratory Pattern Blood Pressure 137/80 137/58 L 130/78 Blood Pressure [Right Arm] Blood Pressure Mean 118 84 95 Blood Pressure Mean [Right Arm] Blood Pressure Position [Right Arm] Pulse Oximetry 91 91 90 Oxygen Delivery Method Oxygen Flow Rate Sepsis Recent Fever Within 48 Hours Sepsis New/Unexplained Change in Mental Status Sepsis Action Taken by Nursing 04/01/25 20:37 04/01/25 21:11 Temperature Temperature Source Pulse Rate 78 86 Pulse Rate [Apical] Pulse Rate from SpO2 Sensor Respiratory Rate 18 Respiratory Effort / Characteristics Respiratory Depth Respiratory Pattern Blood Pressure 157/78 H Blood Pressure [Right Arm] Blood Pressure Mean 124 Blood Pressure Mean [Right Arm] Blood Pressure Position [Right Arm] Pulse Oximetry 92 Oxygen Delivery Method Oxygen Flow Rate Sepsis Recent Fever Within 48 Hours Sepsis New/Unexplained Change in Mental Status Sepsis Action Taken by Nursing Laboratory Data 04/01/25 16:48 04/01/25 17:51 Lab Results 04/01/25 04/01/25 04/01/25 Range/Units 16:48 17:04 17:51 WBC 11.22 H (4.8-10.8) K/ul RBC 5.37 (4.20-5.40) M/uL Hgb 14.8 (12.0-16.0) g/dl Hct 43.0 (37.0-47.0) % MCV 80.1 (80.0-100.0) fL MCH 27.6 (25.0-34.0) pg MCHC 34.4 (32.0-36.0) g/dL RDW Std Deviation 50.1 H (36.4-46.3) fL RDW Coeff of Carmen 18.4 H (11.5-14.5) % Plt Count 211 (130-400) K/uL MPV 11.3 (9.4-12.4) fL Immature Gran % (Auto) 0.5 % Neut % (Auto) 60.8 % Lymph % (Auto) 30.7 % [place] % (Auto) 7.3 % Eos % (Auto) 0.3 % Baso % (Auto) 0.4 % Neut # (Auto) 6.83 H (1.40-6.50) K/uL Lymph # (Auto) 3.44 H (1.20-3.40) K/uL [place] # (Auto) 0.82 H (0.11-0.59) K/uL Eos # (Auto) 0.03 (0.00-0.50) K/uL Baso # (Auto) 0.04 (0.00-0.20) K/uL Immature Gran # (Auto) 0.06 (0.01-0.20) K/uL PT Cancelled INR Cancelled APTT Cancelled PTT Ratio Cancelled Sodium Cancelled 137 Potassium Cancelled 4.1 Chloride Cancelled 101 Carbon Dioxide Cancelled 24 Anion Gap Cancelled 12 H BUN Cancelled 13 Creatinine Cancelled 0.77 Est Cr Clr Drug Dosing Cancelled 60.6 eGFR Cancelled 76.97 BUN/Creatinine Ratio Cancelled 16.9 Glucose Cancelled 207 H Calcium Cancelled 9.6 Magnesium Cancelled 1.6 L Total Bilirubin Cancelled 0.5 AST Cancelled 30 ALT Cancelled 24 Alkaline Phosphatase Cancelled 68 Troponin I High Sens Cancelled 10.3 Total Protein Cancelled 7.8 Albumin Cancelled 4.4 Globulin Cancelled 3.4 Albumin/Globulin Ratio Cancelled 1.3 TSH Cancelled 2.561 Urine Color Urine Appearance (Clear) Urine pH (4.5-7.5) Ur Specific [place] (1.000-1.030) Urine Protein (Negative) Urine Glucose (UA) (Negative) Urine Ketones (Negative) Urine Blood (Negative) Urine Nitrite (Negative) Urine Bilirubin (Negative) Urine Urobilinogen (Negative) Ur Leukocyte Esterase (Negative) Urine WBC (Auto) (0-5) /hpf Urine RBC (Auto) (0-2) /hpf U Hyaline Cast (Auto) (0-2) /lpf U Epithel Cells (Auto) (0-2) /hpf Urine Bacteria (Auto) (None Seen) Urine Comment Adenovirus (PCR) Not Detected (NotDetected) B. pertussis DNA (PCR) Not Detected (NotDetected) B.parapertussis DNA PCR Not Detected (NotDetected) C. pneumoniae DNA (PCR) Not Detected (NotDetected) Coronavirus OC43 (PCR) Not Detected (NotDetected) Coronavirus HKU1 (PCR) Not Detected (NotDetected) Coronavirus 229E (PCR) Not Detected (NotDetected) SARS-CoV-2 (PCR) Not Detected (NotDetected) Coronavirus NL63 (PCR) Not Detected (NotDetected) Human Metapneumovir PCR Not Detected (NotDetected) Influenza Type A (PCR) Not Detected (NotDetected) Influenza Type B (PCR) Not Detected (NotDetected) M. pneumoniae (PCR) Not Detected (NotDetected) Parainfluenza 1 (PCR) Not Detected (NotDetected) Parainfluenza 2 (PCR) Not Detected (NotDetected) Parainfluenza 3 (PCR) Not Detected (NotDetected) Parainfluenza 4 (PCR) Not Detected (NotDetected) RSV (PCR) Not Detected (NotDetected) Entero/Rhino (PCR) Not Detected (NotDetected) 04/01/25 04/01/25 Range/Units 17:52 19:00 WBC (4.8-10.8) K/ul RBC (4.20-5.40) M/uL Hgb (12.0-16.0) g/dl Hct (37.0-47.0) % MCV (80.0-100.0) fL MCH (25.0-34.0) pg MCHC (32.0-36.0) g/dL RDW Std Deviation (36.4-46.3) fL RDW Coeff of Carmen (11.5-14.5) % Plt Count (130-400) K/uL MPV (9.4-12.4) fL Immature Gran % (Auto) % Neut % (Auto) % Lymph % (Auto) % [place] % (Auto) % Eos % (Auto) % Baso % (Auto) % Neut # (Auto) (1.40-6.50) K/uL Lymph # (Auto) (1.20-3.40) K/uL [place] # (Auto) (0.11-0.59) K/uL Eos # (Auto) (0.00-0.50) K/uL Baso # (Auto) (0.00-0.20) K/uL Immature Gran # (Auto) (0.01-0.20) K/uL PT 10.9 INR 1.0 APTT 26 PTT Ratio 1.0 Sodium Potassium Chloride Carbon Dioxide Anion Gap BUN Creatinine Est Cr Clr Drug Dosing eGFR BUN/Creatinine Ratio Glucose Calcium Magnesium Total Bilirubin AST ALT Alkaline Phosphatase Troponin I High Sens Total Protein Albumin Globulin Albumin/Globulin Ratio TSH Urine Color Yellow Urine Appearance Clear (Clear) Urine pH 5.5 (4.5-7.5) Ur Specific [place] 1.030 (1.000-1.030) Urine Protein Trace H (Negative) Urine Glucose (UA) 3+ H (Negative) Urine Ketones Trace H (Negative) Urine Blood Negative (Negative) Urine Nitrite Positive A (Negative) Urine Bilirubin Negative (Negative) Urine Urobilinogen Negative (Negative) Ur Leukocyte Esterase Negative (Negative) Urine WBC (Auto) 0-5 (0-5) /hpf Urine RBC (Auto) 0-2 (0-2) /hpf U Hyaline Cast (Auto) 0-2 (0-2) /lpf U Epithel Cells (Auto) 0-2 (0-2) /hpf Urine Bacteria (Auto) 4+ H (None Seen) Urine Comment Adenovirus (PCR) (NotDetected) B. pertussis DNA (PCR) (NotDetected) B.parapertussis DNA PCR (NotDetected) C. pneumoniae DNA (PCR) (NotDetected) Coronavirus OC43 (PCR) (NotDetected) Coronavirus HKU1 (PCR) (NotDetected) Coronavirus 229E (PCR) (NotDetected) SARS-CoV-2 (PCR) (NotDetected) Coronavirus NL63 (PCR) (NotDetected) Human Metapneumovir PCR (NotDetected) Influenza Type A (PCR) (NotDetected) Influenza Type B (PCR) (NotDetected) M. pneumoniae (PCR) (NotDetected) Parainfluenza 1 (PCR) (NotDetected) Parainfluenza 2 (PCR) (NotDetected) Parainfluenza 3 (PCR) (NotDetected) Parainfluenza 4 (PCR) (NotDetected) RSV (PCR) (NotDetected) Entero/Rhino (PCR) (NotDetected) Administered Medications Discontinued Medications Amlodipine Besylate (Amlodipine Besylate 5 Mg Tab) 10 mg PO NOW ONE Stop: 04/01/25 16:53 Last Admin: 04/01/25 17:01 Dose: 10 mg Documented By: GEOVANNI Clonidine HCl (Clonidine Hcl 0.1 Mg Tab) 0.1 mg PO NOW ONE Stop: 04/01/25 16:52 Last Admin: 04/01/25 17:01 Dose: 0.1 mg Documented By: GEOVANNI Ceftriaxone Sodium (Rocephin) 2,000 mg in 50 mls @ 100 mls/hr IV NOW STA Stop: 04/01/25 20:13 Last Infusion: 04/01/25 20:23 Dose: Infused Documented By: Admin: 04/01/25 19:48 Dose: 100 mls/hr Documented By: MIKE Imaging Data Radiologist's Impression: Chest X-Ray 04/01/25 16:50 Exam(s): XR CXR 1 VIEW EXAM: XR Chest, 1 View CLINICAL HISTORY: Reason for exam: Dyspnea. TECHNIQUE: Frontal view of the chest. COMPARISON: 01/20/2024 FINDINGS: Lungs: Elevated right diaphragm. No consolidation. No overt edema. Pleural space: No pleural effusion. No pneumothorax. Heart: Unremarkable. No cardiomegaly. IMPRESSION: No acute cardiopulmonary abnormality. Electronically signed by: Yg Berry MD 04/01/25 18:33 PM Shoulder X-Ray 04/01/25 16:54 Exam(s): XR LEFT SHOULDER, 2+ views EXAM: XR Left Shoulder Complete, 2 or More Views CLINICAL HISTORY: Reason for exam: pain. TECHNIQUE: Two or more views of the left shoulder. COMPARISON: No relevant prior studies available. FINDINGS: Bones/joints: No fracture or malalignment. Mild degenerative changes at the acromioclavicular joint. Soft tissues: Unremarkable. IMPRESSION: No fracture or malalignment. Electronically signed by: Yg Berry MD 04/01/25 18:34 PM Abdomen/Pelvis CT 04/01/25 16:57 EXAM: CT abd pelvis wo con CLINICAL HISTORY: nausea, pain TECHNIQUE: Non-contrast CT of the abdomen and pelvis was performed, with the following protocol: axial images, and reconstructed coronal and sagittal images. No intravenous contrast was administered. One of the following dose reduction techniques was utilized for this exam: Automated exposure control, adjustment of the mA and/or kV according to patient size, and use of iterative reconstruction. COMPARISON: 11/13/2023. FINDINGS: Abdomen: Liver: Increase in size of 17 cm, normal shape, and decreased density. No focal lesions, cysts, or masses were identified. Gallbladder and Biliary System: The gallbladder is normal in size and shape. No wall thickening, pericholecystic fluid, or gallstones were identified. Pancreas: The pancreatic head, body, and tail are visualized and appear normal in size and density. No pancreatic masses or calcifications were noted. Spleen: Normal in size, shape, and density. No splenic lesions or masses were identified. Kidneys and Adrenal Glands: Both kidneys are normal in size, shape, and position. Cortical thickness is within normal limits. Right mid-zonal cortical hypodense lesion about 53x44 mm. (previously 35x43 mm) No renal calculi or hydronephrosis. Adrenal glands are unremarkable. Appendix: The appendix is normal in size without krystal-appendiceal fat stranding or an appendicolith. No evidence of appendiceal abscess or perforation. Pelvis: Urinary Bladder: Normal in contour and wall thickness. No intraluminal lesions. Uterus: Not seen. Vagina: Normal in contour and wall thickness. Cervix: No evidence of mass or abnormal thickening. Peritoneal and Retroperitoneal Structures: No free fluid or abnormal fluid collections were identified within the abdomen or pelvis. Reactive bilateral iliac lymphadenopathy of benign look with fatty hilum, largest at left 15x6 mm. Bowel: The visualized bowel loops are normal in caliber and appearance. No evidence of bowel obstruction. Multiple colonic diverticulosis with short segments of slight increase in bowel wall thickness at the transverse colon, rectum, and sigmoid. Bones and Soft Tissues: No fractures or abnormal masses were identified. Decrease bone density. L3, L4 possible bilateral laminectomy. Epigastric fatty hernia defect 5.2 cm with hernial sac 8.5x2.5 of fatty contents. Posterior fixation of L3, L4, L5 lumbar spine with subtle L2 over L3, L3 over L4, L4 over L5 grade I anterior spondylolisthesis. Lumbar spondylosis and facet arthropathy. IMPRESSION: - Mild diffuse hepatic steatosis (unchanged) - Mild colonic diverticulosis (new) with Reactive bilateral iliac lymphadenopathy of benign look with fatty hilum, largest at left 15x6 mm (unchanged). Suggest clinical correlation. - Fatty epigastric hernia 8.5x2.5 cm, hernial sac with underlying defect 5.2 cm. (unchanged) - Right renal hypodense lesion likely cyst, suggest IV contrast study or ultrasound assessment. (increase) Electronically signed by Rc Sears 04-01-2025 8:[address] 04/01/25 17:01 EXAM: CT chest diagnostic wo con CLINICAL HISTORY: SOB. HTN. Chest Pain. TECHNIQUE: Contiguous axial CT images of the chest were acquired without administration of intravenous contrast. Coronal and sagittal reconstructions were obtained. One of the following dose reduction techniques were utilized for this exam: Automated exposure control, adjustment of the mA and/or kV according to patient size, use of iterative reconstruction. COMPARISON: 01/20/2024 CR reviewed. FINDINGS: Lungs: The lung parenchyma is clear with no evidence of consolidation, collapse, or focal lesions. Bilateral pulmonary mild dependant changes noted. No pulmonary nodules or masses are identified. No evidence of interstitial lung disease or emphysema. No pleural effusion or pleural thickening. Mediastinum: The mediastinum is normal in size and contour. No mediastinal mass or abnormal lymphadenopathy. The heart size is within normal limits. Small hiatus hernia seen. Hilar Structures: The hilar structures appear normal without enlargement or abnormality. Trachea and Main Bronchi: The trachea and main bronchi are patent without evidence of obstruction or abnormality. Chest Wall: The chest wall is unremarkable with no evidence of soft tissue or bony abnormalities. Upper Abdomen: Visualized portions of the liver, spleen, adrenal glands, and kidneys are unremarkable. Bones: Visualized osseous structures are normal, no evidence of fracture or lytic/sclerotic lesions. IMPRESSION: 1. No acute cardiopulmonary abnormality. 2. Small hiatus hernia. Electronically signed by Rc Sears 04-01-2025 7:[address] 04/01/25 17:01 EXAM: CT head/brain wo con CLINICAL HISTORY: HTN, Dizziness. SOB. Chest pain. TECHNIQUE: Axial non-contrast CT scan of the brain was performed from the skull base to the high parietal region with coronal and sagittal reformats. One of the following dose reduction techniques were utilized for this exam: Automated exposure control, adjustment of the mA and/or kV according to patient size, use of iterative reconstruction. COMPARISON: 11/13/2023 CT. FINDINGS: Brain Parenchyma: Left pontine small hypodense area with no mass effect. Normal attenuation of the cerebral hemispheres, cerebellum. No evidence of acute infarct, hemorrhage, or mass effect. No abnormal areas of hypo- or hyperattenuation. Ventricular System: Ventricles are normal in size and configuration. No evidence of hydrocephalus or ventricular enlargement. Subarachnoid Spaces: Normal sulci and cisterns. No evidence of subarachnoid hemorrhage or extra-axial fluid collections. Cerebellum and Brainstem: No masses, lesions, or areas of abnormal density. Orbits: Normal appearance of the globes, optic nerves, and extraocular muscles. No evidence of orbital masses or abnormal density. Sinuses: Clear paranasal sinuses. No evidence of sinusitis or mucosal thickening. Mastoid Air Cells: Clear mastoid air cells. No evidence of mastoiditis. Skull: Normal skull morphology. IMPRESSION: 1. Left pontine small hypodense area with no mass effect. Possible old infarct vs artifactual. New finding. 2. Suggested MRI brain with DWI/ADC sequences for further evaluation if clinically indicated. Electronically signed by Rc Sears 04-01-2025 8:19 PM Discharge Plan Visit Data Chief Complaint: Shoulder Pain ED Provider: Garrett Rodrigues Discharge Problem: Acute pain of left shoulder, HTN (hypertension), Forgetfulness, Jaw pain, Acute UTI Patient Disposition: Being Evaluated by Hospitalist Condition: Fair Forms Stand Alone Forms: [employer] Prescriptions Prescriptions: No Action (DME) pen needle, diabetic [Easy Comfort Pen [employer]] 31 gauge x 5/16" needle See Rx Instructions .ROUTE .MEDSUPPLY Qty: 100 1RF Rx Instructions: As directed QHS with Basaglar E11.69, E11.59 (DME) OneTouch Ultra Test Strip See Rx Instructions .Route Qty: 100 3RF Rx Instructions: Test 2-3 times a day E11.9 ciprofloxacin HCl 500 mg tablet 500 mg PO BID Qty: 14 0RF Jardiance 10 mg tablet 10 mg PO DAILY Qty: 10 0RF glimepiride 4 mg tablet 4 mg PO QAM Qty: 90 1RF atorvastatin 40 mg tablet 40 mg PO HS Qty: 90 1RF escitalopram oxalate [Lexapro] 10 mg tablet 10 mg PO PM Qty: 30 3RF pregabalin 100 mg capsule See Rx Instructions PO .COMPLEX Qty: 270 3RF Rx Instructions: 1 tab in AM, and 2 tabs in PM. lisinopril 5 mg tablet 5 mg PO QAM Qty: 90 1RF Hold Instructions: Resume on 12/01/23. hold until your doctor tells you to start taking it again clonidine HCl 0.1 mg tablet 0.1 mg PO BID Qty: 180 1RF lorazepam 1 mg tablet 2 mg PO HS Qty: 60 0RF lansoprazole [Prevacid] 30 mg capsule,delayed release(DR/EC) 30 mg PO QAM Qty: 90 1RF amlodipine 10 mg tablet 10 mg PO QAM Qty: 90 1RF clopidogrel 75 mg tablet 75 mg PO QAM Qty: 90 1RF (DME) blood sugar diagnostic Strip See Rx Instructions .ROUTE .MEDSUPPLY Qty: 100 2RF Rx Instructions: As directed; test twice a day once fasting. Dx: E11.9 (DME) blood-glucose meter [OneTouch Ultra2 Meter] [facility] See Rx Instructions .ROUTE .MEDSUPPLY Qty: 1 0RF Rx Instructions: As directed; test twice a day once fasting Dx: E11.9 (DME) lancets [OneTouch Delica Lancets] 33 [place] [facility] [place] Rx Instructions .ROUTE .MEDSUPPLY Qty: 100 2RF Rx Instructions: As directed; test twice a day once fasting. Dx: ELL.9 nystatin 100,000 unit/gram powder 1 applic topical BID Qty: 15 4RF nystatin 100,000 unit/gram powder 1 applic topical TID Qty: 30 0RF miscellaneous medical supply [facility] 2 ea miscellaneous DAILY Qty: 2 0RF Rx Instructions: SHOWER SAFETY BARS (DME) blood-glucose meter [OneTouch Ultra2 Meter] [facility] See Rx Instructions .Route Qty: 1 0RF Rx Instructions: As directed (DME) lancets [OneTouch Delica Plus Lancet] 33 gauge misc See Rx Instructions .Route Qty: 100 3RF Rx Instructions: As directed Azo Bladder Control 300 mg Capsule 300 cap PO BID aspirin 81 mg tablet,delayed release (DR/EC) 81 mg PO HS Myrbetriq 25 mg tablet extended release 24 hr 25 mg PO PM nitroglycerin [Nitrostat] 0.4 mg tablet, sublingual 0.4 mg Sublingual UD PRN (Reason: Chest Pain) Rx Instructions: as needed for chest pain : one tablet under the tongue, every five minutes up to 3 doses. Referrals Referrals: Mary Dickerson MD [Primary Care Provider] -
[2025-04-01] MEDS: cloNIDine HCL 0.1 MG TAB PO ONE (17:01)
[2025-04-01] MEDS: amLODIPine BESYLATE 5 MG TAB PO ONE (17:01)
[2025-04-01 17:28] LABS: Basophils # (auto) 0.04 K/uL (0.00-0.20); Basophils % (auto) 0.4 %; Eosinophils # (auto) 0.03 K/uL (0.00-0.50); Eosinophils % (auto) 0.3 %; Hemoglobin 14.8 g/dl (12.0-16.0); Immature Granulocytes # (auto) 0.06 K/uL (0.01-0.20); Immature Granulocytes % (auto) 0.5 %; Lymphocytes # (auto) 3.44 K/uL (1.20-3.40); Lymphocytes % (auto) 30.7 %; Mean Corpuscular Hemoglobin 27.6 pg (25.0-34.0); Mean Corpuscular Hgb Conc 34.4 g/dL (32.0-36.0); Mean Corpuscular Volume 80.1 fL (80.0-100.0); Mean Platelet Volume 11.3 fL (9.4-12.4); Monocytes # (auto) 0.82 K/uL (0.11-0.59); Monocytes % (auto) 7.3 %; Neutrophils # (auto) 6.83 K/uL (1.40-6.50); Neutrophils % (auto) 60.8 %; Platelet Count 211 K/uL (130-400); RDW Coefficient of Variation 18.4 % (11.5-14.5); RDW Standard Deviation 50.1 fL (36.4-46.3); Red Blood Count 5.37 M/uL (4.20-5.40); White Blood Count 11.22 K/ul (4.8-10.8)
[2025-04-01 18:10] LABS: Adenovirus PCR Not Detected (NotDetected); Bordetella parapertussis PCR Not Detected (NotDetected); Bordetella pertussis PCR Not Detected (NotDetected); Chlamydia pneumoniae PCR Not Detected (NotDetected); Coronavirus 229E PCR Not Detected (NotDetected); Coronavirus CoV-2 (COVID19)PCR Not Detected (NotDetected); Coronavirus HKU1 PCR Not Detected (NotDetected); Coronavirus NL63 PCR Not Detected (NotDetected); Coronavirus OC43PCR Not Detected (NotDetected); Human Metapneumovirus PCR Not Detected (NotDetected); Influenza A PCR Not Detected (NotDetected); Influenza B PCR Not Detected (NotDetected); Mycoplasma pneumoniae PCR Not Detected (NotDetected); Parainfluenza Virus 1 PCR Not Detected (NotDetected); Parainfluenza Virus 2 PCR Not Detected (NotDetected); Parainfluenza Virus 3 PCR Not Detected (NotDetected); Parainfluenza Virus 4 PCR Not Detected (NotDetected); Respiratory Syncytial VirusPCR Not Detected (NotDetected); Rhinovirus/Enterovirus PCR Not Detected (NotDetected)
[2025-04-01 18:22] LABS: Albumin Globulin Ratio 1.3 (0.9-2); Albumin Level 4.4 gm/dl (3.4-5.0); BUN Creatinine Ratio 16.9 (10-20); Bilirubin,Total 0.5 mg/dl (0.2-1.0); Calcium 9.6 mg/dl (8.6-10.3); Creatinine Clr Calc Pharmacy 60.6 ml/min; Globulin 3.4 gm/dl (2.5-4.0); Magnesium 1.6 mg/dl (1.7-2.4); Potassium 4.1 mmol/L (3.5-5.1); Total Protein 7.8 gm/dl (6.0-8.3)
[2025-04-01 18:29] LABS: Troponin I High Sensitivity 10.3 pg/ml (0-14)
--- NOTE | 2025-04-01 18:33 | XRay Report ---
Exam(s): XR CXR 1 VIEW EXAM: XR Chest, 1 View CLINICAL HISTORY: Reason for exam: Dyspnea. TECHNIQUE: Frontal view of the chest. COMPARISON: 01/20/2024 FINDINGS: Lungs: Elevated right diaphragm. No consolidation. No overt edema. Pleural space: No pleural effusion. No pneumothorax. Heart: Unremarkable. No cardiomegaly. IMPRESSION: No acute cardiopulmonary abnormality. Electronically signed by: Yg Berry MD 04/01/25 18:33 PM
--- NOTE | 2025-04-01 18:34 | XRay Report ---
Exam(s): XR LEFT SHOULDER, 2+ views EXAM: XR Left Shoulder Complete, 2 or More Views CLINICAL HISTORY: Reason for exam: pain. TECHNIQUE: Two or more views of the left shoulder. COMPARISON: No relevant prior studies available. FINDINGS: Bones/joints: No fracture or malalignment. Mild degenerative changes at the acromioclavicular joint. Soft tissues: Unremarkable. IMPRESSION: No fracture or malalignment. Electronically signed by: Yg Berry MD 04/01/25 18:34 PM
[2025-04-01 18:38] LABS: Thyroid Stimulating Hormone 2.561 uIu/ml (0.300-4.500)
[2025-04-01 18:49] LABS: Partial Thromboplastin Time 26 Seconds (21-31); Prothrombin Time 10.9 Seconds (9.0-12.0)
[2025-04-01 19:16] LABS: Appearance Urine Clear (Clear); Bacteria Urine Automated 4+ (None Seen); Bilirubin Urine Negative (Negative); Blood Urine Negative (Negative); Cast Urine Automated 0-2 /lpf (0-2); Color Urine Yellow; Epithelial Cell Urine Auto 0-2 /hpf (0-2); Glucose Urine UA 3+ (Negative); Ketones Urine Trace (Negative); Leukocyte Esterase Urine Negative (Negative); Nitrite Urine Positive (Negative); Protein Urine Trace (Negative); RBC Urine Automated 0-2 /hpf (0-2); Urobilinogen Urine Negative (Negative); WBC Urine Automated 0-5 /hpf (0-5); pH Urine 5.5 (4.5-7.5)
--- NOTE | 2025-04-01 19:36 | CT Scan Report ---
EXAM: CT chest diagnostic wo con CLINICAL HISTORY: SOB. HTN. Chest Pain. TECHNIQUE: Contiguous axial CT images of the chest were acquired without administration of intravenous contrast. Coronal and sagittal reconstructions were obtained. One of the following dose reduction techniques were utilized for this exam: Automated exposure control, adjustment of the mA and/or kV according to patient size, use of iterative reconstruction. COMPARISON: 01/20/2024 CR reviewed. FINDINGS: Lungs: The lung parenchyma is clear with no evidence of consolidation, collapse, or focal lesions. Bilateral pulmonary mild dependant changes noted. No pulmonary nodules or masses are identified. No evidence of interstitial lung disease or emphysema. No pleural effusion or pleural thickening. Mediastinum: The mediastinum is normal in size and contour. No mediastinal mass or abnormal lymphadenopathy. The heart size is within normal limits. Small hiatus hernia seen. Hilar Structures: The hilar structures appear normal without enlargement or abnormality. Trachea and Main Bronchi: The trachea and main bronchi are patent without evidence of obstruction or abnormality. Chest Wall: The chest wall is unremarkable with no evidence of soft tissue or bony abnormalities. Upper Abdomen: Visualized portions of the liver, spleen, adrenal glands, and kidneys are unremarkable. Bones: Visualized osseous structures are normal, no evidence of fracture or lytic/sclerotic lesions. IMPRESSION: 1. No acute cardiopulmonary abnormality. 2. Small hiatus hernia. Electronically signed by Rc Sears 04-01-2025 7:36 PM
[2025-04-01] MEDS: cefTRIAXone SODIUM 2,000 MG/50 ML BAG IV STA (19:48)
--- NOTE | 2025-04-01 20:07 | CT Scan Report ---
EXAM: CT abd pelvis wo con CLINICAL HISTORY: nausea, pain TECHNIQUE: Non-contrast CT of the abdomen and pelvis was performed, with the following protocol: axial images, and reconstructed coronal and sagittal images. No intravenous contrast was administered. One of the following dose reduction techniques was utilized for this exam: Automated exposure control, adjustment of the mA and/or kV according to patient size, and use of iterative reconstruction. COMPARISON: 11/13/2023. FINDINGS: Abdomen: Liver: Increase in size of 17 cm, normal shape, and decreased density. No focal lesions, cysts, or masses were identified. Gallbladder and Biliary System: The gallbladder is normal in size and shape. No wall thickening, pericholecystic fluid, or gallstones were identified. Pancreas: The pancreatic head, body, and tail are visualized and appear normal in size and density. No pancreatic masses or calcifications were noted. Spleen: Normal in size, shape, and density. No splenic lesions or masses were identified. Kidneys and Adrenal Glands: Both kidneys are normal in size, shape, and position. Cortical thickness is within normal limits. Right mid-zonal cortical hypodense lesion about 53x44 mm. (previously 35x43 mm) No renal calculi or hydronephrosis. Adrenal glands are unremarkable. Appendix: The appendix is normal in size without kyrstal-appendiceal fat stranding or an appendicolith. No evidence of appendiceal abscess or perforation. Pelvis: Urinary Bladder: Normal in contour and wall thickness. No intraluminal lesions. Uterus: Not seen. Vagina: Normal in contour and wall thickness. Cervix: No evidence of mass or abnormal thickening. Peritoneal and Retroperitoneal Structures: No free fluid or abnormal fluid collections were identified within the abdomen or pelvis. Reactive bilateral iliac lymphadenopathy of benign look with fatty hilum, largest at left 15x6 mm. Bowel: The visualized bowel loops are normal in caliber and appearance. No evidence of bowel obstruction. Multiple colonic diverticulosis with short segments of slight increase in bowel wall thickness at the transverse colon, rectum, and sigmoid. Bones and Soft Tissues: No fractures or abnormal masses were identified. Decrease bone density. L3, L4 possible bilateral laminectomy. Epigastric fatty hernia defect 5.2 cm with hernial sac 8.5x2.5 of fatty contents. Posterior fixation of L3, L4, L5 lumbar spine with subtle L2 over L3, L3 over L4, L4 over L5 grade I anterior spondylolisthesis. Lumbar spondylosis and facet arthropathy. IMPRESSION: - Mild diffuse hepatic steatosis (unchanged) - Mild colonic diverticulosis (new) with Reactive bilateral iliac lymphadenopathy of benign look with fatty hilum, largest at left 15x6 mm (unchanged). Suggest clinical correlation. - Fatty epigastric hernia 8.5x2.5 cm, hernial sac with underlying defect 5.2 cm. (unchanged) - Right renal hypodense lesion likely cyst, suggest IV contrast study or ultrasound assessment. (increase) Electronically signed by Rc Sears 04-01-2025 8:07 PM
--- NOTE | 2025-04-01 20:20 | CT Scan Report ---
EXAM: CT head/brain wo con CLINICAL HISTORY: HTN, Dizziness. SOB. Chest pain. TECHNIQUE: Axial non-contrast CT scan of the brain was performed from the skull base to the high parietal region with coronal and sagittal reformats. One of the following dose reduction techniques were utilized for this exam: Automated exposure control, adjustment of the mA and/or kV according to patient size, use of iterative reconstruction. COMPARISON: 11/13/2023 CT. FINDINGS: Brain Parenchyma: Left pontine small hypodense area with no mass effect. Normal attenuation of the cerebral hemispheres, cerebellum. No evidence of acute infarct, hemorrhage, or mass effect. No abnormal areas of hypo- or hyperattenuation. Ventricular System: Ventricles are normal in size and configuration. No evidence of hydrocephalus or ventricular enlargement. Subarachnoid Spaces: Normal sulci and cisterns. No evidence of subarachnoid hemorrhage or extra-axial fluid collections. Cerebellum and Brainstem: No masses, lesions, or areas of abnormal density. Orbits: Normal appearance of the globes, optic nerves, and extraocular muscles. No evidence of orbital masses or abnormal density. Sinuses: Clear paranasal sinuses. No evidence of sinusitis or mucosal thickening. Mastoid Air Cells: Clear mastoid air cells. No evidence of mastoiditis. Skull: Normal skull morphology. IMPRESSION: 1. Left pontine small hypodense area with no mass effect. Possible old infarct vs artifactual. New finding. 2. Suggested MRI brain with DWI/ADC sequences for further evaluation if clinically indicated. Electronically signed by Rc Sears 04-01-2025 8:19 PM
--- NOTE | 2025-04-01 21:51 | History & Physical Report ---
Date of Service April 01, 2025 Assessment & Plan (1) Acute pain of left shoulder: (2) Hypoxia: (3) Acute UTI: (4) Hypomagnesemia: (5) Diabetes mellitus, type II: Plan 80-year-old female PMHx CVA, HTN, DMT2, SVT, dyslipidemia, polyneuropathy, tremor, and depression who presents for left-sided shoulder pain and elevated BP readings starting the morning of arrival. ED evaluation reveals leukocytosis 11.2, stable H&H; PT/INR WNL; CMP anion gap 12, glucose 207, magnesium 1.6; troponin 10.3; TSH 2.561; UA suspicious for possible infection; BioFire negative; CXR no acute findings; L shoulder XR no fracture or malalignment; CTAP mild diffuse hepatic steatosis, mild colonic diverticulosis with reactive bilateral iliac LAD, fatty epigastric hernia with hernial sac, bilateral renal hypodense lesion likely a cyst; chest CT no acute finding, small hiatal hernias noted; head CT L pontine small hypodense area with no mass effect, possible old infarct versus artifact, suggest MRI brain with DWI/ADC sequences for further evaluation; EKG sinus tach with premature SVC's and fusion complexes, possible LAE, LVH, 111 bpm.; Provided with clonidine 0.1 mg p.o., ceftriaxone 2 g IV, and amlodipine 10 mg p.o. in ED. Of note, patient did become hypoxic while in ED at 86%, then being placed on O2 via NC at that time. Chest CTA was not completed given allergy to IV dye. #Acute hypoxia Onset acute hypoxia to 86% while in ED while resting; on reevaluation, patient sitting in bed and again found to be 88% on RA. Patient is not short of breath, does occasionally have nonproductive cough which has been ongoing for the past year. BioFire is negative, and imaging does not reveal any acute findings that would explain hypoxia. She is rather sedentary, so suspect that there is a possibility she has DVT/PE. Pending ultrasounds but Ddimer 350 so less likely. Patient is allergic to iodinated contrast, chest CTA has been deferred. Suspect that it is possible that infection could be causative factor. - CBC leukocytosis 11.22, H&H stable; troponin 10.3, 12.4 on repeat; D-dimer 350- CBC am - BioFire negative - CXR no acute findings - Chest CT no acute findings - Echo 2021 EF 60-65% - repeat am - Of note, head CT, does have an L pontine small hypodense area without mass effect that is possibly old infarct versus artifact and CTAP reveals chronic changes of hepatic steatosis, diverticulosis, and hernia as well as bilateral renal hypodense lesion - no direct correlate to acute hypoxia - Doppler ultrasounds pending BLE - O2 prn - none at baseline #L shoulder pain Did have prior evaluations in the past for chest pain, was often worked up to be 2/2 GI source. Describing similar symptoms, with pain reproducible on palpation. No deformities. No recent trauma. - XR no fracture or malalignment - Heat application prn - Acetaminophen pain - PT ordered - appreciate assistance #UTI Normally asx but with occasional lapse in mentation. Daughter states that each time she is evaluated for UTI, she does not complain of symptoms aside from incontinence but each culture has grown bacteria previously. Daughter feels as though the patient is slightly off from her normal mental status (no neuro deficits on exam). Received 1 dose ceftriaxone in ED. No history of pseudomonas on prior cultures. On Jardiance. Considering leukocytosis, possible altered mentation, and UA findings, will continue tx for UTI. - CBC leukocytosis; CMP with normal renal function - CBC, BMP am - UA glucose, ketones, nitrites, bacteria; pending cx - CTAP body comments that urinary bladder is normal contour and thickness, kidneys without hydronephrosis or calculi - Ceftriaxone 2g IV daily - adjust as appropriate #Hypomagnesemia Is having some muscle cramping in BLE. - Mg 1.6 - repeat am - MgSO4 1g IV x 2; Start MgOxide 400mg po BID given symptomatic - BMP am #T2DM H/o DMT2; Home regimen of empagliflozin, glimepiride. Glucose in UA. Consider d /c Jardiance. - Most recent A1C 02/2024 @ 10%, pending repeat - Hold Jardiance; Hold po meds - SSI with target BSG range 110-140mg/dL, CF 25, carb ratio 9 - BSG ACHS - Pharm glycemic management consult placed, appreciate assistance - Adjust regimen as needed #HTN- BP 220s/90 per EMS, reports not taking her medications but daughter believes she did. Received home meds in ED, currently WNL BP; Amlodipine, clonidine, lisinopril - continue #Dyslipidemia- Atorvastatin - continue #Polyneuropathy- Pregabalin - continue #Depression- Escitalopram, lorazepam prn - continue #CVA- time period; no neurological deficits today Renal cyst identified on CTAP -- Consider nonemergent US while inpatient. Dispo: Obs, med/tele VTE Prophylaxis: SCDs This document was dictated utilizing [employer]. Please excuse any grammatical errors that may be secondary to use of this software. Admission and Anticipated Discharge Date Admission Date: 04/01/2025 History of Present Illness Chief Complaint: L shoulder pain, hypoxia Primary Care Provider: Mary Dickerson MD 80-year-old female PMHx CVA, HTN, DMT2, SVT, dyslipidemia, polyneuropathy, tremor, and depression who presents for left-sided shoulder pain and elevated BP readings starting the morning of arrival. Patient denied current chest pain. Initial BP per EMS was 225/91 but she was without blood pressure medications for approximately 2 days on initial report, patient now stating that she did take her medications as prescribed. 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 The day of arrival, she started to have left shoulder pain, describing as an aching sensation rating it a 5 out of 10 on the pain scale. States that she "maybe slept on it wrong." States that the shoulder pain continued and given her high blood pressure into the 200s after not taking medications, she was reading online that she may be having a heart attack so she decided to come in. At no point did she have any chest pain or palpitations. No back pain, but does have chronic low back pain which was not abnormal for her or changed on the day of arrival. She does admit to a cough that has been ongoing for approximately 1 year per her daughter, it is dry in nature and she sometimes feels like she has episodes of choking. She is not having any dysphagia or feeling as though food is getting stuck. No nausea or vomiting. Did have some abdominal pain today, generalized in nature and normally around the time that she needs to have a bowel movement. She is often incontinent of urine. She has had bilateral leg cramping that started on the day of arrival. On my reevaluation, she did have some lightheadedness and this was also at the same time that her oxygen saturation was reading 89% while in the room sitting and resting. She had no neurological deficits, no new symptoms at that time. Her shoulder pain is reproducible on palpation. She has not had this happen before. No history of heart attacks. Did have prior CVA in [id number]. History of Franz Parkinson White syndrome s/p ablation. Daughter notes that she has been more agitated than normal. States that this is common whenever she has urinary infections, she does not normally have LUTS during her UTIs. No back tenderness in the kidney area. ED evaluation reveals leukocytosis 11.2, stable H&H; PT/INR WNL; CMP anion gap 12, glucose 207, magnesium 1.6; troponin 10.3; TSH 2.561; UA suspicious for possible infection; BioFire negative; CXR no acute findings; L shoulder XR no fracture or malalignment; CTAP mild diffuse hepatic steatosis, mild colonic diverticulosis with reactive bilateral iliac LAD, fatty epigastric hernia with hernial sac, bilateral renal hypodense lesion likely a cyst; chest CT no acute finding, small hiatal hernias noted; head CT L pontine small hypodense area with no mass effect, possible old infarct versus artifact, suggest MRI brain with DWI/ADC sequences for further evaluation; EKG sinus tach with premature SVC's and fusion complexes, possible LAE, LVH, 111 bpm.; Provided with clonidine 0.1 mg p.o., ceftriaxone 2 g IV, and amlodipine 10 mg p.o. in ED. Of note, patient did become hypoxic while in ED at 86%, then being placed on O2 via NC at that time. Chest CTA was not completed given allergy to IV dye. Please see Dr. Park's attestation for adjustments/additions to treatment plan. Allergies Allergy/AdvReac Type Severity Reaction Status Date / Time COVID-19 (SARS-CoV-2) Allergy Severe Difficulty Verified 04/02/25 01:59 vaccine, yolie Breathing,Rash Influenza Virus Vaccines Allergy Severe Difficulty Verified 04/02/25 01:59 Breathing,Rash vaccine adjuvant system, Allergy Severe Difficulty Verified 04/02/25 01:59 [id number] liposomal Breathing,Rash [From Shingrix (PF)] varicella-zoster virus Allergy Severe Difficulty Verified 04/02/25 01:59 glycoprotein E, recombinant Breathing,Rash [From Shingrix (PF)] Iodinated Contrast Media Allergy Intermediate HOT FLASH Verified 09/14/24 15:14 AND RASH iodine Allergy Intermediate SWELLING, Verified 09/14/24 15:14 ITCHING,RED AND NAUSEA W/CONTRAST DYE (FEEL FUNNY) shellfish derived Allergy Intermediate SWELLING Verified 09/14/24 15:14 AND VOMITING shrimp Allergy Intermediate SWELLING Verified 09/14/24 15:14 AND NAUSEA WITH SHRIMP AND SHELLFISH Sulfa (Sulfonamide Allergy Intermediate "SULFA Verified 09/14/24 15:14 Antibiotics) DRUGS": SWELLS Egg Derived AdvReac Severe DIARRHEA,ABD Verified 09/14/24 15:14 PAIN codeine AdvReac Intermediate VOMITING Verified 09/14/24 15:14 egg AdvReac Intermediate DIARRHEA Verified 09/14/24 15:14 Home Medications Medication Instructions Recorded Confirmed Type pen needle, diabetic 31 gauge x #100 ea 01/16/21 06/27/24 Rx 5/16" (Easy Comfort Pen [place]) blood sugar diagnostic #100 ea 11/21/21 06/27/24 Rx blood-glucose meter (OneTouch #1 ea 11/21/21 06/27/24 Rx Ultra2 Meter) lancets 33 gauge (OneTouch Delica #100 ea 11/21/21 06/27/24 Rx Lancets) nitroglycerin 0.4 mg sublingual 0.4 mg sublingual UD PRN Chest Pain 09/20/22 06/27/24 History tablet (Nitrostat) nystatin 100,000 unit/gram topical 1 applic topical BID #15 grams 11/10/23 06/27/24 Rx powder aspirin 81 mg tablet,delayed 81 mg PO HS 11/13/23 04/02/25 History release mirabegron 25 mg tablet,extended 25 mg PO PM 11/13/23 06/27/24 History release 24 hr (Myrbetriq) pumpkin seed extract-soy germ 300 300 cap PO BID 11/13/23 04/02/25 History mg capsule (Azo Bladder Control) blood-glucose meter (OneTouch #1 ea 03/09/24 06/27/24 Rx Ultra2 Meter) lancets 33 gauge (OneTouch Delica #100 ea 03/09/24 06/27/24 Rx Plus Lancet) miscellaneous medical supply 2 ea miscellaneous DAILY DX: 03/09/24 06/27/24 Rx G45.9, R06.09, R53.83 #2 ea blood sugar diagnostic (OneTouch #100 ea 03/10/24 06/27/24 Rx Ultra Test strips) nystatin 100,000 unit/gram topical 1 applic topical TID fungal infx 09/14/24 09/14/24 Rx powder #30 grams empagliflozin 10 mg tablet 10 mg PO DAILY #10 tabs 11/08/24 04/02/25 Rx (Jardiance) atorvastatin 40 mg tablet 40 mg PO HS #90 tabs 12/20/24 Rx glimepiride 4 mg tablet 4 mg PO QAM #90 tabs 12/20/24 04/02/25 Rx escitalopram oxalate 10 mg tablet 10 mg PO PM #30 tabs 02/07/25 04/02/25 Rx (Lexapro) pregabalin 100 mg capsule See Rx Instructions PO .COMPLEX 02/09/25 04/02/25 Rx #270 caps clonidine HCl 0.1 mg tablet 0.1 mg PO BID #180 tabs 02/10/25 04/02/25 Rx lisinopril 5 mg tablet 5 mg PO QAM #90 tabs 02/10/25 04/02/25 Rx lorazepam 1 mg tablet 2 mg (2 x 1 mg) PO HS sleep #60 03/14/25 04/02/25 Rx tabs amlodipine 10 mg tablet 10 mg PO QAM #90 tabs 03/27/25 04/02/25 Rx clopidogrel 75 mg tablet 75 mg PO QAM #90 tabs 03/27/25 Rx lansoprazole 30 mg capsule,delayed 30 mg PO QAM #90 caps 03/27/25 04/02/25 Rx release (Prevacid) ciprofloxacin HCl 500 mg tablet 500 mg PO BID complicated UTI #6 04/03/25 Rx tabs Past Med/Surg History Problem List Hypoxia Acute UTI (Acute) Jaw pain (Acute) Forgetfulness (Acute) HTN (hypertension) (Acute) Acute pain of left shoulder (Acute) Abnormal finding on urinalysis Uncontrolled hypertension Chest pain Uncontrolled diabetes mellitus with hyperglycemia VAN (acute kidney injury) Herpes zoster virus infection of face and ear nerves (Acute) Small bowel obstruction (Acute) Herpes zoster Toenail deformity Rash Flu-like symptoms Cognitive and behavioral changes Anxiety Swelling of right wrist Sore throat Tenosynovitis of wrist Syncope and collapse (Acute) Acute hypotension (Acute) Acute pain of right wrist (Acute) Hypomagnesemia (Acute) Stroke-like symptoms (Acute) Aphasia (Acute) Generalized weakness (Acute) HTN (hypertension) TIA (transient ischemic attack) Diabetes mellitus, type II Depression Impacted cerumen of both ears Routine health maintenance Vitamin D deficiency History of dental problems Obesity, diabetes, and hypertension syndrome Encounter for examination following treatment at hospital (Acute) Right sided weakness (Acute) Dysarthria (Acute) Lower extremity edema (Chronic) Abnormality of gait (Acute) Arthralgia of multiple sites (Acute) Calf swelling (Acute) Chronic diarrhea of unknown origin (Acute) Dyslipidemia (Chronic) Dyspnea on exertion (Acute) Fecal urgency (Acute) Hiatal hernia (Acute) Incisional hernia (Acute) Incomplete emptying of bladder (Acute) Joint pain, knee (Acute) Lichen sclerosus et atrophicus (Acute) Lumbar spondylosis (Acute) Memory loss or impairment (Acute) Microscopic hematuria (Acute) Murmur (Acute) Myalgia and myositis (Acute) Nonocclusive coronary atherosclerosis of [place] coronary artery (Acute) Palpitations (Acute) Paroxysmal SVT (supraventricular tachycardia) (Acute) Polyneuropathy (Acute) Postmenopausal atrophic vaginitis (Acute) Rectal pressure (Acute) Renal cyst, acquired (Acute) Right leg weakness (Acute) Sleep disturbances (Acute) Swelling of limb, left (Acute) Tremor (Acute) Urinary incontinence (Acute) Urinary urgency (Acute) Ventral hernia (Acute) Vitamin B12 deficiency (Acute) Depression Hypertensive urgency SBO (small bowel obstruction) History of Clostridium difficile colitis Vasovagal near-syncope WPW (Mlkea-Knelxxjas-Nptlk syndrome) (Chronic) Hypertensive cardiovascular disease Vomiting (Acute) Contrast media allergy (Chronic) Lumbar stenosis with neurogenic claudication Labile hypertension (Chronic) LVH (left ventricular hypertrophy) (Chronic) Nonobstructive atherosclerosis of coronary artery (Chronic) "Per cardiac cath May 2016" GERD (gastroesophageal reflux disease) (Chronic) Hepatic steatosis (Chronic) H/O: rheumatic fever (Chronic) H/O Clostridium difficile infection (Chronic) History of herniorrhaphy (Chronic) S/P ROMAN-BSO (Chronic) Medical History History of CVA (cerebrovascular accident) Fatigue Left lower quadrant pain Abdominal pain Small bowel obstruction Bacteremia Hemorrhoids Acute chest pain Vasovagal near-syncope Surgical History Hx of hysterectomy S/P partial colectomy S/P foot surgery History of bladder surgery H/O cardiac radiofrequency ablation Family History Brother Colorectal cancer Prostate cancer Mother Myocardial infarction Other Cancer Diabetes Heart disease Hypertension Denies family history of Ovarian cancer Breast cancer Social History Smoking Status: Never smoker Tobacco Type: Cigarettes Age Started Using Tobacco: 32; Age Quit Using Tobacco: 33; packs per day: 1; Second Hand Exposure: No; Do You Dip or Chew Tobacco: No; Hx Alcohol Use: No Hx Substance Use: No Preferred Language: Welsh Communication Ability: Effective Visual Impairment: Limited Hearing Ability: Normal Dinkey Locomotive Engineer Required: No Beliefs That Will Affect Care: None marital status: / Current Living Situation: Family Current Living Situation Comment: Daughter Barbara current occupational status: retired How many Children do You have: 3 Feels Safe at Home: Yes Childhood Exposure to Second-Hand Smoke: Yes Diet: regular caffeine: Yes during the past year weight has: remained stable Dental Care, Regularly: No Physical Activity Frequency: Does not Exercise Seatbelt Use: always Sunscreen Use: No Do you think of yourself as: straight/heterosexual Sexual Activity: has been sexually active, but not for at least 12 months Gender Identity: Female Assistive Devices: None Review of Systems Review of Systems: All systems reviewed & are unremarkable except as noted in Subjective Physical Exam Physical Exam: General: No acute distress, eating a sandwich whenever I first arrived into her room Skin: Warm and dry; lesion brown in color R mandaeism Head: Normocephalic, atraumatic Eyes: PERRL, conjunctivae clear, sclera non-icteric; wearing glasses ENT: External ear and ear canal without swelling; nose atraumatic; good dentition, tongue normal appearance, pharynx normal Neck: Supple, no LAD Cardio: RRR, no M/G/R, S1 and S2 normal Resp: No respiratory distress, Lungs CTA in all lobes bilaterally, no wheezes, rales, or rhonchi Abdomen: Soft, symmetric, nontender; No masses or hepatosplenomegaly; Bowel sounds normoactive; no CVA tenderness MSK: L shoulder pain reproducible anterior aspect near bicipital groove, no palpable deformities, normal ROM; No deformities elsewhere; pulses palpable and equal; trace edema BLE, left calf size > R calf size, no tenderness to palpation L calf; R medial malleolus with healing wound, no erythema or bruising. Neuro: Awake, alert; Sensation intact bilaterally; CN grossly intact Psych: Appropriate mood and affect; good judgement and insight. Daughter present in room at time of visit. Results & Data Results & Data Vital Signs (Past 12 Hours) Vital Signs Temp Pulse Pulse Resp BP BP Pulse Ox 04/01/25 21:11 86 18 157/78 H 92 04/01/25 20:37 78 04/01/25 20:15 76 19 130/78 90 04/01/25 20:00 73 17 137/58 L 91 04/01/25 19:45 76 21 137/80 91 04/01/25 19:30 87 18 138/78 92 04/01/25 19:00 83 15 158/87 H 93 04/01/25 18:45 82 12 120/71 88 L 04/01/25 18:30 86 14 124/71 94 04/01/25 18:18 83 24 95 04/01/25 18:15 84 15 130/72 94 04/01/25 18:00 86 15 140/73 95 04/01/25 17:21 88 18 165/91 H 93 04/01/25 17:03 98 H 19 94 04/01/25 16:59 98 H 19 185/96 H 93 04/01/25 16:53 115 H 04/01/25 16:50 91 H 20 94 04/01/25 16:49 185/96 H 04/01/25 16:42 109 H 24 91 04/01/25 16:42 37.1 C 109 H 24 183/102 H 91 O2 Del Method O2 Flow Rate 04/01/25 21:11 04/01/25 20:37 04/01/25 20:15 04/01/25 20:00 04/01/25 19:45 04/01/25 19:30 04/01/25 19:00 04/01/25 18:45 04/01/25 18:30 04/01/25 18:18 Room Air 04/01/25 18:15 04/01/25 18:00 Nasal Cannula 1.5 04/01/25 17:21 04/01/25 17:03 04/01/25 16:59 Nasal Cannula 2 04/01/25 16:53 04/01/25 16:50 Nasal Cannula 2 04/01/25 16:49 04/01/25 16:42 Room Air 04/01/25 16:42 Room Air Laboratory Results 04/01/25 19:00 Urine Culture - Pending Urine,Clean Catch 04/01/25 04/01/25 04/01/25 19:00 17:52 17:51 WBC RBC Hgb Hct MCV MCH MCHC RDW Std Deviation RDW Coeff of Carmen Plt Count MPV Immature Gran % (Auto) Neut % (Auto) Lymph % (Auto) Terrell % (Auto) Eos % (Auto) Baso % (Auto) Neut # (Auto) Lymph # (Auto) Terrell # (Auto) Eos # (Auto) Baso # (Auto) Immature Gran # (Auto) PT 10.9 INR 1.0 APTT 26 PTT Ratio 1.0 Sodium 137 Potassium 4.1 Chloride 101 Carbon Dioxide 24 Anion Gap 12 H BUN 13 Creatinine 0.77 Est Cr Clr Drug Dosing 60.6 eGFR 76.97 BUN/Creatinine Ratio 16.9 Glucose 207 H Calcium 9.6 Magnesium 1.6 L Total Bilirubin 0.5 AST 30 ALT 24 Alkaline Phosphatase 68 Troponin I High Sens 10.3 Total Protein 7.8 Albumin 4.4 Globulin 3.4 Albumin/Globulin Ratio 1.3 TSH 2.561 Urine Color Yellow Urine Appearance Clear Urine pH 5.5 Ur Specific [place] 1.030 Urine Protein Trace H Urine Glucose (UA) 3+ H Urine Ketones Trace H Urine Blood Negative Urine Nitrite Positive A Urine Bilirubin Negative Urine Urobilinogen Negative Ur Leukocyte Esterase Negative Urine WBC (Auto) 0-5 Urine RBC (Auto) 0-2 U Hyaline Cast (Auto) 0-2 U Epithel Cells (Auto) 0-2 Urine Bacteria (Auto) 4+ H Urine Comment Adenovirus (PCR) B. pertussis DNA (PCR) B.parapertussis DNA PCR C. pneumoniae DNA (PCR) Coronavirus OC43 (PCR) Coronavirus HKU1 (PCR) Coronavirus 229E (PCR) SARS-CoV-2 (PCR) Coronavirus NL63 (PCR) Human Metapneumovir PCR Influenza Type A (PCR) Influenza Type B (PCR) M. pneumoniae (PCR) Parainfluenza 1 (PCR) Parainfluenza 2 (PCR) Parainfluenza 3 (PCR) Parainfluenza 4 (PCR) RSV (PCR) Entero/Rhino (PCR) 04/01/25 04/01/25 17:04 16:48 WBC 11.22 H RBC 5.37 Hgb 14.8 Hct 43.0 MCV 80.1 MCH 27.6 MCHC 34.4 RDW Std Deviation 50.1 H RDW Coeff of Carmen 18.4 H Plt Count 211 MPV 11.3 Immature Gran % (Auto) 0.5 Neut % (Auto) 60.8 Lymph % (Auto) 30.7 Terrell % (Auto) 7.3 Eos % (Auto) 0.3 Baso % (Auto) 0.4 Neut # (Auto) 6.83 H Lymph # (Auto) 3.44 H Terrell # (Auto) 0.82 H Eos # (Auto) 0.03 Baso # (Auto) 0.04 Immature Gran # (Auto) 0.06 PT Cancelled INR Cancelled APTT Cancelled PTT Ratio Cancelled Sodium Cancelled Potassium Cancelled Chloride Cancelled Carbon Dioxide Cancelled Anion Gap Cancelled BUN Cancelled Creatinine Cancelled Est Cr Clr Drug Dosing Cancelled eGFR Cancelled BUN/Creatinine Ratio Cancelled Glucose Cancelled Calcium Cancelled Magnesium Cancelled Total Bilirubin Cancelled AST Cancelled ALT Cancelled Alkaline Phosphatase Cancelled Troponin I High Sens Cancelled Total Protein Cancelled Albumin Cancelled Globulin Cancelled Albumin/Globulin Ratio Cancelled TSH Cancelled Urine Color Urine Appearance Urine pH Ur Specific [place] Urine Protein Urine Glucose (UA) Urine Ketones Urine Blood Urine Nitrite Urine Bilirubin Urine Urobilinogen Ur Leukocyte Esterase Urine WBC (Auto) Urine RBC (Auto) U Hyaline Cast (Auto) U Epithel Cells (Auto) Urine Bacteria (Auto) Urine Comment Adenovirus (PCR) Not Detected B. pertussis DNA (PCR) Not Detected B.parapertussis DNA PCR Not Detected C. pneumoniae DNA (PCR) Not Detected Coronavirus OC43 (PCR) Not Detected Coronavirus HKU1 (PCR) Not Detected Coronavirus 229E (PCR) Not Detected SARS-CoV-2 (PCR) Not Detected Coronavirus NL63 (PCR) Not Detected Human Metapneumovir PCR Not Detected Influenza Type A (PCR) Not Detected Influenza Type B (PCR) Not Detected M. pneumoniae (PCR) Not Detected Parainfluenza 1 (PCR) Not Detected Parainfluenza 2 (PCR) Not Detected Parainfluenza 3 (PCR) Not Detected Parainfluenza 4 (PCR) Not Detected RSV (PCR) Not Detected Entero/Rhino (PCR) Not Detected Diagnostic Findings Chest X-Ray 04/01/25 16:50 Exam(s): XR CXR 1 VIEW EXAM: XR Chest, 1 View CLINICAL HISTORY: Reason for exam: Dyspnea. TECHNIQUE: Frontal view of the chest. COMPARISON: 01/20/2024 FINDINGS: Lungs: Elevated right diaphragm. No consolidation. No overt edema. Pleural space: No pleural effusion. No pneumothorax. Heart: Unremarkable. No cardiomegaly. IMPRESSION: No acute cardiopulmonary abnormality. Electronically signed by: Yg Berry MD 04/01/25 18:33 PM Shoulder X-Ray 04/01/25 16:54 Exam(s): XR LEFT SHOULDER, 2+ views EXAM: XR Left Shoulder Complete, 2 or More Views CLINICAL HISTORY: Reason for exam: pain. TECHNIQUE: Two or more views of the left shoulder. COMPARISON: No relevant prior studies available. FINDINGS: Bones/joints: No fracture or malalignment. Mild degenerative changes at the acromioclavicular joint. Soft tissues: Unremarkable. IMPRESSION: No fracture or malalignment. Electronically signed by: Yg Berry MD 04/01/25 18:34 PM Abdomen/Pelvis CT 04/01/25 16:57 EXAM: CT abd pelvis wo con CLINICAL HISTORY: nausea, pain TECHNIQUE: Non-contrast CT of the abdomen and pelvis was performed, with the following protocol: axial images, and reconstructed coronal and sagittal images. No intravenous contrast was administered. One of the following dose reduction techniques was utilized for this exam: Automated exposure control, adjustment of the mA and/or kV according to patient size, and use of iterative reconstruction. COMPARISON: 11/13/2023. FINDINGS: Abdomen: Liver: Increase in size of 17 cm, normal shape, and decreased density. No focal lesions, cysts, or masses were identified. Gallbladder and Biliary System: The gallbladder is normal in size and shape. No wall thickening, pericholecystic fluid, or gallstones were identified. Pancreas: The pancreatic head, body, and tail are visualized and appear normal in size and density. No pancreatic masses or calcifications were noted. Spleen: Normal in size, shape, and density. No splenic lesions or masses were identified. Kidneys and Adrenal Glands: Both kidneys are normal in size, shape, and position. Cortical thickness is within normal limits. Right mid-zonal cortical hypodense lesion about 53x44 mm. (previously 35x43 mm) No renal calculi or hydronephrosis. Adrenal glands are unremarkable. Appendix: The appendix is normal in size without krystal-appendiceal fat stranding or an appendicolith. No evidence of appendiceal abscess or perforation. Pelvis: Urinary Bladder: Normal in contour and wall thickness. No intraluminal lesions. Uterus: Not seen. Vagina: Normal in contour and wall thickness. Cervix: No evidence of mass or abnormal thickening. Peritoneal and Retroperitoneal Structures: No free fluid or abnormal fluid collections were identified within the abdomen or pelvis. Reactive bilateral iliac lymphadenopathy of benign look with fatty hilum, largest at left 15x6 mm. Bowel: The visualized bowel loops are normal in caliber and appearance. No evidence of bowel obstruction. Multiple colonic diverticulosis with short segments of slight increase in bowel wall thickness at the transverse colon, rectum, and sigmoid. Bones and Soft Tissues: No fractures or abnormal masses were identified. Decrease bone density. L3, L4 possible bilateral laminectomy. Epigastric fatty hernia defect 5.2 cm with hernial sac 8.5x2.5 of fatty contents. Posterior fixation of L3, L4, L5 lumbar spine with subtle L2 over L3, L3 over L4, L4 over L5 grade I anterior spondylolisthesis. Lumbar spondylosis and facet arthropathy. IMPRESSION: - Mild diffuse hepatic steatosis (unchanged) - Mild colonic diverticulosis (new) with Reactive bilateral iliac lymphadenopathy of benign look with fatty hilum, largest at left 15x6 mm (unchanged). Suggest clinical correlation. - Fatty epigastric hernia 8.5x2.5 cm, hernial sac with underlying defect 5.2 cm. (unchanged) - Right renal hypodense lesion likely cyst, suggest IV contrast study or ultrasound assessment. (increase) Electronically signed by Rc Sears 04-01-2025 8:[address] 04/01/25 17:01 EXAM: CT chest diagnostic wo con CLINICAL HISTORY: SOB. HTN. Chest Pain. TECHNIQUE: Contiguous axial CT images of the chest were acquired without administration of intravenous contrast. Coronal and sagittal reconstructions were obtained. One of the following dose reduction techniques were utilized for this exam: Automated exposure control, adjustment of the mA and/or kV according to patient size, use of iterative reconstruction. COMPARISON: 01/20/2024 CR reviewed. FINDINGS: Lungs: The lung parenchyma is clear with no evidence of consolidation, collapse, or focal lesions. Bilateral pulmonary mild dependant changes noted. No pulmonary nodules or masses are identified. No evidence of interstitial lung disease or emphysema. No pleural effusion or pleural thickening. Mediastinum: The mediastinum is normal in size and contour. No mediastinal mass or abnormal lymphadenopathy. The heart size is within normal limits. Small hiatus hernia seen. Hilar Structures: The hilar structures appear normal without enlargement or abnormality. Trachea and Main Bronchi: The trachea and main bronchi are patent without evidence of obstruction or abnormality. Chest Wall: The chest wall is unremarkable with no evidence of soft tissue or bony abnormalities. Upper Abdomen: Visualized portions of the liver, spleen, adrenal glands, and kidneys are unremarkable. Bones: Visualized osseous structures are normal, no evidence of fracture or lytic/sclerotic lesions. IMPRESSION: 1. No acute cardiopulmonary abnormality. 2. Small hiatus hernia. Electronically signed by Rc Sears 04-01-2025 7:[address] 04/01/25 17:01 EXAM: CT head/brain wo con CLINICAL HISTORY: HTN, Dizziness. SOB. Chest pain. TECHNIQUE: Axial non-contrast CT scan of the brain was performed from the skull base to the high parietal region with coronal and sagittal reformats. One of the following dose reduction techniques were utilized for this exam: Automated exposure control, adjustment of the mA and/or kV according to patient size, use of iterative reconstruction. COMPARISON: 11/13/2023 CT. FINDINGS: Brain Parenchyma: Left pontine small hypodense area with no mass effect. Normal attenuation of the cerebral hemispheres, cerebellum. No evidence of acute infarct, hemorrhage, or mass effect. No abnormal areas of hypo- or hyperattenuation. Ventricular System: Ventricles are normal in size and configuration. No evidence of hydrocephalus or ventricular enlargement. Subarachnoid Spaces: Normal sulci and cisterns. No evidence of subarachnoid hemorrhage or extra-axial fluid collections. Cerebellum and Brainstem: No masses, lesions, or areas of abnormal density. Orbits: Normal appearance of the globes, optic nerves, and extraocular muscles. No evidence of orbital masses or abnormal density. Sinuses: Clear paranasal sinuses. No evidence of sinusitis or mucosal thickening. Mastoid Air Cells: Clear mastoid air cells. No evidence of mastoiditis. Skull: Normal skull morphology. IMPRESSION: 1. Left pontine small hypodense area with no mass effect. Possible old infarct vs artifactual. New finding. 2. Suggested MRI brain with DWI/ADC sequences for further evaluation if clinically indicated. Electronically signed by Rc Sears 04-01-2025 8:19 PM Medications Administered Clonidine 0.1 gabe p.o. Ceftriaxone 2 g IV Amlodipine 10 mg p.o. ECG Additional Comments: Sinus tachycardia with PSVT, fusion complexes, possible LAE, LVH 111 bpm, CO 164, QRS 92, QT/QTc 320/438, PRT 51/99/153 Code Status & VTE Plan Code Status Full VTE Prophylaxis Plan VTE Prophylaxis will be ordered: Yes Supervising Physician Co-Signing Physician Notes I personally saw and examined the patient. I independently reviewed the labs, EKG, imaging, problem list, medication list, past medical history and family history. I verified all vasquez points and agree with Osiel Ferrera PA-C with the following exceptions and/or additions: 80 year old female presents to the ER with left shoulder pain. Acute shoulder pain - internal/ext rotation without pain. Pain reproducible over posterior lateral aspect of left shoulder. ?bursitis vs. deltoid strain. PT eval. Hypoxia mainly on exertion - suspect poor inspiratory effort with her shoulder pain. Consider ambulatory trial prior to discharge PG Care Time/CCT Total # of Minutes Spent Total Time Spent with Patient: Total time spent is greater than 50% in coordination of care (as documented) at patient's floor/unit and/or counseling patient: Coding Level of Care Code 49276 INT INP/OBS CARE MIN Diagnoses Acute pain of left shoulder M25.512 Hypoxia R09.02 Acute UTI N39.0 Hypomagnesemia E83.42 Type 2 diabetes mellitus with diabetic polyneuropathy, without long-term current use of insulin E11.42 Diabetes mellitus complication detail: with polyneuropathy Diabetes mellitus complication status: with neurologic complications Diabetes mellitus privacy manager insulin use: without [facility] use (5) Diabetes mellitus, type II Diabetes mellitus complication detail: with polyneuropathy Diabetes mellitus complication status: with neurologic complications Diabetes mellitus privacy manager insulin use: without privacy manager use Qualified Code(s): E11.42 - Type 2 diabetes mellitus with diabetic polyneuropathy
[2025-04-01 22:33] LABS: D Dimer 350 ug/L FEU (0-500)
[2025-04-01] MEDS: MAGNESIUM SULFATE / D5W 1 GM/100 ML BAG IV SCH (22:55)
[2025-04-01] MEDS ORDERED: POLYETHYLENE (MIRALAX) 17 GM PACK PO PRN (23:57)
[2025-04-01] MEDS ORDERED: GLUCOSE 10 TAB/TUBE PO PRN (23:57)
[2025-04-01] MEDS ORDERED: PHARMACY GLYCEMIC MGMT CONSULT PRN (23:57)
[2025-04-01] MEDS ORDERED: GLUCOSE 40% GEL 15 GM TUBE PO PRN (23:57)
[2025-04-01] MEDS ORDERED: DEXTROSE 50% 50 ML SYRINGE IV PRN (23:57)
[2025-04-01] MEDS ORDERED: GLUCAGON FOR INJ 1 MG VIAL SQ PRN (23:57)
[2025-04-01] MEDS ORDERED: CARBOHYDRATES FOR HYPOGLYCEMIA PO PRN (23:57)
--- NOTE | 2025-04-02 00:04 | Ultrasound Report ---
Exam(s): US VENOUS BILATERAL LOWER EXTREMITIES EXAM: US Duplex Bilateral Lower Extremities Veins CLINICAL HISTORY: Reason for exam: Calf pain/edema, L > R, hypoxia. TECHNIQUE: Real-time duplex ultrasound scan of the bilateral lower extremity veins integrating B-mode two-dimensional vascular structure, Doppler spectral analysis, color flow Doppler imaging and compression. COMPARISON: No relevant prior studies available. FINDINGS: Right deep veins: Unremarkable. The visualized deep veins of the right lower extremity are compressible with color flow. No visualized thrombus. Right superficial veins: Unremarkable. Left deep veins: Unremarkable. The visualized deep veins of the left lower extremity are compressible with color flow. No visualized thrombus. Left superficial veins: Unremarkable. No visualized thrombus in the GSV. Soft tissues: No acute findings. IMPRESSION: No DVT within the bilateral lower extremities. Electronically signed by: Yg Berry MD 04/02/25 00:03 AM
[2025-04-02] MEDS: ACETAMINOPHEN 325 MG TAB PO PRN (00:59)
[2025-04-02] MEDS: INSULIN ASPART PER UNIT CHARGE SC ONE (00:59)
[2025-04-02] MEDS: MELATONIN 3 MG TAB PO PRN (00:59)
[2025-04-02] MEDS: ONDANSETRON INJ 2 MG/ML 2 ML VIAL IV PRN (00:59)
[2025-04-02] MEDS: LORazepam 1 MG TAB PO STA (02:48)
[2025-04-02 06:57] LABS: Hemoglobin 13.7 g/dl (12.0-16.0); Mean Corpuscular Hemoglobin 26.7 pg (25.0-34.0); Mean Corpuscular Hgb Conc 32.6 g/dL (32.0-36.0); Mean Corpuscular Volume 81.9 fL (80.0-100.0); Mean Platelet Volume 10.1 fL (9.4-12.4); Platelet Count 222 K/uL (130-400); RDW Coefficient of Variation 17.2 % (11.5-14.5); RDW Standard Deviation 50.4 fL (36.4-46.3); Red Blood Count 5.13 M/uL (4.20-5.40); White Blood Count 9.09 K/ul (4.8-10.8)
[2025-04-02 07:16] LABS: BUN Creatinine Ratio 16.3 (10-20); Calcium 9.5 mg/dl (8.6-10.3); Creatinine Clr Calc Pharmacy 57.8 ml/min; Magnesium 2.2 mg/dl (1.7-2.4); Potassium 4.2 mmol/L (3.5-5.1)
--- NOTE | 2025-04-02 07:32 | Pharmacy Report ---
Pharmacy Glycemic Short Note 2 - Date of Service April 02, 2025 - Glycemic Short BSG Results (Last 24 hours): 04/01/25 04/01/25 04/02/25 16:48 17:51 00:55 Glucose Cancelled 207 H POC Glucose 220 H 04/02/25 06:42 Glucose 189 H POC Glucose OUTPATIENT ANTIDIABETIC REGIMEN: * Glimepiride 4mg PO Daily * Empagliflozin 10 mg daily * A1c 10% 03/09/24 - updated A1c ordered ASSESSMENT: * 80 yo F, type 2 DM, presented w/ shoulder pain, hypoxia, UTI on IV ceftriaxone. * Uncontrolled diabetes on oral medications alone, patient received 4 units NovoLog last night, fasting BSG this AM 189mg/dl. * Add basal insulin, continue NovoLog parameters, titrate to goal blood sugar. PLAN FOR INPATIENT GLYCEMIC CONTROL: * Hold outpatient oral diabetes medications * Basal insulin * Lantus 15 units SQ daily * Bolus insulin * NovoLog per scale ACHS or Q6hrs while NPO * Goal Range: Low 110 mg/dL - High 140 mg/dL * Correction Factor: 25 mg/dL/unit * Nutritional / Prandial insulin per carb ratio of 1 unit per 9 grams CHO consumed
[2025-04-02 07:47] LABS: Estimated Average Glucose 223 mg/dl; Hemoglobin A1C 9.4 % (4.5-5.6)
[2025-04-02] MEDS: MAGNESIUM OXIDE 400 MG TAB PO SCH (08:30)
[2025-04-02] MEDS: amLODIPine BESYLATE 5 MG TAB PO SCH (08:31)
[2025-04-02] MEDS: lisinopril 5 MG TAB PO SCH (08:31)
[2025-04-02] MEDS: PANTOprazole 40 MG TAB PO SCH (08:31)
[2025-04-02] MEDS: cloNIDine HCL 0.1 MG TAB PO SCH (08:33)
[2025-04-02] MEDS: PREGABALIN 100 MG CAP PO SCH (08:35)
[2025-04-02] MEDS: LANTUS PER UNIT CHARGE SC SCH ×2 (09:23→22:16)
[2025-04-02] MEDS: INSULIN ASPART PER UNIT CHARGE SC SCH (09:24)
--- NOTE | 2025-04-02 11:18 | XCELERA ---
[id number]
[2025-04-02] MEDS ORDERED: HYDROCORTISONE SOD SUCCINATE 100 MG/2 ML VIAL IV STA (11:24)
--- NOTE | 2025-04-02 11:52 | Electrocardiogram Report ---
Test Reason : Blood Pressure : */* mmHG Vent. Rate : 113 BPM Atrial Rate : 113 BPM P-R Int : 164 ms QRS Dur : 92 ms QT Int : 320 ms P-R-T Axes : 51 -9 153 degrees QTcB Int : 438 ms Sinus tachycardia with Premature supraventricular complexes and Fusion complexes Possible Left atrial enlargement Left ventricular hypertrophy with repolarization abnormality ( R in aVL ) Cannot rule out Septal infarct (cited on or before 20-Jan-2024) When compared with ECG of 20-Jan-2024 11:04, Fusion complexes are now Present Premature supraventricular complexes are now Present QRS duration has increased Questionable change in initial forces of Anteroseptal leads Nonspecific T wave abnormality, improved in Inferior leads Confirmed by Ezequiel Menjivar ([id number]) on 04/02/2025 11:51:38 AM Referred By: REFERRED SELF Confirmed By: Ezequiel Menjivar
[2025-04-02] MEDS ORDERED: Nursing to Pharmacy Communication SCH (13:30)
[2025-04-02] MEDS: HYDROCORTISONE SOD 200 MG in SYRINGE 0 ML IV ONE ×2 (15:04→20:01)
[2025-04-02] MEDS ORDERED: diphenhydrAMINE 50 MG/ML VIAL IV ONE (15:24)
[2025-04-02] MEDS ORDERED: HYDROCORTISONE SOD SUCCINATE 100 MG/2 ML VIAL IV ONE (15:24)
[2025-04-02 19:33] VITALS: RESP 18
[2025-04-02] MEDS: diphenhydrAMINE 50 MG/ML VIAL IV ONE (20:01)
[2025-04-02] MEDS: LORazepam 1 MG TAB PO SCH (22:15)
[2025-04-02] MEDS: ESCITALOPRAM OXALATE 10 MG TAB PO SCH (22:15)
[2025-04-02] MEDS: cefTRIAXone SODIUM 2,000 MG/50 ML BAG IV SCH (22:15)
[2025-04-02] MEDS: ASPIRIN 81 MG ECTAB PO SCH (22:15)
--- NOTE | 2025-04-02 23:47 | Hospitalist Progress Note ---
Date of Service April 02, 2025 Assessment & Plan (1) Acute pain of left shoulder: (2) Hypoxia: (3) Acute UTI: (4) Hypomagnesemia: (5) Diabetes mellitus, type II: Plan 80-year-old female PMHx CVA, HTN, DMT2, SVT, dyslipidemia, polyneuropathy, tremor, and depression who presents for left-sided shoulder pain and elevated BP readings starting the morning of arrival. ED evaluation reveals leukocytosis 11.2, stable H&H; PT/INR WNL; CMP anion gap 12, glucose 207, magnesium 1.6; troponin 10.3; TSH 2.561; UA suspicious for possible infection; BioFire negative; CXR no acute findings; L shoulder XR no fracture or malalignment; CTAP mild diffuse hepatic steatosis, mild colonic diverticulosis with reactive bilateral iliac LAD, fatty epigastric hernia with hernial sac, bilateral renal hypodense lesion likely a cyst; chest CT no acute finding, small hiatal hernias noted; head CT L pontine small hypodense area with no mass effect, possible old infarct versus artifact, suggest MRI brain with DWI/ADC sequences for further evaluation; EKG sinus tach with premature SVC's and fusion complexes, possible LAE, LVH, 111 bpm.; Provided with clonidine 0.1 mg p.o., ceftriaxone 2 g IV, and amlodipine 10 mg p.o. in ED. Of note, patient did become hypoxic while in ED at 86%, then being placed on O2 via NC at that time. Chest CTA was not completed given allergy to IV dye. #Acute hypoxia Onset acute hypoxia to 86% while in ED while resting; on reevaluation, patient sitting in bed and again found to be 88% on RA. Patient is not short of breath, does occasionally have nonproductive cough which has been ongoing for the past year. BioFire is negative, and imaging does not reveal any acute findings that would explain hypoxia. She is rather sedentary, so suspect that there is a possibility she has DVT/PE. PDdimer 350 so less likely. Patient is allergic to iodinated contrast, chest CTA has been deferred. Suspect that it is possible that infection could be causative factor. - CBC leukocytosis 11.22, H&H stable; troponin 10.3, 12.4 on repeat; D-dimer 350- CBC am - BioFire negative - CXR no acute findings - Chest CT no acute findings - Echo 2021 EF 60-65% - repeat am - Of note, head CT, does have an L pontine small hypodense area without mass effect that is possibly old infarct versus artifact and CTAP reveals chronic changes of hepatic steatosis, diverticulosis, and hernia as well as bilateral renal hypodense lesion - no direct correlate to acute hypoxia - Doppler ultrasounds of BLE is negative - O2 prn - none at baseline - initially tried to order a cta contrast. however patient has had anaphylaxis in the past. Study disconintued especially in the setting of a negative d dimer. will consider V/Q scan. #L shoulder pain Did have prior evaluations in the past for chest pain, was often worked up to be 2/2 GI source. Describing similar symptoms, with pain reproducible on palpation. No deformities. No recent trauma. - XR no fracture or malalignment - Heat application prn - Acetaminophen pain - PT ordered - appreciate assistance - ordered EKG/ echo. no significant changes #UTI Normally asx but with occasional lapse in mentation. Daughter states that each time she is evaluated for UTI, she does not complain of symptoms aside from incontinence but each culture has grown bacteria previously. Daughter feels as though the patient is slightly off from her normal mental status (no neuro deficits on exam). Received 1 dose ceftriaxone in ED. No history of pseudomonas on prior cultures. On Jardiance. Considering leukocytosis, possible altered mentation, and UA findings, will continue tx for UTI. - CBC leukocytosis; CMP with normal renal function - CBC, BMP am - UA glucose, ketones, nitrites, bacteria; pending cx - CTAP body comments that urinary bladder is normal contour and thickness, kidneys without hydronephrosis or calculi - Ceftriaxone 2g IV daily - adjust as appropriate #Hypomagnesemia Is having some muscle cramping in BLE. - replenished #T2DM H/o DMT2; Home regimen of empagliflozin, glimepiride. Glucose in UA. Consider d/c Jardiance. - Most recent A1C 02/2024 @ 10%, pending repeat - Hold Jardiance; Hold po meds - SSI with target BSG range 110-140mg/dL, CF 25, carb ratio 9 - BSG ACHS - Pharm glycemic management consult placed, appreciate assistance - Adjust regimen as needed #HTN- BP 220s/90 per EMS, reports not taking her medications but daughter believes she did. Received home meds in ED, currently WNL BP; Amlodipine, clonidine, lisinopril - continue #Dyslipidemia- Atorvastatin - continue #Polyneuropathy- Pregabalin - continue #Depression- Escitalopram, lorazepam prn - continue #CVA- [id number] time period; no neurological deficits today Renal cyst identified on CTAP -- Consider nonemergent US while inpatient. Dispo: Obs, med/tele VTE Prophylaxis: SCDs Admission and Anticipated Discharge Date Admission Date: April 01, 2025 Subjective 80 yo female reports no new symptoms. Physical Exam Constitutional: WD/WN, vitals as above Neck: trachea midline, no thyromegaly Respiratory: normal respiratory effort, lungs clear to auscultation Cardiovascular: RRR, no murmur, no edema Gastrointestinal (Abdomen): normal bowel sounds, soft, nontender, no hepatosplenomegaly Musculoskeletal: no cyanosis or clubbing, extremities motor strength 5/5 Results & Data Results & Data Vital Signs (Past 12 Hours) Vital Signs Temp Pulse Pulse Pulse Pulse Resp BP 04/02/25 22:44 80 04/02/25 22:17 36.7 C 88 18 162/74 H 04/02/25 20:41 98 H 174/76 H 04/02/25 19:14 36.7 C 99 H 18 197/80 H 04/02/25 16:15 36.8 C 81 16 166/74 H 04/02/25 13:02 80 04/02/25 11:52 36.4 C L 87 20 167/81 H Pulse Ox O2 Del Method O2 Flow Rate 04/02/25 22:44 04/02/25 22:17 93 Nasal Cannula 2 04/02/25 20:41 04/02/25 19:14 95 Nasal Cannula 2 04/02/25 16:15 94 Nasal Cannula 2 04/02/25 13:02 04/02/25 11:52 95 Nasal Cannula 2 PG Care Time/CCT Total # of Minutes Spent Total Time Spent with Patient: Total time spent is greater than 50% in coordination of care (as documented) at patient's floor/unit and/or counseling patient: Coding Level of Care Code 40329 SUB INP/OBS CARE 3/50MIN Diagnoses Acute pain of left shoulder M25.512 Hypoxia R09.02 Acute UTI N39.0 Hypomagnesemia E83.42 Type 2 diabetes mellitus with diabetic polyneuropathy, without long-term current use of insulin E11.42 Diabetes mellitus complication detail: with polyneuropathy Diabetes mellitus complication status: with neurologic complications Diabetes mellitus terminal manager insulin use: without [facility] use (5) Diabetes mellitus, type II Diabetes mellitus complication detail: with polyneuropathy Diabetes mellitus complication status: with neurologic complications Diabetes mellitus terminal manager insulin use: without [facility] use Qualified Code(s): E11.42 - Type 2 diabetes mellitus with diabetic polyneuropathy
[2025-04-03 06:58] LABS: Hematocrit (blood only) 40.5 % (37.0-47.0); Hemoglobin 13.3 g/dl (12.0-16.0); Mean Corpuscular Hemoglobin 27.3 pg (25.0-34.0); Mean Corpuscular Hgb Conc 32.8 g/dL (32.0-36.0); Mean Corpuscular Volume 83.2 fL (80.0-100.0); Platelet Count 243 K/uL (130-400); RDW Coefficient of Variation 17.2 % (11.5-14.5); RDW Standard Deviation 51.7 fL (36.4-46.3); Red Blood Count 4.87 M/uL (4.20-5.40); White Blood Count 10.76 K/ul (4.8-10.8)
[2025-04-03 07:45] LABS: BUN Creatinine Ratio 24.5 (10-20); C Reactive Protein 0.5 mg/dl (0-0.5); Calcium 9.6 mg/dl (8.6-10.3); Creatinine Clr Calc Pharmacy 47.5 ml/min; Potassium 4.5 mmol/L (3.5-5.1)
[2025-04-03] MEDS: LANTUS PER UNIT CHARGE SC SCH (08:31)
[2025-04-03 10:58] VITALS: BP 170/83; TEMP 97.4; O2SAT 94
[2025-04-03] MEDS ORDERED: HYDROCORTISONE SOD 200 MG in SYRINGE 0 ML IV ONE (11:30)
--- NOTE | 2025-04-03 11:39 | Discharge Summary ---
Discharge Summary Date of Service April 03, 2025 Principal Dx & Hospital Course #1 = Principal Diagnosis (1) Acute pain of left shoulder: (2) Hypoxia: (3) Acute UTI: (4) Hypomagnesemia: (5) Diabetes mellitus, type II: Plan 80-year-old female PMHx CVA, HTN, DMT2, SVT, dyslipidemia, polyneuropathy, tremor, and depression who presents for left-sided shoulder pain and elevated BP readings starting the morning of arrival. ED evaluation reveals leukocytosis 11.2, stable H&H; PT/INR WNL; CMP anion gap 12, glucose 207, magnesium 1.6; troponin 10.3; TSH 2.561; UA suspicious for possible infection; BioFire negative; CXR no acute findings; L shoulder XR no fracture or malalignment; CTAP mild diffuse hepatic steatosis, mild colonic diverticulosis with reactive bilateral iliac LAD, fatty epigastric hernia with hernial sac, bilateral renal hypodense lesion likely a cyst; chest CT no acute finding, small hiatal hernias noted; head CT L pontine small hypodense area with no mass effect, possible old infarct versus artifact, suggest MRI brain with DWI/ADC sequences for further evaluation; EKG sinus tach with premature SVC's and fusion complexes, possible LAE, LVH, 111 bpm.; Provided with clonidine 0.1 mg p.o., ceftriaxone 2 g IV, and amlodipine 10 mg p.o. in ED. Of note, patient did become hypoxic while in ED at 86%, then being placed on O2 via NC at that time. Chest CTA was not completed given allergy to IV dye. #Acute hypoxia Onset acute hypoxia to 86% while in ED while resting; on reevaluation, patient sitting in bed and again found to be 88% on RA. Patient is not short of breath, does occasionally have nonproductive cough which has been ongoing for the past year. BioFire is negative, and imaging does not reveal any acute findings that would explain hypoxia. She is rather sedentary, so suspect that there is a possibility she has DVT/PE. PDdimer 350 so less likely. Patient is allergic to iodinated contrast, chest CTA has been deferred. Suspect that it is possible that infection could be causative factor. - CBC leukocytosis 11.22, H&H stable; troponin 10.3, 12.4 on repeat; D-dimer 350- CBC am - BioFire negative - CXR no acute findings - Chest CT no acute findings - Echo 2021 EF 60-65% - repeat am - Of note, head CT, does have an L pontine small hypodense area without mass effect that is possibly old infarct versus artifact and CTAP reveals chronic changes of hepatic steatosis, diverticulosis, and hernia as well as bilateral renal hypodense lesion - no direct correlate to acute hypoxia - Doppler ultrasounds of BLE is negative - O2 prn - none at baseline - initially tried to order a cta contrast. however patient has had anaphylaxis in the past. Study cancelled especially in the setting of a negative d dimer. -now on room air. Patient will be discharged home as patient passed 2 step. #L shoulder pain Did have prior evaluations in the past for chest pain, was often worked up to be 2/2 GI source. Describing similar symptoms, with pain reproducible on palpation. No deformities. No recent trauma. - XR no fracture or malalignment - Heat application prn - Acetaminophen pain - PT ordered - appreciate assistance - ordered EKG/ echo. no significant changes #UTI Normally asx but with occasional lapse in mentation. Daughter states that each time she is evaluated for UTI, she does not complain of symptoms aside from incontinence but each culture has grown bacteria previously. Daughter feels as though the patient is slightly off from her normal mental status (no neuro deficits on exam). Received 1 dose ceftriaxone in ED. No history of pseudomonas on prior cultures. On Jardiance. Considering leukocytosis, possible altered mentation, and UA findings, will continue tx for UTI. - CBC leukocytosis; CMP with normal renal function - CBC, BMP am - UA glucose, ketones, nitrites, bacteria; pending cx - CTAP body comments that urinary bladder is normal contour and thickness, kidneys without hydronephrosis or calculi - Ceftriaxone 2g IV daily - adjust as appropriate: will complete 3 days of ciprofloxacin as an outpatient #Hypomagnesemia Is having some muscle cramping in BLE. - replenished #T2DM H/o DMT2; Home regimen of empagliflozin, glimepiride. Glucose in UA. Consider d/c Jardiance. - Most recent A1C 02/2024 @ 10%, pending repeat - Hold Jardiance; Hold po meds - SSI with target BSG range 110-140mg/dL, CF 25, carb ratio 9 - BSG ACHS - Pharm glycemic management consult placed, appreciate assistance - Adjust regimen as needed #HTN- BP 220s/90 per EMS, reports not taking her medications but daughter believes she did. Received home meds in ED, currently WNL BP; Amlodipine, clonidine, lisinopril - continue #Dyslipidemia- Atorvastatin - continue #Polyneuropathy- Pregabalin - continue #Depression- Escitalopram, lorazepam prn - continue #CVA- [id number] time period; no neurological deficits today Renal cyst identified on CTAP -- Consider nonemergent US as an outpatient. Admission HPI Per Admitting Provider 80-year-old female PMHx CVA, HTN, DMT2, SVT, dyslipidemia, polyneuropathy, tremor, and depression who presents for left-sided shoulder pain and elevated BP readings starting the morning of arrival. Patient denied current chest pain. Initial BP per EMS was 225/91 but she was without blood pressure medications for approximately 2 days on initial report, patient now stating that she did take her medications as prescribed. States that approximately 2 days [employer] she was having left-sided jaw pain, that would come and go. The day of arrival, she started to have left shoulder pain, describing as an aching sensation rating it a 5 out of 10 on the pain scale. States that she "maybe slept on it wrong." States that the shoulder pain continued and given her high blood pressure into the 200s after not taking medications, she was reading online that she may be having a heart attack so she decided to come in. At no point did she have any chest pain or palpitations. No back pain, but does have chronic low back pain which was not abnormal for her or changed on the day of arrival. She does admit to a cough that has been ongoing for approximately 1 year per her daughter, it is dry in nature and she sometimes feels like she has episodes of choking. She is not having any dysphagia or feeling as though food is getting stuck. No nausea or vomiting. Did have some abdominal pain today, generalized in nature and normally around the time that she needs to have a bowel movement. She is often incontinent of urine. She has had bilateral leg cramping that started on the day of arrival. On my reevaluation, she did have some lightheadedness and this was also at the same time that her oxygen saturation was reading 89% while in the room sitting and resting. She had no neurological deficits, no new symptoms at that time. Her shoulder pain is reproducible on palpation. She has not had this happen before. No history of heart attacks. Did have prior CVA in [id number]. History of Franz Parkinson White syndrome s/p ablation. Daughter notes that she has been more agitated than normal. States that this is common whenever she has urinary infections, she does not normally have LUTS during her UTIs. No back tenderness in the kidney area. ED evaluation reveals leukocytosis 11.2, stable H&H; PT/INR WNL; CMP anion gap 12, glucose 207, magnesium 1.6; troponin 10.3; TSH 2.561; UA suspicious for possible infection; BioFire negative; CXR no acute findings; L shoulder XR no fracture or malalignment; CTAP mild diffuse hepatic steatosis, mild colonic diverticulosis with reactive bilateral iliac LAD, fatty epigastric hernia with hernial sac, bilateral renal hypodense lesion likely a cyst; chest CT no acute finding, small hiatal hernias noted; head CT L pontine small hypodense area with no mass effect, possible old infarct versus artifact, suggest MRI brain with DWI/ADC sequences for further evaluation; EKG sinus tach with premature SVC's and fusion complexes, possible LAE, LVH, 111 bpm.; Provided with clonidine 0.1 mg p.o., ceftriaxone 2 g IV, and amlodipine 10 mg p.o. in ED. Of note, patient did become hypoxic while in ED at 86%, then being placed on O2 via NC at that time. Chest CTA was not completed given allergy to IV dye. Please see Dr. Park's attestation for adjustments/additions to treatment plan. Discharge Exam Constitutional WD/WN, vitals as above Neck trachea midline, no thyromegaly Respiratory normal respiratory effort, lungs clear to auscultation Cardiovascular RRR, no murmur, no edema Gastrointestinal (Abdomen) normal bowel sounds, soft, nontender, no hepatosplenomegaly Musculoskeletal no cyanosis or clubbing, extremities motor strength 5/5 Discharge Plan Discharge Items Patient Disposition: Home - Self-Care Reason For Visit: HYPOXIA, UTI Discharge Diagnosis: UTI Condition on Discharge: Fair Activity: Resume your previous activity Non-emergency contact: Primary Care Provider Call non-emergency contact if: you have any medication questions Follow-up/Referrals: Mary Dickerson MD [Primary Care Provider] - 04/12/25 10:00 am Diet: Regular Addtl Attending Provider Instructions: Will recommend followup with PCP in 1-2 weeks. You were evaulated for a heart attack which was ruled out, a clot in your lung was also ruled out. Your EKG and echocardiogram did not show any alarming findings. You were evaluated for the need of home oxygen and thankfully it was deemed that you do not require oxygen. In regards to your followup: you may require a heart monitor but I will defer to PCP. Continue antibiotics for UTI for 3 more days. First dose tonight. Pending Studies at Discharge: No Stand-Alone Forms: My [facility], Smoking Cessation Medications and DC Order Prescriptions: Continued (DME) pen needle, diabetic [Easy Comfort Pen Yale] 31 gauge x 5/16" needle See Rx Instructions .ROUTE .MEDSUPPLY Qty: 100 1RF Rx Instructions: As directed [facility] with Basaglar E11.69, E11.59 (DME) OneTouch Ultra Test Strip See Rx Instructions .Route Qty: 100 3RF Rx Instructions: Test 2-3 times a day E11.9 Jardiance 10 mg tablet 10 mg PO DAILY Qty: 10 0RF glimepiride 4 mg tablet 4 mg PO QAM Qty: 90 1RF atorvastatin 40 mg tablet 40 mg PO HS Qty: 90 1RF escitalopram oxalate [Lexapro] 10 mg tablet 10 mg PO PM Qty: 30 3RF pregabalin 100 mg capsule See Rx Instructions PO .COMPLEX Qty: 270 3RF Rx Instructions: 1 tab in AM, and 2 tabs in PM. lisinopril 5 mg tablet 5 mg PO QAM Qty: 90 1RF Hold Instructions: Resume on 12/01/23. hold until your doctor tells you to start taking it again clonidine HCl 0.1 mg tablet 0.1 mg PO BID Qty: 180 1RF lorazepam 1 mg tablet 2 mg PO HS Qty: 60 0RF lansoprazole [Prevacid] 30 mg capsule,delayed release(DR/EC) 30 mg PO QAM Qty: 90 1RF amlodipine 10 mg tablet 10 mg PO QAM Qty: 90 1RF clopidogrel 75 mg tablet 75 mg PO QAM Qty: 90 1RF (DME) blood sugar diagnostic Strip See Rx Instructions .ROUTE .MEDSUPPLY Qty: 100 2RF Rx Instructions: As directed; test twice a day once fasting. Dx: E11.9 (DME) blood-glucose meter [OneTouch Ultra2 Meter] [facility] [place] See Rx Instructions .ROUTE .MEDSUPPLY Qty: 1 0RF Rx Instructions: As directed; test twice a day once fasting Dx: E11.9 (DME) lancets [OneTouch Delica Lancets] 33 gauge [facility] [place] See Rx Instructions .ROUTE .MEDSUPPLY Qty: 100 2RF Rx Instructions: As directed; test twice a day once fasting. Dx: ELL.9 nystatin 100,000 unit/gram powder 1 applic topical BID Qty: 15 4RF nystatin 100,000 unit/gram powder 1 applic topical TID Qty: 30 0RF miscellaneous medical supply [facility] [place] 2 ea miscellaneous DAILY Qty: 2 0RF Rx Instructions: SHOWER SAFETY BARS (DME) blood-glucose meter [OneTouch Ultra2 Meter] [facility] [place] See Rx Instructions .Route Qty: 1 0RF Rx Instructions: As directed (DME) lancets [OneTouch Delica Plus Lancet] 33 gauge [facility] [place] See Rx Instructions .Route Qty: 100 3RF Rx Instructions: As directed Azo Bladder Control 300 mg Capsule 300 cap PO BID aspirin 81 mg tablet,delayed release (DR/EC) 81 mg PO HS mirabegron [Myrbetriq] 25 mg tablet extended release 24 hr 25 mg PO PM nitroglycerin [Nitrostat] 0.4 mg tablet, sublingual 0.4 mg Sublingual UD PRN (Reason: Chest Pain) Rx Instructions: as needed for chest pain : one tablet under the tongue, every five minutes up to 3 doses. ciprofloxacin HCl 500 mg tablet 500 mg PO BID Qty: 6 0RF Discharge Orders: Discharge Order (Routine); Ordered 04/03/25 Ordered By: Peter Espitia/Other Patient Handouts: High Blood Sugar (Hyperglycemia), Managing Type 2 Diabetes Admission Data Admit Date/Time: 04/01/25 21:50 Attending Provider: Peter Pfeiffer Admit Provider: Jorden Park Primary Care Provider: Mary Dickerson Other Interventions: Discharge Summary Assessment (RN) Last Done: 04/03/25 11:45 Hospital Stay Data Consultations 04/01/25 20:32 ED Decision to Admit Stat Diagnostic Imagining Performed 04/01/25 16:57 CT abd pelvis wo con Stat 04/01/25 17:01 CT chest diagnostic wo con Stat CT head/brain wo con Stat 04/01/25 21:26 US venous doppler LE BI Urgent Pending Results Patient Have Any Pending Studies at Discharge: No Discharge Instructions Given to Patient (Per Discharging Provider) Will recommend followup with PCP in 1-2 weeks. You were evaulated for a heart attack which was ruled out, a clot in your lung was also ruled out. Your EKG and echocardiogram did not show any alarming findings. You were evaluated for the need of home oxygen and thankfully it was deemed that you do not require oxygen. In regards to your followup: you may require a heart monitor but I will defer to PCP. Continue antibiotics for UTI for 3 more days. First dose tonight. Total Time Total Time Spent Total Time Spent (In Minutes): 32 Coding Level of Care Code 89213 INP/OBS DISCH >30 MIN Diagnoses Acute pain of left shoulder M25.512 Hypoxia R09.02 Acute UTI N39.0 Hypomagnesemia E83.42 Type 2 diabetes mellitus with diabetic polyneuropathy, without long-term current use of insulin E11.42 Diabetes mellitus complication detail: with polyneuropathy Diabetes mellitus complication status: with neurologic complications Diabetes mellitus remote computer terminal operator insulin use: without shelter use
[2025-04-03 11:46] VITALS: PULSE 98
--- NOTE | 2025-04-04 06:18 | Electrocardiogram Report ---
Test Reason : Blood Pressure : */* mmHG Vent. Rate : 77 BPM Atrial Rate : 77 BPM P-R Int : 176 ms QRS Dur : 130 ms QT Int : 442 ms P-R-T Axes : 55 -22 76 degrees QTcB Int : 500 ms Sinus rhythm with occasional Premature ventricular complexes and Fusion complexes Left bundle branch block Abnormal ECG When compared with ECG of 01-Apr-2025 16:44, No significant change Confirmed by Emmanuel Knox ([id number]) on 04/04/2025 6:17:33 AM Referred By: REFERRED SELF Confirmed By: Emmanuel Knox
== END 2025-04-03 13:00 | disposition home or self-care (01) ==
LOC: 2W 16:39 → ED 16:39 → SUATTDRO 21:50 → 2W 23:24